=== PATIENT | male | born 1945 | race Caucasian/White ===

== ENCOUNTER 2017-09-21 16:34 | Inpatient (IN) | payer MEDICARE, OTHER ==
[2017-09-21] MEDS ORDERED: Albuterol Sulfate 2.5 mg/3 ml Neb ONE (16:44)
[2017-09-21] MEDS ORDERED: Azithromycin 500 MG VIAL ONE (16:56)
[2017-09-21 17:08] LABS: Sodium 132 mmol/L (135-148)
[2017-09-21 17:09] LABS: Modified Allen's Test NOT DONE; PIP 12 cmH2O; Vent NO
[2017-09-21 17:10] LABS: Mode MASK BIPAP
[2017-09-21 17:19] LABS: #Basophils 0.1 thou/uL (0.0-0.2); #Eosinphils 0.4 thou/uL (0.0-0.7); #Lymphocytes 1.8 thou/uL (1.20-3.40); #Monocytes 1.7 thou/uL (0.11-0.59); #Neutrophils 11.5 thou/uL (1.40-6.50); %Basophils 0.4 % (0.0-1.0); %Eosinophils 2.3 % (0.0-10.0); %Lymphocytes 11.9 % (21.0-51.0); %Monocytes 11.2 % (0.0-10.0); Hematocrit 41.9 % (42.0-52.0); Mean Platelet Volume 7.5 fL (7.4-10.4); Red Blood Cell (RBC) Count 4.56 mill/uL (4.70-6.10); White Blood Cell (WBC) Count 15.4 thou/uL (4.8-10.8)
[2017-09-21 17:27] LABS: PTT 29.8 SEC (22.9-36.1)
[2017-09-21 17:31] LABS: Lactic Acid - Sepsis 0.9 mmol/L (0.5-2.2)
[2017-09-21 17:34] LABS: ALT (SGPT) 20 U/L (8-55); AST (SGOT) 14 U/L (5-34); Alkaline Phosphatase 64 U/L (40-150); Anion Gap 16 mmol/L (10-20); BUN (Urea Nitrogen) 11 mg/dL (8.4-25.7); Bilirubin, Total 0.5 mg/dL (0.2-1.2); CK (CPK) 40 U/L (30-200); Calc. Creatinine Clearance 0 mL/min (70-130); Calcium 9.2 mg/dL (7.8-10.44); Carbon Dioxide 24 mmol/L (23-31); Chloride 95 mmol/L (98-107); Estimated GFR-MDRD Greater than 90; Globulin 2.4 g/dL (2.4-3.5); Lipase 9 U/L (8-78); Protein, Total 6.4 g/dL (5.8-8.1)
[2017-09-21 17:38] LABS: Troponin I Less than 0.010 ng/mL (< 0.028)
--- NOTE | 2017-09-21 17:38 | RAD ---
CHEST ONE VIEW 09/21/17 HISTORY: Dyspnea. COMPARISON: Chest one view 06/03/17. FINDINGS: The lungs are hyperinflated suggesting obstructive pulmonary disease. Right lower lobe granuloma is present. The cardiac silhouette and mediastinal contours are similar. IMPRESSION: COPD. No evidence of pneumonia. POS: [facility]
[2017-09-21 18:55] LABS: Bilirubin Negative (Negative); Blood, Urine Trace (Negative); Glucose, Urine (Dipstick) Negative (Negative); Ketone, Urine 15 mg/dL (Negative); Nitrite Negative (Negative); Protein, Urine (Dipstick) Trace mg/dL (Neg-Trace); Urobilinogen 0.2 mg/dL (0.2-1.0)
[2017-09-21 18:57] LABS: Bacteria/HPF None Seen HPF (None Seen); Hyaline Casts/LPF 7-10 HYALINE CAST LPF (0-3 Hyaline); Squamous Epithelial 0-3 HPF (0-3)
[2017-09-21] MEDS ORDERED: Acetaminophen 325 MG TAB PO PRN (19:31)
[2017-09-21] MEDS ORDERED: Ondansetron ODT 4 MG TAB PO PRN (19:31)
[2017-09-21] MEDS: Famotidine 20 MG TAB PO SCH (19:52)
[2017-09-21] MEDS: guaiFENesin 200 MG TAB PO SCH (19:52)
[2017-09-21] MEDS: cefTRIAXone\\ROCEPHIN 1 GM, Syringe 0.4 ML in Sterile Water 9.6 ML IVPB SCH (19:54)
[2017-09-21 20:20] VITALS: BMI 21.4
[2017-09-21] MEDS: Albuterol Sulfate 2.5 mg/3 ml Neb NEB SCH ×3 (22:09→22:14)
--- NOTE | 2017-09-21 23:56 | HP ---
DATE OF ADMISSION: 09/21/2017 PRIMARY CARE PHYSICIAN: Dr. Pulido. CHIEF COMPLAINT: Severe shortness of breath. HISTORY OF PRESENT ILLNESS: This is a 72-year-old male with past medical history of COPD, who presented to the emergency room with several days of shortness of breath, cough, and wheezing. He had been attempting to treat at home with his normal COPD medications as well as nebulized DuoNe b. However, he was worsening. In the ER, he has been placed on BiPAP, given albuterol nebulizer an d azithromycin. He does report feeling better since he got here, he still requires BiPAP. His bloo d gas reveals normal pH with elevated CO2 and elevated O2 and bicarbonate. ALLERGIES: No known drug allergies. MEDICATIONS: 1. DuoNeb p.r.n. 2. Symbicort 160/4.5 mg 2 puffs inhaled b.i.d. 3. Ventolin HFA 2 sprays q.4-6 hours p.r.n. for shortness of breath and cough. 4. Prednisone 10 mg p.o. every other day. 5. Spiriva 18 mcg 1 inhalation daily. 6. Omeprazole 40 mg p.o. q. day. 7. Guaifenesin 400 mg 1 tab b.i.d. p.r.n. for cough. 8. Home oxygen at 2 liters. PAST MEDICAL HISTORY: 1. Chronic obstructive pulmonary disease exacerbation. 2. Home oxygen use. PAST SURGICAL HISTORY: 1. Appendectomy. 2. Hernia repair. 3. Tonsils and adenoids. 4. Colon perforation repair. SOCIAL HISTORY: Admits to being a former smoker. Reports one beer a day. Denies illicit drugs. REVIEW OF SYSTEMS: General: Denies fever, chills, weight change, appetite change. HEENT: Denies headache, vision changes, sore throat, dysphagia. Skin: Denies rashes or lesions. Cardiovascular: Denies chest pain, palpitations. Respiratory: Reports shortness of breath and cough. Gastrointe stinal: Denies nausea, vomiting, abdominal pain, and diarrhea. Genitourinary: Denies dysuria, hem aturia, and discharge. Musculoskeletal: Denies joint stiffness and swelling. Neurologic: Denies numbness, dizziness, and syncope. PHYSICAL EXAMINATION: VITAL SIGNS: Blood pressure 125/91, pulse 88, respirations 16, temperature 98.3, oxygen saturation 98% on BiPAP. GENERAL: Alert and oriented x3, in no acute distress. SKIN: No rashes or lesions. HEENT: Normocephalic. Pupils are equally round and reactive to light. Extraocular muscles are int act. Moist mucous membranes with nonerythematous throat. HEART: Regular rate and rhythm, no murmurs. LUNGS: Coarse breath sounds. No rales. ABDOMEN: Nontender, nondistended. Bowel sounds heard throughout. MUSCULOSKELETAL: Normal strength and range of motion. NEUROLOGIC: Cranial nerves II-XII intact. Sensation within normal limits. LABORATORY AND X-RAY FINDINGS: White blood cell count 15.4, hemoglobin 13.9, hematocrit 41.9, MCV 9 1.8, platelets 423, neutrophils 74%. Blood gas pH 7.36, CO2 of 53.2, O2 169.6, bicarbonate 29.4, base excess 2.9. Sodium 131, potassium 4.3, chloride 95, carbon dioxide 24, BUN 11, creatinine 0.78, glucose 89, lact ic acid 0.9, calcium 9.2, total bilirubin 0.5, AST 14, ALT 20, alkaline phosphatase 64, total protei n 64, albumin 4.0, lipase 9. CK 40, CK-MB 2.6, troponin less than 0.010. Chest x-ray shows evidence of COPD. No infiltrates. EKG shows sinus rhythm with a first degree AV block, no ST or T-wave changes. ASSESSMENT AND PLAN: 1. Chronic obstructive pulmonary disease exacerbation. Admit to CU. We will give antibiotics, I V steroids and DuoNeb treatments as well as keep on BiPAP for the time being. We will consult Pulmo nology. His physical therapy asst that he sees in the outpatient setting is Dr. Posada. 2. Hyponatremia. We will give IV fluids to treat, this is mild at this time.
[2017-09-22 04:40] LABS: #Eosinphils 0.1 thou/uL (0.0-0.7); #Lymphocytes 0.6 thou/uL (1.20-3.40); #Monocytes 0.2 thou/uL (0.11-0.59); #Neutrophils 9.8 thou/uL (1.40-6.50); %Basophils 0.1 % (0.0-1.0); %Eosinophils 1.1 % (0.0-10.0); %Lymphocytes 5.2 % (21.0-51.0); %Monocytes 1.4 % (0.0-10.0); Hematocrit 40.4 % (42.0-52.0); Mean Platelet Volume 7.9 fL (7.4-10.4); Red Blood Cell (RBC) Count 4.36 mill/uL (4.70-6.10); White Blood Cell (WBC) Count 10.6 thou/uL (4.8-10.8)
[2017-09-22 04:50] LABS: Anion Gap 16 mmol/L (10-20); BUN (Urea Nitrogen) 11 mg/dL (8.4-25.7); Calc. Creatinine Clearance 84 mL/min (70-130); Calcium 8.8 mg/dL (7.8-10.44); Carbon Dioxide 24 mmol/L (23-31); Chloride 99 mmol/L (98-107); Estimated GFR-MDRD Greater than 90
--- NOTE | 2017-09-22 08:19 | CON ---
DATE OF CONSULTATION: 09/22/2017 REASON FOR CONSULTATION: Chronic obstructive pulmonary disease exacerbation. HISTORY OF PRESENT ILLNESS: This is a 72-year-old male. He is a patient of my partner, Dr. Posada. He came in yesterday with a several day history of increasing shortness of breath, cough, and wheezi ng. His breathing has gotten so bad that he has recently been put on a Trilogy ventilator at home. He is only able to tolerate that for an hour or two a day, because he says it dries his mouth out. Yesterday, he required institution of BiPAP therapy for COPD exacerbation. He feels a little better this morning and wants breakfast. PAST MEDICAL HISTORY: Severe chronic obstructive pulmonary disease. PAST SURGICAL HISTORY: 1. Appendectomy. 2. Hernia repair. 3. Tonsillectomy and adenoidectomy. 4. Colon perforation repair. ALLERGIES: None. MEDICATIONS: DuoNeb, Symbicort, Ventolin, prednisone 10 mg every other day, Spiriva, omeprazole, gu aifenesin. SOCIAL HISTORY: Former smoker, drinks 1 beer a day. Does not use any illicit drugs. REVIEW OF SYSTEMS: Denies fever, chills, nausea, vomiting, hematemesis, melena, hematochezia, hemat uria, or dysuria. PHYSICAL EXAMINATION: VITAL SIGNS: Temperature 98.4, pulse 77, blood pressure 114/70, O2 sat 97%. GENERAL: He is awake and alert. I was able take his BiPAP off this morning. HEENT: Unremarkable. NECK: No adenopathy or JVD. LUNGS: He has bilateral mild end expiratory wheezing. CARDIOVASCULAR: S1, S2 regular, without murmur. ABDOMEN: Soft, nontender, nondistended. EXTREMITIES: No clubbing, cyanosis, or edema. NEUROLOGIC: Nonfocal. SKIN: Nonfocal. LABORATORY DATA: White blood cell count 10.6, hematocrit 40.4, platelet count 404. Sodium 134, pot assium 4.6, chloride 99, CO2 24, BUN 11, creatinine 0.7, glucose 120. ASSESSMENT: Chronic obstructive pulmonary disease with exacerbation. PLAN: 1. Try off BiPAP therapy and see if he tolerates. 2. Continue steroids and nebulization therapy. 3. Continue antibiotics.
[2017-09-22] MEDS: Famotidine 20 MG TAB PO SCH ×2 (08:36→20:10)
[2017-09-22] MEDS: guaiFENesin 200 MG TAB PO SCH ×2 (08:36→20:10)
[2017-09-22] MEDS ORDERED: Spiriva 18 MCG CAP (Box of 5 Caps) INH SCH (09:00)
[2017-09-22] MEDS: Mometasone/Formoterol 120 PUFF INHALER INH SCH ×2 (11:04→18:38)
--- NOTE | 2017-09-22 16:16 | PRG ---
DATE OF SERVICE: 09/22/2017 HISTORY OF PRESENT ILLNESS: The patient remains short of breath. He attempted to remove BiPAP this a.m. for breakfast and had to be replaced back on it. Nursing staff plans to attempt to wean the p atient off later today as well. Per Dr. Byers's recommendations, he slept more comfortably last n ight while on BiPAP. Has no new complaints. Had been using Mucinex and albuterol treatments for in creased phlegm production prior to admission. The patient has had decreased appetite for approximat juan francisco last week or so. I spoke with at bedside. All questions were answered at that time. PHYSICAL EXAMINATION: VITAL SIGNS: Temperature this a.m. of 97.7, pulse of 73, respiratory rate of 17, oxygen saturation 96% on 40% FIO2 on BiPAP, and blood pressure of 110/68. GENERAL: The patient is alert and oriented, in mild respiratory distress, while speaking with BiPAP in place on face. NECK: Supple and nontender. HEENT: Normocephalic and atraumatic. Extraocular movements are intact. Sclerae are white. HEART: Regular rate and rhythm. No murmurs auscultated. CHEST: Full phase expiratory wheezes, bilateral lower bases and upper left lung haines. ABDOMEN: Soft and nontender, positive bowel sounds throughout. EXTREMITIES: Lower extremities without cyanosis or edema. NEUROLOGIC: The patient is alert and oriented x3, no focal deficits. Speech is normal. LABORATORY DATA: White blood cell count trended from 15.4 down to 10.6, hemoglobin at 12.8, and corrie telet count of 404. ABG showed CO2 at 53.2. Chemistry this morning 134 Sodium, potassium of 4.6, c hloride of 99, CO2 of 24, BUN of 11, creatinine 0.72, blood glucose of 120, calcium of 8.8, troponin of less than 0.01. Blood cultures negative at 1 day. Chest x-ray without any acute cardiopulmonar y events. No infiltrates seen on admission. ASSESSMENT AND PLAN: 1. Chronic obstructive pulmonary disease exacerbation. Continuing IV antibiotics, Rocephin and tl thromycin, IV steroids, Solu-Medrol 40 mg q.8 hours at this point, continued breathing treatments, P ulmonology increase and q.4 hours DuoNebs scheduled. The patient was transferred from home [facility] to do an inpatient at this point in time. We will continue acute on chronic respirato ry failure with hypercapnia. Continue BiPAP and wean as tolerated. Follow up per Pulmonology's rec ommendations. 2. Leukocytosis, following up blood culture at this point in time, currently negative. No signs of infection. Continuing antibiotics as above. 3. Prophylaxis, currently with SCDs secondary no intubation, no GI prophylaxis at this point in marietta e. We will treat symptomatically as needed with increase in steroids.
[2017-09-22] MEDS ORDERED: Azithromycin 500 MG in Sodium Chloride 0.9% 250 ML 250 ML IVPB SCH (17:00)
[2017-09-22] MEDS: cefTRIAXone\\ROCEPHIN 1 GM, Syringe 0.4 ML in Sterile Water 9.6 ML IVPB SCH (20:09)
[2017-09-23 04:49] LABS: Anion Gap 14 mmol/L (10-20); BUN (Urea Nitrogen) 18 mg/dL (8.4-25.7); Calc. Creatinine Clearance 89 mL/min (70-130); Calcium 9.2 mg/dL (7.8-10.44); Carbon Dioxide 27 mmol/L (23-31); Chloride 98 mmol/L (98-107); Estimated GFR-MDRD Greater than 90
[2017-09-23 05:09] LABS: Band 15 % (5-11); Hematocrit 38.4 % (42.0-52.0); Mean Platelet Volume 7.8 fL (7.4-10.4); Metamyelocyte 2 % (0-0); Neutrophil 75 % (42-75); Red Blood Cell (RBC) Count 4.12 mill/uL (4.70-6.10); White Blood Cell (WBC) Count 24.7 thou/uL (4.8-10.8)
[2017-09-23] MEDS: Mometasone/Formoterol 120 PUFF INHALER INH SCH ×2 (07:16→18:13)
--- NOTE | 2017-09-23 09:01 | PRG ---
DATE OF SERVICE: 09/23/2017 He was admitted over the weekend with difficulty breathing. He says he has got noninvasive ventilat ion nighttime to which he says he is having significant dryness issues. His humidifier is attached to it. This morning he is better. PHYSICAL EXAMINATION: VITAL SIGNS: Blood pressure 129/80, sats are 95% on 2 liters. His pulse 80, temperature 99. CHEST: Chest reveals decreased breath sounds, no wheezing. CARDIAC: Normal S1, S2. ABDOMEN: Soft, no masses. LABORATORY DATA: White count 24,000, H\T\H 12 and 38, platelet count normal. Electrolytes are norm al. X-ray shows no obvious infiltrates. IMPRESSION: 1. Chronic obstructive pulmonary disease exacerbation. 2. Bronchitis. 3. Bronchiectasis. PLAN: Continue neb treatments, supportive care. He will be transferred out of the ICU.
--- NOTE | 2017-09-23 09:04 | PRG ---
DATE OF SERVICE: 09/23/2017 SUBJECTIVE: This is a 72-year-old white male admitted 2 days prior with respiratory failure and corrie keshav on antibiotics and BiPAP. He has improved each day. This morning he is doing much better than I have seen him previously. He is talking in sentences, but still has respiratory difficulties. OBJECTIVE: VITAL SIGNS: Temperature 98.1, pulse 70, respirations 21, pulse ox 98 on 2 liters O2, blood pressur e 119/64. GENERAL: Moderate respiratory distress. HEART: Regular rate and rhythm. LUNGS: With bilateral expiratory wheezes and rhonchi, but is moving air. ABDOMEN: Soft. EXTREMITIES: With no edema. LABORATORY: White count 24.7, H\T\H 12 and 38, platelet of 417. Sodium 135, improving from 131, CO 2 is 27, creatinine 0.68, BUN 18, blood sugar 108. Blood cultures negative. Initial chest x-ray negative. ASSESSMENT: 1. Chronic obstructive pulmonary disease exacerbation, slowly improving. He is doing much better t ceballos his previous hospital admission. Presently on Zithromax and Rocephin. He is also receiving Kylie u-Medrol 40 IV q.8 h as well as Symbicort and DuoNeb treatments. 2. Hyponatremia, slowly improving. 3. Leukocytosis, probably reactive. PLAN: Move to telemetry and possibly discharge in the next 1-2 days.
[2017-09-23] MEDS: Sulfameth/Trimethoprim DS 800-160mg TAB PO SCH ×2 (09:31→20:44)
[2017-09-23] MEDS: guaiFENesin 200 MG TAB PO SCH (09:31)
[2017-09-23] MEDS: Famotidine 20 MG TAB PO SCH ×2 (09:32→20:44)
[2017-09-23] MEDS ORDERED: ALPRAZolam 0.25 MG TAB PO PRN (13:34)
[2017-09-23] MEDS: guaiFENesin ER 600 MG TAB PO SCH (20:44)
[2017-09-23] MEDS: cefTRIAXone\\ROCEPHIN 1 GM, Syringe 0.4 ML in Sterile Water 9.6 ML IVPB SCH (20:44)
[2017-09-24 04:54] LABS: #Lymphocytes 0.4 thou/uL (1.20-3.40); #Monocytes 1.1 thou/uL (0.11-0.59); #Neutrophils 20.1 thou/uL (1.40-6.50); %Basophils 0.1 % (0.0-1.0); %Eosinophils 0.2 % (0.0-10.0); %Monocytes 4.8 % (0.0-10.0); Hematocrit 37.5 % (42.0-52.0); Mean Platelet Volume 7.7 fL (7.4-10.4); Red Blood Cell (RBC) Count 4.03 mill/uL (4.70-6.10); White Blood Cell (WBC) Count 21.6 thou/uL (4.8-10.8)
[2017-09-24 05:19] LABS: Anion Gap 10 mmol/L (10-20); BUN (Urea Nitrogen) 21 mg/dL (8.4-25.7); Calc. Creatinine Clearance 89 mL/min (70-130); Calcium 9.3 mg/dL (7.8-10.44); Carbon Dioxide 31 mmol/L (23-31); Chloride 97 mmol/L (98-107); Estimated GFR-MDRD Greater than 90
[2017-09-24] MEDS: Mometasone/Formoterol 120 PUFF INHALER INH SCH (06:35)
[2017-09-24] MEDS: Famotidine 20 MG TAB PO SCH (09:50)
--- NOTE | 2017-09-24 10:31 | PRG ---
DATE OF SERVICE: 09/24/2017 This morning he is awake, alert, responsive. He said he is eager to go home. PHYSICAL EXAMINATION: VITAL SIGNS: Blood pressure 120/63, sats are 96% on 2 liters, temperature 97, pulse 73. CHEST: Chest revealed decreased breath sounds, occasional wheeze. CARDIAC: Normal S1-S2. ABDOMEN: Soft, no masses. LABORATORY: White count 21,000, H\T\H 12 and 37, platelet count 407. Electrolytes are normal. IMPRESSION: 1. Chronic obstructive pulmonary disease exacerbation. 2. Bronchitis. PLAN: He can be discharged home on oral prednisone, oral antibiotics. Follow up in the office in 2 weeks.
--- NOTE | 2017-09-24 10:55 | PRG ---
DATE OF SERVICE: 09/24/2017 at 8:00 a.m. SUBJECTIVE: The patient is doing well at the moment. He is not quite at baseline. He is breathing much easier than yesterday. OBJECTIVE: VITAL SIGNS: Temperature 97.4, pulse 85, respirations 24, pulse ox 99 on 2 liters O2. HEENT: Clear. HEART: Regular rate and rhythm. LUNGS: Still tight with expiratory wheezing, limited breath sounds. ABDOMEN: Soft. EXTREMITIES: No edema. LABORATORY AND X-RAY FINDINGS: White count down to 21.6, H\T\H 12 and 37, platelets 407, sodium 134 , potassium 4.3, creatinine 0.68, BUN 21. ASSESSMENT: 1. Chronic obstructive pulmonary disease exacerbation. 2. Bronchitis. 3. Bronchiectasis. 4. Long tobacco history. 5. Hyponatremia secondary to chronic obstructive pulmonary disease and lung disease. 6. Leukocytosis, improving. PLAN: 1. I had a long discussion about the DNR. Patient has not made up his mind. He is unsure about th e ventilator, but for right now he is requesting ventilators assistance if he goes into respiratory failure. He is aware that if he does go into respiratory failure a ventilator will be utilized. He is also aware that if he goes on the ventilator, he probably will not come off of the ventilator. He plans to make a final decision in the next 1-2 days. 2. Continue all breathing treatments and steroids. 3. Prognosis is poor.
[2017-09-24] MEDS: Sulfameth/Trimethoprim DS 800-160mg TAB PO SCH (10:57)
[2017-09-24] MEDS: guaiFENesin ER 600 MG TAB PO SCH (10:59)
[2017-09-24 13:10] VITALS: BP 140/73; TEMP 97.9
[2017-09-24] MEDS ORDERED: Cefdinir 300 MG CAP PO SCH (21:00)
[2017-09-24] MEDS ORDERED: predniSONE 20 MG TAB PO SCH (21:00)
--- NOTE | 2017-09-24 21:03 | DIS ---
DATE OF ADMISSION: 09/21/2017 DATE OF DISCHARGE: 09/24/2017 DISCHARGE DIAGNOSES: 1. Chronic obstructive pulmonary disease exacerbation. 2. Bronchitis. 3. Bronchiectasis. 4. Long tobacco history. 5. Hyponatremia secondary to chronic obstructive pulmonary disease and lung disease. 6. Leukocytosis, improving. BRIEF HISTORY: This is a 72-year-old white male with a long history of tobacco use and COPD, presen cadence to the emergency room with shortness of breath, cough and wheezing. He had been attempting to t reat himself at home without success. However, his shortness of breath became progressively worse. He then presented to the ER where he was admitted. HOSPITAL COURSE: The patient was admitted to the ICU. He was started on BiPAP for 2 days. He impr jake significantly. He was then transferred over to the floor where he continued to improve with hi s antibiotics, breathing treatments, BiPAP and steroids. He is now ready for discharge. His progno sis is very poor. DISCHARGE MEDICATIONS: Include DuoNebs p.r.n., Symbicort 160/4.5 two puffs b.i.d., Ventolin HFA 2 s prays q.4 hours p.r.n., prednisone 10 p.o. every other day, Spiriva 18 mcg 1 inhalation q. day, omep razole 40 q. day, guaifenesin 400 one p.o. b.i.d. and home oxygen at 2 liters.
== END 2017-09-24 15:59 | disposition home or self-care (01) | DRG 190 ==
LOC: ERS 16:34 → CCU 19:12 → 2NO 09-23 17:49
PROVIDERS: ADMIT Family Medicine; ATTEND Family Medicine
PROC: 5A09357 Assistance with Respiratory Ventilation, Less than 24 Consecutive Hours, Continuous Positive Airway Pressure (ICD-10-PCS; principal; 2017-09-21)
PROC: 5A09357 Assistance with Respiratory Ventilation, Less than 24 Consecutive Hours, Continuous Positive Airway Pressure (ICD-10-PCS; 2017-09-23)
PROC: 5A09357 Assistance with Respiratory Ventilation, Less than 24 Consecutive Hours, Continuous Positive Airway Pressure (ICD-10-PCS; 2017-09-24)
DX: J47.1 Bronchiectasis with (acute) exacerbation (principal); J96.22 Acute and chronic respiratory failure with hypercapnia; Z99.81 Dependence on supplemental oxygen; E87.1 Hypo-osmolality and hyponatremia; Z87.891 Personal history of nicotine dependence
CPT/HCPCS: 36415; 71010; 80048; 80053; 81003; 81015; 82550; 82553; 82805; 83605; 83690; 83880; 84484; 85025; 85610; 85730; 87040; 93005; 94644; 94660; 96365; A4216; J0456; J0696; J2920; J7050; J7611; J7620

== ENCOUNTER 2018-04-28 10:18 | Outpatient (CLI) | payer MEDICARE, OTHER ==
[2018-04-28 10:52] LABS: Estimated GFR-MDRD - POC Greater than 90
[2018-04-28] MEDS ORDERED: ISOVUE-370 76%-LOCM 1 ML ONE (10:58)
== END 2018-04-28 10:19 | disposition home or self-care (01) ==
LOC: BICCT 10:18
PROVIDERS: ATTEND Urology
DX: R31.29 Other microscopic hematuria (principal); N32.3 Diverticulum of bladder; N40.0 Benign prostatic hyperplasia without lower urinary tract symptoms; K76.9 Liver disease, unspecified; N28.9 Disorder of kidney and ureter, unspecified
CPT/HCPCS: 74178; 82565

== ENCOUNTER 2018-07-11 07:04 | Inpatient (IN) | payer MEDICARE, OTHER ==
[2018-07-11] MEDS ORDERED: Midazolam HCl 2 mg/2 ml Vial ONE ×2 (07:16→09:19)
[2018-07-11] MEDS ORDERED: Propofol 1,000 MG/100 ML VIAL IV ONE (07:16)
[2018-07-11 07:41] LABS: Hemoglobin 13.2 g/dL (14.0-18.0); Mean Corpuscular HGB CONC 31.6 g/dL (32.0-36.0); Mean Corpuscular Hemoglobin 29.7 pg (27.0-31.0); Mean Platelet Volume 8.1 fL (7.4-10.4); Platelet Count 414 thou/uL (130-400); RBC Distribution Width 13.1 % (11.5-14.5); Red Blood Cell (RBC) Count 4.46 mill/uL (4.70-6.10); White Blood Cell (WBC) Count 22.2 thou/uL (4.8-10.8)
[2018-07-11 07:49] LABS: ALT (SGPT) 16 U/L (8-55); AST (SGOT) 13 U/L (5-34); Albumin 4.2 g/dL (3.4-4.8); Alkaline Phosphatase 67 U/L (40-150); Anion Gap 13 mmol/L (10-20); BUN (Urea Nitrogen) 13 mg/dL (8.4-25.7); Bilirubin, Total 0.5 mg/dL (0.2-1.2); CK (CPK) 23 U/L (30-200); Calc. Creatinine Clearance 0 mL/min (70-130); Calcium 9.6 mg/dL (7.8-10.44); Carbon Dioxide 31 mmol/L (23-31); Chloride 97 mmol/L (98-107); Estimated GFR-MDRD Greater than 90; Globulin 2.6 g/dL (2.4-3.5); Glucose 217 mg/dL (83-110); Potassium 4.2 mmol/L (3.5-5.1); Protein, Total 6.8 g/dL (5.8-8.1); Sodium 137 mmol/L (136-145)
--- NOTE | 2018-07-11 07:50 | RAD ---
CHEST 1 VIEW: HISTORY: A 72-year-old male, history of post-intubation, respiratory distress. COMPARISON: 09/21/17. FINDINGS: There is a large left-sided pneumothorax primarily involving the lower portion of the chest with some minimal depression of the left hemidiaphragm and some very slight shift of midline to the right. Th is appearance certainly suggests some tension. There are some atelectatic changes in the left lower lobe. Heart size is within normal limits. `The right lung is stable. IMPRESSION: Large left-sided pneumothorax primarily in the lower chest with minimal flattening of the left hemidi aphragm and borderline shift of midline to the right, evidence for some tension. Endotracheal tube i n a somewhat high position with the tip at appropriately theT2-T3 level which should probably be adva nced several centimeters for more optimal positioning. Findings in regards to the endotracheal tube and pneumothorax were discussed with Dr. Das at [facility] 7:40 a.m. CODE CR POS: [facility]
[2018-07-11 07:54] LABS: CKMB 1.6 ng/mL (0-6.6); Troponin I Less than 0.010 ng/mL (< 0.028)
[2018-07-11 07:57] LABS: Band 9 % (5-11); Eosinophils 3 % (0-10); Lymphocytes 14 % (21-51); MDiff Complete? YES; Monocytes 10 % (0-10); Myelocyte 1 % (0-0); Neutrophil 61 % (42-75); RBC Morphology Normal; Reactive Lymphocytes 2 % (0-10)
[2018-07-11] MEDS ORDERED: Albuterol Sulfate 2.5 mg/0.5 ml Neb ONE (08:08)
[2018-07-11 08:31] LABS: CO2 Tension 43.3 mmHg (35.0-45.0); pH, Arterial 7.42 (7.35-7.45)
[2018-07-11 08:32] LABS: Actual Bicarbonate (HCO3a) 27.3 mEq/L (22-28); Base Excess (BEa) 2.5 mEq/L (-2.0 to +3.0); Calcium, Ionized 1.1 mmol/L (1.12-1.30); Carboxyhemoglobin (COHb) 0.4 gm% (0.0-3.0); O2 Tension (PaO2) 55.9 mmHg (> 70.0); Potassium - ABG Lab 3.1 mmol/L (3.70-5.30)
[2018-07-11 08:33] LABS: Analyzer IN Cardio ER; Puncture Site L.R.
[2018-07-11 08:34] LABS: ALV-art Gradient 175.175 (0-20)
[2018-07-11] MEDS ORDERED: Lidocaine 1% (PF) 30 ML VIAL ONE (08:34)
[2018-07-11 08:44] LABS: Bilirubin Negative (Negative); Blood, Urine Small (Negative); Glucose, Urine (Dipstick) Negative (Negative); Leukocyte Negative (Negative); Nitrite Negative (Negative); Protein, Urine (Dipstick) Negative (Neg-Trace); Specific Gravity, Urine 1.025 (1.005-1.030); Urobilinogen 0.2 mg/dL (0.2-1.0)
[2018-07-11 08:47] LABS: Clarity Clear (Clear)
--- NOTE | 2018-07-11 08:49 | RAD ---
RADIOGRAPH CHEST 1 VIEW: Date: 07/11/18. Time: 7:06 a.m. HISTORY: A 72-year-old male with respiratory distress and pneumothorax. COMPARISON: 07/11/18, 6:38 a.m. FINDINGS: This is a supine image. The large left pneumothorax has become larger, with a greater degree of atel ectasis of the left lung. No cardiomediastinal shift from midline. Endotracheal tube has been advan keshav such that its distal tip is now 6 cm superior to the radha. There is a thin, small-caliber plas tic tube overlying the left lung apex. It is uncertain whether or not this is a pleural catheter. T here is hyperlucency of the right lung consistent with COPD. No cardiomegaly. An enteric catheter i s now present in the esophagus, distal tip inferior to the diaphragm and outside of the field of view . IMPRESSION: 1. Large left pneumothorax has increased in size. 2. Advancement of endotracheal tube to midthoracic trachea. 3. Interval placement of enteric catheter through the esophagus, distal tip outside of the field of v iew. 4. Severe emphysema. JN [] POS: [facility]
[2018-07-11 08:58] LABS: Bacteria/HPF Rare-Few HPF (None Seen); RBC/HPF 0-3 HPF (0-3); Squamous Epithelial 0-3 HPF (0-3); WBC/HPF 0-3 HPF (0-3)
[2018-07-11] MEDS ORDERED: fentaNYL Citrate/PF 2,000 MCG in Sodium Chloride 0.9% 60 ML IV SCH ×2 (09:25→10:28)
--- NOTE | 2018-07-11 09:31 | RAD ---
CHEST 1 VIEW: HISTORY: Post chest tube insertion. COMPARISON: Radiograph of same day. FINDINGS: Interval placement of a thoracostomy tube with the tip near the midline. Size decreased left pneumot horax. Reexpansion of pulmonary edema left lower lobe. Subcutaneous emphysema left lung base. IMPRESSION: Mild interval improvement of the left side pneumothorax with indwelling thoracostomy tube. POS: [facility]
[2018-07-11] MEDS ORDERED: DISCONTINUE PREVIOUS NARCOTIC PAIN MEDICATIONS AND BENZODIAZEPINES FS SCH (10:28)
[2018-07-11] MEDS ORDERED: Lorazepam 2 MG/ML VIAL SLOW IVP PRN (10:28)
[2018-07-11] MEDS ORDERED: Fentanyl BOLUS 250 ML IVPB PRN (10:28)
[2018-07-11] MEDS ORDERED: Propofol BOLUS 1,000 MG/100 ML VIAL IV PRN (10:28)
[2018-07-11] MEDS ORDERED: Ventilator Sedation Protocol 1 EACH FS SCH (10:30)
--- NOTE | 2018-07-11 11:02 | CON ---
DATE OF CONSULTATION: 07/11/2018 REQUESTING PHYSICIAN: Dr. Das, [facility], Dr. Posada. CHIEF COMPLAINT: Respiratory distress. HISTORY OF PRESENT ILLNESS: History is obtained from the ER personnel caring for the patient and the patient's family that were at the bedside. Mr. Kruse is a 72-year-old man with severe COPD who is de pendent upon oxygen, steroids and bronchodilators. This morning he became more short of breath which was not relieved by using a rescue inhaler. His breathing got bad enough that he was brought to the emergency room and on presentation, he was in sufficient distress that he was immediately intubated. The patient's COPD is severe enough that breath sounds are very difficult to appreciate at all and on the post-intubation film a large left-sided pneumothorax could be appreciated. He was hemodynamic ally stable, although later on propofol, his blood pressure dropped some responding to fluids and dec reasing the propofol. A needle thoracostomy was performed, achieving an air hanson but there was not m uch additional reexpansion of the lung and I was contacted about chest tube placement. PAST MEDICAL HISTORY: Primarily significant for COPD that Dr. Posada describes as being end-stage. HOME MEDICATIONS: Based on the most recent computerized summary are prednisone, Ventolin rescue inha ler, Spiriva daily, scheduled DuoNeb nebulizers and Symbicort b.i.d. He is on b.i.d., guaifenesin and oxymetazoline and at least had been on a course of Bactrim b.i.d. ALLERGIES: He has no known allergies to food or medicine. TOBACCO: He no longer smokes. REVIEW OF SYSTEMS: As obtained from the patient's daughter is negative for any recent illnesses, judit nge in his cough or change in the quantity or character of sputum production. PHYSICAL EXAMINATION: GENERAL: The patient is sedated and intubated. VITAL SIGNS: Heart rates around 100 and systolic blood pressures in the 90s. He is afebrile. CHEST: He has a small philip in his left upper chest from where the needle catheter had been, but had come out. I am not able to appreciate breath sounds on either side, but there is no obvious asymmetr y to the chest. ABDOMEN: Soft and nontender. EXTREMITIES: He has a faintly palpable right dorsalis pedis pulse. SKIN: His face is a little jake, but his family indicates that it is minimally if any different demarco n his baseline. NECK: He has no obvious JVD or tracheal shift. His chest x-ray shows a near complete collapse of the left lung. ASSESSMENT AND RECOMMENDATIONS: By all accounts the spontaneous pneumothorax leading to respiratory distress in a patient with extremely severe chronic obstructive pulmonary disease. I will plan on pl acing a chest tube.
--- NOTE | 2018-07-11 11:05 | OP ---
DATE OF PROCEDURE: 07/11/2018 PROCEDURES PERFORMED: 36 Tristanian left tube thoracostomy. PREOPERATIVE DIAGNOSIS: Spontaneous left pneumothorax. POSTOPERATIVE DIAGNOSIS: Spontaneous left pneumothorax. SURGEON: Benny Daniels M.D. ANESTHESIA: 1% lidocaine local anesthesia with propofol sedation. INDICATIONS: The patient is a 72-year-old man with severe COPD who had sudden onset of worsening of his breathing that progressed to respiratory distress sufficient to call for immediate intubation upo n arrival at the emergency room. He was found to have a large left-sided pneumothorax on his chest x -ray and a chest tube is now being placed. FINDINGS: Air hanson heard upon entering the chest, near continuous air leak from the chest tube in th e Pleur-evac. NARRATIVE REPORT: After informed consent was obtained from the patient's family, the patient's left chest was prepped and draped in sterile fashion. 1% lidocaine was used to infiltrate the skin and garcía bcutaneous tissue at the nipple line at the level of the xiphoid. The skin was sharply incised and t he subcutaneous tract was developed superiorly and posteriorly paralleling the rib margins. Addition al lidocaine is infiltrated along the superior rib margin and then the needle was aspirated upon as i t was advanced until air bubbles were obtained. It was then slowly withdrawn until no more air was e vacuated and a bolus of lidocaine was infiltrated into the intercostal space. Blunt dissection was t hen used to enter the pleural space and when air hanson was heard a 36 Tristanian chest tube was inserted, secured to the skin with suture and dressed and connected to closed suction drainage. Post-procedure chest x-ray showed near complete reexpansion of the lung.
--- NOTE | 2018-07-11 11:10 | CON ---
DATE OF CONSULTATION: 07/11/2018 HISTORY: Meggan Kruse is a 72-year-old gentleman who is well known to me who has end-stage COPD who f or a period of time was placed home on noninvasive ventilation. He said it was not of much use. He therefore was discontinued. He presented to the hospital this morning with severe respiratory distre ss. He was on CPAP, sats 100%. DuoNeb treatments. He was having chest pain apparently. X-ray shows a large left-sided pneumothorax greater than 50%. He was intubated. He is now in the [facility]. PAST MEDICAL HISTORY: 1. Pertinent for end-stage chronic obstructive pulmonary disease. 2. Major anxiety. 3. Hypertension. MEDICATIONS: [place], Symbicort, DuoNeb, albuterol, prednisone, Spiriva. PAST SURGICAL HISTORY: Tonsils, appendix, hernia. ALLERGIES: None. SOCIAL/FAMILY HISTORY: Otherwise, unremarkable. He is retired. Disabled. TOBACCO/ALCOHOL: Tobacco; former smoker. Alcohol none. REVIEW OF SYSTEMS: Ten point negative. PHYSICAL EXAMINATION: GENERAL: He is intubated on the vent. VITAL SIGNS: Pulse 76, blood pressure 102/53, sats 100%, respiratory rate 16. GENERAL: Awake, alert, responsive. CHEST: Chest revealed decreased breath sounds, no wheezing. CARDIAC: Normal S1, S2, no gallops. ABDOMEN: Soft. No mass. LABORATORY: White count 20,000, H&H 13 and 41, platelet count of 414. His pO2 is 55, pCO2 47.42, on 40%. Her electrolytes are normal. IMPRESSION: 1. Chronic obstructive pulmonary disease exacerbation. 2. Left-sided spontaneous pneumothorax. PLAN: Initiate empiric antibiotics, neb treatments, supportive care. Incidentally, his chest x-ray post-chest tube insertion shows no acute infiltrates. Wean when stable. Steroids, neb treatments, supportive care. Discussed with the family and . 45 minutes critical care time.
[2018-07-11] MEDS: cefTRIAXone\\ROCEPHIN 1 GM in Sodium Chloride 0.9% 100 ML IVPB SCH (11:30)
[2018-07-11] MEDS: Sodium Chloride 0.9% 1,000 ML IV SCH ×2 (11:31→23:00)
[2018-07-11 12:01] LABS: Lactic Acid 1.6 mmol/L (0.5-2.2)
[2018-07-11] MEDS: Propofol 1,000 MG/100 ML VIAL IV PRN (14:03)
--- NOTE | 2018-07-11 14:17 | HP ---
HISTORY OF PRESENT ILLNESS: This is a 72-year-old white male with a history of end-stage severe COPD with a 50-year plus tobacco history, who was doing relatively well until 6:45 a.m. this morning. He went out to get the newspaper, which tends to be a struggle for the patient. He returned into the h ouse and immediately had sudden onset of shortness of breath. His then called EMS. He presente d to the emergency room where they discovered to have a 50% left-sided pneumothorax. Chest tube was placed and the patient was intubated and he is now stable in the ICU. PAST MEDICAL HISTORY: Include COPD, tobacco, and alcohol abuse. The patient is DNR. PAST SURGICAL HISTORY: Include appendectomy, tonsillectomy, right hernia repair, cardiac catheteriza tion in 1980, history of colon perforation in 09/2008, TURP in 11/[address] Reynolds, and I&D right f orearm in 02/2018. FAMILY HISTORY: Father with heart disease and emphysema. Mother . Sibling with heart disea se and lymphoma. SOCIAL HISTORY: He lives with his . She recently just had a major stroke. However, she is ana vering at this time. However, she is not back to her baseline. She has some personality changes. Marques webster do have several children. He no longer smokes, but he does have a 50-year tobacco history. He i s a retired [employer]. MEDICATIONS: Include DuoNeb neb treatments p.r.n., Spiriva daily, guaifenesin 400 b.i.d., home O2 at 2 liters nasal cannula, prednisone 10 mg every other day, and Symbicort 160/4.5 two puffs b.i.d. ALLERGIES: None. REVIEW OF SYSTEMS: As above. PHYSICAL EXAMINATION: VITAL SIGNS: Afebrile, blood pressure 99/55, heart rate 76, respirations 21, and O2 sat 96% on the v entilator. GENERAL: No acute distress at this time. HEENT: Clear. HEART: Regular rate and rhythm. LUNGS: Left-sided pleuritic rub noted. Right side with shallow breath sounds. ABDOMEN: Soft, nontender. EXTREMITIES: No edema. LABORATORY AND X-RAY FINDINGS: White count 22.2, H&H 13 and 41. Electrolytes normal. Creatinine 0. 79, BUN 13, blood sugar 217. Liver function tests normal. Last chest x-ray shows interval improveme nt of the left-sided pneumothorax with chest tube in place. ASSESSMENT: 1. Left-sided pneumothorax status post chest tube placement. 2. Acute respiratory failure on the ventilator, stable at this time. 3. Severe end-stage chronic obstructive pulmonary disease. 4. Do not resuscitate. PLAN: 1. Continue to monitor in the ICU. 2. Maintain the ventilator, most likely overnight. 3. Hopefully, can discontinue the chest tube in the a.m. 4. We will continue to follow.
[2018-07-11] MEDS: Famotidine/PF 20 mg/2ml Vial SLOW IVP SCH (21:22)
[2018-07-12] MEDS: Propofol 1,000 MG/100 ML VIAL IV PRN (03:37)
[2018-07-12 04:57] LABS: #Eosinphils 0.1 thou/uL (0.0-0.7); #Lymphocytes 0.7 thou/uL (1.20-3.40); #Monocytes 2.6 thou/uL (0.11-0.59); #Neutrophils 16.4 thou/uL (1.40-6.50); %Eosinophils 0.3 % (0.0-10.0); %Lymphocytes 3.7 % (21.0-51.0); %Neutrophils 82.9 % (42.0-75.0); Hemoglobin 11.8 g/dL (14.0-18.0); Mean Corpuscular HGB CONC 32.5 g/dL (32.0-36.0); Mean Corpuscular Hemoglobin 30.2 pg (27.0-31.0); Mean Corpuscular Volume 92.7 fL (78.0-98.0); Mean Platelet Volume 7.8 fL (7.4-10.4); Platelet Count 335 thou/uL (130-400); RBC Distribution Width 13.2 % (11.5-14.5); Red Blood Cell (RBC) Count 3.92 mill/uL (4.70-6.10); White Blood Cell (WBC) Count 19.8 thou/uL (4.8-10.8)
[2018-07-12 05:10] LABS: Anion Gap 10 mmol/L (10-20); BUN (Urea Nitrogen) 19 mg/dL (8.4-25.7); Calc. Creatinine Clearance 104 mL/min (70-130); Calcium 8.6 mg/dL (7.8-10.44); Carbon Dioxide 28 mmol/L (23-31); Chloride 103 mmol/L (98-107); Estimated GFR-MDRD Greater than 90; Glucose 90 mg/dL (83-110); Potassium 4.7 mmol/L (3.5-5.1); Sodium 136 mmol/L (136-145)
[2018-07-12] MEDS: Sodium Chloride 0.9% 1,000 ML IV SCH ×4 (06:12→20:48)
[2018-07-12 06:57] LABS: CO2 Tension 60.2 mmHg (35.0-45.0); O2 Tension (PaO2) 57.8 mmHg (> 70.0); pH, Arterial 7.31 (7.35-7.45)
[2018-07-12 06:58] LABS: Actual Bicarbonate (HCO3a) 29.7 mEq/L (22-28); Base Excess (BEa) 2.1 mEq/L (-2.0 to +3.0); Calcium, Ionized 1.2 mmol/L (1.12-1.30); Carboxyhemoglobin (COHb) 0.9 gm% (0.0-3.0); Hemoglobin (Hb) 12.7 g/dL (14.0-18.0); Potassium - ABG Lab 4.3 mmol/L (3.70-5.30); Puncture Site LRA
--- NOTE | 2018-07-12 08:10 | RAD ---
PORTABLE CHEST: HISTORY: PORTABLE CHEST: HISTORY: CCU followup on ventilator. COMPARISON: 07/11/18. FINDINGS: Left-sided chest tube unchanged. ET tube and NG tube remain in place. Mild subcutaneous emphysema o n the left. No evidence of significant pneumothorax. No evidence of focal infiltrate oar atelectasi s. IMPRESSION: No evidence of acute interval change. POS: [facility]
[2018-07-12] MEDS ORDERED: DC Sedation Protocol FS ONE (08:17)
[2018-07-12] MEDS: Famotidine/PF 20 mg/2ml Vial SLOW IVP SCH ×2 (09:17→20:46)
[2018-07-12] MEDS: Enoxaparin Sodium 40 MG/0.4 ML SYRINGE SC SCH (09:17)
[2018-07-12] MEDS: cefTRIAXone\\ROCEPHIN 1 GM in Sodium Chloride 0.9% 100 ML IVPB SCH (11:11)
--- NOTE | 2018-07-12 13:10 | RAD ---
PORTABLE CHEST: HISTORY: Chest tube. COMPARISON: Comparison is made to a film earlier this morning. FINDINGS: There is increasing subcutaneous emphysema over the left chest when compared to the earlier film. Th e left chest tube remains unchanged. There is mild atelectasis in the left lung base. No evidence o f significant pneumothorax identified. Right lung remains clear and unchanged. IMPRESSION: Increasing left chest subcutaneous emphysema and left basilar atelectasis when compared to earlier fi lm. POS: [facility]
[2018-07-12] MEDS: Mometasone/Formoterol 120 PUFF INHALER INH SCH (18:44)
--- NOTE | 2018-07-12 22:39 | PRG ---
DATE OF SERVICE: 07/12/2018 HISTORY OF PRESENT ILLNESS: The patient successfully underwent extubation this morning, still has le ft-sided chest tube in place. Per nursing staff reported upon turning the patient ICU protocol to pr event decubitus ulcers, chest tube as a tendency to keep and has small air leak which has caused some subcutaneous emphysema; however, with proper taping and repositioning the patient, I will keep this in check. The patient has been maintained on nasal cannula and has restarted his diet this evening. Daughter is at bedside and answered all of her questions regarding chest tube at the time of exam. LABORATORY WORK: White blood cell count of 19.8, hemoglobin slightly down to 11.8, platelet count of 335. Sodium of 136, potassium of 4.7, chloride 103, BUN 19, creatinine 0.6. Current microbiology o f blood and urine cultures are negative. PHYSICAL EXAMINATION: VITAL SIGNS: Temperature of 98.4, heart rate of 94, blood pressure 138/70, respiratory rate of 26. GENERAL: The patient is alert, oriented, in mild respiratory distress. HEENT: Normocephalic, atraumatic. Extraocular movements are intact. Sclerae are clear. Nasal reilly renetta in place. Oral mucosa is moist. NECK: Supple. HEART: Mildly tachycardic, but no murmurs auscultated and no irregular beats. LUNGS: With coarse breath sounds bilaterally. Left chest tube intact with subcutaneous emphysema wi th surrounding several centimeters of chest tube. ABDOMEN: Somewhat firm, but not formally distended. Positive bowel sounds. EXTREMITIES: Lower extremities without cyanosis or edema. SCDs are in place. The patient is able t o move all extremities on command. ASSESSMENT AND PLAN: Chronic obstructive pulmonary disease with ruptured lung, status post chest tub e placement for pneumothoraces. Deep venous thrombosis prophylaxis with Lovenox. Prophylaxis with i ntravenous Pepcid. DuoNebs, Solu-Medrol, Dulera for chronic obstructive pulmonary disease maintenanc e. Intravenous fluids for support until patient is tolerating adequate diet and fluid intake. Miguel ntly, he had 100 mL NS per hour. Rocephin for chronic obstructive pulmonary disease exacerbation pro tocol. No formal signs of pneumonia or sepsis on cultures at this point in time. We will continue t o follow along while patient is in ICU. We will forward approach when patient is discharged to floor . Continue to follow patient's progress with his chest tube over the next several days. We will tur n back over to Dr. Mckinney on Saturday.
[2018-07-13 05:29] LABS: Anion Gap 16 mmol/L (10-20); BUN (Urea Nitrogen) 20 mg/dL (8.4-25.7); Calc. Creatinine Clearance 101 mL/min (70-130); Calcium 8.9 mg/dL (7.8-10.44); Carbon Dioxide 22 mmol/L (23-31); Chloride 100 mmol/L (98-107); Estimated GFR-MDRD Greater than 90; Glucose 91 mg/dL (83-110); Potassium 4.4 mmol/L (3.5-5.1); Sodium 134 mmol/L (136-145)
[2018-07-13] MEDS: Sodium Chloride 0.9% 1,000 ML IV SCH (06:01)
[2018-07-13 06:14] LABS: Band 3 % (5-11); Hemoglobin 11.6 g/dL (14.0-18.0); Lymphocytes 3 % (21-51); MDiff Complete? YES; Mean Corpuscular Hemoglobin 29.4 pg (27.0-31.0); Mean Corpuscular Volume 91.8 fL (78.0-98.0); Mean Platelet Volume 7.9 fL (7.4-10.4); Monocytes 1 % (0-10); Neutrophil 93 % (42-75); PLT Morphology Comment Appears Adequate; Platelet Count 331 thou/uL (130-400); RBC Distribution Width 13.1 % (11.5-14.5); RBC Morphology Normal; Red Blood Cell (RBC) Count 3.96 mill/uL (4.70-6.10); White Blood Cell (WBC) Count 21.2 thou/uL (4.8-10.8)
[2018-07-13] MEDS: Mometasone/Formoterol 120 PUFF INHALER INH SCH ×2 (07:06→18:29)
--- NOTE | 2018-07-13 09:25 | RAD ---
PORTABLE CHEST: INDICATION: CCU patient, daily followup. COMPARISON: 07/12/18. FINDINGS: Left chest tube is unchanged in position. Extensive left subcutaneous emphysema again noted. There may be a small left apical pneumothorax which is difficult to delineate. There is mild atelectasis i n the lung bases. No evidence of acute interval change. POS: [facility]
[2018-07-13] MEDS: Enoxaparin Sodium 40 MG/0.4 ML SYRINGE SC SCH (09:30)
--- NOTE | 2018-07-13 09:47 | PRG ---
DATE OF SERVICE: 07/13/2018 SUBJECTIVE: This morning, he is awake, alert and responsive. He is doing much better. He is less s hort of breath. OBJECTIVE: VITAL SIGNS: His sats are 99% on 4 liters, respiration 24, pulse 76, blood pressure 120/59. CHEST: Reveals decreased breath sounds, no wheezing. CARDIAC: Normal S1, S2. No gallops. ABDOMEN: Soft, no masses. LABORATORY DATA: Sodium 134. Electrolytes are normal. White count 21,000. X-RAY FINDINGS: Chest x-ray is still relatively clear. IMPRESSION: 1. Acute on chronic respiratory failure. 2. Spontaneous pneumothorax. 3. End-stage chronic obstructive pulmonary disease. PLAN: Continue present treatment. He can probably be transferred out of the ICU. One-half hour critical care time.
[2018-07-13] MEDS: Doxycycline 100 MG CAP PO SCH ×2 (09:48→22:23)
[2018-07-13] MEDS ORDERED: Docusate 100 MG CAP PO SCH (10:00)
[2018-07-13] MEDS: cefTRIAXone\\ROCEPHIN 1 GM in Sodium Chloride 0.9% 100 ML IVPB SCH (10:41)
--- NOTE | 2018-07-13 10:58 | PRG ---
DATE OF SERVICE: 07/13/2018 SUBJECTIVE: The patient successfully was stabilized regarding his air leak around his left-sided huey st tube yesterday with positional changes, a proper taping and support with BiPAP for a short period of time, transition to Venturi mask and now currently this a.m. is comfortable without distress on na marion cannula. The patient states his last bowel movement was probably last . Denies any form al abdominal pain, has not passed any flatus today, but reports he has not eaten much as well. The p atient has no acute complaints. Nursing staff reports patient is stable. OBJECTIVE: VITAL SIGNS: Respiratory standpoint this morning vital signs include temperature of 98.7, oxygen sat uration 96% on Venturi mask, heart rate of 73, blood pressure 144/68, respiratory rate 22-24. LABORATORY DATA: White blood count 21.2, hemoglobin 11.6, platelet count of 331. Sodium of 134, pot assium of 4.4, chloride 100, CO2 of 22, creatinine of 0.68, glucose of 91. Microbiology remains nega tive to date blood and urine cultures. Chest x-ray this a.m. unchanged position of left chest tube s josé miguel of less subcutaneous emphysema continues to be noted. Small left apical pneumothoraces remains mild atelectasis to the bilateral lung bases. PHYSICAL EXAMINATION: GENERAL: The patient is alert and oriented x3, no focal deficits. Speech is normal. HEENT: Normocephalic, atraumatic. Nasal cannula in place. Oral mucosa is moist. NECK: Supple. HEART: Regular rate and rhythm at time of exam. LUNGS: Minimal coarse breath sounds bilateral bases. No bronchial breath sounds are clear in compar moe to yesterday. Left-sided chest tube in place and to suction waterseal. ABDOMEN: Softer than yesterday; however, remains formally not distended, no tenderness to palpation. Positive bowel sounds throughout. EXTREMITIES: Lower extremities without cyanosis or edema. ASSESSMENT AND PLAN: Chronic obstructive pulmonary disease with pneumothoraces. Continuing antibiot ics, steroids, breathing treatments for chronic obstructive pulmonary disease management. Chest tube manage per Cardiothoracic Surgery and Pulmonary Critical Care. The patient is doing much better fro m a respiratory standpoint today. We will look forward to utilizing some stool softeners to possible laxatives to ensure patient does not have further respiratory distress from distention of the abdome n or any development and a small-bowel obstruction. We will start with stool softeners as to not cau se diarrhea and patient to be mobilized too much regarding continuous placement of a chest tube was d ifficulty yesterday with position changes with extension of subcutaneous emphysema appears to have st opped. Continue to follow the patient from the ICU.
[2018-07-13] MEDS: Docusate 100 MG CAP PO SCH (22:23)
[2018-07-14 05:40] LABS: Anion Gap 13 mmol/L (10-20); BUN (Urea Nitrogen) 18 mg/dL (8.4-25.7); Calc. Creatinine Clearance 107 mL/min (70-130); Calcium 9.2 mg/dL (7.8-10.44); Carbon Dioxide 29 mmol/L (23-31); Chloride 98 mmol/L (98-107); Estimated GFR-MDRD Greater than 90; Glucose 119 mg/dL (83-110); Potassium 4.1 mmol/L (3.5-5.1); Sodium 136 mmol/L (136-145)
[2018-07-14 06:12] LABS: Band 1 % (5-11); Hypochromia SLIGHT = 6-15 cells (100X) (0-5/hpf); Lymphocytes 6 % (21-51); MDiff Complete? YES; Mean Corpuscular HGB CONC 31.8 g/dL (32.0-36.0); Mean Corpuscular Hemoglobin 28.7 pg (27.0-31.0); Mean Corpuscular Volume 90.2 fL (78.0-98.0); Mean Platelet Volume 7.8 fL (7.4-10.4); Monocytes 9 % (0-10); Neutrophil 80 % (42-75); PLT Morphology Comment Appears Adequate; Platelet Count 375 thou/uL (130-400); RBC Distribution Width 13.2 % (11.5-14.5); Reactive Lymphocytes 4 % (0-10); Red Blood Cell (RBC) Count 4.18 mill/uL (4.70-6.10); White Blood Cell (WBC) Count 21.8 thou/uL (4.8-10.8)
[2018-07-14] MEDS: Mometasone/Formoterol 120 PUFF INHALER INH SCH ×2 (07:00→18:52)
--- NOTE | 2018-07-14 07:45 | PRG ---
DATE OF SERVICE: 07/14/2018 This morning he is doing well. He is still having some difficulty breathing. PHYSICAL EXAMINATION: VITAL SIGNS: Sats are 99% on 3 liters, pulse is 100, respiration 23. He is afebrile, blood pressure 144/64. Generalized subcutaneous emphysema. CHEST: Decreased breath sounds, no wheezing. CARDIAC: Normal S1-S2. No gallops. ABDOMEN: Soft. No mass. White count 21,000, H&H 12 and 37, platelet count and electrolytes are normal. X-ray shows no pneumo thorax. IMPRESSION: End-stage chronic obstructive pulmonary disease, status post spontaneous pneumothorax. PLAN: Hopefully, subcutaneous emphysema with decreased over the next several days. Surgery to manip ulate his chest tube. It appears the leak is somewhat better. We will continue observation in the ICU. He is still a DNR. Steroids and nebulizer treatment. One-half hour critical care time.
--- NOTE | 2018-07-14 08:19 | PRG ---
DATE OF SERVICE: 07/12/2018 SUBJECTIVE: This morning, he is awake, alert, responsive on the vent. He was in CPAP, doing well. His tidal volume is spontaneous about 350. OBJECTIVE: VITAL SIGNS: Pulse was 100, blood pressure 118/53, sats are more than adequate . GENERAL: He appears to be in no distress. CHEST: Decreased breath sounds, no wheezing. CARDIAC: Normal S1, S2, no gallops. ABDOMEN: Soft. No masses. LABORATORY: White count is 19,000, H&H 9 and 36, platelet count is normal. PO2 is 57, pCO2 is 60, p H 7.31, rate of 14. Electrolytes are normal. Culture negative. Chest x-ray shows no acute infiltrates. IMPRESSION: 1. Acute on chronic respiratory failure. 2. Chronic obstructive pulmonary disease with spontaneous pneumothorax. PLAN: He will be weaned and extubated, once again he states he wants to be made a DNR. I have discu ssed with patient one more time. If condition gets worse, we may try and get him BiPAP. [id number] critical care time.
--- NOTE | 2018-07-14 08:21 | PRG ---
DATE OF SERVICE: 07/14/2018 SUBJECTIVE: The patient is feeling much better this morning. He is extubated and on nasal cannula. No complaints of chest pain. OBJECTIVE: VITAL SIGNS: Temperature 98.1, pulse 92, blood pressure 146/73, pulse ox 98 on 2 liters O2. HEART: Regular rate and rhythm. LUNGS: With mild coarse breath sounds. No wheezing or rhonchi. EXTREMITIES: Subcutaneous swelling of the extremities and chest and face. ABDOMEN: Soft, nontender. LABORATORY: White count 21.8, H&H 12 and 37, platelets 375. Sodium 136, potassium 4.1, blood sugar 91, 119. Chest x-ray continues to improve. Minimal left apical pneumothorax present. ASSESSMENT: 1. Spontaneous pneumothorax. 2. End-stage chronic obstructive pulmonary disease. 3. Subcutaneous emphysema. 4. Acute respiratory failure on the ventilator, resolved. 5. Do not resuscitate. PLAN: 1. Continue to monitor the subcutaneous emphysema. 2. Hopefully, can wean the chest tube at some point. 3. Continue to follow in the ICU.
--- NOTE | 2018-07-14 09:18 | RAD ---
FRONTAL VIEW CHEST: COMPARISON: Previous day. INDICATION: Ventilated patient, followup. FINDINGS: Diffuse soft tissue emphysema of the chest and neck noted. Minimal left apical pneumothorax is stabl e. Left thoracostomy tube remains in place. The chest otherwise is similar. IMPRESSION: 1. Stable chest. 2. Small, left apical pneumothorax is stable. This is predominantly obscured by the persistent, dif fuse soft tissue emphysema of the chest and neck. POS: [facility]
[2018-07-14] MEDS: Enoxaparin Sodium 40 MG/0.4 ML SYRINGE SC SCH (09:36)
[2018-07-14] MEDS: Doxycycline 100 MG CAP PO SCH ×2 (09:38→20:51)
[2018-07-14] MEDS: Docusate 100 MG CAP PO SCH ×2 (10:56→20:51)
[2018-07-14] MEDS: cefTRIAXone\\ROCEPHIN 1 GM in Sodium Chloride 0.9% 100 ML IVPB SCH (11:01)
[2018-07-15 05:48] LABS: Anion Gap 13 mmol/L (10-20); BUN (Urea Nitrogen) 20 mg/dL (8.4-25.7); Calc. Creatinine Clearance 113 mL/min (70-130); Calcium 9.2 mg/dL (7.8-10.44); Carbon Dioxide 30 mmol/L (23-31); Chloride 99 mmol/L (98-107); Estimated GFR-MDRD Greater than 90; Glucose 120 mg/dL (83-110); Potassium 3.9 mmol/L (3.5-5.1); Sodium 138 mmol/L (136-145)
[2018-07-15] MEDS: Mometasone/Formoterol 120 PUFF INHALER INH SCH ×2 (06:23→19:00)
[2018-07-15 06:34] LABS: Band 12 % (5-11); Hemoglobin 11.7 g/dL (14.0-18.0); Lymphocytes 5 % (21-51); MDiff Complete? YES; Mean Corpuscular HGB CONC 31.8 g/dL (32.0-36.0); Mean Corpuscular Hemoglobin 28.4 pg (27.0-31.0); Mean Corpuscular Volume 89.4 fL (78.0-98.0); Mean Platelet Volume 7.8 fL (7.4-10.4); Monocytes 7 % (0-10); Neutrophil 76 % (42-75); PLT Morphology Comment Appears Adequate; Platelet Count 383 thou/uL (130-400); RBC Distribution Width 13.3 % (11.5-14.5); Red Blood Cell (RBC) Count 4.11 mill/uL (4.70-6.10)
--- NOTE | 2018-07-15 08:33 | RAD ---
AP VIEW OF CHEST: Date: 07/15/18 INDICATION: History of pneumothorax. COMPARISON: Prior exam dated 07/14/18 at 0458 hours. FINDINGS: Small left apical pneumothorax and left-sided thoracostomy tube is unchanged. Subcutaneous emphysema involving the chest wall is similar. Right lung is clear. Cardiomediastinal silhouette is within norm al limits. No acute osseous abnormality is evident. IMPRESSION: 1. Persistent small left apical pneumothorax. 2. Stable left-sided thoracostomy tube. 3. Extensive subcutaneous emphysema, unchanged from comparison. POS: [facility]
--- NOTE | 2018-07-15 08:56 | PRG ---
DATE OF SERVICE: 07/15/2018 SUBJECTIVE: This morning, he is better, he is weak. His x-ray shows no infiltrates. OBJECTIVE: VITAL SIGNS: His pulse is 79, blood pressure 140/70, sats are 95% on 1-1/2 liters, respiration rate 18. HEENT: His throat shows extensive thrush. CHEST: Reveals decreased breath sounds, minimal wheezing. CARDIAC: Normal S1, S2, no gallops. ABDOMEN: Soft, no masses. LABORATORY DATA: White count of 21,000. IMPRESSION: 1. Chronic obstructive pulmonary disease exacerbation. 2. Bronchitis. 3. Left pneumothorax, spontaneous. 4. Thrush. PLAN: Added Diflucan to his present treatment. He can probably be [facility] Continue PT and supportive care. We will follow.
[2018-07-15] MEDS: Fluconazole 100 MG TAB PO SCH (10:40)
[2018-07-15] MEDS: Enoxaparin Sodium 40 MG/0.4 ML SYRINGE SC SCH (10:40)
[2018-07-15] MEDS: Docusate 100 MG CAP PO SCH ×2 (10:40→20:09)
[2018-07-15] MEDS: Doxycycline 100 MG CAP PO SCH ×2 (10:40→20:08)
[2018-07-16] MEDS: Mometasone/Formoterol 120 PUFF INHALER INH SCH ×2 (07:26→19:07)
--- NOTE | 2018-07-16 07:35 | PRG ---
DATE OF SERVICE: 07/16/2018. SUBJECTIVE: This morning, patient states he feels worse. However, he does look the same from yester day. OBJECTIVE: VITAL SIGNS: Temperature 98.1, pulse 69, respirations 20, pulse ox 93 on 2 liters O2, blood pressure 142/71. GENERAL: The patient's face does appear somewhat more swollen and his left upper extremity is more s wollen than yesterday, but not as bad as initially. HEART: Regular rate and rhythm. LUNGS: Decreased breath sounds bilaterally, but no wheezing. ABDOMEN: Soft, nontender. EXTREMITIES: With no edema. ASSESSMENT: 1. Spontaneous pneumothorax with chest tube in place. Chest x-ray appears to be unchanged from yest erday. 2. End-stage chronic obstructive pulmonary disease. 3. Subcutaneous emphysema, slightly worsened yesterday. 4. Acute respiratory failure, resolving. 5. Do not resuscitate. PLAN: 1. Continue to monitor chest tube and hopefully wean soon. 2. Continue to follow.
--- NOTE | 2018-07-16 08:18 | RAD ---
PORTABLE AP CHEST: Date: 07/16/18 HISTORY: Pneumothorax. COMPARISON: 07/15/18. FINDINGS: Large caliber left-sided thoracostomy tube remains in place and unchanged in position. Extensive subc utaneous emphysema is seen about the chest and in the visualized lower neck in a supraclavicular loca tion. While the subcutaneous emphysema limits evaluation for pneumothorax, there does appear to be a persistent tiny left apical pneumothorax. Cardiac silhouette and pulmonary vasculature are within nor mal limits. Chest is overall stable from the prior exam. IMPRESSION: Left-sided thoracostomy tube remains in place with persistent tiny left apical pneumothorax. Extensiv e subcutaneous emphysema remains. POS: [facility]
--- NOTE | 2018-07-16 09:01 | PRG ---
DATE OF SERVICE: 07/16/2018 This morning he has got more subcu air. Every time he gets up out of the bed his tube is being kinke d. PHYSICAL EXAMINATION: VITAL SIGNS: Sats are 96% on 2 liters, respiration 20, temperature 98, blood pressure 140/71. CHEST: Chest reveals decreased breath sounds, no wheezing. CARDIAC: Normal S1, S2. No gallops. ABDOMEN: Soft, no masses. IMPRESSION: 1. End-stage chronic obstructive pulmonary disease. 2. Spontaneous pneumothorax. 3. Thrush. PLAN: Continue antibiotics, neb treatments, supportive care. Continue CT drainage. Prognosis remains guarded.
[2018-07-16] MEDS: Doxycycline 100 MG CAP PO SCH ×2 (09:27→21:51)
[2018-07-16] MEDS: Enoxaparin Sodium 40 MG/0.4 ML SYRINGE SC SCH (09:27)
[2018-07-16] MEDS: Fluconazole 100 MG TAB PO SCH (09:27)
[2018-07-16] MEDS: Docusate 100 MG CAP PO SCH ×2 (09:27→21:51)
[2018-07-16] MEDS: ALPRAZolam 0.25 MG TAB PO PRN ×2 (11:13→21:52)
--- NOTE | 2018-07-16 15:14 | EKG ---
Test Reason : Blood Pressure : / mmHG Vent. Rate : 082 BPM Atrial Rate : 082 BPM P-R Int : 188 ms QRS Dur : 078 ms QT Int : 392 ms P-R-T Axes : 078 059 070 degrees QTc Int : 457 ms Normal sinus rhythm Low voltage QRS Borderline ECG Confirmed by PATRICIA SEGURA DO ([id number]), legal editor NERISSA MISTRY ([id number] on 07/16/2018 3:14:25 PM Referred By: Confirmed By:PATRICIA SEGURA DO
--- NOTE | 2018-07-17 08:02 | RAD ---
AP VIEW OF THE CHEST: INDICATION: History of pneumothorax. COMPARISON: Prior exam dated 07/16/18. FINDINGS: The subcutaneous emphysema overlying the chest wall has worsened. There is worsening pneumomediastin um. The left apical pneumothorax has slightly increased in size. There is a new small right pneumot horax. There are mild bibasilar airspace opacities which are new from the comparison exam. IMPRESSION: 1. Worsening small left apical pneumothorax. 2. New small right apical pneumothorax. 3. New prominent pneumomediastinum and worsening chest wall emphysema. 4. New bibasilar airspace opacities. Aspiration pneumonitis could have this appearance. 5. Findings called to Erick Cotton RN, at 7:54 a.m. on 07/17/18. CODE CR POS: [facility]
--- NOTE | 2018-07-17 08:44 | PRG ---
DATE OF SERVICE: 07/17/2018 SUBJECTIVE: The patient's breathing is stable, but his subcutaneous emphysema is significantly worse . He is unable to open his eyes. He has marked facial and upper extremity swelling. OBJECTIVE: VITAL SIGNS: Temperature 96.6, pulse 76, respiration 20, pulse oximetry 97 on 2.5 liters O2, blood p ressure 161/77. HEART: Regular rate and rhythm. LUNGS: Decreased breath sounds. ABDOMEN: Soft. EXTREMITIES: With marked subcutaneous edema of the upper extremity, face, eyelids. Eyelids are clos ed. A chest x-ray; preliminary report shows recurrent enlarging left apical and small right apical pneumo thorax. ASSESSMENT: 1. Spontaneous pneumo with chest tube in place, becoming worse today. 2. Worsening subcutaneous emphysema. 3. End-stage chronic obstructive pulmonary disease. 4. Acute respiratory failure, stable. 5. DNR. PLAN: 1. Will notify Dr. Daniels about the worsening spontaneous pneumo. 2. We will continue to follow.
[2018-07-17] MEDS: ALPRAZolam 0.25 MG TAB PO PRN ×2 (09:25→21:20)
[2018-07-17] MEDS: Docusate 100 MG CAP PO SCH ×2 (09:25→21:20)
[2018-07-17] MEDS: Fluconazole 100 MG TAB PO SCH (09:25)
[2018-07-17] MEDS: Enoxaparin Sodium 40 MG/0.4 ML SYRINGE SC SCH (09:25)
[2018-07-17] MEDS: Doxycycline 100 MG CAP PO SCH ×2 (09:25→21:20)
[2018-07-17] MEDS: Mometasone/Formoterol 120 PUFF INHALER INH SCH ×2 (09:43→19:16)
--- NOTE | 2018-07-17 09:45 | PRG ---
DATE OF SERVICE: 07/17/2018 Meggan Kruse is a 72-year-old gentleman. This morning he has got generalized subcu emphysema, head to toe. PHYSICAL EXAMINATION: VITAL SIGNS: Temperature 97, pulse 74, respirations 16, sat 100% on 2 liters, blood pressure 157/74. CHEST: Chest reveals decreased breath sounds, no wheezing. CARDIAC: Normal S1, S2, no gallops. ABDOMEN: Soft, no masses. His x-ray this morning shows his chest tube has been kinked once again. He has got a small left apic al pneumothorax. I am not so sure whether he has got any significant right apical pneumo. IMPRESSION: 1. Spontaneous left pneumothorax. 2. Chronic obstructive pulmonary disease, end-stage. 3. Thrush. PLAN: Steroids, neb treatments, supportive care. We will follow. I will discuss with Surgery once again whether we need to replace the existing chest tube because of recurrent kinking.
[2018-07-17] MEDS: Acetaminophen 325 MG TAB PO PRN ×2 (13:28→19:30)
--- NOTE | 2018-07-17 17:31 | RAD ---
CHEST ONE VIEW: 07/17/18 HISTORY: Chest tube placement. COMPARISON: Chest radiograph same day. FINDINGS: Severe bilateral subcutaneous emphysema. Pneumomediastinum is present. Bilateral pneumothoraces are improving. Left thoracostomy tube is in place, similar in position. IMPRESSION: 1. Improving pneumothoraces. 2. Similar subcutaneous emphysema and pneumomediastinum. POS: [facility]
[2018-07-18] MEDS: Acetaminophen 325 MG TAB PO PRN ×3 (03:34→20:51)
[2018-07-18] MEDS: Mometasone/Formoterol 120 PUFF INHALER INH SCH ×2 (07:12→19:12)
--- NOTE | 2018-07-18 08:12 | RAD ---
SINGLE VIEW OF THE CHEST: COMPARISON: 07/17/18 at 5:00 p.m. HISTORY: Pneumothorax. FINDINGS: A single view of the chest shows a normal-size cardiomediastinal silhouette. There is a left-sided c hest tube. There is extensive subcutaneous emphysema. No obvious pneumothorax is visualized, but ev aluation is limited given the extensive subcutaneous air. IMPRESSION: Extensive subcutaneous air without obvious pneumothorax visualized. POS: [facility]
--- NOTE | 2018-07-18 08:30 | PRG ---
DATE OF SERVICE: 07/18/2018. SUBJECTIVE: The patient is feeling somewhat better today. Yesterday the left chest tube was reposit ioned. OBJECTIVE: VITAL SIGNS: Temperature 98, pulse 70, respirations 20, pulse ox 96, O2 at 3 liters, blood pressure 160/66. GENERAL: The patient's severe subcutaneous emphysema of the face, chest and upper extremities appear s somewhat improved from yesterday, but still significant. The patient remains in good spirits. HEART: Regular rate and rhythm. LUNGS: Shallow respirations, but no wheezing or rhonchi. ABDOMEN: Soft, nontender. LABORATORY: None. ASSESSMENT: 1. Spontaneous pneumothorax appears to be improved. Difficult to visualize on the chest x-ray due t o the subcutaneous emphysema. 2. Subcutaneous emphysema somewhat improved. 3. End-stage chronic obstructive pulmonary disease. 4. Acute respiratory failure, stable. 5. DNR. PLAN: 1. Continue chest tube and hopefully wean soon. 2. Continue neb treatments and IV steroids.
[2018-07-18] MEDS: Enoxaparin Sodium 40 MG/0.4 ML SYRINGE SC SCH (08:58)
[2018-07-18] MEDS: Fluconazole 100 MG TAB PO SCH (08:59)
[2018-07-18] MEDS: Losartan 25 MG TAB PO SCH (08:59)
[2018-07-18] MEDS: Doxycycline 100 MG CAP PO SCH (08:59)
[2018-07-18] MEDS: Docusate 100 MG CAP PO SCH ×2 (09:00→20:50)
--- NOTE | 2018-07-18 09:17 | PRG ---
DATE OF SERVICE: 07/18/2018 HISTORY: This morning he is awake, alert, responsive. Generalized subcu emphysema. X-ray still lafredo ws no pneumothorax. PHYSICAL EXAMINATION: VITAL SIGNS: Sats are 94 on 3 liters, respiration 14, temperature 97, blood pressure 186/90. CHEST: Decreased revealed breath sounds. Crepitus. CARDIAC: Normal S1, S2. No gallop. IMPRESSION: 1. End-stage chronic obstructive pulmonary disease. 2. Spontaneous pneumothorax. PLAN: Continue supportive care and PT. Continue chest tube drainage. Hopefully, the subcu air will get better since the chest tube was joanna nipulated.
[2018-07-18] MEDS: Lacri-Lube Opth Oint 3.5 GM TUBE EA EYE PRN (12:42)
[2018-07-19] MEDS: Acetaminophen 325 MG TAB PO PRN ×3 (03:06→20:57)
[2018-07-19] MEDS: Mometasone/Formoterol 120 PUFF INHALER INH SCH ×2 (07:21→19:27)
--- NOTE | 2018-07-19 09:20 | PRG ---
DATE OF SERVICE: 07/19/2018 SUBJECTIVE: The patient remains stable. He is in good spirits, despite the situation. His subcutan eous emphysema did improve momentarily. He is able to open his eyes for a short period of time and t hen the swelling reaccumulated. OBJECTIVE: VITAL SIGNS: Temperature 96.1, pulse 64, respirations 18, pulse ox 100 on 3 liters, blood pressure 1 34/70. HEART: Regular rate and rhythm. LUNGS: Shallow respirations. ABDOMEN: Soft. LABORATORY DATA: None. ASSESSMENT: 1. Spontaneous pneumothorax, stable, no change. 2. Subcutaneous emphysema, stable. 3. End-stage chronic obstructive pulmonary disease. 4. Acute respiratory failure is stable. 5. DO NOT RESUSCITATE. PLAN: 1. Continue chest tube. I talked with Dr. Bennett. Just need to continue to observe. No interventio n at this time. 2. Continue steroids and neb treatments.
--- NOTE | 2018-07-19 09:26 | RAD ---
2 AP VIEWS OF CHEST: Date: 07/19/18 INDICATION: History of pneumothorax. COMPARISON: Prior exam dated 07/18/18. IMPRESSION: Small apical pneumothoraces, when compared to the prior dated 07/18/18, are unchanged. Left side thor acostomy tube is unchanged in position. Bibasilar air space opacities persist. The extent of the prom inent subcutaneous emphysema is stable. Pneumomediastinum is stable. POS: [facility]
[2018-07-19] MEDS: Lacri-Lube Opth Oint 3.5 GM TUBE EA EYE PRN (09:29)
[2018-07-19] MEDS: Enoxaparin Sodium 40 MG/0.4 ML SYRINGE SC SCH (09:30)
[2018-07-19] MEDS: Losartan 25 MG TAB PO SCH (09:30)
[2018-07-19] MEDS: Docusate 100 MG CAP PO SCH ×2 (09:30→20:49)
[2018-07-19] MEDS: Fluconazole 100 MG TAB PO SCH (09:30)
--- NOTE | 2018-07-19 19:30 | PRG ---
DATE OF SERVICE: 07/19/2018 SUBJECTIVE: Mr. Kruse is in no distress. He still has upper extremity, chest and head subcutaneous a ir. He can barely see out of his left eye. Chest tubes bubbling. He still has an air leak. OBJECTIVE: VITAL SIGNS: He is afebrile, heart rate 72, respiratory rate is 18, oximetry is 98 on 3 liters. He has equal breath sounds. He is not wheezing. HEART: Regular rhythm. ABDOMEN: Soft. IMAGING: Chest radiograph today shows a tiny apical pneumothorax. There are lot of subcutaneous air . LABORATORY DATA: White count 21, hemoglobin 11.7, platelets 383. Electrolytes are normal 3 days ago. IMPRESSION: Spontaneous pneumothorax with chest tube in place with a tremendous amount of subcu air. He is in no distress at this time. I have tried to reassure him that this will eventually resolve. I will continue chest tube suction.
[2018-07-20] MEDS: Mometasone/Formoterol 120 PUFF INHALER INH SCH ×2 (06:47→19:37)
--- NOTE | 2018-07-20 08:06 | RAD ---
AP VIEW CHEST: Date: 07/20/18 INDICATION: Pneumothoraces. COMPARISON: Prior study dated 07/19/18. IMPRESSION: Small apical pneumothoraces persist. Left-sided thoracostomy tube is unchanged. Bibasilar opacities a re similar. Subcutaneous emphysema and pneumomediastinum are stable. POS: [facility]
[2018-07-20] MEDS: Fluconazole 100 MG TAB PO SCH (08:20)
[2018-07-20] MEDS: Losartan 25 MG TAB PO SCH (08:20)
[2018-07-20] MEDS: Lacri-Lube Opth Oint 3.5 GM TUBE EA EYE PRN (08:21)
[2018-07-20] MEDS: ALPRAZolam 0.25 MG TAB PO PRN (08:21)
[2018-07-20] MEDS: Enoxaparin Sodium 40 MG/0.4 ML SYRINGE SC SCH (08:22)
[2018-07-20] MEDS: Docusate 100 MG CAP PO SCH ×2 (08:22→20:47)
--- NOTE | 2018-07-20 09:15 | PRG ---
DATE OF SERVICE: 07/20/2018 SUBJECTIVE: The patient is feeling much better this morning. He is able to open his eyes. Marked d ecrease in his subcutaneous emphysema. He is quite pleased. OBJECTIVE: VITAL SIGNS: Temperature 97.8, pulse 71, respirations 16, pulse oximetry 96 on O2 3 liters, blood pr essure 118/61. HEART: Regular rate and rhythm. LUNGS: Clear. ABDOMEN: Soft. EXTREMITIES: With no edema, marked decrease in the subcutaneous emphysema. The patient is able to a lmost fully open his eyes. Marked decreased swelling of his upper extremities. LABORATORY DATA: None. ASSESSMENT: 1. Spontaneous pneumothorax, stable. 2. Subcutaneous emphysema, marked improvement this morning. 3. End-stage chronic obstructive pulmonary disease. 4. Acute respiratory failure, stable. 5. DO NOT RESUSCITATE. PLAN: 1. Continue chest tube. 2. Hopefully, the patient will continue to improve.
--- NOTE | 2018-07-20 16:14 | PRG ---
DATE OF SERVICE: 07/20/2018 SUBJECTIVE: Mr. Kruse has no complaints. He actually can see his eyes today much better. Jenna dasilva has large air leak looking at his Pleur-Evac. PHYSICAL EXAMINATION: LUNGS: Clear. He has subcutaneous air everywhere. HEART: Regular rhythm. ABDOMEN: Soft. LABORATORY DATA: White count 21, hemoglobin 11.7, platelets 383. Electrolytes are normal 4 days ago . IMPRESSION: 1. Pneumothorax. A large chest tube in place, appears a little better today. 2. Deep venous thrombosis, prophylaxis in place. 3. Chronic obstructive pulmonary disease on nebulized treatments. He is not wheezing, so we will st op his IV steroids and just put him on 20 of prednisone a day. Continue to follow with the other marquis perales's caring for him.
[2018-07-20] MEDS: Sodium Chloride 0.65% Nasal 44 ML BOT EA NARE PRN (20:45)
[2018-07-21] MEDS: Mometasone/Formoterol 120 PUFF INHALER INH SCH ×2 (07:03→18:59)
[2018-07-21] MEDS: Acetaminophen 325 MG TAB PO PRN ×2 (08:12→21:27)
[2018-07-21] MEDS: predniSONE 20 MG TAB PO SCH (08:14)
[2018-07-21] MEDS: Enoxaparin Sodium 40 MG/0.4 ML SYRINGE SC SCH (08:14)
[2018-07-21] MEDS: Fluconazole 100 MG TAB PO SCH (08:14)
[2018-07-21] MEDS: Docusate 100 MG CAP PO SCH ×2 (08:14→20:50)
[2018-07-21] MEDS: Losartan 25 MG TAB PO SCH (08:18)
--- NOTE | 2018-07-21 12:42 | PRG ---
DATE OF SERVICE" 07/21/2018 He says that his subcutaneous air is better. PHYSICAL EXAMINATION: VITAL SIGNS: His temperature is 97.1, pulse 62, respirations 18, O2 sat 95% on 3 liters, blood press ure 100/67. HEENT: Remarkable for some periorbital edema due to subcutaneous air. NECK: No JVD. CHEST: Diminished breath sounds bilaterally. CARDIAC: S1 and S2 regular. ABDOMEN: Soft. EXTREMITIES: No edema. LABORATORY DATA: No new labs were done today. ASSESSMENT: 1. Persistent bronchopleural fistula. 2. Pneumothorax. 3. Chronic obstructive pulmonary disease. PLAN: Continuing chest tube drainage as he has a persistent air leak. His status is stable otherwis e.
--- NOTE | 2018-07-21 15:03 | RAD ---
TWO AP VIEWS OF THE CHEST: INDICATION: History of pneumothorax. COMPARISON: Prior exam dated 07/20/18. FINDINGS: The right apical pneumothorax is smaller. The left apical pneumothorax is stable. Pneumomediastinum appears slightly less pronounced. Left-sided thoracostomy tube is unchanged. Subcutaneous emphysem a appears similar. IMPRESSION: 1. Decrease in size of the small right apical pneumothorax. 2. Stable left apical pneumothorax. 3. Stable left side thoracostomy tube. 4. Persistent subcutaneous emphysema and pneumomediastinum. POS: [facility]
[2018-07-21] MEDS: Sodium Chloride 0.65% Nasal 44 ML BOT EA NARE PRN (20:46)
[2018-07-22] MEDS: Mometasone/Formoterol 120 PUFF INHALER INH SCH ×2 (07:12→21:30)
--- NOTE | 2018-07-22 08:13 | PRG ---
DATE OF SERVICE: 07/22/2018 SUBJECTIVE: The patient is feeling much better today. He looks much better today. OBJECTIVE: VITAL SIGNS: Temperature 97.5, pulse 70, respirations 12, pulse ox 98% on 3 liters, blood pressure 1 16/72. HEART: Regular rate and rhythm. LUNGS: Shallow breath sounds. ABDOMEN: Soft. EXTREMITIES: No edema. The patient is markedly improved. Markedly decreased subcutaneous emphysema. Eyes are fully open to day. Chest x-ray appears much improved, costophrenic angles are sharp. ASSESSMENT: 1. Spontaneous pneumothorax, improving. 2. Subcutaneous emphysema, improving. 3. End-stage chronic obstructive pulmonary disease. 4. Acute respiratory failure, stable. 5. Do not resuscitate. PLAN: Continue chest tube. Pacheco can be pulled soon.
[2018-07-22] MEDS: predniSONE 20 MG TAB PO SCH (08:30)
--- NOTE | 2018-07-22 08:55 | PRG ---
DATE OF SERVICE: 07/22/2018 SUBJECTIVE: This is a 72-year-old gentleman who said he is better this morning, less pain, less shor tness of breath. X-ray shows resolution of the pneumothorax. CT still draining some air. His yea st infection has resolved. OBJECTIVE: VITAL SIGNS: Temperature 97, pulse 70, respirations 12, blood pressure 116/72. CHEST: Reveals decreased breath sounds without any wheezing. CARDIAC: Normal S1, S2, no gallops. ABDOMEN: Soft, no masses. IMPRESSION: 1. Severe chronic obstructive pulmonary disease. 2. Bronchopleural fistula. 3. Persistent air leak. 4. Pneumothorax. 5. Thrush. PLAN: He looks better. Unfortunately, he still got a leak. Continue low dose prednisone, neb treat ments, supportive care. We will follow.
--- NOTE | 2018-07-22 09:09 | RAD ---
CHEST ONE VIEW: Comparison: 07-21-18 History: Pneumothorax. FINDINGS: Persistent, extensive subcutaneous emphysema. Stable left sided chest tube. Redemonstration of bilate ral pneumothoraces. No significant change. Visualized cardiac silhouette is unremarkable. There is ev idence of pneumomediastinum. IMPRESSION: 1. Stable bilateral pneumothoraces. Stable left sided chest tube. 2. Stable extensive subcutaneous emphysema. POS: [facility]
[2018-07-22] MEDS: Docusate 100 MG CAP PO SCH ×2 (10:40→21:17)
[2018-07-22] MEDS: Enoxaparin Sodium 40 MG/0.4 ML SYRINGE SC SCH (10:40)
[2018-07-22] MEDS: Losartan 25 MG TAB PO SCH (10:41)
[2018-07-22] MEDS: Fluconazole 100 MG TAB PO SCH (10:41)
[2018-07-22] MEDS: Sodium Chloride 0.65% Nasal 44 ML BOT EA NARE PRN (21:13)
[2018-07-22] MEDS: Acetaminophen 325 MG TAB PO PRN (23:51)
[2018-07-23] MEDS: Mometasone/Formoterol 120 PUFF INHALER INH SCH ×2 (07:32→19:15)
--- NOTE | 2018-07-23 08:29 | PRG ---
DATE OF SERVICE: 07/23/2018 SUBJECTIVE: The patient is feeling much better. He looks much better. OBJECTIVE: VITAL SIGNS: Temperature 97.7, pulse 77, respirations 18, pulse ox 97 on 3 liters O2, blood pressure 121/58. HEART: Regular rate and rhythm. LUNGS: With left-sided pleural rub present. Otherwise, clear. ABDOMEN: Soft. EXTREMITIES: No edema. LABORATORY: None. ASSESSMENT: 1. Spontaneous pneumothorax, apical pneumo still present bilaterally. 2. Subcutaneous emphysema, significantly improved. 3. End-stage chronic obstructive pulmonary disease. 4. Acute respiratory failure, stable. 5. Do not resuscitate. PLAN: 1. Continue chest tube. 2. Regular diet. 3. Routine CBC and comprehensive.
[2018-07-23] MEDS: Sodium Chloride 0.65% Nasal 44 ML BOT EA NARE PRN ×3 (08:38→20:20)
[2018-07-23] MEDS: Enoxaparin Sodium 40 MG/0.4 ML SYRINGE SC SCH (08:38)
[2018-07-23] MEDS: Losartan 25 MG TAB PO SCH (08:38)
[2018-07-23] MEDS: predniSONE 20 MG TAB PO SCH (08:38)
[2018-07-23] MEDS: Docusate 100 MG CAP PO SCH ×2 (08:39→20:20)
[2018-07-23 09:27] LABS: ALT (SGPT) 50 U/L (8-55); AST (SGOT) 20 U/L (5-34); Albumin 3.3 g/dL (3.4-4.8); Alkaline Phosphatase 50 U/L (40-150); Anion Gap 11 mmol/L (10-20); BUN (Urea Nitrogen) 20 mg/dL (8.4-25.7); Bilirubin, Total 0.5 mg/dL (0.2-1.2); Calc. Creatinine Clearance 95 mL/min (70-130); Carbon Dioxide 34 mmol/L (23-31); Chloride 92 mmol/L (98-107); Estimated GFR-MDRD Greater than 90; Globulin 2.1 g/dL (2.4-3.5); Glucose 112 mg/dL (83-110); Potassium 3.9 mmol/L (3.5-5.1); Protein, Total 5.4 g/dL (5.8-8.1); Sodium 133 mmol/L (136-145)
[2018-07-23 09:40] LABS: Band 8 % (5-11); Bite Cells SLIGHT = 2-5 cells (100X) (0-1/hpf); Eosinophils 2 % (0-10); Hemoglobin 13.6 g/dL (14.0-18.0); Lymphocytes 18 % (21-51); MDiff Complete? YES; Mean Corpuscular HGB CONC 32.4 g/dL (32.0-36.0); Mean Corpuscular Hemoglobin 29.9 pg (27.0-31.0); Mean Corpuscular Volume 92.4 fL (78.0-98.0); Mean Platelet Volume 7.5 fL (7.4-10.4); Metamyelocyte 5 % (0-0); Monocytes 4 % (0-10); Myelocyte 8 % (0-0); Neutrophil 55 % (42-75); PLT Morphology Comment Appears Decreased; Platelet Count 578 thou/uL (130-400); RBC Distribution Width 13.4 % (11.5-14.5); Red Blood Cell (RBC) Count 4.57 mill/uL (4.70-6.10); Toxic Granulation SLIGHT; Vacuoles SLIGHT; White Blood Cell (WBC) Count 24.8 thou/uL (4.8-10.8)
--- NOTE | 2018-07-23 09:45 | RAD ---
SINGLE VIEW OF THE CHEST: Comparison: 07-22-18 History: Pneumothorax. FINDINGS: Single view of the chest shows a normal sized cardiomediastinal silhouette. A small left apical pneum othorax is again seen. There is a left sided chest tube. No definite right pneumothorax is seen. Ther e is subcutaneous air limiting evaluation. IMPRESSION: Small left apical pneumothorax. POS: [facility]
--- NOTE | 2018-07-23 09:54 | PRG ---
DATE OF SERVICE: 07/23/2018 SUBJECTIVE: This morning, he is awake, alert, responsive, lesssc emphesema X- ray shows no acute infiltrates. Both lungs are expanded. OBJECTIVE: VITAL SIGNS: Sats are 97% on 3 liters, respiration rate 18, temperature 97, blood pressure is 120/58. CHEST: Reveals decreased breath sounds, no wheezing. CARDIAC: Normal S1, S2, no gallops. ABDOMEN: Soft. EXTREMITIES: No edema. IMPRESSION: 1. End-stage chronic obstructive pulmonary disease. 2. Left-sided spontaneous pneumothorax. 3. Anxiety. PLAN: CT drainage, supportive care. I will follow. MTDD
[2018-07-23] MEDS: Acetaminophen 325 MG TAB PO PRN (13:01)
[2018-07-24] MEDS: Mometasone/Formoterol 120 PUFF INHALER INH SCH ×2 (07:14→19:44)
--- NOTE | 2018-07-24 08:39 | PRG ---
DATE OF SERVICE: 07/24/2018 SUBJECTIVE: The patient remains stable with slightly increase in subcutaneous emphysema. OBJECTIVE: VITAL SIGNS: Temperature 98.1, pulse 80, respirations 15, pulse oximetry 96 on 3 liters, blood press ure 122/60. HEART: Regular rate and rhythm. LUNGS: Clear. ABDOMEN: Soft. LABORATORY: White count 24.8, H&H 13 and 42. Sodium 133, potassium 3.9, creatinine 0.65, BUN 20, bl ood sugar 112. ASSESSMENT: 1. Left spontaneous pneumo with apical pneumo bilaterally. 2. Subcutaneous emphysema, stable. 3. End-stage chronic obstructive pulmonary disease. 4. Acute respiratory failure, stable. 5. DNR. PLAN: 1. Continue chest tube. 2. Continue present plan.
--- NOTE | 2018-07-24 09:22 | RAD ---
CHEST 1 VIEW: HISTORY: A 72-year-old male with a history of followup pneumothorax. FINDINGS: There is a left chest tube in place Severe bilateral subcutaneous emphysema. Left chest tube in corrie ce. Small residual apical pneumothorax on the left side. Probable small pneumomediastinum. IMPRESSION: Stable-appearing chest with extensive subcutaneous emphysema and left chest tube with probable tiny l eft apical pneumothorax and questionable possible tiny right apical pneumothorax with minimal pneumom ediastinum. Continue short-term followup. No significant new process. POS: [facility]
[2018-07-24] MEDS: Losartan 25 MG TAB PO SCH (09:39)
[2018-07-24] MEDS: predniSONE 20 MG TAB PO SCH (09:42)
[2018-07-24] MEDS: Docusate 100 MG CAP PO SCH ×2 (09:42→21:07)
[2018-07-24] MEDS: Enoxaparin Sodium 40 MG/0.4 ML SYRINGE SC SCH (09:42)
[2018-07-24] MEDS: Sodium Chloride 0.65% Nasal 44 ML BOT EA NARE PRN (09:43)
--- NOTE | 2018-07-24 10:39 | PRG ---
DATE OF SERVICE: 07/24/2018 Mr. Kruse still has significant subcutaneous emphysema. He is in no distress. PHYSICAL EXAMINATION: VITAL SIGNS: Sats are 97 on 3 liters, respiration 16, temperature 98, blood pressure 120/60. Chest x-ray shows no pneumothorax. His CT chest tube did not appear to be kinked. Sodium is 133, otherwise labs unremarkable. His white count is 24,000. IMPRESSION: 1. Chronic obstructive pulmonary disease exacerbation. 2. Bronchitis. 3. Leukocytosis. 4. Chest tube in place. PLAN: Continue CT drainage. Supportive care, PT. I will follow. We will start him on empiric antibiotics because of his marked leukocytosis.
[2018-07-24] MEDS: Sulfameth/Trimethoprim DS 800-160mg TAB PO SCH (21:07)
[2018-07-25] MEDS: Mometasone/Formoterol 120 PUFF INHALER INH SCH ×2 (07:09→19:40)
--- NOTE | 2018-07-25 07:59 | PRG ---
DATE OF SERVICE: 07/25/2018 PRIMARY CARE PHYSICIAN: Dr. Hank Pulido SUBJECTIVE: The patient denies complaints. Breathing is stable. Denies chest pain. He states he h as a good appetite. No nausea and vomiting, tolerating medication, tolerating treatments. OBJECTIVE: VITAL SIGNS: Temperature 98.6, pulse of 79, respirations 16, pulse ox 99% on 3 liters. GENERAL: He is awake and alert, in no acute distress. Subcutaneous emphysema, stable. No tendernes s. EXTREMITIES: No edema. HEART: Regular rate and rhythm. LUNGS: With diminished breath sounds. Chest tube with an air leak. LABORATORY DATA: CBC is pending. Chest x-ray is pending from this morning. ASSESSMENT AND PLAN: This is a 72-year-old gentleman with: 1. End-stage chronic obstructive pulmonary disease. past medical history: 2. Left spontaneous pneumothorax bilaterally. I will continue chest tube as per Pulmonary. 3. Subcutaneous emphysema, appears stable. 4. Acute respiratory failure, stable. 5. We will continue DNR status.
[2018-07-25] MEDS: Sodium Chloride 0.65% Nasal 44 ML BOT EA NARE PRN (08:39)
[2018-07-25] MEDS: Enoxaparin Sodium 40 MG/0.4 ML SYRINGE SC SCH (08:39)
[2018-07-25] MEDS: Sulfameth/Trimethoprim DS 800-160mg TAB PO SCH ×2 (08:40→21:36)
[2018-07-25] MEDS: Docusate 100 MG CAP PO SCH ×2 (08:40→21:36)
[2018-07-25] MEDS: ALPRAZolam 0.25 MG TAB PO PRN (08:40)
[2018-07-25] MEDS: Losartan 25 MG TAB PO SCH (08:40)
[2018-07-25] MEDS: predniSONE 20 MG TAB PO SCH (08:40)
--- NOTE | 2018-07-25 09:16 | RAD ---
CHEST 1 VIEW: HISTORY: Chest pain. Chest tube. COMPARISON: Radiograph of prior day. FINDINGS: Subcutaneous emphysema is similar. Left thoracostomy tube is in similar position. No large pneumoth orax is appreciated, although limited. Cardiac silhouette is similar. Pneumomediastinum is present. IMPRESSION: Similar to slightly increasing subcutaneous emphysema. No definite pneumothorax is appreciated, alth ough limited due to the extensive subcutaneous gas. POS: [facility]
--- NOTE | 2018-07-25 09:29 | PRG ---
DATE OF SERVICE: 07/25/2018 The patient is awake, alert, responsive, extensive subcu air. PHYSICAL EXAMINATION: VITAL SIGNS: Sats are 94 on 3 liters, respirations 15, temperature 98, pulse 72, blood pressure 170/ 92. Denied any difficulty breathing, though from time to time he is having some left-sided chest katy n. His temperature is 98. CHEST: Chest reveals decreased breath sounds, no wheezing. CARDIAC: Normal S1, S2. ABDOMEN: Soft, no masses. IMPRESSION: 1. Severe end-stage chronic obstructive pulmonary disease. 2. Spontaneous pneumothorax. PLAN: Continue low dose prednisone, neb treatments, supportive care. It is unlikely his air leak is going to close in the next several days. Continue CT drainage. He is a high-risk patient for any k ind of surgical intervention.
[2018-07-25] MEDS: Acetaminophen 325 MG TAB PO PRN (11:11)
[2018-07-26 05:06] LABS: ALT (SGPT) 52 U/L (8-55); AST (SGOT) 27 U/L (5-34); Albumin 3.1 g/dL (3.4-4.8); Alkaline Phosphatase 45 U/L (40-150); Anion Gap 12 mmol/L (10-20); BUN (Urea Nitrogen) 16 mg/dL (8.4-25.7); Bilirubin, Total 0.4 mg/dL (0.2-1.2); Calc. Creatinine Clearance 94 mL/min (70-130); Calcium 8.7 mg/dL (7.8-10.44); Carbon Dioxide 25 mmol/L (23-31); Chloride 97 mmol/L (98-107); Estimated GFR-MDRD Greater than 90; Globulin 2.4 g/dL (2.4-3.5); Glucose 84 mg/dL (83-110); Potassium 4.2 mmol/L (3.5-5.1); Protein, Total 5.5 g/dL (5.8-8.1); Sodium 130 mmol/L (136-145)
[2018-07-26 05:08] LABS: Band 2 % (5-11); Eosinophils 2 % (0-10); Hemoglobin 12.5 g/dL (14.0-18.0); Lymphocytes 5 % (21-51); MDiff Complete? YES; Mean Corpuscular HGB CONC 32.5 g/dL (32.0-36.0); Mean Corpuscular Hemoglobin 29.7 pg (27.0-31.0); Mean Corpuscular Volume 91.2 fL (78.0-98.0); Mean Platelet Volume 7.4 fL (7.4-10.4); Metamyelocyte 1 % (0-0); Monocytes 3 % (0-10); Neutrophil 87 % (42-75); PLT Morphology Comment Appears Increased; Platelet Count 532 thou/uL (130-400); RBC Distribution Width 13.5 % (11.5-14.5); Red Blood Cell (RBC) Count 4.22 mill/uL (4.70-6.10); White Blood Cell (WBC) Count 24.6 thou/uL (4.8-10.8)
[2018-07-26] MEDS: Mometasone/Formoterol 120 PUFF INHALER INH SCH ×2 (06:29→19:09)
[2018-07-26] MEDS: Enoxaparin Sodium 40 MG/0.4 ML SYRINGE SC SCH (08:21)
[2018-07-26] MEDS: Losartan 25 MG TAB PO SCH (08:21)
[2018-07-26] MEDS: Docusate 100 MG CAP PO SCH ×2 (08:21→21:18)
[2018-07-26] MEDS: Sulfameth/Trimethoprim DS 800-160mg TAB PO SCH ×2 (08:21→21:18)
[2018-07-26] MEDS: predniSONE 20 MG TAB PO SCH (08:22)
[2018-07-26] MEDS ORDERED: Magnesium Citrate 300 ML BOT PO SCH (10:15)
--- NOTE | 2018-07-26 10:43 | PRG ---
DATE OF SERVICE: 07/26/2018 SUBJECTIVE: No changes in the patient's symptoms. Denies chest pain, has a good appetite. He compl ains of not having a bowel movement. No nausea and vomiting. His breathing is stable. PHYSICAL EXAMINATION: VITAL SIGNS: Temperature 97.7, pulse of 77, respirations 18, blood pressure 114/68, pulse ox is 100% on 3 liters. GENERAL: He is awake and alert, no acute distress. HEENT: Mucosa is moist. Subcutaneous emphysema is stable. HEART: Regular rate and rhythm. LUNGS: With diminished breath sounds. Chest tube with air leak. LABORATORY DATA: White blood cell count 24,600, hemoglobin and hematocrit 12.5 and 38.5, platelets o f 532. Sodium 130, potassium 4.2, chloride 97, CO2 of 25. Urine and creatinine 16 and 0.66, albumin of 3.1. Chest x-ray is pending. ASSESSMENT: This is a 72-year-old gentleman with end-stage chronic obstructive pulmonary disease as per past medical history, now with a spontaneous pneumothorax. PLAN: 1. We will continue chest tube as per pulmonary. 2. Discussed with Dr. Smith, is considering a CT of his chest to better elucidate his lung disease t o consider surgical intervention for his persistent pneumothorax. 3. Subcutaneous emphysema, appears stable. 4. Acute respiratory failure, resolved. 5. Constipation. I will start magnesium citrate and continue Colace.
[2018-07-26] MEDS: Acetaminophen 325 MG TAB PO PRN (13:07)
--- NOTE | 2018-07-26 14:03 | PRG ---
DATE OF SERVICE: 07/26/2018 SUBJECTIVE: The patient is about the same. He has persistent air leak to his chest tube. PHYSICAL EXAMINATION: VITAL SIGNS: Temperature is 98.2, pulse 85, respirations 18, O2 sat 97% on 3 liters, blood pressure 106/60. HEENT: Unremarkable. NECK: No JVD. LUNGS: Clear but diminished breath sounds. CARDIAC: S1 and S2 regular. ABDOMEN: Soft. EXTREMITIES: No edema. LABORATORY DATA: Hematocrit 24.6, hematocrit 38.5, platelet count 532. Sodium 130, potassium 4.2, c hloride 97, CO2 25, BUN 16, creatinine 0.6, glucose 84. ASSESSMENT: Persistent right pneumothorax with bronchopleural fistula - continued air leak. RECOMMENDATIONS: Continuing Pleur-Evac drainage. I would assume this is going to take some time to heal.
[2018-07-27] MEDS: Acetaminophen 325 MG TAB PO PRN (02:35)
[2018-07-27] MEDS: Mometasone/Formoterol 120 PUFF INHALER INH SCH ×2 (06:59→19:44)
[2018-07-27] MEDS: Losartan 25 MG TAB PO SCH (09:11)
[2018-07-27] MEDS: Sulfameth/Trimethoprim DS 800-160mg TAB PO SCH ×2 (09:13→21:19)
[2018-07-27] MEDS: predniSONE 20 MG TAB PO SCH (09:14)
[2018-07-27] MEDS: Enoxaparin Sodium 40 MG/0.4 ML SYRINGE SC SCH (09:15)
--- NOTE | 2018-07-27 09:19 | RAD ---
CHEST 1 IEW: HISTORY: A 72-year-old male with a history of followup pneumothorax, left chest tube. COMPARISON: 07/25/18. FINDINGS: There is improving extensive bilateral subcutaneous emphysema. No evidence for significant residual pneumothorax. IMPRESSION: Slightly improving extensive bilateral subcutaneous emphysema with left chest tube in place without e vidence for significant pneumothorax. POS: [facility]
[2018-07-27] MEDS: Docusate 100 MG CAP PO SCH ×2 (09:20→21:19)
--- NOTE | 2018-07-27 11:15 | PRG ---
DATE OF SERVICE: 07/27/2018 SUBJECTIVE: Mr. Kruse continues to be disappointed that his bronchopleural fistula has not closed. OBJECTIVE: VITAL SIGNS: Temperature 98.1, pulse 69, respiration 16, and O2 sat 100% on 3 liters. HEENT: Unremarkable. NECK: No JVD. He has some subcutaneous crepitus. LUNGS: Clear. CHEST: Chest tube with a raging air leak. CARDIAC: S1 and S2 regular. ABDOMEN: Soft. EXTREMITIES: No edema. LABORATORY DATA: No labs were obtained today. ASSESSMENT: 1. Persistent air leak after pneumothorax 2. Chronic obstructive pulmonary disease. PLAN: Continue chest tube drainage. His current x-ray shows that left lung is up, but there is subs tantial subcutaneous air present.
--- NOTE | 2018-07-27 11:18 | PRG ---
DATE OF SERVICE: 07/27/2018 SUBJECTIVE: The patient denies chest pain. He still has not had a bowel movement, has been passing gas. He states that his appetite is not as good. Denies nausea and vomiting. Breathing, he states is stable. He is tolerating being out of bed. OBJECTIVE: VITAL SIGNS: Temperature 96.7, pulse of 76, respirations 16, blood pressure 111/55, pulse ox is 98% on 3 liters. GENERAL: He is awake and alert, in no acute distress. Subcutaneous emphysema stable on his face, ne ck and chest wall. HEART: Regular rate and rhythm. LUNGS: With decreased breath sounds throughout. Chest tube with persistent air leak. EXTREMITIES: No clubbing, cyanosis or edema. LABORATORY DATA: Pending. X-RAY FINDINGS: Chest x-ray from this morning revealed slight improvement of the subcutaneous emphys ernesto. Chest tube in place. ASSESSMENT AND PLAN: This is a 72-year-old gentleman with severe chronic obstructive pulmonary disea se, admitted for a spontaneous pneumothorax. We will continue chest tube as per Pulmonary. Await fu rther workup with Dr. Smith for possible CT of his chest. 1. Subcutaneous emphysema, stable. 2. Acute respiratory arrest, resolved. 3. Constipation. We will start MiraLax and continue Colace. 4. Reactive depression. We will continue to monitor closely. Consider antidepressants.
[2018-07-27] MEDS ORDERED: Mag-Al 1200 mg/1200 mg/30 ML UDCUP PO PRN (23:33)
[2018-07-27] MEDS ORDERED: ALPRAZolam 1 MG TAB PO SCH (23:45)
[2018-07-28 05:17] LABS: #Eosinphils 0.9 thou/uL (0.0-0.7); #Lymphocytes 1.4 thou/uL (1.20-3.40); #Monocytes 2.3 thou/uL (0.11-0.59); #Neutrophils 17.9 thou/uL (1.40-6.50); %Basophils 0.1 % (0.0-1.0); %Lymphocytes 6.2 % (21.0-51.0); %Monocytes 10.4 % (0.0-10.0); %Neutrophils 79.4 % (42.0-75.0); Hemoglobin 12.5 g/dL (14.0-18.0); Mean Corpuscular HGB CONC 32.6 g/dL (32.0-36.0); Mean Corpuscular Hemoglobin 29.7 pg (27.0-31.0); Mean Corpuscular Volume 90.9 fL (78.0-98.0); Mean Platelet Volume 7.2 fL (7.4-10.4); Platelet Count 432 thou/uL (130-400); RBC Distribution Width 13.3 % (11.5-14.5); Red Blood Cell (RBC) Count 4.23 mill/uL (4.70-6.10); White Blood Cell (WBC) Count 22.5 thou/uL (4.8-10.8)
[2018-07-28 05:26] LABS: ALT (SGPT) 43 U/L (8-55); AST (SGOT) 15 U/L (5-34); Albumin 3.4 g/dL (3.4-4.8); Alkaline Phosphatase 46 U/L (40-150); Anion Gap 12 mmol/L (10-20); BUN (Urea Nitrogen) 16 mg/dL (8.4-25.7); Bilirubin, Total 0.4 mg/dL (0.2-1.2); Calc. Creatinine Clearance 87 mL/min (70-130); Calcium 8.8 mg/dL (7.8-10.44); Carbon Dioxide 26 mmol/L (23-31); Chloride 95 mmol/L (98-107); Estimated GFR-MDRD Greater than 90; Globulin 2.1 g/dL (2.4-3.5); Glucose 78 mg/dL (83-110); Protein, Total 5.5 g/dL (5.8-8.1); Sodium 129 mmol/L (136-145)
[2018-07-28] MEDS: Mometasone/Formoterol 120 PUFF INHALER INH SCH ×2 (07:50→18:39)
--- NOTE | 2018-07-28 08:20 | PRG ---
DATE OF SERVICE: 07/28/2018 SUBJECTIVE: The patient is doing well this morning. His subcutaneous and his tissues appear to be i n much improved since I last saw him on . OBJECTIVE: VITAL SIGNS: Temperature 98.1, pulse 80, respirations 14, pulse ox 96 on 3 liters O2, blood pressure 124/58. HEART: Regular rate and rhythm. LUNGS: Relatively clear. ABDOMEN: Soft. Chest tube is still in place. LABORATORY DATA: White count 22.5, H&H 12 and 38, platelet 432. Sodium 129, potassium 4.0, creatini ne 0.7, BUN 16. Liver functions normal. Chest x-ray appears to be stable, small apical pneumo is still present bilaterally. ASSESSMENT: 1. Spontaneous pneumo. 2. Subcutaneous emphysema, improving. 3. Hyponatremia. 4. Acute respiratory arrest, resolved. PLAN: 1. Discuss the physiology and anatomy of the spontaneous pneumo to the patient. The plan presently is just to continue to observe. 2. We will fluid restrict somewhat to see if we can correct the hyponatremia. 3. Continue to follow.
--- NOTE | 2018-07-28 08:46 | RAD ---
UPRIGHT PORTABLE CHEST 1 VIEW: HISTORY: A 72-year-old male with a history of followup pneumothorax. FINDINGS: Extensive bilateral subcutaneous emphysema with left chest tube in lace. Probable tiny residual apic al pneumothorax. No significant new process. IMPRESSION: Stable-appearing chest with probable tiny residual left apical pneumothorax. POS: [facility]
[2018-07-28] MEDS: Docusate 100 MG CAP PO SCH ×2 (09:15→20:05)
[2018-07-28] MEDS: Losartan 25 MG TAB PO SCH (09:15)
[2018-07-28] MEDS: Sulfameth/Trimethoprim DS 800-160mg TAB PO SCH ×2 (09:15→20:05)
[2018-07-28] MEDS: predniSONE 20 MG TAB PO SCH (09:15)
[2018-07-28] MEDS: Enoxaparin Sodium 40 MG/0.4 ML SYRINGE SC SCH (09:16)
[2018-07-28] MEDS: Acetaminophen 325 MG TAB PO PRN (12:16)
--- NOTE | 2018-07-28 12:27 | PRG ---
DATE OF SERVICE: 07/28/2018 SUBJECTIVE: The patient is about the same. PHYSICAL EXAMINATION: VITAL SIGNS: Temperature 98.1, pulse 80, respirations 14, and O2 sat 96% on 3 liters. HEENT: Unremarkable. NECK: No JVD. LUNGS: Clear but has a raging air leak. CARDIAC: S1 and S2, regular. ABDOMEN: Soft. EXTREMITIES: No edema. LABORATORY DATA: White blood cell count 22.5, hematocrit 38.4, platelet count 432. Sodium 129, pota ssium 4.0, chloride 95, CO2 of 26, BUN 16, creatinine 0.7, glucose 78. ASSESSMENT: 1. Bronchopleural fistula 2. Left pneumothorax. 3. Chronic obstructive pulmonary disease. PLAN: Continuing chest tube drainage and waiting for the air leak to seal.
[2018-07-28] MEDS ORDERED: ALPRAZolam 1 MG TAB PO SCH (19:45)
[2018-07-29 05:33] LABS: #Eosinphils 0.8 thou/uL (0.0-0.7); #Lymphocytes 1.3 thou/uL (1.20-3.40); #Monocytes 2.1 thou/uL (0.11-0.59); #Neutrophils 14.8 thou/uL (1.40-6.50); %Basophils 0.2 % (0.0-1.0); %Eosinophils 4.3 % (0.0-10.0); %Lymphocytes 6.8 % (21.0-51.0); %Monocytes 10.9 % (0.0-10.0); %Neutrophils 77.8 % (42.0-75.0); Hemoglobin 12.3 g/dL (14.0-18.0); Mean Corpuscular HGB CONC 33.2 g/dL (32.0-36.0); Mean Corpuscular Hemoglobin 30.1 pg (27.0-31.0); Mean Corpuscular Volume 90.7 fL (78.0-98.0); Mean Platelet Volume 7.3 fL (7.4-10.4); Platelet Count 452 thou/uL (130-400); RBC Distribution Width 13.5 % (11.5-14.5); Red Blood Cell (RBC) Count 4.08 mill/uL (4.70-6.10)
[2018-07-29 05:35] LABS: Anion Gap 11 mmol/L (10-20); BUN (Urea Nitrogen) 14 mg/dL (8.4-25.7); Calc. Creatinine Clearance 102 mL/min (70-130); Calcium 8.6 mg/dL (7.8-10.44); Carbon Dioxide 25 mmol/L (23-31); Chloride 98 mmol/L (98-107); Estimated GFR-MDRD Greater than 90; Glucose 71 mg/dL (83-110); Sodium 130 mmol/L (136-145)
[2018-07-29] MEDS: Mometasone/Formoterol 120 PUFF INHALER INH SCH ×2 (07:02→18:04)
--- NOTE | 2018-07-29 11:23 | PRG ---
DATE OF SERVICE: 07/29/2018 SUBJECTIVE: Mr. Kruse has a persistent air leak. He is asleep this morning. PHYSICAL EXAMINATION: VITAL SIGNS: On exam, his vital signs are stable. LUNGS: Clear. CARDIAC: S1 and S2, regular. ABDOMEN: Soft. EXTREMITIES: No edema. ASSESSMENT: 1. Persistent pneumothorax 2. Chronic obstructive pulmonary disease. PLAN: Continuing chest tube drainage.
[2018-07-29] MEDS: Enoxaparin Sodium 40 MG/0.4 ML SYRINGE SC SCH (11:24)
[2018-07-29] MEDS: Docusate 100 MG CAP PO SCH ×2 (11:24→20:11)
[2018-07-29] MEDS: predniSONE 20 MG TAB PO SCH (11:24)
--- NOTE | 2018-07-29 11:24 | RAD ---
TOR ONE VIEW: History: 72-year-old male with history of follow up pneumothorax. FINDINGS: Left chest tube remains in place with stable subcutaneous emphysema. No significant pneumothorax. Sta ble from prior study. IMPRESSION: Stable chest. No new process. POS: [facility]
[2018-07-29] MEDS: Losartan 25 MG TAB PO SCH (11:25)
[2018-07-29] MEDS: Sulfameth/Trimethoprim DS 800-160mg TAB PO SCH ×2 (11:25→20:11)
--- NOTE | 2018-07-29 12:58 | PRG ---
DATE OF SERVICE: 07/29/2018 SUBJECTIVE: The patient remains stable. Appetite is somewhat decreased. He is sitting in a chair a pproximately 3 hours per day. OBJECTIVE: VITAL SIGNS: Stable, afebrile. HEART: Regular rate and rhythm. LUNGS: Remained stable and clear. ABDOMEN: Soft. EXTREMITIES: No edema. LABORATORY: CBC, BMP pending. ASSESSMENT: 1. Hyponatremia. 2. Spontaneous pneumothorax, stable. 3. Subcutaneous emphysema, stable. 4. DNR. PLAN: 1. Check CBC, BMP. 2. Continue 1200 mL fluid restriction. 3. Continue to monitor chest tube. 4. Enlive b.i.d.
[2018-07-30] MEDS: Mometasone/Formoterol 120 PUFF INHALER INH SCH ×2 (07:36→18:45)
--- NOTE | 2018-07-30 07:52 | RAD ---
CHEST 1 VIEW: HISTORY: A 72-year-old male with a history of pneumothorax. FINDINGS: Stable extensive subcutaneous emphysema with left chest tube. Possible tiny residual left apical pne umothorax. IMPRESSION: Stable chest. No new process. POS: [facility]
[2018-07-30] MEDS: Docusate 100 MG CAP PO SCH ×2 (07:58→21:42)
[2018-07-30] MEDS: predniSONE 20 MG TAB PO SCH (07:58)
[2018-07-30] MEDS: Enoxaparin Sodium 40 MG/0.4 ML SYRINGE SC SCH (07:58)
[2018-07-30] MEDS: Losartan 25 MG TAB PO SCH (07:59)
[2018-07-30] MEDS: Sulfameth/Trimethoprim DS 800-160mg TAB PO SCH ×2 (07:59→21:42)
--- NOTE | 2018-07-30 12:34 | PRG ---
DATE OF SERVICE: 07/30/2018 SUBJECTIVE: The patient remains stable. Chest tube drainage, decreasing. PHYSICAL EXAMINATION: VITAL SIGNS: Temperature 97.7, pulse 84, respirations 16, pulse ox 98 on 3 liters, blood pressure 11 7/58. HEART: Regular rate and rhythm. LUNGS: Clear. ABDOMEN: Soft. EXTREMITIES: No edema. ASSESSMENT: 1. Spontaneous pneumo stable. However, chest x-ray looks somewhat improved. The drop in white coun t is also a positive movement back towards normal. 2. Hyponatremia, stable. 3. Subcutaneous emphysema, stable. 4. DNR. PLAN: 1. Continue present plan. Patient improving slowly, but surely. 2. Talk with the patient today. He is somewhat becoming restless after his long hospital stay. He reiterated that he did not want any further intervention or lifesaving measures. We will continue to follow.
--- NOTE | 2018-07-30 15:38 | PRG ---
DATE OF SERVICE: 07/30/2018 SUBJECTIVE: The patient is continuing to have problems with a raging air leak from his pneumothorax. PHYSICAL EXAMINATION: VITAL SIGNS: Temperature 97.7, pulse 72, respiration 16, O2 sat 98% on 3L, blood pressure 117/58. HEENT: Unremarkable. NECK: Subcu air present. LUNGS: Clear. CARDIAC: S1 and S2, regular. ABDOMEN: Soft. EXTREMITIES: Subcu air in his arms. IMAGING DATA: His chest x-ray shows chest tube in place on the left. ASSESSMENT: Bronchopleural fistula without evidence of improvement. PLAN: Continue Pleur-Evac drainage in hopes that this will seal. He may end up needing operative th erapy for treatment.
[2018-07-31] MEDS: Mometasone/Formoterol 120 PUFF INHALER INH SCH ×2 (07:13→18:38)
--- NOTE | 2018-07-31 08:44 | RAD ---
CHEST 1 VIEW PORTABLE: Stable bilateral subcutaneous emphysema and a left chest tube and hyperinflation. No new significant pneumothorax. IMPRESSION: Stable-appearing chest. Continue short-term followup. POS: OFF
[2018-07-31] MEDS: Sulfameth/Trimethoprim DS 800-160mg TAB PO SCH ×2 (08:47→20:45)
[2018-07-31] MEDS: predniSONE 20 MG TAB PO SCH (08:47)
[2018-07-31] MEDS: Docusate 100 MG CAP PO SCH ×2 (08:47→20:45)
[2018-07-31] MEDS: Losartan 25 MG TAB PO SCH (08:47)
--- NOTE | 2018-07-31 10:16 | PRG ---
DATE OF SERVICE: 07/31/2018 SUBJECTIVE: The patient continues to improve slowly. Yesterday, he tolerated 3 hours with the chest tube sealed. This morning, he remained stable. His subcu emphysema continue to improve. OBJECTIVE: VITAL SIGNS: Temperature 98.0, pulse 84, respirations 16, pulse ox 98, blood pressure 115/57. GENERAL: No acute distress. HEART: Regular rate and rhythm. LUNGS: Clear. ABDOMEN: Soft. EXTREMITIES: No edema. LABORATORY DATA: None. IMAGING: Chest x-ray, it appears that the completely resolved at this time. Final report pend ing. ASSESSMENT: 1. Spontaneous , appears resolved. 2. Hyponatremia. 3. Subcutaneous emphysema, continues to improve. 4. DNR. PLAN: 1. Possibly seal the chest again today and see if the patient tolerates. 2. However, the patient continues to improve.
[2018-07-31] MEDS: Enoxaparin Sodium 40 MG/0.4 ML SYRINGE SC SCH (10:37)
--- NOTE | 2018-07-31 12:08 | PRG ---
DATE OF SERVICE: 07/31/2018 Mr. Kruse is in fairly good spirits. His chest tube has been placed on waterseal. He is not short of breath. PHYSICAL EXAMINATION: VITAL SIGNS: Temperature is 98, pulse 78, respiration 16, O2 sat 98% on 3 liters, blood pressure 101 /66. HEENT: Remarkable for some subcutaneous air around his upper neck. LUNGS: He has an air leak through the chest tube on the left. He has some subcu air present on his chest wall bilaterally. HEART: Heart sounds are regular. ABDOMEN: Soft, nontender. EXTREMITIES: No edema. ASSESSMENT: Left pneumothorax with persistent bronchopleural fistula. PLAN: Continuing tube drainage.
--- NOTE | 2018-07-31 13:02 | RAD ---
CHEST ONE VIEW: HISTORY: Chest tube placement. COMPARISON: Radiograph from the prior day. FINDINGS: The left thoracostomy tube is similar. Extensive subcutaneous emphysema is slightly increased. The cardiac silhouette and mediastinal contours are similar. IMPRESSION: Mildly increased subcutaneous emphysema. POS: [facility]
[2018-08-01] MEDS: Mometasone/Formoterol 120 PUFF INHALER INH SCH ×2 (07:55→19:01)
--- NOTE | 2018-08-01 08:03 | PRG ---
DATE OF SERVICE: 08/01/2018 SUBJECTIVE: The patient remains in good spirits despite the situation. The patient has now been in the hospital for 3 weeks. He did tolerate clamping the chest tube yesterday for approximately 7 hour s. OBJECTIVE: VITAL SIGNS: Temperature 97.9, pulse 76, respirations 20, pulse ox 97, blood pressure 125/62. HEART: Regular rate and rhythm. LUNGS: Remains clear stable. ABDOMEN: Soft. EXTREMITIES: No edema. LABORATORY: None. ASSESSMENT: 1. Spontaneous pneumo appears stable and improved. 2. Hypernatremia. 3. Subcutaneous emphysema, stable. 4. DNR. PLAN: 1. I had a discussion with Dr. Daniels and the patient. Considering doing a pleurodesis possibl y next week. We will discuss it over with Pulmonary. 2. Recheck CBC and BMP in the a.m. 3. Continue to follow.
--- NOTE | 2018-08-01 08:14 | RAD ---
PORTABLE AP CHEST XRAY: DATE: 08/01/18. HISTORY: Pneumothorax. Followup evaluation. COMPARISON: 07/31/18. FINDINGS: Left-side thoracostomy tube remains in place and unchanged in position. Extensive subcutaneous emphy sema is seen about the chest bilaterally and extending into the visualized lower neck bilaterally. T his limits evaluation for pneumothorax, but no obvious pneumothorax is visualized on this exam. Calc ified granuloma is seen at the right lung base. Cardiac silhouette and pulmonary vasculature are wit hin normal limits. No other interval change. IMPRESSION: Left-sided thoracostomy tube stable in position with stable persistent extensive subcutaneous emphyse ma bilaterally. No obvious pneumothorax is appreciated. POS: [facility]
[2018-08-01] MEDS: predniSONE 20 MG TAB PO SCH (08:55)
[2018-08-01] MEDS: Losartan 25 MG TAB PO SCH (08:55)
[2018-08-01] MEDS: Docusate 100 MG CAP PO SCH ×2 (08:55→20:19)
[2018-08-01] MEDS: Enoxaparin Sodium 40 MG/0.4 ML SYRINGE SC SCH (08:55)
--- NOTE | 2018-08-01 09:47 | PRG ---
DATE OF SERVICE: 08/01/2018 SUBJECTIVE: The patient is doing reasonably well, except for the air leak. He is frustrated with betancourt tracyg to stay in the hospital. PHYSICAL EXAMINATION: VITAL SIGNS: Temperature is 97.9, pulse 76, respirations 20, O2 saturation 97%. HEENT: Unremarkable except for subcu air. NECK: No JVD. LUNGS: Clear. He has a raging air leak in his Pleur-Evac. CARDIAC: S1 and S2 regular. ABDOMEN: Soft. EXTREMITIES: No edema. ASSESSMENT: Persistent bronchopleural fistula. PLAN: Continue drainage. I will have Dr. Posada see the patient again on Saturday.
[2018-08-02 05:40] LABS: #Basophils 0.1 thou/uL (0.0-0.2); #Eosinphils 0.8 thou/uL (0.0-0.7); #Lymphocytes 1.7 thou/uL (1.20-3.40); #Monocytes 1.4 thou/uL (0.11-0.59); #Neutrophils 11.9 thou/uL (1.40-6.50); %Basophils 0.5 % (0.0-1.0); %Eosinophils 4.9 % (0.0-10.0); %Lymphocytes 10.5 % (21.0-51.0); %Monocytes 8.7 % (0.0-10.0); %Neutrophils 75.4 % (42.0-75.0); Hemoglobin 11.6 g/dL (14.0-18.0); Mean Corpuscular HGB CONC 31.3 g/dL (32.0-36.0); Mean Corpuscular Hemoglobin 28.5 pg (27.0-31.0); Mean Platelet Volume 7.2 fL (7.4-10.4); Platelet Count 400 thou/uL (130-400); RBC Distribution Width 13.6 % (11.5-14.5); Red Blood Cell (RBC) Count 4.07 mill/uL (4.70-6.10); White Blood Cell (WBC) Count 15.8 thou/uL (4.8-10.8)
[2018-08-02 06:14] LABS: Anion Gap 8 mmol/L (10-20); BUN (Urea Nitrogen) 21 mg/dL (8.4-25.7); Calc. Creatinine Clearance 96 mL/min (70-130); Calcium 8.8 mg/dL (7.8-10.44); Carbon Dioxide 30 mmol/L (23-31); Chloride 99 mmol/L (98-107); Estimated GFR-MDRD Greater than 90; Glucose 95 mg/dL (83-110); Potassium 3.6 mmol/L (3.5-5.1); Sodium 133 mmol/L (136-145)
[2018-08-02] MEDS: Mometasone/Formoterol 120 PUFF INHALER INH SCH ×2 (06:19→18:32)
--- NOTE | 2018-08-02 07:54 | RAD ---
PORTABLE CHEST: Date: 08/02/18 PROVIDED CLINICAL HISTORY: Pneumothorax. FINDINGS: Comparison with 08/01/18. Significant interval change with respect to the prior examination is not apparent. IMPRESSION: As above. POS: [facility]
[2018-08-02] MEDS: predniSONE 20 MG TAB PO SCH (08:50)
[2018-08-02] MEDS: Losartan 25 MG TAB PO SCH (08:51)
[2018-08-02] MEDS: Acetaminophen 325 MG TAB PO PRN ×2 (08:51→21:17)
[2018-08-02] MEDS: Docusate 100 MG CAP PO SCH ×2 (08:51→21:17)
[2018-08-02] MEDS: Enoxaparin Sodium 40 MG/0.4 ML SYRINGE SC SCH (08:51)
--- NOTE | 2018-08-02 13:33 | PRG ---
DATE OF SERVICE: 08/02/2018 HISTORY OF PRESENT ILLNESS: The patient continues to refuse physical therapy following attempts to m aintain chest tube off suction. He has had inability to have energy to ambulate with chest tube in p lace at that point in time. The patient has been unable to lay flat for the last 5 years given his p ulmonary function. He is maintained on 2-3 liters nasal cannula permanently on outpatient basis rega rding his COPD. He has been stable on 2 liters in the last 48 hours here; however, gets very easily winded. He is unable to participate in a decubitus ulcer prevention program secondary to chest tube being very painful for him when he either participates in left or right side lying given the fact the patient is not ambulating, not rotating and not lying flat at times. Nursing staff has some concern about possible skin breakdown on his buttocks. He is taking appropriate precautions given patient's situation, however. The patient is frustrated with his current progress. Verbalizes understanding about possible pleurodesis next week with Cardiothoracic Surgery and pulmonary consultations. Has no acute complaints. LABORATORY DATA: White blood cell count of 15.8, hemoglobin of 11.6, platelet count of 400. Sodium of 133, potassium of 3.9, creatinine of 0.63. OBJECTIVE: VITAL SIGNS: Temperature 98.4, pulse is 77, oxygen saturation 100% on 3 liters nasal cannula, blood pressure 109/57. GENERAL: The patient is alert and oriented, no acute distress. HEENT: Normocephalic, atraumatic. Extraocular movements are intact. Sclerae are white. NECK: Supple. CARDIOVASCULAR: Regular rate and rhythm. No murmurs auscultated. Some coarse bronchial breath soun ds bilaterally. Slightly diminished breath sounds, no wheezes, no rhonchi. ABDOMEN: Soft, nontender, positive bowel sounds throughout. EXTREMITIES: Lower extremities without cyanosis or edema. NEUROLOGIC: The patient is alert and oriented x3. No focal deficits. ASSESSMENT AND PLAN: Chronic obstructive pulmonary disease following rupture of a spontaneous pneumo thorax currently controlled with chest tube. Since the patient's pneumothorax, he has developed bron chopulmonary fistula, maintained by continuation of a chest tube placement. Subcutaneous emphysema i s slowly resolving following acute placement of chest tube on admission. Initial physical therapy go al is to walk greater than 100 feet, get the patient up to chair as much as possible with him tolerat ing chest tube to suction. Current gait distance today was 135. The patient unable to participate i n physical therapy twice daily or once daily secondary to the current condition as stated per HPI. W e will continue to follow along with Cardiothoracic Surgery and pulmonary services. The patient was maintained on Lovenox 40 mg for prophylaxis, 20 mg of prednisone, DuoNebs regarding his chronic obstr uctive pulmonary disease status. The patient was maintained on his losartan with good blood pressure s.
[2018-08-03] MEDS: Mometasone/Formoterol 120 PUFF INHALER INH SCH ×2 (06:45→18:54)
[2018-08-03] MEDS: Acetaminophen 325 MG TAB PO PRN ×3 (09:24→20:17)
[2018-08-03] MEDS: Docusate 100 MG CAP PO SCH ×2 (09:26→20:17)
[2018-08-03] MEDS: predniSONE 20 MG TAB PO SCH (09:28)
[2018-08-03] MEDS: Losartan 25 MG TAB PO SCH (09:28)
[2018-08-03] MEDS: Enoxaparin Sodium 40 MG/0.4 ML SYRINGE SC SCH (09:32)
--- NOTE | 2018-08-03 16:41 | PRG ---
DATE OF SERVICE: 08/03/2018 SUBJECTIVE: The patient has no acute complaints. States that he is maintaining himself underneath t he fluid restriction count of approximately 1500 mL per day. Has no symptoms regarding his hyponatre david that has been stable over the last week. He verbalized understanding regarding this and has been able to stay in the chair for the last several hours with nursing staff helping him move his chest t ube. No acute changes per nursing staff for the patient pending evaluation of back tomorrow with Dr. Posada, Cardiovascular surgery. OBJECTIVE: VITAL SIGNS: Temperature of 98.9, pulse 65, respiratory rate of 16, oxygen saturation 100% on 3 lite rs nasal cannula, and blood pressure 114/60. GENERAL: The patient is alert and oriented, in no acute distress. HEENT: Normocephalic, atraumatic. Extraocular movements are intact. Nasal cannula in place. Oral mucosa is moist. NECK: Supple, nontender. HEART: Regular rate and rhythm. No murmurs auscultated. LUNGS: Clear to auscultation bilaterally and upper bronchial region lower left side with coarse claudia th sounds. Chest tube in place to waterseal. ABDOMEN: Soft, nontender, positive bowel sounds throughout. EXTREMITIES: Lower extremities without cyanosis or edema. NEUROLOGIC: The patient is alert and oriented x3, no focal deficits. Speech is normal. LABORATORY DATA: No labs this a.m. ASSESSMENT AND PLAN: Bronchopulmonary fistula following along with Pulmonology and Cardiovascular Nuñez rgery, possible plans for pleurodesis next week. No acute changes. Continuing current therapy. The patient's hypertension and hyponatremia remained stable. Continue losartan, fluid restriction, claudia thing treatments, steroids 20 mg. Chest x-ray pending in a.m. We will continue to follow periodic c hecks of the patient's electrolytes.
[2018-08-04] MEDS ORDERED: Aspirin 325 MG TAB PO SCH (04:30)
[2018-08-04 06:14] LABS: Anion Gap 13 mmol/L (10-20); BUN (Urea Nitrogen) 21 mg/dL (8.4-25.7); Calc. Creatinine Clearance 113 mL/min (70-130); Calcium 8.8 mg/dL (7.8-10.44); Carbon Dioxide 27 mmol/L (23-31); Chloride 100 mmol/L (98-107); Estimated GFR-MDRD Greater than 90; Glucose 75 mg/dL (83-110); Potassium 3.5 mmol/L (3.5-5.1); Sodium 136 mmol/L (136-145)
[2018-08-04 06:19] LABS: CKMB 1.7 ng/mL (0-6.6); Troponin I Less than 0.010 ng/mL (< 0.028)
[2018-08-04] MEDS: Mometasone/Formoterol 120 PUFF INHALER INH SCH ×2 (07:40→19:46)
[2018-08-04] MEDS: Losartan 25 MG TAB PO SCH (07:47)
[2018-08-04] MEDS: Enoxaparin Sodium 40 MG/0.4 ML SYRINGE SC SCH (07:47)
[2018-08-04] MEDS: Docusate 100 MG CAP PO SCH ×2 (07:48→21:28)
[2018-08-04] MEDS: predniSONE 20 MG TAB PO SCH (07:48)
--- NOTE | 2018-08-04 07:49 | PRG ---
DATE OF SERVICE: 08/04/2018 SUBJECTIVE: No complaints this morning by patient. Last night, he had a short run of V-tach, which resolved spontaneously. The patient did not have any associated chest pain, nausea, vomiting, or alfredo rtness of breath. Metoprolol 25 p.o. b.i.d. was initiated. OBJECTIVE: VITAL SIGNS: Temperature 97.7, pulse 73, respirations 16, pulse ox 99, blood pressure 108/59. GENERAL: In no acute distress this morning, the patient looks good. HEART: Regular rate and rhythm. LUNGS: Clear. ABDOMEN: Soft. EXTREMITIES: No edema. LABORATORY: Sodium 136, potassium 3.5, creatinine 0.51, BUN 21. White count 15.8, H and H 11 and 37 . Chest x-ray: Preliminary review of the chest x-ray shows left apical pneumothorax. However, radi ology reading is pending. ASSESSMENT: 1. Spontaneous pneumothorax. Awaiting radiology reading this morning. It appears that a pneumothor ax has reappeared. 2. Bronchopulmonary fistula. 3. Hyponatremia, improved. 4. Subcutaneous emphysema, improving. 5. DO NOT RESUSCITATE. Patient wants no further intervention as far as cardiac workup. He is consi dering a pleurodesis by Dr. Daniels. PLAN: 1. Consider pleurodesis this week. 2. Dr. Osborne reconsulted. However, I doubt patient will want any further intervention. 3. Continue to follow electrolytes.
[2018-08-04] MEDS: Acetaminophen 325 MG TAB PO PRN ×3 (08:53→21:35)
[2018-08-04] MEDS ORDERED: Metoprolol Tartrate 25 MG TAB PO SCH (09:00)
--- NOTE | 2018-08-04 09:46 | PRG ---
DATE OF SERVICE: 08/04/2018 SUBJECTIVE: This morning, he is awake, alert and responsive. PHYSICAL EXAMINATION: VITAL SIGNS: Sats are 99-100 on 3 liters, respiration rate 18, pulse 66, temperature 97, blood pressure 122/65. CHEST: Reveals decreased breath sounds without any wheezing. CARDIAC: Normal S1, S2, no gallops. ABDOMEN: Soft. No masses. Severe chronic obstructive pulmonary disease, spontaneous pneumothorax. Apparently,5_ minute beats of supraventricular tachycardia was noticed, unclear why the patient was symptomatic, but he was started on metoprolol 25 b.i.d., which was discontinued. IMPRESSION: End-stage chronic obstructive pulmonary disease.Continue ct suction PLAN: Avoid beta blockers if possible. _IF recurrent SVT, consult Cardiology. We will follow. CHANCE
--- NOTE | 2018-08-04 10:06 | RAD ---
CHEST 1 IEW: DATE: 08/02/18. HISTORY: Pneumothorax. FINDINGS: Stable left-sided chest tube. No obvious pneumothorax. Stable extensive subcutaneous emphysema. IMPRESSION: No significant interval change. POS: [facility]
--- NOTE | 2018-08-04 23:26 | CON ---
DATE OF CONSULTATION: 08/04/2018 HISTORY OF PRESENT ILLNESS: Meggan Kruse is a 72-year-old white male with end- stage chronic obstructive pulmonary disease. He presented on 07/11/2018 with respiratory distress. He was intubated and found to have a left-sided pneumothorax. Chest tube ultimately was placed. He continues to have a bronchopleural fistula. He eventually was extubated and transferred to telemetry. He is a DNR. Early this morning at 2:30 a.m., he had a 15-beat run of supraventricular tachycardia with a rate approximately 150 per minute. The patient states that he was asleep during that time. He denies any previous history of palpitations or tachycardias. He has been seen and evaluated by Dr. Osborne in the past and in 04/2014 underwent cardiac catheterization, which revealed ejection fraction of 60%-65% with 20% mid RCA lesion. PAST MEDICAL HISTORY: End-stage chronic obstructive pulmonary disease, history of alcohol abuse. OPERATIONS: Appendectomy, tonsillectomy, left chest tube placement, hernia repair, history of colonic perforation in 09/2008, TURP in 2009, I&D of right forearm 02/2018. MEDICATIONS: At home include Symbicort, DuoNebs, this will be congested. Prednisone 10 mg, Bactrim 1 tablet b.i.d., Spiriva 18 mcg daily, Ventolin inhaler p.r.n. ALLERGIES: None. SOCIAL HISTORY: He is a former smoker, is greater than [id number] smoking history. He apparently was a drinker in the past. FAMILY HISTORY: Father had heart disease and COPD. REVIEW OF SYSTEMS: Twelve-point review of systems other than the shortness of breath is unremarkable. PHYSICAL EXAMINATION: VITAL SIGNS: Blood pressure 99/58, pulse 74. HEENT: PERRL. NECK: Supple. CHEST: Reveals distant breath sounds bilaterally. CARDIAC: S1 and S2 are normal. They are difficult to hear with the left chest crepitus. ABDOMEN: Normal bowel sounds without tenderness, organomegaly. EXTREMITIES: Revealed no clubbing, cyanosis, or edema. NEUROLOGIC: Grossly intact. SKIN: Warm and dry. LABORATORY DATA: EKG revealed normal sinus rhythm with low voltage. Hemoglobin 11.6, hematocrit 37.0, white count 15,800, platelets 400,000. Sodium 136, potassium 3.5, chloride 100, carbon dioxide 27, BUN 21, creatinine 0.55, troponin I is normal. IMPRESSION: 1. Severe end-stage chronic obstructive pulmonary disease. 2. Left-sided pneumothorax with persistent bronchopleural fistula. 3. Former smoker. 4. Patient denies any history of hypertension in the past. 5. 15-beat run of supraventricular tachycardia, asymptomatic. PLAN: Currently, Mr. Kruse is on losartan 50 mg daily and I assume that was started for elevated blood pressure. This started on 07/19 and he states that he did not take that at home. I will discontinue Losartan and instead we will start him on Cardizem 180 CD q.a.m. Echocardiogram will be performed to reassess his left ventricular function. CHANCE
[2018-08-05] MEDS: Mometasone/Formoterol 120 PUFF INHALER INH SCH ×2 (07:14→18:23)
--- NOTE | 2018-08-05 08:45 | PRG ---
DATE OF SERVICE: 08/05/2018 SUBJECTIVE: The patient remains stable. No complaints of shortness of breath or chest pain. OBJECTIVE: VITAL SIGNS: Pulse 60, respirations 16, pulse ox 98 on 2 liters O2. HEART: Regular rate and rhythm. LUNGS: Clear, stable. ABDOMEN: Soft. EXTREMITIES: With no edema. LABORATORY DATA: None. ASSESSMENT: 1. Spontaneous pneumothorax, stable. 2. Bronchopulmonary fistula. 3. Hyponatremia, stable. 4. Subcutaneous emphysema, improving. 5. DO NOT RESUSCITATE. 6. Run of ventricular tachycardia, no reoccurrence. PLAN: 1. Consider pleurodesis this week. 2. Appreciate Dr. Wilkins. 3. Cardizem started in place of losartan. 4. May increase the fluids at this time.
--- NOTE | 2018-08-05 08:59 | RAD ---
PORTABLE CHEST: HISTORY: Pneumothorax. COMPARISON: Prior day's exam. FINDINGS: Extensive subcutaneous emphysema again noted. Left-sided chest tube remains in place. Lungs appear somewhat hyperexpanded. I do not appreciate any definite pneumothorax. IMPRESSION: Stable examination. POS: [facility]
[2018-08-05] MEDS: Docusate 100 MG CAP PO SCH ×2 (09:09→20:31)
[2018-08-05] MEDS: predniSONE 20 MG TAB PO SCH (09:11)
[2018-08-05] MEDS: Enoxaparin Sodium 40 MG/0.4 ML SYRINGE SC SCH (09:11)
--- NOTE | 2018-08-05 09:26 | PRG ---
DATE OF SERVICE: 08/05/2018 This morning he is awake, alert, responsive, in no distress. Still has subcutaneous emphysema. He i s back on his CT suction. X-ray shows no pneumothorax. PHYSICAL EXAMINATION: VITAL SIGNS: Sats are 99 on 2 liters, respirations 18, pulse 68, temperature 97, blood pressure 120/ 53. He was started on low dose Cardizem for his SVT. CHEST: Chest reveals decreased breath sounds, no wheezing. CARDIAC: Normal S1, S2. ABDOMEN: Soft, no masses. IMPRESSION: 1. End-stage chronic obstructive pulmonary disease. 2. Spontaneous pneumothorax. 3. Supraventricular tachycardia. PLAN: Continue supportive care. Continue CT drainage. I will follow.
[2018-08-05 14:09] VITALS: BMI 21.4
[2018-08-06] MEDS: Acetaminophen 325 MG TAB PO PRN ×2 (01:58→15:37)
[2018-08-06] MEDS: Mometasone/Formoterol 120 PUFF INHALER INH SCH ×2 (07:19→19:18)
--- NOTE | 2018-08-06 08:22 | PRG ---
DATE OF SERVICE: 08/06/2018 SUBJECTIVE: The patient remains stable. He appears to be less swollen every day. OBJECTIVE: VITAL SIGNS: Temperature 97.5, pulse 74, respirations 18, pulse ox 96 on 1 liter O2. Blood pressure 105/53. HEART: Regular rate and rhythm. LUNGS: Clear. Coarse breath sounds on the left. ABDOMEN: Soft. EXTREMITIES: No edema. A chest tube with decreasing output. ASSESSMENT: 1. Spontaneous pneumo stable with decreasing chest tube output. 2. Bronchopulmonary fistula. 3. Hyponatremia, stable. 4. Subcutaneous emphysema, stable. 5. Do not resuscitate. 6. Ventricular tachycardia. PLAN: 1. Decreasing output by the chest tube. Possibly may discontinue in the very near future. 2. Continue to follow.
--- NOTE | 2018-08-06 09:09 | PRG ---
DATE OF SERVICE: 08/06/2018 Mr. Kruse is a 72-year-old gentleman. This morning he is awake, alert, responsive. CT in place, dra sousa. There is bubbling intermittently. PHYSICAL EXAMINATION: VITAL SIGNS: Sats are 94 on 2 liters, respiration rate 18, temperature 97, blood pressure 118/58. H is subcu emphysema is much improved. CHEST: No wheezing. CARDIAC: Normal S1, S2, no gallops. . IMPRESSION: 1. End-stage chronic obstructive pulmonary disease. 2. Spontaneous pneumothorax is somewhat improved. PLAN: Try to cut back his steroids once again to 5 mg a day baseline. Hopefully, that should help h is healing process. Continue CT drainage. We will discuss with Surgery.
[2018-08-06] MEDS: predniSONE 20 MG TAB PO SCH (09:39)
[2018-08-06] MEDS: Docusate 100 MG CAP PO SCH ×2 (09:40→20:11)
[2018-08-06] MEDS: Enoxaparin Sodium 40 MG/0.4 ML SYRINGE SC SCH (09:40)
--- NOTE | 2018-08-06 14:32 | RAD ---
CHEST ONE VIEW: 08/06/18 HISTORY: Pneumothorax. COMPARISON: Radiograph prior day. FINDINGS: Similar appearance to subcutaneous emphysema both hemithoraces. Left thoracostomy tube is similar. No large pneumothorax is appreciated. IMPRESSION: Unchanged examination of the chest. POS: [facility]
[2018-08-07] MEDS: Mometasone/Formoterol 120 PUFF INHALER INH SCH ×2 (07:00→19:11)
--- NOTE | 2018-08-07 08:13 | PRG ---
DATE OF SERVICE: 08/07/2018 SUBJECTIVE: The patient remains stable. He is in no acute distress. Tolerating a regular diet. He has now been in the hospital for 28 days. OBJECTIVE: VITAL SIGNS: Temperature 97.6, pulse 67, respiration 20, pulse oximetry 97 O2 at 1 liter, blood pres sure 119/57. HEART: Regular rate and rhythm. LUNGS: Clear. ABDOMEN: Soft. EXTREMITIES: No edema. LABORATORY: None. ASSESSMENT: 1. Spontaneous pneumo, stable. 2. Bronchopulmonary fistula. 3. Hyponatremia, stable. 4. Subcutaneous emphysema continues to improve slowly. 5. Do not resuscitate. 6. History ventricular tachycardia. PLAN: 1. Continue to monitor chest tube output. Hopefully, can wean soon. 2. Continue to follow.
--- NOTE | 2018-08-07 09:07 | RAD ---
FRONTAL RADIOGRAPH CHEST: DATE: 08/07/18. COMPARISON: 08/06/18. HISTORY: Pneumothorax, subcutaneous emphysema. FINDINGS: No large-volume pneumothorax seen on either side. There is subcutaneous emphysema noted within the c hest wall bilaterally, not significantly changed. Subcutaneous emphysema extends into the supraclavi cular regions. There is a stable left-sided chest tube. There is increased linear interstitial dens ity and pulmonary hyperinflation suggesting underlying COPD in the proper clinical setting. IMPRESSION: No significant interval change. POS: [facility]
--- NOTE | 2018-08-07 09:12 | PRG ---
DATE OF SERVICE: 08/07/2018 This morning he is less short of breath. Yesterday when we cut back his breathing treatments to ever y 6 hours he said he felt dyspneic, back on every 4 hours of DuoNeb. PHYSICAL EXAMINATION: VITAL SIGNS: Sats 95 on 2 liters, respiration 22, temperature is 97, blood pressure 108/57. CHEST: Chest reveals decreased breath sounds, no wheezing. CARDIAC: Normal S1-S2. No gallops. ABDOMEN: Soft. No masses. IMPRESSION: 1. Pneumothorax spontaneous. 2. Chronic obstructive pulmonary disease. PLAN: Continue low dose prednisone, neb treatments. I will follow.
[2018-08-07] MEDS: predniSONE 5 MG TAB PO SCH (09:24)
[2018-08-07] MEDS: Docusate 100 MG CAP PO SCH ×2 (09:25→19:50)
[2018-08-07] MEDS: Enoxaparin Sodium 40 MG/0.4 ML SYRINGE SC SCH (09:26)
[2018-08-07] MEDS: Acetaminophen 325 MG TAB PO PRN ×2 (09:26→13:41)
[2018-08-08 06:11] LABS: Anion Gap 12 mmol/L (10-20); BUN (Urea Nitrogen) 12 mg/dL (8.4-25.7); Calc. Creatinine Clearance 109 mL/min (70-130); Carbon Dioxide 31 mmol/L (23-31); Chloride 99 mmol/L (98-107); Estimated GFR-MDRD Greater than 90; Glucose 80 mg/dL (83-110); Potassium 3.5 mmol/L (3.5-5.1); Sodium 138 mmol/L (136-145)
[2018-08-08 06:30] LABS: Band 17 % (5-11); Eosinophils 1 % (0-10); Hemoglobin 11.1 g/dL (14.0-18.0); Lymphocytes 3 % (21-51); MDiff Complete? YES; Mean Corpuscular HGB CONC 30.8 g/dL (32.0-36.0); Mean Corpuscular Hemoglobin 28.5 pg (27.0-31.0); Mean Corpuscular Volume 92.5 fL (78.0-98.0); Mean Platelet Volume 7.5 fL (7.4-10.4); Metamyelocyte 1 % (0-0); Monocytes 10 % (0-10); Neutrophil 68 % (42-75); PLT Morphology Comment Appears Increased; Platelet Count 458 thou/uL (130-400); RBC Distribution Width 13.4 % (11.5-14.5); Red Blood Cell (RBC) Count 3.88 mill/uL (4.70-6.10); White Blood Cell (WBC) Count 14.6 thou/uL (4.8-10.8)
[2018-08-08] MEDS: Mometasone/Formoterol 120 PUFF INHALER INH SCH ×2 (06:40→18:30)
[2018-08-08] MEDS ORDERED: Magnesium 2 GM/NS 0.9% 100 ML 2 GM in Premix Bag 1 BAG IVPB SCH (08:30)
[2018-08-08] MEDS: Docusate 100 MG CAP PO SCH ×2 (08:37→20:06)
[2018-08-08] MEDS: predniSONE 5 MG TAB PO SCH ×2 (08:38→08:45)
[2018-08-08] MEDS: Enoxaparin Sodium 40 MG/0.4 ML SYRINGE SC SCH (08:39)
--- NOTE | 2018-08-08 08:53 | RAD ---
CHEST 1 VIEW: COMPARISON: 08/07/18. HISTORY: Pneumothorax. Subcutaneous emphysema. FINDINGS: Stable left-sided chest tube. Stable configuration of the cardiac silhouette. Stable hyperinflation of the lung parenchyma. There is a left-sided pneumothorax projecting between the posterior left 3r d and 4th rib. Pneumothorax appears to have increased when compared to the previous examination. Ex tensive subcutaneous emphysema is noted. Unremarkable osseous structures. IMPRESSION: There is a left-sided pneumothorax. POS: [facility]
[2018-08-08] MEDS: ALPRAZolam 0.25 MG TAB PO PRN ×2 (10:30→20:06)
--- NOTE | 2018-08-08 11:59 | PRG ---
DATE OF SERVICE: 08/08/2018 SUBJECTIVE: This morning, developed acute shortness of breath while he is eating breakfast. His chest x-ray shows a small apical pneumothorax. OBJECTIVE: VITAL SIGNS: Pulse is 98, temperature 97, sats are 93 on 2 liters, blood pressure 130\73_. CHEST: Decreased breath sounds bilaterally, prolonged expiration. CARDIAC: Sinus tachycardia. ABDOMEN: Soft without masses. LABORATORY DATA: Labs are unremarkable. IMPRESSION: 1. Left-sided pneumothorax spontanious with ct drainage end stage chronic obstructive pulmonary disease. 2. Supraventricular tachycardia. PLAN: Continue CT section. Unfortunately, at this stage all options are limited. Go back on his prednisone to 10 a day. Continue neb treatments, supportive care. We will follow. DEVOND
[2018-08-08] MEDS: Acetaminophen 325 MG TAB PO PRN (12:37)
[2018-08-09] MEDS: Mometasone/Formoterol 120 PUFF INHALER INH SCH ×2 (06:43→19:18)
--- NOTE | 2018-08-09 09:31 | RAD ---
PORTABLE AP CHEST XRAY: DATE: 08/09/18. HISTORY: Pneumothorax. Followup. COMPARISON: 08/08/18. FINDINGS: Left-sided thoracostomy tube remains in place and unchanged in position. Previously noted left-sided pneumothorax is not definitely seen on today's examination. Extensive subcutaneous emphysema is aga in noted but has overall mildly improved. Calcified granuloma at the right lung base is again presen t. Cardiac silhouette and pulmonary vasculature are within normal limits. No other interval change. IMPRESSION: 1. Left-side thoracostomy tube stable in position. Previously noted left apical pneumothorax is not definitely visualized on today's exam. There may be a very minimal left apical pneumothorax present . 2. Improvement in subcutaneous emphysema. POS: [facility]
[2018-08-09] MEDS: Docusate 100 MG CAP PO SCH ×2 (09:55→21:40)
[2018-08-09] MEDS: Enoxaparin Sodium 40 MG/0.4 ML SYRINGE SC SCH (09:55)
[2018-08-09] MEDS: predniSONE 5 MG TAB PO SCH (09:55)
--- NOTE | 2018-08-09 13:21 | PRG ---
DATE OF SERVICE: 08/09/2018 SUBJECTIVE: Meggan Kruse this morning appears to be in no distress. She has been off suction since l ast night. PHYSICAL EXAMINATION: VITAL SIGNS: Sats are , temperature is 97, pulse 68, blood pressure . CHEST: Decreased breath sounds, no wheezing. CARDIAC: Normal S1 and S2. No gallops. ABDOMEN: Soft. No masses. IMPRESSION: Spontaneous pneumothorax, severe chronic obstructive pulmonary disease, major anxiety. Continue off suction. Supportive care and PT. We will follow.
[2018-08-09] MEDS: Polyethylene Glycol 3350 17 GM Packet PO PRN (18:01)
[2018-08-10] MEDS: Mometasone/Formoterol 120 PUFF INHALER INH SCH ×2 (07:18→19:30)
[2018-08-10] MEDS: predniSONE 5 MG TAB PO SCH (10:00)
[2018-08-10] MEDS: Enoxaparin Sodium 40 MG/0.4 ML SYRINGE SC SCH (10:00)
[2018-08-10] MEDS: Polyethylene Glycol 3350 17 GM Packet PO PRN (10:01)
[2018-08-10] MEDS: Acetaminophen 325 MG TAB PO PRN ×2 (10:20→17:04)
--- NOTE | 2018-08-10 13:03 | PRG ---
DATE OF SERVICE: 08/10/2018 SUBJECTIVE: has been off suction for 36 hours. OBJECTIVE: VITAL SIGNS: Sats are 94 on 2 liters, respiration 16, temperature 97, blood pressure 121/62. CHEST: Sounds are decreased bilaterally without any wheezing. CARDIAC: Normal S1-S2. No gallops. ABDOMEN: No masses. IMPRESSION: End end-stage chronic obstructive pulmonary disease, pneumothorax with severe air leak, appears to have been stabilized. Await results of the chest x-ray otherwise continue supportive care .
--- NOTE | 2018-08-10 13:07 | RAD ---
SINGLE VIEW OF THE CHEST: COMPARISON: 08/09/18. HISTORY: Pneumothorax. FINDINGS: A single view of the chest shows a normal-size cardiomediastinal silhouette. There is a left-sided c hest tube with a small left apical pneumothorax. Subcutaneous air is seen in both chest magallanes. IMPRESSION: Small left apical pneumothorax. POS: [facility]
[2018-08-10] MEDS: Docusate 100 MG CAP PO SCH ×2 (13:50→21:35)
--- NOTE | 2018-08-10 14:24 | EKG ---
Test Reason : STAT Blood Pressure : / mmHG Vent. Rate : 073 BPM Atrial Rate : 073 BPM P-R Int : 200 ms QRS Dur : 076 ms QT Int : 380 ms P-R-T Axes : 080 068 080 degrees QTc Int : 418 ms Normal sinus rhythm with sinus arrhythmia Low voltage QRS Septal infarct , age undetermined Abnormal ECG When compared with ECG of 11-JUL-2018 07:51, Septal infarct is now Present Nonspecific T wave abnormality now evident in Anterior leads Confirmed by RAYMOND GREEN (2) on 08/10/2018 2:24:05 PM Referred By: Cherise JANE Confirmed By:RAYMOND GREEN
[2018-08-11] MEDS: Mometasone/Formoterol 120 PUFF INHALER INH SCH ×2 (06:46→19:06)
--- NOTE | 2018-08-11 07:55 | PRG ---
DATE OF SERVICE: 08/11/2018 SUBJECTIVE: The patient is doing well this morning. He remains in good spirits, despite his prolong ed hospital stay. No complaints of chest pain or shortness of breath. The patient's wall suction to his chest has been off since Saturday night. OBJECTIVE: VITAL SIGNS: Temperature 97.9, pulse 74, respirations 16, pulse ox 100, O2 at 2 liters, blood pressu re 115/62. HEART: Regular rate and rhythm with occasional PACs. LUNGS: Clear, stable. ABDOMEN: Soft. EXTREMITIES: With no edema. LABORATORY DATA: None. ASSESSMENT: 1. Spontaneous pneumothorax, stable. 2. Bronchopulmonary fistula. 3. Hyponatremia, resolved. 4. Subcutaneous emphysema has improved significantly since I last saw him on . 5. Do not resuscitate. 6. History of ventricular tachycardia. PLAN: We will continue to discuss further with Dr. Posada and Dr. Devante Daniels.
--- NOTE | 2018-08-11 08:25 | RAD ---
AP VIEW OF THE CHEST: INDICATION: Intubation. COMPARISON: Prior exam dated 08/09/18. FINDINGS: Small left-sided apical pneumothorax persists. Left-sided thoracostomy tube is unchanged. Left ches t wall subcutaneous emphysema is similar. Right lung is clear. Osseous structures are unchanged. IMPRESSION: 1. Small left apical pneumothorax. The extent of the apical pneumothorax is likely slightly smaller than on the most recent comparison of 08/10/18. Continued followup is recommended. 2. Persistent chest wall emphysema. 3. Stable left-sided thoracostomy. POS: [facility]
[2018-08-11] MEDS: Enoxaparin Sodium 40 MG/0.4 ML SYRINGE SC SCH (09:13)
[2018-08-11] MEDS: predniSONE 5 MG TAB PO SCH (09:14)
[2018-08-11] MEDS: Docusate 100 MG CAP PO SCH ×2 (09:14→20:08)
[2018-08-11] MEDS ORDERED: Lidocaine 1% (PF) 30 ML VIAL ONE (09:22)
--- NOTE | 2018-08-11 10:02 | PRG ---
DATE OF SERVICE: 08/11/2018 This morning she is doing well. PHYSICAL EXAMINATION: VITAL SIGNS: Sats are 99 on 2 liters. Blood pressure 120/76. Respiratory rate 18. Chest x-ray shows a small residual pneumothorax, but much improved. CHEST: Chest reveals decreased breath sounds without wheezing. CARDIAC: Normal S1, S2. ABDOMEN: Soft, no masses. IMPRESSION: 1. Spontaneous pneumothorax. 2. Severe chronic obstructive pulmonary disease, off suction for 3 days. No significant lung collap se. PLAN: I discussed with Dr. Orellana. You could probably send the patient home on a Heimlich valve and se e back in a week in the office.
[2018-08-11] MEDS: Acetaminophen 325 MG TAB PO PRN ×2 (14:13→18:43)
[2018-08-12] MEDS: Acetaminophen 325 MG TAB PO PRN (03:21)
[2018-08-12] MEDS: Mometasone/Formoterol 120 PUFF INHALER INH SCH (07:23)
--- NOTE | 2018-08-12 09:05 | RAD ---
PORTABLE CHEST: Date: 08/12/18 COMPARISON: 08/11/18. HISTORY: Respiratory distress. FINDINGS: Heart size within normal limits. Left chest tube remains in place. There is question of a small apica l pneumothorax present. I think it is fairly similar to the previous exam. Subcutaneous emphysema ove r both chest magallanes are noted. COPD type changes are present. IMPRESSION: Tiny apical pneumothorax. Essentially stable chest. POS: [facility]
[2018-08-12 09:12] VITALS: BP 102/59; TEMP 98.5
[2018-08-12] MEDS: Docusate 100 MG CAP PO SCH (09:14)
[2018-08-12] MEDS: Enoxaparin Sodium 40 MG/0.4 ML SYRINGE SC SCH (09:14)
[2018-08-12] MEDS: predniSONE 5 MG TAB PO SCH (09:14)
--- NOTE | 2018-08-12 09:35 | PRG ---
DATE OF SERVICE: 08/12/2018 This morning he is awake, alert, responsive. PHYSICAL EXAMINATION: VITAL SIGNS: His sats are 98 on 2 liters, respirations 18, temperature 98, blood pressure 102/59. CHEST: Decreased breath sounds, no wheezing. CARDIAC: Normal S1, S2, no gallops. ABDOMEN: Soft, no masses. IMPRESSION: 1. End-stage chronic obstructive pulmonary disease. 2. Spontaneous pneumothorax. 3. Prolonged chest tube leak. 4. Major anxiety. PLAN: His chest x-ray looks much improved. He has a Heimlich valve in place. He is being discharg ed home to be seen in the office in a week with a chest x-ray.
--- NOTE | 2018-08-12 12:32 | DIS ---
DATE OF ADMISSION: 07/11/2018 DATE OF DISCHARGE: 08/12/2018 DISCHARGE DIAGNOSES: 1. Spontaneous pneumothorax, stable with a Heimlich valve in place. 2. Bronchopulmonary fistula. 3. Hyponatremia, resolved. 4. Subcutaneous emphysema, stable. 5. Do not resuscitate. 6. History of ventricular tachycardia. FOLLOWUP: Follow up with Dr. Lizzie Pulido in 1 week. Follow up with Dr. Posada. Follow up with Dr. Davon infante. PROCEDURES: Chest tube placement with a Heimlich valve in place to be discharged home. BRIEF HISTORY: This is a 72-year-old white male with a history of end-stage COPD with a 50-year plus tobacco history who was doing well until the morning of admission. He went out to get the newspaper which he does tend to struggle. He returned to the house and became short of breath. The family ca lled EMS. He then presented to the emergency room where he was discovered to have a 50% left-sided p neumothorax. The chest tube was placed and the patient was intubated and admitted to the ICU. HOSPITAL COURSE: Dr. Daniels did place a chest tube. The patient developed subcutaneous emphyse ma. It became so severe he was unable to open his eyes. This lasted for several weeks. His chest t ube was monitored as well as his chest x-rays. The patient had continued to have drainage from his c hest tube. The patient remained in the hospital for 33 days. Over the past week, the patient has betancourt d minimal drainage from his chest tube. His tube was clamped to suction for the past 4-5 days and th e patient has done well. A Heimlich valve was placed yesterday and the patient continues to do well. The plan is to discharge him home at this time and follow up in 1 week. It was felt at that point a chest tube would not be beneficial. The patient continues to have a very small left apical pneumo. It was felt the patient has a large bronchopulmonary fistula present. Also, the thought of pleurode sis was entertained; however, again this was felt it would be a detrimental procedure as well as it w ould cause the patient severe chest pain. The patient is very stable at this time, ready to go home after 33 days. We will follow up in the office in 1 week. He will eventually get another chest tub e. He will get another chest x-ray, hopefully in the near future we can pull the chest tube. DISCHARGE MEDICATIONS: Include Xanax 0.25 t.i.d. p.r.n., diltiazem 180 mg daily, DuoNeb p.r.n., Symb icort 2 puffs b.i.d. and prednisone 5 mg daily. Discharge labs include a white count of 14.6, H&H 11.1 and 35.9. Electrolytes normal. Creatinine 0. 51, BUN 21, blood sugar 75.
== END 2018-08-12 11:59 | disposition home or self-care (01) | DRG 208 ==
LOC: ERS 07:04 → CCU 09:19 → IMCU/EMU 07-15 18:33 → 2NO 07-16 20:39
PROVIDERS: ADMIT Family Medicine; ATTEND Family Medicine
PROC: 5A1945Z Respiratory Ventilation, 24-96 Consecutive Hours (ICD-10-PCS; principal; 2018-07-11)
PROC: 0BH17EZ Insertion of Endotracheal Airway into Trachea, Via Natural or Artificial Opening (ICD-10-PCS; 2018-07-11)
PROC: 0W9B00Z Drainage of Left Pleural Cavity with Drainage Device, Open Approach (ICD-10-PCS; 2018-07-11)
DX: J93.83 Other pneumothorax (principal); J86.0 Pyothorax with fistula; J96.20 Acute and chronic respiratory failure, unspecified whether with hypoxia or hypercapnia; E87.1 Hypo-osmolality and hyponatremia; T79.7XXA Traumatic subcutaneous emphysema, initial encounter; J44.9 Chronic obstructive pulmonary disease, unspecified; F41.9 Anxiety disorder, unspecified; X58.XXXA Exposure to other specified factors, initial encounter; Z66 Do not resuscitate; R00.0 Tachycardia, unspecified; Z87.891 Personal history of nicotine dependence; K59.00 Constipation, unspecified; F32.9 Major depressive disorder, single episode, unspecified; J40 Bronchitis, not specified as acute or chronic; B37.9 Candidiasis, unspecified; I10 Essential (primary) hypertension; J95.812 Postprocedural air leak; Y83.8 Other surgical procedures as the cause of abnormal reaction of the patient, or of later complication, without mention of misadventure at the time of the procedure; Y82.9 Unspecified medical devices associated with adverse incidents; Y92.239 Unspecified place in hospital as the place of occurrence of the external cause
CPT/HCPCS: 31500; 32554; 36415; 51702; 71045; 80048; 80053; 81003; 81015; 82553; 82805; 83605; 83880; 84484; 85025; 87040; 87086; 93005; 93010; 93306; 94002; 94003; 94640; 94644; 94660; 94760; 96365; 96366; 96375; 96376; A4216; G8978-GP-CJ; G8978-GP-CK; G8979-GP-CI; G8979-GP-CJ; J0696; J1650; J2001; J2250; J2704; J2920; J3010; J3475; J7050; J7506; J7611; J7620; S0028

== ENCOUNTER 2018-08-20 09:59 | Outpatient (CLI) | payer MEDICARE, OTHER ==
--- NOTE | 2018-08-20 11:43 | RAD ---
CHEST TWO VIEWS: History: Dyspnea. Comparison: 08-12-18 FINDINGS: Left side thoracostomy tube is place with the tip projecting over the mid left hemithorax. ====== is seen on the left side. Small apical pneumothorax is present with lung apex between the post left 3rd and 4th ribs. Calcified granuloma right hemithorax. Improving right hemithorax subcutaneous emphysema. IMPRESSION: Similar appearance to slightly increased size of the left apical pneumothorax. POS: [facility]
== END 2018-08-20 10:00 | disposition home or self-care (01) ==
LOC: RAD 09:59
PROVIDERS: ATTEND Internal Medicine Pulmonary Disease
DX: R06.00 Dyspnea, unspecified (principal)
CPT/HCPCS: 71046

== ENCOUNTER 2018-09-03 12:39 | Outpatient (CLI) | payer MEDICARE, OTHER ==
--- NOTE | 2018-09-03 13:59 | RAD ---
PA AND LATERAL CHEST: Indication: Dyspnea. Comparison: 08-20-18 FINDINGS: Small left apical pneumothorax persists. Left sided thoracostomy tube unchanged. Right lung is clear. Cardiomediastinal silhouette is within normal limits. Chronic osseous changes are similar to the com parison study. IMPRESSION: Stable left pneumothorax. POS: [facility]
== END 2018-09-03 12:40 | disposition home or self-care (01) ==
LOC: RAD 12:39
PROVIDERS: ATTEND Internal Medicine Pulmonary Disease
DX: R06.00 Dyspnea, unspecified (principal); J93.9 Pneumothorax, unspecified
CPT/HCPCS: 71046

== ENCOUNTER 2018-09-08 05:19 | Inpatient (IN) | payer MEDICARE, OTHER ==
[2018-09-08] MEDS ORDERED: Fentanyl 100 MCG/2 ML VIAL ONE (05:27)
[2018-09-08] MEDS ORDERED: Piperacillin/Tazobactam 3.375 GM VIAL ONE (05:47)
[2018-09-08] MEDS ORDERED: methylPREDNISolone Sod Succ/PF 125 MG/2 ML VIAL ONE (05:47)
[2018-09-08 06:00] LABS: PTT 30.5 SEC (22.9-36.1); Prothrombin Time 12.8 SEC (12.0-14.7)
[2018-09-08 06:02] LABS: Hemoglobin 12.8 g/dL (14.0-18.0); Mean Corpuscular HGB CONC 30.9 g/dL (32.0-36.0); Mean Corpuscular Hemoglobin 28.3 pg (27.0-31.0); Mean Corpuscular Volume 91.8 fL (78.0-98.0); Mean Platelet Volume 7.3 fL (7.4-10.4); Platelet Count 585 thou/uL (130-400); RBC Distribution Width 13.9 % (11.5-14.5); Red Blood Cell (RBC) Count 4.51 mill/uL (4.70-6.10); White Blood Cell (WBC) Count 20.4 thou/uL (4.8-10.8)
[2018-09-08 06:03] LABS: Lactic Acid 1.1 mmol/L (0.5-2.2)
[2018-09-08 06:07] LABS: ALT (SGPT) 22 U/L (8-55); AST (SGOT) 19 U/L (5-34); Albumin 3.8 g/dL (3.4-4.8); Alkaline Phosphatase 60 U/L (40-150); Anion Gap 13 mmol/L (10-20); BUN (Urea Nitrogen) 15 mg/dL (8.4-25.7); Bilirubin, Total 0.4 mg/dL (0.2-1.2); CK (CPK) 13 U/L (30-200); Calc. Creatinine Clearance 0 mL/min (70-130); Calcium 9.4 mg/dL (7.8-10.44); Carbon Dioxide 29 mmol/L (23-31); Chloride 100 mmol/L (98-107); Estimated GFR-MDRD Greater than 90; Globulin 2.8 g/dL (2.4-3.5); Glucose 110 mg/dL (83-110); Protein, Total 6.6 g/dL (5.8-8.1); Sodium 138 mmol/L (136-145)
[2018-09-08 06:12] LABS: CKMB 0.8 ng/mL (0-6.6); Troponin I Less than 0.010 ng/mL (< 0.028)
[2018-09-08 06:27] LABS: Band 2 % (5-11); Hypochromia SLIGHT = 6-15 cells (100X) (0-5/hpf); Lymphocytes 10 % (21-51); MDiff Complete? YES; Monocytes 9 % (0-10); Neutrophil 79 % (42-75); PLT Morphology Comment Appears Increased
[2018-09-08] MEDS ORDERED: ALPRAZolam 0.25 MG TAB PO PRN (08:15)
--- NOTE | 2018-09-08 08:28 | RAD ---
CHEST 1 VIEW: Date: 09/08/18 COMPARISON: 08/12/18 and 09/03/18. HISTORY: Pneumothorax. FINDINGS: Stable left-sided chest tube and left-sided pneumothorax. Chronic changes in the lung bases. Stable c ardiac silhouette. IMPRESSION: Stable left-sided pneumothorax. POS: [facility]
[2018-09-08] MEDS ORDERED: Ondansetron PF 4 MG/2 ML Vial IVP PRN (08:29)
[2018-09-08] MEDS ORDERED: HYDROcodone/Acetaminophen 7.5/325 mg Tablet PO PRN (08:29)
--- NOTE | 2018-09-08 08:31 | RAD ---
FRONTAL VIEW CHEST: Date: 09/08/18 INDICATION: Chest tube placement, pneumothorax, follow-up. FINDINGS: Left pneumothorax is grossly stable with persistent left side thoracostomy tube which terminates at t he medial left mid hemithorax. Chest is otherwise similar. IMPRESSION: Stable left pneumothorax, with indwelling left chest tube again seen. POS: [facility]
--- NOTE | 2018-09-08 08:50 | CON ---
DATE OF CONSULTATION: 09/08/2018 HISTORY: This is a 73-year-old gentleman well known to me, presented to the ER at 5 o'clock with mar ked respiratory distress. X-ray showed questionable worsening right-sided pneumothorax. His chest t ube was connected to underwater suction. He came to the IMCU in severe distress on a nonrebreather. He was placed on BiPAP. He is doing bett er. He denied any chills or sweats. History is extensively outlined in his previous medical records, pertinent for end-stage chronic obst ructive pulmonary disease. History of supraventricular tachycardia, history of pneumothorax, spontan eous. TOBACCO/ALCOHOL: Tobacco a pack a day for over 50 years, quit smoking many years ago. History of al cohol abuse, none recently. MEDICATIONS: List of medicine from home includes Cardizem-CD 180, prednisone, Spiriva, nasal spray, DuoNeb, Symbicort. ALLERGIES: None. SURGERIES: As noted, previous left-sided chest tube for spontaneous pneumothorax. Tonsils, appendix , hernia. REVIEW OF SYSTEMS: Ten point negative. PHYSICAL EXAMINATION: VITAL SIGNS: On bi-level, his sats are 99, respirations 18, pulse 80, blood pressure 130/80. CHEST: Decreased breath sounds, no wheezing. CARDIAC: Normal S1, S2, no gallops. ABDOMEN: Soft, without masses. NEUROLOGIC: Awake, alert, responsive. LABORATORY AND X-RAY FINDINGS: Chest x-ray as noted, may be slightly worse pneumothorax. White count elevated at 20,000, H&H is unremarkable. Electrolytes are normal. IMPRESSION: 1. Bronchitis. 2. Left pneumothorax, spontaneous. PLAN: Continue nebs, steroids, antibiotics, anti-anxiety medication. A CT of his chest tomorrow to make a decision about ongoing care. This is a consultation note, 70 minutes, 50% spent in direct patient care.
[2018-09-08] MEDS ORDERED: guaiFENesin 100 MG/5 ML UDCUP PO SCH (09:00)
[2018-09-08] MEDS: cefTRIAXone\\ROCEPHIN 1 GM in Sodium Chloride 0.9% 100 ML IVPB SCH (10:52)
[2018-09-08] MEDS: Famotidine/PF 20 mg/2ml Vial SLOW IVP SCH ×2 (10:55→21:13)
--- NOTE | 2018-09-08 11:29 | HP ---
HISTORY OF PRESENT ILLNESS: This is a 73-year-old white male with end-stage COPD with a chronic left pneumothorax with a Heimlich valve present. The patient was hospitalized for approximately 4-6 week s several weeks ago and discharged. He has done well since then. On Saturday, 3 days prior, he began developing left chest pain and breathing issues. This became progressively worse and he finally deci ded to come to the ER this morning. He was struggling to breathe and a BiPAP was placed. At this ti me, he is still quite agitated. PAST MEDICAL HISTORY: Includes a long history of tobacco use, end-stage COPD, alcohol abuse. CODE STATUS: DNR. PAST SURGICAL HISTORY: Include appendectomy, tonsillectomy, right hernia repair, cardiac catheteriza tion 1980, colon perforation in 09/2008, TURP 2009. FAMILY HISTORY: Multiple family members with heart disease and emphysema. Siblings with heart disea se also and lymphoma. SOCIAL HISTORY: He lives with his , Cassia Kruse. She recently had a stroke and is having her medi eric issues. She is in the process of recovering. They do have several children. He no longer smoke s, but does have 50 years plus tobacco history. 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 MEDICATIONS: DuoNeb treatments, Spiriva, prednisone 10 mg daily, Symbicort 160/4.5 two puffs b.i.d. ALLERGIES: None. REVIEW OF SYSTEMS: As above. PHYSICAL EXAMINATION: GENERAL: The patient is in slight respiratory distress at this time, settling down. HEENT: Clear. HEART: Regular rate and rhythm. LUNGS: Decreased breath sounds bilaterally with expiratory rhonchi. ABDOMEN: Soft, nontender. EXTREMITIES: With no edema. LABORATORY: White count 20.4, H&H 12 and 41. INR 1.0. Electrolytes normal. Creatinine 0.65, BUN 1 5. BNP 17. Troponin I less than 0.010. Chest x-ray shows a left pneumothorax, small. ASSESSMENT: 1. Chronic spontaneous pneumothorax with a Heimlich valve. 2. Bronchopulmonary fistula. 3. Last admit with subcutaneous emphysema, none present at this time. 4. Do not resuscitate. 5. History of ventricular tachycardia. PLAN: 1. Dr. Posada present. 2. BiPAP placed. 3. Chest tube placed to wall suction. 4. Xanax for comfort. 5. Resume DuoNeb treatments and Solu-Medrol 40 q.6 hours as well as Symbicort 2 puffs b.i.d. 6. Resume diltiazem 180 mg daily. 7. Start Rocephin antibiotic.
--- NOTE | 2018-09-08 15:23 | PQF ---
CLINICAL DOCUMENTATION IMPROVEMENT CLARIFICATION FORM: ICD-10 Updated PLEASE DO AN ADDENDUM TO THE PROGRESS NOTE WITH ANY DOCUMENTATION UPDATES OR ADDITIONS AND CARRY THROUGH TO DC SUMMARY. THANK YOU. DATE: 09/08/18 ATTN: DR. JANE Please exercise your independent, professional judgment in responding to the clarification form. Clinical indicators are provided on the bottom of this form for your review Please check appropriate box(s): [ ] Acute Respiratory Failure: [ ] with Hypoxia[ ] with Hypercapnia [ ] Acute On Chronic Respiratory Failure: [ ] with Hypoxia [ ] with Hypercapnia [ ] Acute Respiratory Failure due to: (etiology) [ ] ARDS (Acute Respiratory Distress Syndrome) [ ] Chronic Respiratory Failure only [ ] with Hypoxia [ ] with Hypercapnia [ ] Hypoxia [ ] Other diagnosis [ ] Unable to determine In addition, please specify: Present on Admission (POA): [ ] Yes [ ] No [ ] Unable to determine For continuity of documentation, please document condition throughout progress notes and discharge summary. Thank You. CLINICAL INDICATORS - SIGNS / SYMPTOMS / LABS ER NOTE: RR 29 NURSING ASSESSMENT 09/08: "BREATHING LABORED AND ACCESSORY MUSCLE USE" RISKS: CHRONIC PNEUMOTHORAX (PER H&P) H/O END STAGE COPD (PER H&P) FORMER SMOKER (PER ER NOTE) TREATMENT: HAS EXISTING CHEST TUBE (PLACED IN PER ER NOTE) PULMONARY CONSULT BIPAP METHYLPREDNISOLONE (ER-PRESENT) IV ZOSYN (ER) DUONEBS (ER=PRESENT) DULERA INHALER (STARTED 09/08) [employer] Winform Viewer(This form is maintained as a part of the permanent medical record) 2014 [employer]. All Rights Reserved ARIANNA [email or web address] Office: [phone] [facility]
[2018-09-08] MEDS: Acetaminophen 325 MG TAB PO PRN (18:36)
[2018-09-08] MEDS: Mometasone/Formoterol 120 PUFF INHALER INH SCH (20:14)
[2018-09-08] MEDS: Diabetic Tussin 200 MG/10 ML UDCUP PO SCH (21:12)
[2018-09-09 04:18] LABS: #Eosinphils 0.3 thou/uL (0.0-0.7); #Lymphocytes 0.7 thou/uL (1.20-3.40); #Monocytes 0.7 thou/uL (0.11-0.59); #Neutrophils 12.5 thou/uL (1.40-6.50); %Basophils 0.1 % (0.0-1.0); %Eosinophils 2.1 % (0.0-10.0); %Lymphocytes 4.9 % (21.0-51.0); %Monocytes 5.2 % (0.0-10.0); %Neutrophils 87.8 % (42.0-75.0); Hemoglobin 10.9 g/dL (14.0-18.0); Mean Corpuscular HGB CONC 31.2 g/dL (32.0-36.0); Mean Corpuscular Hemoglobin 28.6 pg (27.0-31.0); Mean Corpuscular Volume 91.8 fL (78.0-98.0); Mean Platelet Volume 7.2 fL (7.4-10.4); Platelet Count 500 thou/uL (130-400); RBC Distribution Width 13.7 % (11.5-14.5); Red Blood Cell (RBC) Count 3.82 mill/uL (4.70-6.10); White Blood Cell (WBC) Count 14.2 thou/uL (4.8-10.8)
[2018-09-09 04:33] LABS: Anion Gap 11 mmol/L (10-20); BUN (Urea Nitrogen) 16 mg/dL (8.4-25.7); Calc. Creatinine Clearance 101 mL/min (70-130); Calcium 9.3 mg/dL (7.8-10.44); Carbon Dioxide 31 mmol/L (23-31); Chloride 102 mmol/L (98-107); Estimated GFR-MDRD Greater than 90; Glucose 179 mg/dL (83-110); Potassium 3.9 mmol/L (3.5-5.1); Sodium 140 mmol/L (136-145)
[2018-09-09] MEDS: Mometasone/Formoterol 120 PUFF INHALER INH SCH ×2 (06:38→18:53)
--- NOTE | 2018-09-09 07:44 | PRG ---
DATE OF SERVICE: 09/09/2018 SUBJECTIVE: The patient is much more comfortable this morning. He looks well this morning. Chest t ube in place to suction. OBJECTIVE: VITAL SIGNS: Temperature 98.1, pulse 87, respirations 16 on 3 liters O2, blood pressure 121/67. HEART: Regular rate and rhythm. LUNGS: Relatively clear. ABDOMEN: Soft. EXTREMITIES: No edema. LABORATORY: White count 4.2, H&H 10 and 35. Sodium 140, potassium 3.9, creatinine 0.63, BUN 16, blo od sugar 110 and 179. ASSESSMENT: 1. Acute on chronic respiratory failure. 2. Chronic spontaneous pneumothorax with a Heimlich in place previously. 3. Bronchoscopy pulmonary fistula. 4. History of subcutaneous emphysema, severe. 5. Do not resuscitate. 6. History ventricular tachycardia. PLAN: 1. Dr. Posada to evaluate. Probably will order a CT scan to reevaluate the pneumo. 2. Chest tube placed to wall suction. 3. DuoNeb treatments. 4. Continue diltiazem and Rocephin. 5. Still entertaining the possibility of pleurodesis.
--- NOTE | 2018-09-09 09:47 | RAD ---
PORTABLE CHEST: History: Dyspnea. ICU follow up. Comparison: 09-08-18 FINDINGS/IMPRESSION: The left sided chest tube is unchanged. Lungs appear clear of infiltrate. Linear markings in the left lower lung probably represent atelectasis. No significant interval change noted. POS: [facility]
[2018-09-09] MEDS: Famotidine/PF 20 mg/2ml Vial SLOW IVP SCH ×2 (10:07→21:11)
[2018-09-09] MEDS: cefTRIAXone\\ROCEPHIN 1 GM in Sodium Chloride 0.9% 100 ML IVPB SCH (10:07)
[2018-09-09] MEDS: Diabetic Tussin 200 MG/10 ML UDCUP PO SCH ×2 (10:19→21:11)
[2018-09-09 12:56] VITALS: BMI 22.1
--- NOTE | 2018-09-09 13:12 | CT ---
CHEST CT SCAN WITHOUT IV CONTRAST: History: 73-year-old male with history of spontaneous pneumothorax, COPD. FINDINGS: There is a left chest tube in place extending posteriorly into the upper mid chest with a small persi stent left sided pneumothorax. There are very extensive bullous changes throughout both lungs, partic ularly in the upper lobes, as well as medially along the right lower lobe. Minimal posterior pleural based subsegmental atelectasis, particularly in the left lobe and lingula. There is no mediastinal ma ss or adenopathy. Minimal three vessel coronary artery calcific changes. Atherosclerosis of the aorta with some calcific changes. Visualized upper abdomen is unremarkable. IMPRESSION: Left chest tube in place with a small to moderate left sided residual pneumothorax. Very severe bilat eral hyperinflation and emphysema changes with some bilateral bullae. Minimal pleural based parenchym al changes in the left lower lobe and lingula, evidence for some subsegmental atelectasis with minima l changes in the right base, also subsegmental atelectasis. No evidence for other significant acute p rocess. POS: [facility]
[2018-09-10] MEDS: Mometasone/Formoterol 120 PUFF INHALER INH SCH ×2 (06:46→18:33)
--- NOTE | 2018-09-10 08:11 | PRG ---
DATE OF SERVICE: 09/10/2018 Meggan Kruse this morning is sleeping. No distress. Neb treatments, steroids on board. I added Zyvo x anti-staph coverage for the surgery today. PHYSICAL EXAMINATION: VITAL SIGNS: Sats are 94 on 3 liters, pulse 69, temperature is 98, blood pressure 100/70. CHEST: Chest reveals decreased breath sounds, no wheezing. CARDIAC: Normal S1, S2. ABDOMEN: Soft, no masses. IMPRESSION: 1. End-stage chronic obstructive pulmonary disease. 2. Pneumothorax. 3. Bullous disease. 4. Staph and Klebsiella at the chest tube site. PLAN: Antibiotics, neb treatments, steroids. Surgery today for closure of the leak and sclerosis.
[2018-09-10] MEDS: cefTRIAXone\\ROCEPHIN 1 GM in Sodium Chloride 0.9% 100 ML IVPB SCH (08:44)
[2018-09-10] MEDS: Famotidine/PF 20 mg/2ml Vial SLOW IVP SCH ×2 (08:45→20:29)
[2018-09-10] MEDS: Diabetic Tussin 200 MG/10 ML UDCUP PO SCH ×2 (08:45→20:37)
--- NOTE | 2018-09-10 08:47 | RAD ---
AP CHEST: History: Ventilator dependent patient. Patient with chest tube. Date: 09-10-18 Comparison: 09-09-18 FINDINGS: AP chest demonstrates a left sided chest tube in place. Mild pulmonary vascular congestion is seen. N o evidence of effusions, pneumonia, or pneumothorax is seen. IMPRESSION: Stable left sided chest tube. No acute intrathoracic abnormalities seen. POS: [facility]
--- NOTE | 2018-09-10 08:49 | PRG ---
DATE OF SERVICE: 09/10/2018 SUBJECTIVE: The patient is doing well this morning, in no acute distress. Resting comfortably. OBJECTIVE: VITAL SIGNS: Temperature 98.0, pulse 69, respiration 16, pulse oximetry 94% on 3 liters O2, blood pr essure 107/60. HEART: Regular rate and rhythm. LUNGS: Clear. ABDOMEN: Soft, nontender. EXTREMITIES: No edema. LABORATORY: None. ASSESSMENT: 1. Acute on chronic respiratory failure. 2. Chronic spontaneous pneumothorax with a Heimlich in place previously. 3. Bronchopulmonary fistula. 4. History of subacute severe subcutaneous emphysema. 5. Do not resuscitate. 6. History of ventricular tachycardia. PLAN: Dr. Daniels to perform a left thorascopic bleb stapling. The patient has no questions. Taco lujan understands the procedure as explained by Dr. Daniels. He is well aware of the risk and compli cations. He is also aware of the postop pain. However, he is ready to have this done.
[2018-09-10] MEDS: Linezolid 600 MG in Premix Bag 1 BAG IVPB SCH ×2 (10:29→20:28)
--- NOTE | 2018-09-10 11:29 | CON ---
DATE OF CONSULTATION: 09/09/2018 REQUESTING PHYSICIAN: Dr. Posada. PRIMARY CARE PHYSICIAN: Dr. Hank Pulido. CHIEF COMPLAINT: Shortness of breath. HISTORY OF PRESENT ILLNESS: The patient is a 73-year-old man with COPD that is at least approaching end stage. Two months ago, he presented to the hospital and required intubation. He was found to betanc[place] ve a large left-sided pneumothorax that was treated with a chest tube. He had a persistent large air leak and it was quite some time before it was feasible to back off on the suction, but ultimately, h e was placed to waterseal and then to a Heimlich valve without any respiratory distress and with the development of only a relatively small apical pneumothorax. At that time was that his underlying randy g disease was severe enough and diffuse enough that a very concerted effort should be made to avoid a ny intervention beyond bedside chest tube placement and that, when his air leak finally sealed, a huey mical pleurodesis through the tube could be entertained. The patient was discharged on 08/12/[address] just over a month in the hospital, and although he had some transient episodes of shortness of br eath in all, he was at his baseline for a period of a month. He had a persistent air leak, but no pa rticular change in the size of his pneumothorax, but he then presented on the with marked shortn ess of breath. The size of his pneumothorax was not particularly different, although a very thin rim of the basilar component could now be seen. A CPAP mask was used to get his initial shortness of br eath under control, and then overnight with aggressive ventilation therapy and IV steroids, his breat shahnaz got much better. He was able to be weaned to nasal cannula oxygen. It was opted to revisit the possibility of surgical intervention, and a CT scan was done, which demonstrated a relatively large isolated collection of air near the tip of the chest tube, which appears to represent a bleb or a pne umatocele rather than just simply a loculated pneumothorax. PAST MEDICAL HISTORY: Significant for his severe COPD, hypertension, and anxiety disorder. HOME MEDICATIONS: Are oxygen, [place], Symbicort, DuoNeb, albuterol, prednisone, and Spiriva. PAST SURGICAL HISTORY: He has had previous appendectomy, tonsillectomy, and herniorrhaphy. ALLERGIES: He denies any medical allergies. SOCIAL HISTORY: He is a former smoker, but quit many years ago. REVIEW OF SYSTEMS: Most notable for his shortness of breath with paroxysms of worsening and local pa in at the site of his chest tube. PHYSICAL EXAMINATION: GENERAL: He is now in no distress. Wearing nasal cannula oxygen. He has left-sided chest tube in p lace with a large air leak connected to a Pleur-Evac. VITAL SIGNS: His heart rates have been around 80, blood pressure 145/98, nasal cannula oxygen genera lacy O2 sats in the mid to high 90s, temperature is 98.0. T-max this hospitalization has been 98.6. LUNGS: Faint use of accessory muscles in breathing through pursed lips. He has distant breath sound s that are clear. CARDIOVASCULAR: Regular rate and rhythm. ABDOMEN: Soft, nontender. He has a large air leak from his left-sided chest tube. His chest x-ray shows a very small residual apical pneumothorax. His CT scan presumably was done with his chest tube back to waterseal shows mor e obvious pneumothorax, but shows the apparent pneumatocele or bleb in the area of the superior segme nt of the left lower lobe. LABORATORY EXAM: Shows a white count of 14.2, hemoglobin 10.9, platelets 500,000. Electrolytes are normal. Creatinine of 0.63 and glucose 179. IMPRESSION AND RECOMMENDATIONS: Given the apparent isolated nature of what would seem to be a pneuma tocele and the relatively good quality of the adjacent lung by CT scan compared to what I was mark bennett it, it may be reasonable to attempt bleb stapling after all we have been conservatively managing t his for about 2 months without any real progress now having been made beyond the initial progress. E tom if the bleb stapling does not appear to be feasible, because of the amount and quality of adjacen t lung that would have to be transected in order to remove his bleb, he may benefit from an attempted pleurodesis to accelerate this process. After a lengthy discussion with him and his family and pablo bennett arrangements for the acquisition of pericardial buttresses for staplers, we will plan on thoracosc opic bleb stapling and pleurodesis.
[2018-09-10] MEDS ORDERED: Fentanyl 100 MCG/2 ML VIAL ONE (14:15)
[2018-09-10] MEDS ORDERED: Talc Infusion/Pleuradesis 4 GM BOT ONE (14:25)
[2018-09-10] MEDS ORDERED: Lidocaine 1% PF 5 ML VIAL ONE (14:25)
[2018-09-10] MEDS ORDERED: Hydrocortisone Sod Succ/PF 100 mg/2 ml Vial ONE (14:25)
[2018-09-10] MEDS ORDERED: PROPOFOL 200 MG/20 ML VIAL ONE (14:25)
[2018-09-10] MEDS ORDERED: Bupivacaine HCl 0.5%/Epinephrine 1:200,000/PF 30 ml Vial ONE (14:28)
[2018-09-10 15:29] LABS: Hemoglobin 11.8 g/dL (14.0-18.0); Mean Corpuscular Hemoglobin 28.5 pg (27.0-31.0); Mean Platelet Volume 7.2 fL (7.4-10.4); Platelet Count 596 thou/uL (130-400); RBC Distribution Width 14.1 % (11.5-14.5); Red Blood Cell (RBC) Count 4.15 mill/uL (4.70-6.10); White Blood Cell (WBC) Count 26.3 thou/uL (4.8-10.8)
[2018-09-10 15:43] LABS: PTT 26.1 SEC (22.9-36.1); Prothrombin Time 13.2 SEC (12.0-14.7)
[2018-09-10 15:51] LABS: ALT (SGPT) 29 U/L (8-55); AST (SGOT) 17 U/L (5-34); Albumin 3.7 g/dL (3.4-4.8); Alkaline Phosphatase 51 U/L (40-150); Anion Gap 10 mmol/L (10-20); BUN (Urea Nitrogen) 20 mg/dL (8.4-25.7); Bilirubin, Total Less than 0.2 mg/dL (0.2-1.2); Calc. Creatinine Clearance 101 mL/min (70-130); Calcium 9.7 mg/dL (7.8-10.44); Carbon Dioxide 34 mmol/L (23-31); Chloride 100 mmol/L (98-107); Estimated GFR-MDRD Greater than 90; Globulin 2.5 g/dL (2.4-3.5); Glucose 131 mg/dL (83-110); Potassium 3.9 mmol/L (3.5-5.1); Protein, Total 6.2 g/dL (5.8-8.1); Sodium 140 mmol/L (136-145)
[2018-09-10 16:04] LABS: Band 4 % (5-11); Lymphocytes 2 % (21-51); MDiff Complete? YES; Monocytes 2 % (0-10); Neutrophil 92 % (42-75); PLT Morphology Comment Appears Increased
[2018-09-10] MEDS ORDERED: Midazolam HCl 2 mg/2 ml Vial ONE (16:50)
[2018-09-10] MEDS ORDERED: Ondansetron PF 4 MG/2 ML Vial IVP PRN (17:12)
[2018-09-10] MEDS ORDERED: PROVENTIL INHALER 6.7 G (200 INHALATIONS) INH PRN (17:12)
[2018-09-10] MEDS ORDERED: Promethazine HCl 25 MG/ML VIAL IM PRN (17:12)
[2018-09-10] MEDS ORDERED: HYDROcodone/Acetaminophen 5/325 mg Tablet PO PRN ×2 (17:12)
[2018-09-10] MEDS ORDERED: Mometasone/Formoterol 120 PUFF INHALER INH SCH (18:30)
[2018-09-10] MEDS ORDERED: Propofol BOLUS 1,000 MG/100 ML VIAL IV PRN (19:32)
[2018-09-10] MEDS ORDERED: Lorazepam 2 MG/ML VIAL SLOW IVP PRN (19:32)
[2018-09-10] MEDS ORDERED: DISCONTINUE PREVIOUS NARCOTIC PAIN MEDICATIONS AND BENZODIAZEPINES FS SCH (19:32)
[2018-09-10] MEDS ORDERED: Fentanyl BOLUS 250 ML IVPB PRN (19:32)
[2018-09-10] MEDS ORDERED: fentaNYL Citrate/PF 2,000 MCG in Sodium Chloride 0.9% 60 ML IV SCH (19:32)
[2018-09-10 19:39] LABS: Actual Bicarbonate (HCO3a) 31.6 mEq/L (22-28); Base Excess (BEa) 5.2 mEq/L (-2.0 to +3.0); CO2 Tension 55.1 mmHg (35.0-45.0); Carboxyhemoglobin (COHb) 0.8 gm% (0.0-3.0); Hemoglobin (Hb) 12.2 g/dL (14.0-18.0); O2 Tension (PaO2) 75.5 mmHg (> 70.0); pH, Arterial 7.38 (7.35-7.45)
[2018-09-10 19:40] LABS: ALV-art Gradient 119.435 (0-20); Puncture Site LINE
--- NOTE | 2018-09-10 20:07 | RAD ---
PORTABLE AP CHEST X-RAY: 09/10/18 HISTORY: Post thoracotomy. COMPARISON: 09/10/18 at 0447 hours. FINDINGS: Endotracheal tube is now noted in place with the tip overlying T4-5 level and well above the level of the radha. There are two left sided thoracostomy tubes now noted in place with the tip of each thor acostomy tube overlying the left lung apex. No pneumothorax is appreciated. Linear densities are seen in the left mid lung zone and left lung base probably related to atelectasis. There is also atelecta sis at the right lung base. Calcified granuloma at the right lung is again present. Again noted are e mphysematous changes predominantly within the upper lobes. Vascular calcifications seen in the thorac ic aorta. The cardiac silhouette and pulmonary vasculature are within normal limits. IMPRESSION: 1. Left sided thoracostomy tube is in place without pneumothorax appreciated. There is atelectas is in the left mid lung zone and left lung base. 2. Chronic lung changes and evidence of COPD. 3. Endotracheal tube in place. POS: [facility]
[2018-09-10] MEDS: Propofol 1,000 MG/100 ML VIAL IV PRN (20:15)
--- NOTE | 2018-09-10 20:18 | OP ---
DATE OF PROCEDURE: 09/10/2018 PROCEDURES PERFORMED: Left thoracoscopic resection of left lower lobe bleb and combined mechanical and talc pleurodesis. Intercostal Rib Blocks X 4 PREOPERATIVE DIAGNOSES: Chronic obstructive pulmonary disease with spontaneous left pneumothorax and persistent air leak. POSTOPERATIVE DIAGNOSES: Chronic obstructive pulmonary disease with spontaneous left pneumothorax and persistent air leak. SURGEON: Devante Daniels MD ANESTHESIA: General endotracheal. 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 Two months ago, he came in extremis with a large left-sided pneumothorax, it was feasible after a month in the hospital to wean him down first to waterseal and then a Heimlich valve for outpatient management, but there seemed to be no improvement in his air leak or resolution of the small residual pneumothorax. He is now taken to the operating room for resection of a bleb that has been identified by CT scanning and for pleurodesis. FINDINGS: Fist-size thin walled bleb in the region of the superior segment of the lower lobe. The upper lobe was diffusely emphysematous but not really any discrete blebs. NARRATIVE REPORT: After informed consent was obtained, the patient was taken to the operating room and placed in supine position on the operating table. After the induction of general endotracheal anesthesia, his left lung was isolated to exclude it and he was turned to the right lateral decubitus position. His left chest with the existing chest tube was prepped and draped in sterile fashion. An incision was made laterally on the chest with a scalpel and electrocautery. Blunt dissection was used to enter the pleural space. The existing chest tube was then cut and removed. A thoracoscope port and scope were inserted. Mechanical compression by a double-action ring clamp inserted through the old chest tube site along with insufflation on the port were used to facilitate atelectasis of the lung, even simple measures of adding PEEP to that lung resulted in prompt reinflation of the lung and air trapping. A very large bleb could be appreciated in the region of the superior segment of the lower lobe. Posteriorly, it was adherent to the chest wall by filmy adhesions which were easily taken down with blunt dissection. An additional port site was made posteriorly at about that level and using the old chest tube site and the tube port sites alternately, it was possible to free up the lung sufficiently to grasp the bleb and staple it off at reasonably normal appearing lung approaching but not in the fissure using an endoscopic NAYELY stapling device with Seamguard pericardial sleeves applied to the stapler loads. After resection of this very large bleb, a PEEP was added back to the lung to reexamine it. No other discrete blebs could be identified all the upper lobe was diffusely emphysematous. Pleura was then elevated off of the chest wall and large swath of it were stripped away from the chest wall to affect mechanical pleurodesis and then 12 grams of dry powder talc were aerosolized into the chest cavity. A 36-Gib[place] chest tube was positioned anteriorly and posteriorly at the apex under thoracoscopic guidance, introducing them into the chest through fresh incisions low on the chest anteriorly. The chest tubes were secured to the skin with suture and the lung was reinflated. A 0.5% Marcaine with epinephrine was used to perform intercostal rib blocks aspirating on the needle to avoid intravascular injection. The old chest tube site was debrided and reapproximated with deep and subcuticular layers of Vicryl, 2 port sites were closed with 2-0 Vicryl for the muscle and subcutaneous layers and Vicryl subcuticular suture for the skin. Dermabond was applied to the old port site and the old chest tube site and the 2 port sites. The patient was transferred to his ICU bed and the double lumen endotracheal tube was exchanged for a single lumen tube. He was then transported to the ICU in stable condition. [facility]ANCE
[2018-09-10] MEDS: Sodium Chloride 0.45% 1,000 ML IV SCH (20:37)
[2018-09-11] MEDS: Propofol 1,000 MG/100 ML VIAL IV PRN (02:29)
[2018-09-11 05:34] LABS: Anion Gap 9 mmol/L (10-20); BUN (Urea Nitrogen) 17 mg/dL (8.4-25.7); Calc. Creatinine Clearance 111 mL/min (70-130); Carbon Dioxide 34 mmol/L (23-31); Chloride 98 mmol/L (98-107); Estimated GFR-MDRD Greater than 90; Glucose 119 mg/dL (83-110); Potassium 3.7 mmol/L (3.5-5.1); Sodium 137 mmol/L (136-145)
[2018-09-11 06:03] LABS: Band 14 % (5-11); Hemoglobin 10.8 g/dL (14.0-18.0); Lymphocytes 2 % (21-51); MDiff Complete? YES; Mean Corpuscular HGB CONC 30.8 g/dL (32.0-36.0); Mean Corpuscular Hemoglobin 28.2 pg (27.0-31.0); Mean Corpuscular Volume 91.8 fL (78.0-98.0); Mean Platelet Volume 7.4 fL (7.4-10.4); Monocytes 11 % (0-10); Neutrophil 73 % (42-75); Platelet Count 522 thou/uL (130-400); RBC Distribution Width 13.9 % (11.5-14.5); Red Blood Cell (RBC) Count 3.81 mill/uL (4.70-6.10); White Blood Cell (WBC) Count 34.6 thou/uL (4.8-10.8)
[2018-09-11] MEDS: Mometasone/Formoterol 120 PUFF INHALER INH SCH ×2 (06:41→18:56)
[2018-09-11 06:51] LABS: Actual Bicarbonate (HCO3a) 31.2 mEq/L (22-28); Analyzer IN Cardio ER; Base Excess (BEa) 6.9 mEq/L (-2.0 to +3.0); CO2 Tension 43.6 mmHg (35.0-45.0); Calcium, Ionized 1.15 mmol/L (1.12-1.30); Carboxyhemoglobin (COHb) 0.3 gm% (0.0-3.0); O2 Tension (PaO2) 90.9 mmHg (> 70.0); Potassium - ABG Lab 3.83 mmol/L (3.70-5.30); pH, Arterial 7.47 (7.35-7.45)
[2018-09-11 06:55] LABS: Puncture Site ART LINE
--- NOTE | 2018-09-11 08:21 | PRG ---
DATE OF SERVICE: 09/11/2018 He is status post surgery. He had a had a thoracotomy with closure of the blebs, pleurodesis. He is intubated on the vent. PHYSICAL EXAMINATION: VITAL SIGNS: Pulse 66, blood pressure 110/80, respirations 18. CHEST: Chest reveals decreased breath sounds, no wheezing. CARDIAC: Normal S1, S2. No gallops. ABDOMEN: Soft, no masses. NEURO: Neurologically sedated. LABORATORY DATA: White count 34,000, H&H 10 and 35, platelet count 522, pO2 is 90, pCO2 47, rate of 15, 37 FiO2, 37 tidal volume. Electrolytes are normal. IMPRESSION: Status post thoracotomy with closure of pleural blebs. Dissection of the lower lobe bl eb and mechanical intact pleurodesis. PLAN: Try and wean. Continue Zyvox, Maxipime, neb treatments, steroids. We will follow. One-half hour critical care time.
--- NOTE | 2018-09-11 08:48 | PRG ---
DATE OF SERVICE: 09/11/2018. SUBJECTIVE: The patient is asleep, intubated and sedated. Resting comfortably. OBJECTIVE: VITAL SIGNS: Temperature 98.6, pulse 71, respirations 22, pulse ox 96, blood pressure is 120/51. HEART: Regular rate and rhythm. LUNGS: Relatively clear. Chest tube x2 to drainage with still some air leak, but it appears improve d. ABDOMEN: Soft. LABORATORY DATA: White count 34.6, H&H is 10 and 35. Sodium 137, potassium 3.7, creatinine 0.57, BU N 17, glucose 119. ASSESSMENT: 1. Postop day #1, status post left thorascopic resection of left lower lobe bleb and combined mechan ical and talc pleurodesis. 2. Acute on chronic respiratory failure. 3. Chronic spontaneous pneumothorax with a Heimlich in place previously, now with chest tubes in corrie ce to suction. 4. Bronchopulmonary fistula. 5. History of severe subcutaneous emphysema. 6. Do not resuscitate. 7. History of ventricular tachycardia. PLAN: 1. Hopefully, the patient can be extubated this morning. 2. Chest tubes to suction. Continue to monitor. Hopefully, at some point, these can be removed. 3. Elevated white count, most likely from the procedure yesterday. 4. We will continue to follow.
[2018-09-11] MEDS: Cefepime 2 GM in Sodium Chloride 0.9% 100 ML IVPB SCH ×2 (08:50→21:28)
[2018-09-11] MEDS ORDERED: Spiriva 18 MCG CAP (Box of 5 Caps) INH SCH (09:00)
[2018-09-11] MEDS: Famotidine/PF 20 mg/2ml Vial SLOW IVP SCH ×2 (09:52→21:29)
[2018-09-11] MEDS: Linezolid 600 MG in Premix Bag 1 BAG IVPB SCH ×2 (09:53→21:27)
[2018-09-11] MEDS: Diabetic Tussin 200 MG/10 ML UDCUP PO SCH ×2 (09:54→21:30)
[2018-09-11] MEDS: predniSONE 5 MG TAB PO SCH (09:55)
[2018-09-11] MEDS: Sodium Chloride 0.45% 1,000 ML IV SCH ×2 (09:57→13:14)
--- NOTE | 2018-09-11 10:04 | RAD ---
PORTABLE CHEST: HISTORY: Respiratory distress. COMPARISON: 09/10/2018 FINDINGS: Endotracheal tube and two left chest tubes all remain in satisfactory position. Emphysematous lung c hanges with hyperaeration in the right upper lobe is noted. Bibasilar parenchymal lung changes are s imilar to the previous exam. IMPRESSION: Essentially stable chest. POS: [facility]
[2018-09-11] MEDS: HYDROcodone/Acetaminophen 5/325 mg Tablet PO PRN (16:18)
[2018-09-11] MEDS: Ketorolac Tromethamine 30 MG/ML VIAL IVP SCH (17:11)
[2018-09-12] MEDS: Ketorolac Tromethamine 30 MG/ML VIAL IVP SCH ×4 (02:18→21:50)
[2018-09-12 05:05] LABS: Hemoglobin 10.6 g/dL (14.0-18.0); Mean Corpuscular Hemoglobin 28.5 pg (27.0-31.0); Mean Platelet Volume 7.1 fL (7.4-10.4); Platelet Count 466 thou/uL (130-400); RBC Distribution Width 13.7 % (11.5-14.5); Red Blood Cell (RBC) Count 3.73 mill/uL (4.70-6.10); White Blood Cell (WBC) Count 25.2 thou/uL (4.8-10.8)
[2018-09-12 05:22] LABS: Anion Gap 9 mmol/L (10-20); BUN (Urea Nitrogen) 13 mg/dL (8.4-25.7); Calc. Creatinine Clearance 115 mL/min (70-130); Carbon Dioxide 34 mmol/L (23-31); Chloride 99 mmol/L (98-107); Estimated GFR-MDRD Greater than 90; Glucose 97 mg/dL (83-110); Potassium 3.8 mmol/L (3.5-5.1); Sodium 138 mmol/L (136-145)
[2018-09-12 05:50] LABS: Band 7 % (5-11); Lymphocytes 1 % (21-51); MDiff Complete? YES; Monocytes 11 % (0-10); Myelocyte 1 % (0-0); Neutrophil 80 % (42-75); PLT Morphology Comment Appears Increased
[2018-09-12] MEDS: Fentanyl 100 MCG/2 ML VIAL SLOW IVP PRN (06:43)
[2018-09-12] MEDS: Sodium Chloride 0.45% 1,000 ML IV SCH (06:45)
[2018-09-12] MEDS: Mometasone/Formoterol 120 PUFF INHALER INH SCH ×2 (07:03→18:28)
--- NOTE | 2018-09-12 07:46 | PRG ---
DATE OF SERVICE: 09/12/2018 SUBJECTIVE: The patient is resting comfortably postop day #1, status post bleb stapling and pleurode sis. Complains of minimal chest dizziness. OBJECTIVE: VITAL SIGNS: Temperature 98.4, pulse 66, respirations 19, pulse ox 97, O2 3 liters nasal cannula. HEART: Regular rate and rhythm. LUNGS: Occasional expiratory wheeze. ABDOMEN: Soft. EXTREMITIES: No edema. LABORATORY DATA: White count decreased from 34.6 to 25.2, H&H is 10 and 34. Electrolytes are normal . Creatinine 0.55, BUN 13. X-RAY FINDINGS: Chest x-ray stable. ASSESSMENT: 1. Postop day #2 status post bleb stapling and pleurodesis. 2. Acute on chronic respiratory failure. 3. Chronic spontaneous pneumothorax. 4. Bronchopulmonary fistula. 5. Do not resuscitate. PLAN: 1. It appears that the air leakage is decreasing. It looks promising. 2. Continue to follow.
--- NOTE | 2018-09-12 08:44 | RAD ---
SINGLE VIEW CHEST: Date: 09/12/18 COMPARISON: 09/10/18. FINDINGS: Single view of the chest shows normal sized cardiomediastinal silhouette. Endotracheal tube has been removed. Left-sided chest tubes are unchanged in position. No pneumothorax is seen. IMPRESSION: Stable exam status post extubation. POS: [facility]
--- NOTE | 2018-09-12 08:59 | PRG ---
DATE OF SERVICE: 09/12/2018 This morning he is awake, alert responsive. He is eating breakfast. No pain, no shortness of breath . PHYSICAL EXAMINATION: VITAL SIGNS: Blood pressure 133/65, temperature 98, respirations 20. CHEST: Decreased breath sounds without any wheezing. CARDIAC: Normal S1-S2. No gallops. ABDOMEN: Soft. No masses. LABORATORY: White count 20,000, H&H 10 and 30, platelet count is normal. His wound source reveals m ultiple organisms which is sensitive to the present antibiotics, Maxipime and Zyvox. IMPRESSION: 1. Chronic obstructive pulmonary disease. 2. Left spontaneous pneumothorax status post surgery and pleurodesis. 3. Supraventricular tachycardia. PLAN: Can be transferred to a monitored bed. Continue CT suction. He has still got a chest tube spring razo. We will follow. One-half hour critical care time.
[2018-09-12] MEDS: HYDROcodone/Acetaminophen 5/325 mg Tablet PO PRN ×2 (09:39→17:00)
[2018-09-12] MEDS: Linezolid 600 MG in Premix Bag 1 BAG IVPB SCH ×2 (09:49→21:52)
[2018-09-12] MEDS: Enoxaparin Sodium 40 MG/0.4 ML SYRINGE SC SCH (09:51)
[2018-09-12] MEDS: Famotidine/PF 20 mg/2ml Vial SLOW IVP SCH ×2 (09:52→21:51)
[2018-09-12] MEDS: predniSONE 5 MG TAB PO SCH (09:52)
[2018-09-12] MEDS: Diabetic Tussin 200 MG/10 ML UDCUP PO SCH ×2 (09:55→21:51)
[2018-09-12] MEDS: Cefepime 2 GM in Sodium Chloride 0.9% 100 ML IVPB SCH (19:41)
[2018-09-13] MEDS: Ketorolac Tromethamine 30 MG/ML VIAL IVP SCH ×4 (00:27→18:03)
[2018-09-13] MEDS: Sodium Chloride 0.45% 1,000 ML IV SCH (02:33)
[2018-09-13] MEDS: HYDROcodone/Acetaminophen 5/325 mg Tablet PO PRN ×3 (02:57→19:42)
[2018-09-13] MEDS: Fentanyl 100 MCG/2 ML VIAL SLOW IVP PRN ×3 (05:23→21:00)
[2018-09-13] MEDS: Mometasone/Formoterol 120 PUFF INHALER INH SCH ×2 (08:10→18:29)
[2018-09-13] MEDS: Enoxaparin Sodium 40 MG/0.4 ML SYRINGE SC SCH (08:45)
[2018-09-13] MEDS: Famotidine/PF 20 mg/2ml Vial SLOW IVP SCH ×2 (08:45→20:47)
[2018-09-13] MEDS: Linezolid 600 MG in Premix Bag 1 BAG IVPB SCH ×2 (08:46→20:47)
[2018-09-13] MEDS: predniSONE 5 MG TAB PO SCH (08:47)
[2018-09-13] MEDS: Diabetic Tussin 200 MG/10 ML UDCUP PO SCH ×2 (09:04→20:47)
--- NOTE | 2018-09-13 09:23 | PRG ---
DATE OF SERVICE: 09/13/2018 SUBJECTIVE: The patient is up on the side of the bed. He has [address] in the left. H e has a small air leak coming from one of the chest tubes, the other has no air leak. OBJECTIVE: VITAL SIGNS: On exam, his temperature is 98.5, pulse 59, blood pressure 120/64, O2 sat 97%. GENERAL: He does not appear to be in any distress. HEENT: Unremarkable. NECK: No JVD. LUNGS: Fairly clear anteriorly bilaterally. CARDIAC: S1 and S2, regular. ABDOMEN: Soft. EXTREMITIES: No edema. LABORATORY DATA: No labs were done today. Chest x-ray shows complete lung expansion bilaterally. ASSESSMENT: 1. Left-sided pneumothorax, requiring surgical stapling pleurodesis. 2. Supraventricular tachycardia. 3. Chronic obstructive pulmonary disease. PLAN: From my standpoint, he can go out to the floor. He is continuing chest tube drainage, antibio tics, nebulization therapy, and low dose prednisone.
--- NOTE | 2018-09-13 09:42 | RAD ---
PORTABLE CHEST: Date: 09/13/18 HISTORY: Thoracotomy and follow-up chest tubes. COMPARISON: 09/12/18. FINDINGS: There are two left-sided chest tubes which are unchanged. No evidence of significant pneumothorax sascha ntified. Lungs appear well aerated and clear. IMPRESSION: No evidence of acute interval change. POS: [facility]
--- NOTE | 2018-09-13 11:33 | PRG ---
DATE OF SERVICE: 09/13/2018 PRIMARY CARE PHYSICIAN: Dr. Hank Pulido. Postop day #3 for a left thorascopic resection, left lower lobe bleb and combined mechanical and talc pleurodesis by Dr. Daniels. SUBJECTIVE: The patient states he continues to have pain. He tried to get out of bed and had pain, he has had some dizziness at times and feels more comfortable in bed, but still has pains that come a nd go. Denies shortness of breath. OBJECTIVE: VITAL SIGNS: Temperature 98.5, pulse is 68, respirations 15-18, blood pressure 120/64, pulse ox is 9 7% on 3 liters. GENERAL: He is awake and alert, some discomfort when moving in bed. HEART: Regular rate and rhythm. LUNGS: With decreased breath sounds. No wheezes. IMAGING: Chest x-ray showed no changes. ASSESSMENT AND PLAN: 1. Left-sided pneumothorax with persistent bleb, status post surgical stapling and talc pleurodesis. Plan for Cardiovascular Surgery and Pulmonary. 2. Chronic obstructive pulmonary disease, remained stable. We will continue nebs. DISPOSITION: Hopefully going to the floor today.
--- NOTE | 2018-09-13 13:26 | EKG ---
Test Reason : Blood Pressure : / mmHG Vent. Rate : 099 BPM Atrial Rate : 099 BPM P-R Int : 190 ms QRS Dur : 070 ms QT Int : 318 ms P-R-T Axes : 079 002 067 degrees QTc Int : 408 ms Normal sinus rhythm Low voltage QRS Borderline ECG Confirmed by CRISTELA SANCHEZ ([id number]), news video editor SAILAJA MURPHY ([id number]) on 09/13/2018 1:25:38 PM Referred By: Confirmed By:CRISTELA SANCHEZ
[2018-09-14] MEDS: HYDROcodone/Acetaminophen 5/325 mg Tablet PO PRN ×3 (00:07→21:58)
[2018-09-14] MEDS: Sodium Chloride 0.45% 1,000 ML IV SCH ×2 (04:54→19:28)
[2018-09-14] MEDS: Fentanyl 100 MCG/2 ML VIAL SLOW IVP PRN ×5 (05:53→21:59)
[2018-09-14] MEDS: Mometasone/Formoterol 120 PUFF INHALER INH SCH ×2 (06:45→19:12)
--- NOTE | 2018-09-14 08:25 | RAD ---
PORTABLE CHEST: Date: 09/14/18 HISTORY: CCU follow-up. COMPARISON: 09/13/18. FINDINGS: There are two left-sided chest tubes which are unchanged. Parenchymal density in both lung bases cons istent with atelectasis. No evidence of significant pneumothorax. IMPRESSION: No significant interval change in the chest. POS: [facility]
[2018-09-14] MEDS: Linezolid 600 MG in Premix Bag 1 BAG IVPB SCH ×2 (08:42→21:56)
[2018-09-14] MEDS: Famotidine/PF 20 mg/2ml Vial SLOW IVP SCH (08:44)
[2018-09-14] MEDS: Enoxaparin Sodium 40 MG/0.4 ML SYRINGE SC SCH (08:44)
[2018-09-14] MEDS: predniSONE 5 MG TAB PO SCH (08:44)
[2018-09-14] MEDS: Diabetic Tussin 200 MG/10 ML UDCUP PO SCH ×2 (08:45→21:56)
--- NOTE | 2018-09-14 09:59 | PRG ---
DATE OF SERVICE: 09/14/2018 SUBJECTIVE: The patient is doing reasonably well and no complaints. PHYSICAL EXAMINATION: VITAL SIGNS: Temperature is 97.8, pulse 61, blood pressure 100/58. HEENT: Unremarkable. NECK: No JVD. CHEST: Clear. Had a small air leak from the chest tube. CARDIAC: S1 and S2 regular. ABDOMEN: Soft. EXTREMITIES: No edema. LABORATORY DATA: No labs were obtained today. ASSESSMENT: Left-sided pneumothorax - now status post thoracoscopy and pleurodesis with improvement in the degree of air leak. PLAN: 1. Continue chest tube drainage. 2. Continue the IV antibiotics. 3. Patient can be transferred out to the floor.
--- NOTE | 2018-09-14 10:56 | PRG ---
DATE OF SERVICE: 09/14/2018 Postop day #4 from left thorascopic resection of left lower lobe bleb and mechanical and talc pleurod esis SUBJECTIVE: The patient continues to have pain. He has minimal relief with the fentanyl, difficulty time getting out of bed. OBJECTIVE VITAL SIGNS: Temperature 97.8, pulse of 61, respirations 19, blood pressure 111/62, pulse ox is 96% on room air. GENERAL: He is awake and alert, in moderate distress due to pain. HEART: Regular rate and rhythm. LUNGS: With decreased breath sounds. Chest tube with air leak. ABDOMEN: Soft. EXTREMITIES: With no edema. LABORATORY DATA: Pending. White blood cell count from yesterday was down to 25,000, hemoglobin and hematocrit are 10.6 and 34.4, platelets 466. X-RAY FINDINGS: Chest x-ray from this morning revealed no significant interval change. No evidence of significant pneumothorax. ASSESSMENT AND PLAN: This is a 73-year-old gentleman with chronic obstructive pulmonary disease and persistent left-sided pneumothorax, now status post pleurodesis. Continue plan per Cardiovascular [facility] rgery and Pulmonary. 1. Chronic obstructive pulmonary disease, remained stable. 2. Pain management. We will increase fentanyl to 50 mcg q.4-6 hours p.r.n. pain. DISPOSITION: The patient is transferring to the floor.
[2018-09-14] MEDS: Famotidine 20 MG TAB PO SCH (21:58)
[2018-09-15] MEDS: Fentanyl 100 MCG/2 ML VIAL SLOW IVP PRN ×6 (02:08→22:49)
[2018-09-15] MEDS: HYDROcodone/Acetaminophen 5/325 mg Tablet PO PRN ×4 (02:09→22:49)
[2018-09-15] MEDS: Sodium Chloride 0.45% 1,000 ML IV SCH (05:59)
[2018-09-15] MEDS: Mometasone/Formoterol 120 PUFF INHALER INH SCH ×2 (06:40→19:06)
[2018-09-15 07:30] LABS: Mean Corpuscular HGB CONC 31.2 g/dL (32.0-36.0); Mean Corpuscular Hemoglobin 28.6 pg (27.0-31.0); Mean Corpuscular Volume 91.6 fL (78.0-98.0); Mean Platelet Volume 6.8 fL (7.4-10.4); Platelet Count 530 thou/uL (130-400); RBC Distribution Width 13.5 % (11.5-14.5); Red Blood Cell (RBC) Count 3.83 mill/uL (4.70-6.10); White Blood Cell (WBC) Count 21.7 thou/uL (4.8-10.8)
[2018-09-15 07:49] LABS: ALT (SGPT) 17 U/L (8-55); AST (SGOT) 13 U/L (5-34); Albumin 2.8 g/dL (3.4-4.8); Alkaline Phosphatase 37 U/L (40-150); Anion Gap 8 mmol/L (10-20); BUN (Urea Nitrogen) 10 mg/dL (8.4-25.7); Bilirubin, Total 0.4 mg/dL (0.2-1.2); Calc. Creatinine Clearance 99 mL/min (70-130); Calcium 8.7 mg/dL (7.8-10.44); Carbon Dioxide 35 mmol/L (23-31); Chloride 96 mmol/L (98-107); Estimated GFR-MDRD Greater than 90; Globulin 2.1 g/dL (2.4-3.5); Glucose 92 mg/dL (83-110); Potassium 3.7 mmol/L (3.5-5.1); Protein, Total 4.9 g/dL (5.8-8.1); Sodium 135 mmol/L (136-145)
--- NOTE | 2018-09-15 08:00 | PRG ---
DATE OF SERVICE: 09/15/2018 SUBJECTIVE: The patient is doing well this morning. He has eaten breakfast and is comfortable. OBJECTIVE: VITAL SIGNS: Stable. Temperature 98.1, pulse 71, respirations 16, pulse ox 93, blood pressure 103/6 7. HEART: Regular rate and rhythm. LUNGS: Relatively clear. ABDOMEN: Soft. EXTREMITIES: With no edema. LABORATORY: White count 21.7, H&H 11 and 35. Chest tube with minimal leakage. ASSESSMENT: 1. Postop day #5, status post bleb stapling and pleurodesis. 2. Acute on chronic respiratory failure. 3. Chronic spontaneous pneumothorax. 4. Bronchopulmonary fistula. 5. Do not resuscitate. PLAN: 1. Significant improvement in the air leakage since last seen on Saturday. 2. Continue to follow. Hopefully, can remove the chest tube at some point soon.
[2018-09-15 08:07] LABS: Band 3 % (5-11); Eosinophils 4 % (0-10); Lymphocytes 13 % (21-51); MDiff Complete? YES; Metamyelocyte 2 % (0-0); Monocytes 10 % (0-10); Myelocyte 7 % (0-0); Neutrophil 59 % (42-75); PLT Morphology Comment Appears Increased; Reactive Lymphocytes 2 % (0-10); Toxic Granulation SLIGHT
[2018-09-15] MEDS: Diabetic Tussin 200 MG/10 ML UDCUP PO SCH ×2 (08:41→21:29)
[2018-09-15] MEDS: Enoxaparin Sodium 40 MG/0.4 ML SYRINGE SC SCH (08:42)
[2018-09-15] MEDS: Linezolid 600 MG in Premix Bag 1 BAG IVPB SCH (08:42)
[2018-09-15] MEDS: Famotidine 20 MG TAB PO SCH ×2 (08:43→21:29)
[2018-09-15] MEDS: predniSONE 5 MG TAB PO SCH (08:43)
--- NOTE | 2018-09-15 08:44 | RAD ---
SINGLE VIEW OF THE CHEST: Comparison: 09-14-18 History: Status post thoracotomy. FINDINGS: Single view of the chest shows a normal sized cardiomediastinal silhouette. The left sided chest tube s are unchanged in position without evidence of pneumothorax. IMPRESSION: Stable exam. POS: [facility]
[2018-09-15] MEDS: Polyethylene Glycol 3350 17 GM Packet PO SCH (08:56)
[2018-09-15] MEDS: Acetaminophen 325 MG TAB PO PRN (09:01)
[2018-09-15] MEDS ORDERED: predniSONE 5 MG TAB PO SCH ×2 (09:14→09:30)
[2018-09-15] MEDS: Docusate 100 MG CAP PO SCH ×2 (09:42→21:29)
--- NOTE | 2018-09-15 09:55 | PRG ---
DATE OF SERVICE: 09/15/2018 Mr. Kruse had severe pain in his left side. It is probably from the chest tube. PHYSICAL EXAMINATION: VITAL SIGNS: He is afebrile, pulse 71, sats 93 on 2 liters, respiration 16, blood pressure 103/67. CHEST: Chest reveals decreased breath sounds, prolonged expiration. CARDIAC: Normal S1, S2, no gallops. ABDOMEN: Soft, no masses. Lab is unremarkable. His chest x-ray shows left mid chest density which is a collapsed bullous. IMPRESSION: 1. Severe chronic obstructive pulmonary disease, status post thoracotomy for persistent air leak. 2. Multiple bacterial culture from the chest tube site, probably colonization. PLAN: Switched over to oral Levaquin. Will additionally increase the prednisone to 10 in case got a pleuritic component. Continue treatment and supportive care. I will follow.
[2018-09-15] MEDS: traMADol HCl 50 MG TAB PO SCH ×2 (14:09→21:29)
[2018-09-16] MEDS: HYDROcodone/Acetaminophen 5/325 mg Tablet PO PRN ×5 (02:30→21:40)
[2018-09-16] MEDS: Sodium Chloride 0.45% 1,000 ML IV SCH (02:31)
[2018-09-16] MEDS: Fentanyl 100 MCG/2 ML VIAL SLOW IVP PRN ×5 (02:31→21:39)
[2018-09-16] MEDS: Mometasone/Formoterol 120 PUFF INHALER INH SCH ×2 (06:19→19:22)
--- NOTE | 2018-09-16 08:59 | PRG ---
DATE OF SERVICE: 09/16/2018 SUBJECTIVE: The patient is doing well this morning. No complaints. OBJECTIVE: VITAL SIGNS: Temperature 98.5, pulse 64, respirations 18, blood pressure 104/64. HEART: Regular rate and rhythm. LUNGS: Clear. ABDOMEN: Soft. EXTREMITIES: No edema. LABORATORY: None. ASSESSMENT: 1. Postop day #6 status post bleb stapling and pleurodesis. 2. Acute on chronic respiratory failure. 3. Chronic spontaneous pneumo. 4. Bronchopulmonary fistula. 5. Do not resuscitate. PLAN: Continue chest tube. Leakage appears slightly increased from yesterday. Minimal drainage. C ontinue to follow.
--- NOTE | 2018-09-16 09:07 | RAD ---
TWO VIEWS CHEST: Comparison: 09-15-18 History: Status post thoracotomy for bleb stapling. FINDINGS: Single view of the chest shows normal sized cardiomediastinal silhouette. Two left sided chest tubes are seen without evidence of pneumothorax. There is no evidence of consolidation, mass, or pleural ef fusion. IMPRESSION: No evidence of acute cardiopulmonary disease. POS: [facility]
[2018-09-16] MEDS: Famotidine 20 MG TAB PO SCH ×2 (09:29→20:37)
[2018-09-16] MEDS: traMADol HCl 50 MG TAB PO SCH ×3 (09:30→20:42)
[2018-09-16] MEDS: Docusate 100 MG CAP PO SCH ×2 (09:30→20:38)
[2018-09-16] MEDS: predniSONE 5 MG TAB PO SCH (09:30)
[2018-09-16] MEDS: Enoxaparin Sodium 40 MG/0.4 ML SYRINGE SC SCH (09:31)
[2018-09-16] MEDS: Polyethylene Glycol 3350 17 GM Packet PO SCH (09:31)
[2018-09-16] MEDS: Diabetic Tussin 200 MG/10 ML UDCUP PO SCH ×2 (09:41→20:41)
[2018-09-17] MEDS: Sodium Chloride 0.45% 1,000 ML IV SCH ×2 (00:46→19:15)
--- NOTE | 2018-09-17 01:24 | PRG ---
DATE OF SERVICE: 09/16/2018 SUBJECTIVE: This morning, he is doing very well. His pain is slightly better, less short of breath. OBJECTIVE: VITAL SIGNS: Blood pressure is 104/64, sats are 92 on 2 liters, respiratory rate 18, temperature 98. CHEST: Reveals decreased breath sounds, no wheezing. CARDIAC: Normal S1 and S2. ABDOMEN: Soft, no masses. IMPRESSION: 1. Chronic obstructive pulmonary disease. 2. Left pneumothorax, status post pleurodesis. PLAN: His CT is draining intermittently. Hopefully, we can remove one of the chest tubes as per Surgery, pain relief.
[2018-09-17] MEDS: HYDROcodone/Acetaminophen 5/325 mg Tablet PO PRN ×5 (05:27→23:35)
[2018-09-17] MEDS: Fentanyl 100 MCG/2 ML VIAL SLOW IVP PRN ×5 (05:28→23:32)
[2018-09-17] MEDS: Mometasone/Formoterol 120 PUFF INHALER INH SCH ×2 (05:51→18:53)
--- NOTE | 2018-09-17 08:20 | PRG ---
DATE OF SERVICE: 09/17/2018 SUBJECTIVE: No complaints by patient today. He remains patient. OBJECTIVE: VITAL SIGNS: Temperature 98, pulse 63, respirations 18, pulse ox 98 on 2 liters, blood pressure 115/ 70. HEART: Regular rate and rhythm. LUNGS: Clear. ABDOMEN: Soft. EXTREMITIES: No edema. LABORATORY DATA: None. ASSESSMENT: 1. Postop day #7 status post bleb stapling and pleurodesis. 2. Acute on chronic respiratory failure. 3. Chronic spontaneous female. 4. Bronchopulmonary fistula. 5. Do not resuscitate. PLAN: 1. Chest tube with minimal leakage. The other chest tube with still mild to moderate leakage. 2. Continue to follow.
--- NOTE | 2018-09-17 08:50 | RAD ---
CHEST ONE VIEW PORTABLE: History: 73-year-old male with history of status post bleb stapling. Follow up chest tubes. FINDINGS: Two left chest tubes are noted in place. There is some emphysema changes in the upper lung zones bila terally. Minimal parenchymal density in the left midlung zone. Small stable left sided pneumothorax. IMPRESSION: Small stable left sided pneumothorax. Emphysema changes in the upper lung zones bilaterally. Stable o ld granuloma calcification. No new process. Stable parenchymal density in the left midlung zone. Cont inued short term follow up. POS: [facility]
[2018-09-17] MEDS: Diabetic Tussin 200 MG/10 ML UDCUP PO SCH ×2 (09:16→21:00)
[2018-09-17] MEDS: traMADol HCl 50 MG TAB PO SCH ×3 (09:16→20:59)
[2018-09-17] MEDS: Polyethylene Glycol 3350 17 GM Packet PO SCH (09:16)
[2018-09-17] MEDS: Enoxaparin Sodium 40 MG/0.4 ML SYRINGE SC SCH (09:17)
[2018-09-17] MEDS: predniSONE 5 MG TAB PO SCH (09:17)
[2018-09-17] MEDS: Docusate 100 MG CAP PO SCH ×2 (09:17→20:59)
[2018-09-17] MEDS: Famotidine 20 MG TAB PO SCH ×2 (09:18→20:59)
--- NOTE | 2018-09-17 09:38 | PRG ---
DATE OF SERVICE: 09/17/2018 This morning he is still having some significant chest pain, but no shortness of breath. PHYSICAL EXAMINATION: VITAL SIGNS: Sats are 96 on 2 liters, respirations 19, temperature 98, blood pressure 106/55. CHEST: Chest reveals decreased breath sounds, no wheezing. CARDIAC: Normal S1, S2, no gallops. ABDOMEN: Soft, no mass. IMPRESSION: 1. Chronic obstructive pulmonary disease, status post pleurodesis. 2. Pneumothorax. 3. Pain from chest tube. PLAN: Continue supportive care. Will discuss with Surgery ongoing plan.
[2018-09-18] MEDS: Fentanyl 100 MCG/2 ML VIAL SLOW IVP PRN ×5 (06:01→22:41)
[2018-09-18] MEDS: HYDROcodone/Acetaminophen 5/325 mg Tablet PO PRN ×5 (06:03→22:40)
[2018-09-18] MEDS: Mometasone/Formoterol 120 PUFF INHALER INH SCH ×2 (06:49→18:57)
--- NOTE | 2018-09-18 08:05 | PRG ---
DATE OF SERVICE: 09/18/2018 SUBJECTIVE: The patient remains stable. No complaints of chest pain or shortness of breath. Contin ues to use the incentive spirometry. OBJECTIVE: VITAL SIGNS: Temperature 98.1, pulse 60, respirations 18, pulse ox 95, blood pressure 110/73. HEART: Regular rate and rhythm. LUNGS: Clear. ABDOMEN: Soft. Chest tubes, one tube with no leakage. The other 2 with [id number] leakage, still present. ASSESSMENT: 1. Postoperative day #8 status post bleb stapling and pleurodesis. 2. End-stage chronic obstructive pulmonary disease. 3. Acute on chronic respiratory failure. 4. Chronic spontaneous pneumothorax. 5. Bronchopulmonary fistula. 6. DO NOT RESUSCITATE. PLAN: Continue with chest tube. We will continue to follow.
[2018-09-18] MEDS: predniSONE 5 MG TAB PO SCH (08:23)
[2018-09-18] MEDS: Enoxaparin Sodium 40 MG/0.4 ML SYRINGE SC SCH (08:23)
[2018-09-18] MEDS: Famotidine 20 MG TAB PO SCH ×2 (08:23→21:00)
[2018-09-18] MEDS: Polyethylene Glycol 3350 17 GM Packet PO SCH (08:24)
[2018-09-18] MEDS: Diabetic Tussin 200 MG/10 ML UDCUP PO SCH ×2 (08:24→20:59)
[2018-09-18] MEDS: traMADol HCl 50 MG TAB PO SCH (08:24)
[2018-09-18] MEDS: Docusate 100 MG CAP PO SCH ×2 (08:24→20:59)
--- NOTE | 2018-09-18 09:36 | RAD ---
PORTABLE CHEST 1 VIEW: Date; 09/18/18 Time: 0714 hours HISTORY: Status post thoracotomy and post bleb stapling, follow-up. FINDINGS/IMPRESSION: Comparison made with exam from previous day. Two left-sided chest tubes remain in place. Patchy opacity in the left mid lung is again seen. A tiny left apical pneumothorax is noted. There are emphysematous changes in the upper lung haines bilatera lly. Calcified granuloma is noted in the right lower lung. POS: [facility]
[2018-09-18] MEDS ORDERED: predniSONE 5 MG TAB PO SCH ×2 (09:46→10:15)
--- NOTE | 2018-09-18 09:57 | PRG ---
DATE OF SERVICE: 09/18/2018 This morning he is awake, alert, responsive, still significant pain. None of the medicine seems to b e helping him. PHYSICAL EXAMINATION: VITAL SIGNS: Sats 95 on 2 liters, temperature 98. Blood pressure 120/70. CHEST: Chest reveals decreased breath sounds, no wheezing. CARDIAC: Normal S1, S2, no gallops. ABDOMEN: Soft, no masses. IMPRESSION: 1. Chronic obstructive pulmonary disease. 2. Pneumothorax status post pleurodesis. 3. Persistent pain, probably from the chest tube. PLAN: Discussed with CV Surgery yesterday. Consideration for removal of one of the chest tubes. Otherwise, continue supportive care.
[2018-09-18] MEDS: Sodium Chloride 0.45% 1,000 ML IV SCH (14:38)
[2018-09-19] MEDS: Fentanyl 100 MCG/2 ML VIAL SLOW IVP PRN ×4 (04:25→20:47)
[2018-09-19] MEDS: HYDROcodone/Acetaminophen 5/325 mg Tablet PO PRN ×5 (04:26→20:47)
[2018-09-19] MEDS: Mometasone/Formoterol 120 PUFF INHALER INH SCH ×2 (06:45→18:20)
--- NOTE | 2018-09-19 07:41 | PRG ---
DATE OF SERVICE: 09/19/2018 SUBJECTIVE: The patient is doing well this morning, eating breakfast. No complaints of chest pain o r shortness of breath. OBJECTIVE: VITAL SIGNS: Temperature 98.6, pulse 65, respirations 16, pulse oximetry 96 on 2 liters, blood press ure 117/64. HEART: Regular rate and rhythm. LUNGS: Clear. ABDOMEN: Soft. LABORATORY: None. Chest x-ray pending this morning. ASSESSMENT: 1. Postop day #9 status post bleb stapling and pleurodesis. 2. End-stage chronic obstructive pulmonary disease. 3. Acute on chronic respiratory failure. 4. Chronic spontaneous pneumo. 5. Bronchopulmonary fistula. 6. Do not resuscitate. PLAN: Possibly pull one chest tube today. The other chest tube appears improving. Hopefully, this can be pulled in the next week or two.
--- NOTE | 2018-09-19 07:58 | RAD ---
PORTABLE UPRIGHT FRONTAL CHEST RADIOGRAPH: DATE: 09/19/2018. COMPARISON: 09/18/2018. HISTORY: Left-sided chest tube, evaluate left pneumothorax. FINDINGS: There are 2 left-sided chest tubes in stable position. A small apical pneumothorax persists on the l eft with a medial and an apical component. There is diffuse emphysematous change. Increased density in the medial left base suggests volume los s. IMPRESSION: Stable left-sided chest tubes. Tiny persistent left apical pneumothorax. POS: [facility]
[2018-09-19] MEDS: Famotidine 20 MG TAB PO SCH ×2 (08:37→20:48)
[2018-09-19] MEDS: predniSONE 5 MG TAB PO SCH (08:37)
[2018-09-19] MEDS: Enoxaparin Sodium 40 MG/0.4 ML SYRINGE SC SCH (08:37)
[2018-09-19] MEDS: Polyethylene Glycol 3350 17 GM Packet PO SCH (08:38)
[2018-09-19] MEDS: Diabetic Tussin 200 MG/10 ML UDCUP PO SCH (08:38)
[2018-09-19] MEDS: Docusate 100 MG CAP PO SCH ×2 (08:38→20:48)
--- NOTE | 2018-09-19 08:38 | RAD ---
PORTABLE CHEST 1 VIEW: DATE: 09/19/2018. TIME: 8:24 a.m. HISTORY: Chest tube removal. FINDINGS: Comparison is made with the earlier exam of 7:08 a.m. One of the 2 chest tubes has been removed in t he interim. A tiny left apical pneumothorax is noted. The remainder of the exam is otherwise stable . POS: [facility]
--- NOTE | 2018-09-19 09:08 | PRG ---
DATE OF SERVICE: 09/19/2018 This morning he is awake, alert and responsive. One of his chest tube was removed and he is doing qu ite well. PHYSICAL EXAMINATION: VITAL SIGNS: Sats are 96 on 2 liters, respiration 16, temperature 98, blood pressure 107/54. CHEST: No wheezing or crackles. CARDIAC: Normal S1, S2, no gallops. ABDOMEN: Soft, no masses. IMPRESSION: 1. Decortication status post pleurodesis. 2. End stage chronic obstructive pulmonary disease. PLAN: Discontinue antibiotics. Continue CT drainage. Home hopefully soon.
[2018-09-19] MEDS: Sodium Chloride 0.45% 1,000 ML IV SCH (09:29)
[2018-09-20] MEDS: HYDROcodone/Acetaminophen 5/325 mg Tablet PO PRN ×6 (03:07→23:32)
[2018-09-20] MEDS: Fentanyl 100 MCG/2 ML VIAL SLOW IVP PRN ×6 (03:07→23:32)
[2018-09-20] MEDS: Sodium Chloride 0.45% 1,000 ML IV SCH ×2 (05:23→23:23)
[2018-09-20] MEDS: Mometasone/Formoterol 120 PUFF INHALER INH SCH ×2 (08:09→18:49)
[2018-09-20] MEDS: Famotidine 20 MG TAB PO SCH ×2 (09:34→20:25)
[2018-09-20] MEDS: Docusate 100 MG CAP PO SCH ×2 (09:34→20:25)
[2018-09-20] MEDS: Enoxaparin Sodium 40 MG/0.4 ML SYRINGE SC SCH (09:34)
[2018-09-20] MEDS: Polyethylene Glycol 3350 17 GM Packet PO SCH (09:34)
[2018-09-20] MEDS: predniSONE 5 MG TAB PO SCH (09:34)
--- NOTE | 2018-09-20 12:11 | PRG ---
DATE OF SERVICE: 09/20/2018 SUBJECTIVE: The patient is doing well this morning. He had one chest tube pulled yesterday. Compla ins of soreness, but otherwise doing well. OBJECTIVE: VITAL SIGNS: Temperature 98.2, pulse 70, respirations 24, pulse ox 96% on 2 liters O2, blood pressur e 105/61. HEART: Regular rate and rhythm. LUNGS: Clear. ABDOMEN: Soft. EXTREMITIES: No edema. LABORATORY DATA: None. ASSESSMENT: 1. Postop day #10 status post blood and pleurodesis. Postop day #1, status post removal of on e chest tube. 2. End-stage chronic obstructive pulmonary disease. 3. Acute on chronic respiratory failure. 4. Chronic spontaneous edema. 5. Chronic pulmonary fistula. 6. DO NOT RESUSCITATE. PLAN: Continue to follow. Possible discharge home once again only with a Heimlich valve.
--- NOTE | 2018-09-20 12:31 | RAD ---
PORTABLE CHEST: HISTORY: The patient is status post bleb stapling. FINDINGS: Left chest tube remains in place. On this examination I cannot appreciate any definite pneumothorax. IMPRESSION: No definitive left-sided pneumothorax seen on this study. POS: [facility]
--- NOTE | 2018-09-20 15:50 | PRG ---
DATE OF SERVICE: 09/20/2018 SUBJECTIVE: Mr. Kruse still has a large air leak, only has one chest tube. OBJECTIVE: VITAL SIGNS: He is afebrile, heart rate 76, respiratory rate 20, oximetry is 94 on 2 liters. LUNGS: He has prolonged expiratory phase, but he is not moving around. He says he is close to his b aseline. HEART: Regular rhythm. ABDOMEN: Soft. IMAGING: Chest radiograph shows no pneumothorax. IMPRESSION: 1. Status post stapling of blebs after spontaneous pneumothorax. 2. Status post removal of one chest tube. 3. Underlying severe chronic obstructive pulmonary disease. PLAN: Continue supportive care.
[2018-09-21] MEDS: Fentanyl 100 MCG/2 ML VIAL SLOW IVP PRN ×5 (02:33→20:27)
[2018-09-21] MEDS: HYDROcodone/Acetaminophen 5/325 mg Tablet PO PRN ×4 (02:33→15:44)
[2018-09-21] MEDS: Mometasone/Formoterol 120 PUFF INHALER INH SCH ×2 (06:43→18:25)
[2018-09-21] MEDS: Docusate 100 MG CAP PO SCH ×2 (09:04→20:55)
[2018-09-21] MEDS: predniSONE 5 MG TAB PO SCH (09:04)
[2018-09-21] MEDS: Famotidine 20 MG TAB PO SCH ×2 (09:04→20:27)
[2018-09-21] MEDS: Polyethylene Glycol 3350 17 GM Packet PO SCH (09:04)
[2018-09-21] MEDS: Enoxaparin Sodium 40 MG/0.4 ML SYRINGE SC SCH (09:05)
--- NOTE | 2018-09-21 11:16 | PRG ---
DATE OF SERVICE: 09/21/2018 SUBJECTIVE: The patient remains stable. He is in remarkable spirits. Undergoing physical therapy. OBJECTIVE: VITAL SIGNS: Temperature 98.3, pulse 75, respiration 20, pulse ox 94%, blood pressure 127/70. HEART: Regular rate and rhythm. LUNGS: Clear. ABDOMEN: Soft. CHEST: Chest tube still with leakage. ASSESSMENT: 1. Postop day #11 status post bleb stapling postop day 2 status post removal of one chest tube . 2. End-stage chronic obstructive pulmonary disease. 3. Acute on chronic respiratory failure. 4. Chronic spontaneous edema. 5. Chronic pulmonary fistula. 6. DO NOT RESUSCITATE. PLAN: The patient remained stable. No change. May require an additional Heimlich valve. We will kemar saha to follow.
--- NOTE | 2018-09-21 12:07 | RAD ---
PORTABLE CHEST 1 VIEW: DATE: 09/21/2018. TIME: 10:23 a.m. HISTORY: Status post bleb stapling. COMPARISON: Comparison is made to the exam of 09/20/2018. FINDINGS/IMPRESSION: Left-sided chest tube remains in place. There may be a tiny left apical pneumothorax. The remainder of the exam is otherwise stable. POS: [facility]
--- NOTE | 2018-09-21 14:33 | PRG ---
DATE OF SERVICE: 09/21/2018 SUBJECTIVE: Meggan Kruse has no new complaints. PHYSICAL EXAMINATION: VITAL SIGNS: He is afebrile, heart rate is 84, respiratory rate 20, oximetry is 95% on 2 liters, blood pressure 135/72. He has equal breath sounds. He has slightly prolonged expiratory phase. HEART: Regular rhythm. ABDOMEN: Soft. He still has an air leak. IMPRESSION: 1. Pneumothorax with chest tube still in place with an air leak. 2. Chronic obstructive pulmonary disease, clinically stable. He is still having significant pain, so we will add Fentanyl pain patch to see if that helps. DEVOND
[2018-09-21] MEDS: fentaNYL 50 mcg/hour Patch TD SCH (14:34)
[2018-09-21] MEDS: Acetaminophen 325 MG TAB PO PRN (18:49)
[2018-09-21] MEDS: Sodium Chloride 0.45% 1,000 ML IV SCH (18:53)
[2018-09-22] MEDS: Mometasone/Formoterol 120 PUFF INHALER INH SCH ×2 (06:46→18:16)
--- NOTE | 2018-09-22 07:35 | PRG ---
DATE OF SERVICE: 09/22/2018 SUBJECTIVE: Mr. Kruse has no complaints. He says his fentanyl patch has eliminated his discomfort. OBJECTIVE: LUNGS: Clear. HEART: Regular rhythm. ABDOMEN: Soft. He still has an air leak. IMPRESSION: Pneumothorax with chest tube in place, status post stapling. PLAN: Continue supportive care. Continue with the fentanyl patch. We have asked him to spend more time out of bed, exercising his legs. He can be disconnected from suction for ambulation.
--- NOTE | 2018-09-22 08:03 | PRG ---
DATE OF SERVICE: 09/22/2018 SUBJECTIVE: The patient is doing well this morning. No complaints. OBJECTIVE: VITAL SIGNS: Temperature 97.8, pulse 84, respirations 18, pulse ox 95, blood pressure 142/72. HEART: Regular rate and rhythm. LUNGS: Clear. ABDOMEN: Soft. Chest tube, improving. ASSESSMENT: 1. Postop day #12, status post bleb stapling and pleurodesis, postop day #3 status post removal of o ne chest tube. 2. End-stage chronic obstructive pulmonary disease. 3. Acute on chronic respiratory failure. 4. Chronic spontaneous pneumothorax. 5. Chronic bronchopulmonary fistula. 6. Do not resuscitate. PLAN: Continue present plan.
[2018-09-22] MEDS: predniSONE 5 MG TAB PO SCH (08:58)
[2018-09-22] MEDS: Famotidine 20 MG TAB PO SCH ×2 (08:58→19:41)
[2018-09-22] MEDS: Enoxaparin Sodium 40 MG/0.4 ML SYRINGE SC SCH (08:58)
[2018-09-22] MEDS: Sodium Chloride 0.45% 1,000 ML IV SCH ×2 (08:59→14:59)
[2018-09-22] MEDS: Docusate 100 MG CAP PO SCH ×2 (09:02→19:44)
[2018-09-22] MEDS: Polyethylene Glycol 3350 17 GM Packet PO SCH (09:02)
--- NOTE | 2018-09-22 09:17 | RAD ---
UPRIGHT PORTABLE CHEST ONE VIEW: History: Thoracotomy Comparison: 09-21-18 FINDINGS: Very small residual left sided pneumothorax. Patchy parenchymal changes in the left midlung zone and left lower lobe. Stable appearing right chest with some hyperinflation. IMPRESSION: Stable very small residual left sided pneumothorax with left chest tube in place. POS: [facility]
[2018-09-22] MEDS: Fentanyl 100 MCG/2 ML VIAL SLOW IVP PRN ×2 (12:37→19:41)
[2018-09-23] MEDS: Fentanyl 100 MCG/2 ML VIAL SLOW IVP PRN ×5 (00:10→21:04)
[2018-09-23] MEDS: Sodium Chloride 0.45% 1,000 ML IV SCH ×2 (03:36→09:05)
[2018-09-23] MEDS: Mometasone/Formoterol 120 PUFF INHALER INH SCH ×2 (06:27→19:50)
--- NOTE | 2018-09-23 08:12 | PRG ---
DATE OF SERVICE: 09/23/2018 The patient remains stable, doing well this morning. OBJECTIVE: VITAL SIGNS: Temperature 98.4, pulse 79, respirations 16, pulse oximetry 94% on 2 liters, blood pres sure 110/73. HEART: Regular rate and rhythm. LUNGS: Clear. ABDOMEN: Soft, chest tube still with leak. LABORATORY: None. ASSESSMENT: 1. Postop day #13 status post bleb stapling and pleurodesis, postop day #4 status post removal of 1 chest tube. 2. End-stage chronic obstructive pulmonary disease. 3. Acute on chronic respiratory failure. 4. Chronic spontaneous pneumo. 5. Chronic bronchopulmonary fistula. 6. Do not resuscitate. PLAN: Tomorrow to attempt chest tube to water seal. Hopefully, the patient can tolerate the chest t ube to water seal. However, if this does not happened most likely will go home with a Heimlich valve .
[2018-09-23] MEDS: Enoxaparin Sodium 40 MG/0.4 ML SYRINGE SC SCH (08:56)
[2018-09-23] MEDS: predniSONE 5 MG TAB PO SCH (08:58)
[2018-09-23] MEDS: Famotidine 20 MG TAB PO SCH ×2 (08:58→21:04)
[2018-09-23] MEDS: Docusate 100 MG CAP PO SCH (08:59)
[2018-09-23] MEDS: Polyethylene Glycol 3350 17 GM Packet PO SCH (08:59)
--- NOTE | 2018-09-23 09:00 | RAD ---
CHEST 1 VIEW PORTABLE: Date: 09/23/18 HISTORY: 73-year-old male with history of status post thoracotomy. COMPARISON: 09/22/18. FINDINGS: Left chest tube remains in place. Very small residual left-sided pneumothorax. Minimal patchy parench ymal changes in the left mid and the left lower lung zone. Stable hyperinflated right lung. IMPRESSION: Stable chest. No new process. POS: [facility]
--- NOTE | 2018-09-23 14:16 | PRG ---
DATE OF SERVICE: 09/23/2018 SUBJECTIVE: Meggan Kruse still has a large air leak. OBJECTIVE: VITAL SIGNS: He is afebrile, heart rate is 82, respiratory rate 16, oximetry is 93 on 2 liters, bloo d pressure 136/77. LUNGS: He is not wheezing. HEART: Regular rhythm. ABDOMEN: Soft. IMAGING: Chest radiograph today shows a tiny left-sided pneumothorax. IMPRESSION: Spontaneous pneumothorax, status post resection of the left lower lobe bleb and pleurode sis. He is tentatively scheduled for a trial at [facility] tomorrow per my discussion with him. I will continue to follow. His COPD is stable at this point.
[2018-09-24] MEDS: Docusate 100 MG CAP PO SCH ×3 (01:01→21:33)
[2018-09-24] MEDS: Fentanyl 100 MCG/2 ML VIAL SLOW IVP PRN ×6 (01:02→21:33)
[2018-09-24] MEDS: Acetaminophen 325 MG TAB PO PRN ×3 (03:27→23:38)
[2018-09-24] MEDS: Sodium Chloride 0.45% 1,000 ML IV SCH ×2 (04:58→23:38)
[2018-09-24] MEDS: Mometasone/Formoterol 120 PUFF INHALER INH SCH ×2 (07:17→18:16)
--- NOTE | 2018-09-24 08:33 | PRG ---
DATE OF SERVICE: 09/24/2018 PRIMARY CARE PHYSICIAN: Dr. Hank Pulido SUBJECTIVE: The patient is doing well this morning. Cardiovascular Surgery has water sealed the huey st tube this morning and he is doing well right now. Complains of some shortness of breath while eat ing, but not any worse than yesterday. Denies fevers, chills, nausea, and vomiting. States his appe tite is well. Pain is improved with analgesia. OBJECTIVE: VITAL SIGNS: Temperature 98.2, pulse of 84, respirations 20, blood pressure 110/67, pulse oximetry i s 95% on 3 liters. GENERAL: He is awake and alert with some conversational dyspnea. NECK: Supple. HEART: Regular rate and rhythm. LUNGS: With expiratory wheezes throughout. ABDOMEN: Soft. EXTREMITIES: No clubbing, cyanosis or edema. LABORATORY DATA: None to review. Chest x-ray from yesterday revealed a stable chest. Left chest tube is in place. A very small resid ual left-sided pneumothorax, stable hyperinflated right lung. ASSESSMENT AND PLAN: 1. This is a 73-year-old gentleman admitted with severe chronic obstructive pulmonary disease and pn eumothorax, now postop day #14 status post bleb stapling and pleurodesis. Postop day #5 status post removal of posterior chest tube. 2. End-stage chronic obstructive pulmonary disease. 3. Acute on chronic respiratory failure. 4. Chronic bronchopulmonary fistula. Chest tube has been water sealed as per Dr. Daniels and marilee lujan seems to be doing well right now. I will continue to monitor closely. He is hoping to be able to go home with a Heimlich valve per Cardiovascular Surgery. 5. Chronic obstructive pulmonary disease. We will continue treatments per Pulmonary. 6. Pain management appears to be stable.
[2018-09-24] MEDS: Enoxaparin Sodium 40 MG/0.4 ML SYRINGE SC SCH (08:47)
[2018-09-24] MEDS: Famotidine 20 MG TAB PO SCH ×2 (08:47→21:33)
[2018-09-24] MEDS: predniSONE 5 MG TAB PO SCH (08:47)
[2018-09-24] MEDS: Polyethylene Glycol 3350 17 GM Packet PO SCH (08:48)
--- NOTE | 2018-09-24 09:07 | RAD ---
PORTABLE CHEST ONE VIEW: 09/24/2018 7:19 a.m. HISTORY: Status post thoracotomy. FINDINGS: No significant interval change is seen since the previous day's exam. Left-sided chest tube remains in place. A tiny left-sided pneumothorax is noted. The minimal patchy parenchymal changes in the le ft mid and lower lung are again seen. IMPRESSION: Stable examination. POS: [facility]
[2018-09-24] MEDS: fentaNYL 50 mcg/hour Patch TD SCH (14:30)
[2018-09-24] MEDS ORDERED: traMADol HCl 50 MG TAB PO PRN ×2 (14:42→14:43)
--- NOTE | 2018-09-24 16:15 | PRG ---
DATE OF SERVICE: 09/24/2018 SUBJECTIVE: Mr. Kruse has no complaints. He says he is breathing better today. His lung appears to be adherent to his pleural space by this morning's radiograph with him on waterseal, still has a large air leak with waterseal. OBJECTIVE: VITAL SIGNS: His heart rate is 73, respiratory rate 24, oximetry is 92, blood pressure 120/69. CHEST: He has no wheezing on chest exam. HEART: Regular rhythm. ABDOMEN: Soft. LABORATORY DATA: There is no recent CBC. One will be ordered for in the morning. IMPRESSION AND PLAN: Bronchopleural fistula, status post manual pleurodesis hopefully we are making some headway. Chronic obstructive pulmonary disease appears stable. MTDD
[2018-09-25] MEDS: Fentanyl 100 MCG/2 ML VIAL SLOW IVP PRN ×5 (02:28→21:58)
[2018-09-25 06:23] LABS: Band 5 % (5-11); Eosinophils 1 % (0-10); Hemoglobin 10.1 g/dL (14.0-18.0); Lymphocytes 10 % (21-51); MDiff Complete? YES; Mean Corpuscular Hemoglobin 29.4 pg (27.0-31.0); Mean Corpuscular Volume 91.8 fL (78.0-98.0); Mean Platelet Volume 7.5 fL (7.4-10.4); Metamyelocyte 1 % (0-0); Monocytes 10 % (0-10); Myelocyte 5 % (0-0); Neutrophil 68 % (42-75); Platelet Count 404 thou/uL (130-400); RBC Distribution Width 14.6 % (11.5-14.5); Red Blood Cell (RBC) Count 3.43 mill/uL (4.70-6.10); White Blood Cell (WBC) Count 17.6 thou/uL (4.8-10.8)
[2018-09-25] MEDS: Mometasone/Formoterol 120 PUFF INHALER INH SCH ×2 (07:02→19:19)
--- NOTE | 2018-09-25 07:40 | RAD ---
CHEST 1 VIEW: HISTORY: A 73-year-old male with a history of status post thoracotomy. FINDINGS: Left chest tube in place with small residual left-sided pneumothorax. There are some bullous emphyse ma changes in the right upper lobe with some hyperinflation of the right lung, somewhat crossed in th e midline in the mid chest. IMPRESSION: Left chest tube in place with small residual left-sided pneumothorax. Hyperinflation of the right santosh ng with bullous emphysema changes and the right lung is somewhat crossed in the midline at the anteri or mid chest. Stable appearance from prior study. No significant new process. POS: [facility]
--- NOTE | 2018-09-25 08:02 | PRG ---
DATE OF SERVICE: 09/25/2018 PRIMARY CARE PHYSICIAN: Hank Pulido M.D. SUBJECTIVE: The patient is doing okay. He states he does have some shortness of breath when he is s itting up to eat, but does better whenever he reclines. He seems to be tolerating the water seal at this time. He denies fevers, chills. Denies nausea and vomiting. He has a good appetite in the mor ramiro, but not as well during the day. Good pain control. He ambulated with physical therapy in the [place] yesterday, but continues to feel weak. OBJECTIVE: VITAL SIGNS: Temperature 98.7, pulse is 66, respirations 16-20, blood pressure 108/60, pulse ox 96% on 3 liters. GENERAL: He is awake and alert, has some conversational dyspnea. NECK: Supple. HEART: Regular rate and rhythm. LUNGS: With no wheezes. ABDOMEN: Positive bowel sounds, soft. EXTREMITIES: With no edema. LABORATORY DATA: White blood cell count 17,600, down from 21,000 last week, hemoglobin and hematocri t 10.1 and 31.5, platelets of 404,000. Chest x-ray from this morning revealed a left chest tube in p lace, small residual left-sided pneumothorax, hyperinflation of the right lung with bullous emphysema , stable from prior study. No significant new process. ASSESSMENT AND PLAN: This is a 73-year-old gentleman with severe chronic obstructive pulmonary disea se, admitted with spontaneous pneumothorax, now postoperative day 15 status post bleb stapling and pl eurodesis, postoperative day number 5 status post removal of posterior chest tube. 1. End-stage chronic obstructive pulmonary disease. We will continue neb treatments, steroids. 2. Acute on chronic respiratory failure, improved. 3. Chronic bronchopulmonary fistula. A chest tube suctioned has been removed and has been water sea led per Cardiovascular Surgery. It seems to be doing well. We will continue to monitor closely. 4. Pain management, controlled. 5. Hypertension. I will monitor for low readings. May need to decrease diltiazem.
[2018-09-25] MEDS: Famotidine 20 MG TAB PO SCH ×2 (08:36→21:16)
[2018-09-25] MEDS: Enoxaparin Sodium 40 MG/0.4 ML SYRINGE SC SCH (08:36)
[2018-09-25] MEDS: predniSONE 5 MG TAB PO SCH (08:36)
[2018-09-25] MEDS: Polyethylene Glycol 3350 17 GM Packet PO SCH (08:37)
[2018-09-25] MEDS: Docusate 100 MG CAP PO SCH ×2 (08:37→21:16)
[2018-09-25] MEDS: Acetaminophen 325 MG TAB PO PRN ×3 (10:50→18:45)
--- NOTE | 2018-09-25 14:58 | PRG ---
DATE OF SERVICE: 09/25/2018 SUBJECTIVE: Meggan Kruse has no complaints. He still has large air leak. His lung is still adherent to his chest wall on chest radiograph with his chest tube to water seal. OBJECTIVE: VITALS: He is afebrile, heart rate is 77, respiratory rate is 18, oximetry is 96 on 3 liters, blood pressure 143/66. LUNGS: Clear. He has no wheezes. IMPRESSION: Status post spontaneous pneumothorax requiring an operative procedure which included manual pleurodes is. Certainly, it appears that this may have been successful, although it is unclear to me how long he will have a chest tube in place. I suspect he will go home with a Heimlich valve and have this gr adually withdrawn, but this will be up to the surgeon. I will continue to follow his COPD. At this time, it is stable.
[2018-09-25] MEDS: Sodium Chloride 0.45% 1,000 ML IV SCH (21:17)
[2018-09-26] MEDS: Fentanyl 100 MCG/2 ML VIAL SLOW IVP PRN ×3 (01:00→14:02)
[2018-09-26 06:01] LABS: Band 15 % (5-11); Eosinophils 1 % (0-10); Hemoglobin 10.4 g/dL (14.0-18.0); Lymphocytes 4 % (21-51); MDiff Complete? YES; Mean Corpuscular HGB CONC 29.8 g/dL (32.0-36.0); Mean Corpuscular Hemoglobin 27.8 pg (27.0-31.0); Mean Corpuscular Volume 93.2 fL (78.0-98.0); Mean Platelet Volume 7.5 fL (7.4-10.4); Monocytes 11 % (0-10); Myelocyte 1 % (0-0); Neutrophil 68 % (42-75); PLT Morphology Comment Appears Increased; Platelet Count 429 thou/uL (130-400); RBC Distribution Width 14.5 % (11.5-14.5); RBC Morphology Normal; Red Blood Cell (RBC) Count 3.76 mill/uL (4.70-6.10); White Blood Cell (WBC) Count 17.2 thou/uL (4.8-10.8)
[2018-09-26] MEDS: Mometasone/Formoterol 120 PUFF INHALER INH SCH ×2 (06:54→19:12)
[2018-09-26] MEDS: Acetaminophen 325 MG TAB PO PRN ×2 (07:42→17:13)
--- NOTE | 2018-09-26 08:29 | PRG ---
DATE OF SERVICE: 09/26/2018 PRIMARY CARE PHYSICIAN: Dr. Hank Pulido SUBJECTIVE: The patient continues to improve. He is in good spirits today since he had a Heimlich v alve placed and is preparing for discharge in the next few days. He ambulated in the halls with ther apy. He denies nausea, vomiting good pain, good appetite. Anxious to go home. OBJECTIVE: VITAL SIGNS: Temperature 98.3, pulse is 72, respirations 16-20, blood pressure 132/77, pulse ox is 9 7% on 3 liters. GENERAL: He is awake and alert, in no acute distress. Speech is clear. NECK: Supple. HEART: Regular rate and rhythm. LUNGS: With decreased breath sounds throughout. No wheeze, rales or rhonchi. ABDOMEN: Soft. EXTREMITIES: No edema. LABORATORY DATA: White blood cell count 17.2, hemoglobin and hematocrit 10.4 and 35, platelets of 42 9. ASSESSMENT AND PLAN: This is a 73-year-old gentleman with severe COPD admitted for spontaneous pneum othorax. Now postoperative day 16 status post bleb stapling and pleurodesis postoperative day #5, st atus post removal of posterior chest tube. 1. End-stage chronic obstructive pulmonary disease. Continue neb treatments, steroids as per Dr. Anshul edgar. 2. Acute on chronic respiratory failure, has improved. 3. Chronic bronchopulmonary fistula. Chest tube suction was removed, no longer has waterseal, doing well since the Heimlich valve has been placed this morning. Further plan as per Dr. Daniels as far as when he is stable for discharge home. 4. Pain management, tolerating a fentanyl patch and p.r.n. fentanyl, and Tylenol p.r.n. We will try to wean off of the p.r.n. fentanyl, so that he can go home with a fentanyl patch and p.r.n. hydrocodo ne. 5. Hypertension, stable now. We will continue oral diltiazem. 6. Bowel regimen is stable, seems to be comfortable. DISPOSITION: Home when okay with Pulmonary and Cardiovascular Surgery with close followup.
[2018-09-26] MEDS: Enoxaparin Sodium 40 MG/0.4 ML SYRINGE SC SCH (08:30)
[2018-09-26] MEDS: HYDROcodone/Acetaminophen 10/325 mg Tablet PO PRN (08:30)
[2018-09-26] MEDS: Famotidine 20 MG TAB PO SCH ×2 (08:31→20:15)
[2018-09-26] MEDS: predniSONE 5 MG TAB PO SCH (08:31)
[2018-09-26] MEDS: Docusate 100 MG CAP PO SCH ×2 (08:33→20:15)
--- NOTE | 2018-09-26 08:33 | RAD ---
CHEST 1 VIEW: HISTORY: Thoracotomy. COMPARISON: Radiograph of prior day. FINDINGS: The left thoracostomy tube is similar. There is a small volume left pneumothorax and pneumomediastin um. The right lung is relatively clear. IMPRESSION: Small volume left pneumothorax and left pneumomediastinum. POS: [facility]
--- NOTE | 2018-09-26 09:26 | PRG ---
DATE OF SERVICE: 09/26/2018 Mr. Kruse has a Heimlich valve on ow, he is in no distress. He was seen at the bedside when I rounded . PHYSICAL EXAMINATION: VITAL SIGNS: He is afebrile, heart rate 72, respiratory rate 16, oximetry is 97 on 3 liters, blood p ressure 132/77. CHEST: He has equal breath sounds. Chest radiograph done this morning is essentially unchanged. IMPRESSION: Spontaneous pneumothorax status post thoracotomy, chemical manual pleurodesis now with a Heimlich valve in place. His chronic obstructive pulmonary disease is stable at this time.
[2018-09-26] MEDS: Polyethylene Glycol 3350 17 GM Packet PO SCH (10:33)
[2018-09-27] MEDS: Fentanyl 100 MCG/2 ML VIAL SLOW IVP PRN (00:20)
[2018-09-27] MEDS: HYDROcodone/Acetaminophen 10/325 mg Tablet PO PRN (03:42)
[2018-09-27 04:41] LABS: Band 4 % (5-11); Lymphocytes 8 % (21-51); MDiff Complete? YES; Mean Corpuscular HGB CONC 31.1 g/dL (32.0-36.0); Mean Corpuscular Hemoglobin 28.8 pg (27.0-31.0); Mean Corpuscular Volume 92.6 fL (78.0-98.0); Mean Platelet Volume 7.7 fL (7.4-10.4); Monocytes 9 % (0-10); Myelocyte 2 % (0-0); Neutrophil 74 % (42-75); Platelet Count 403 thou/uL (130-400); RBC Distribution Width 14.4 % (11.5-14.5); Reactive Lymphocytes 3 % (0-10); Red Blood Cell (RBC) Count 3.45 mill/uL (4.70-6.10); White Blood Cell (WBC) Count 14.8 thou/uL (4.8-10.8)
[2018-09-27] MEDS: Acetaminophen 325 MG TAB PO PRN ×3 (06:14→14:46)
[2018-09-27] MEDS: Mometasone/Formoterol 120 PUFF INHALER INH SCH ×2 (07:40→19:03)
[2018-09-27] MEDS: predniSONE 5 MG TAB PO SCH (08:58)
[2018-09-27] MEDS: Famotidine 20 MG TAB PO SCH (08:59)
[2018-09-27] MEDS: Docusate 100 MG CAP PO SCH ×2 (08:59→19:35)
[2018-09-27] MEDS: Enoxaparin Sodium 40 MG/0.4 ML SYRINGE SC SCH (08:59)
[2018-09-27] MEDS: Polyethylene Glycol 3350 17 GM Packet PO SCH (08:59)
--- NOTE | 2018-09-27 09:37 | RAD ---
CHEST 1 VIEW: Date: 09/27/18 HISTORY: Thoracotomy. COMPARISON: Radiograph prior day. FINDINGS: Thoracostomy tube tip at the level of the left lung apex. Trace left pneumothorax. Small left effusio n. Cardiac silhouette is similar. IMPRESSION: Similar exam of chest. Trace left pneumothorax. POS: [facility]
[2018-09-27] MEDS: fentaNYL 50 mcg/hour Patch TD SCH (14:27)
--- NOTE | 2018-09-27 15:01 | PRG ---
DATE OF SERVICE: 09/27/2018 SERVICE: Pulmonary Medicine. INTERVAL HISTORY: Last night, the patient was doing okay from a breathing standpoint until he did wake up in the middle of the night to use the bathroom. The process of getting to bedside commode and back to bed was horrendous. He had difficulty with breathing and it took him 15-20 minutes in order to recover. He has also noticed increasing lower extremity swelling, and scrotal edema. Outside of this, there has been no interval change to his condition. PHYSICAL EXAMINATION: VITAL SIGNS: Afebrile, pulse 74, blood pressure 115/69, respirations 20, saturation 96% on room air. GENERAL: The patient is awake, alert, no apparent distress. LUNGS: Excellent air entry with dependent crackles and wheezing present. There is no prolonged expiratory phase. HEART: Normal rate, regular. ABDOMEN: Soft, nontender, nondistended. Bowel sounds are positive. MUSCULOSKELETAL: No cyanosis or clubbing. There is 2+ edema in the bilateral lower extremities. NEUROLOGIC: Grossly nonfocal. GENITOURINARY: No Pacheco catheter. Scrotal edema is present. LABORATORY DATA: WBC 14.8, hemoglobin 10.0, platelets 403,000. Sodium 135, bicarbonate 35 and creatinine 0.64. Liver function studies are essentially unremarkable. Influenza A and B and blood cultures x2 are negative. IMAGING DATA: Chest x-ray demonstrates left-sided thoracostomy tube which is in good position. ASSESSMENT: 1. Spontaneous secondary pneumothorax, status post thoracotomy, and pleurodesis with Heimlich valve in place. 2. Acute hypoxic respiratory failure. 3. Chronic obstructive pulmonary disease with acute exacerbation. DISCUSSION AND PLAN: The patient is doing fairly well from a respiratory standpoint, but because of his episode last night, he is interested in staying in the hospital for another day or two. We will diurese him through time in an effort to get him closer to euvolemia. I will give him a dose of acetazolamide and a couple of doses of Lasix this evening and tomorrow morning. Once he has less dyspnea with exertion, we can consider transitioning out of the hospital. I will continue his work with physical therapy. Pulmonary Critical Care will continue to follow while he remains inhouse. CHANCE
[2018-09-27] MEDS ORDERED: Furosemide 20 MG/2 ML VIAL SLOW IVP SCH (15:15)
[2018-09-27] MEDS ORDERED: acetaZOLAMIDE Sodium 500 MG in Sodium Chloride 0.9% 50 ML IVPB SCH (15:15)
[2018-09-28 05:13] LABS: #Basophils 0.1 thou/uL (0.0-0.2); #Eosinphils 0.7 thou/uL (0.0-0.7); #Lymphocytes 1.3 thou/uL (1.20-3.40); #Monocytes 1.7 thou/uL (0.11-0.59); %Basophils 0.4 % (0.0-1.0); %Eosinophils 4.7 % (0.0-10.0); %Lymphocytes 8.3 % (21.0-51.0); %Neutrophils 75.6 % (42.0-75.0); Hemoglobin 10.7 g/dL (14.0-18.0); Mean Corpuscular Hemoglobin 28.8 pg (27.0-31.0); Mean Corpuscular Volume 92.9 fL (78.0-98.0); Mean Platelet Volume 7.6 fL (7.4-10.4); Platelet Count 446 thou/uL (130-400); RBC Distribution Width 14.5 % (11.5-14.5); Red Blood Cell (RBC) Count 3.73 mill/uL (4.70-6.10); White Blood Cell (WBC) Count 15.9 thou/uL (4.8-10.8)
[2018-09-28 05:25] LABS: Anion Gap 10 mmol/L (10-20); BUN (Urea Nitrogen) 20 mg/dL (8.4-25.7); Calc. Creatinine Clearance 107 mL/min (70-130); Calcium 9.4 mg/dL (7.8-10.44); Carbon Dioxide 30 mmol/L (23-31); Chloride 102 mmol/L (98-107); Estimated GFR-MDRD Greater than 90; Glucose 99 mg/dL (83-110); Magnesium 2.1 mg/dL (1.6-2.6); Potassium 3.9 mmol/L (3.5-5.1); Sodium 138 mmol/L (136-145)
[2018-09-28] MEDS ORDERED: Furosemide 20 MG/2 ML VIAL SLOW IVP SCH (06:00)
[2018-09-28] MEDS: Acetaminophen 325 MG TAB PO PRN (06:08)
[2018-09-28] MEDS: Mometasone/Formoterol 120 PUFF INHALER INH SCH (06:42)
[2018-09-28] MEDS: Docusate 100 MG CAP PO SCH (08:57)
[2018-09-28] MEDS: Polyethylene Glycol 3350 17 GM Packet PO SCH (08:57)
[2018-09-28] MEDS: predniSONE 5 MG TAB PO SCH (08:58)
[2018-09-28] MEDS: Enoxaparin Sodium 40 MG/0.4 ML SYRINGE SC SCH (08:58)
--- NOTE | 2018-09-28 09:42 | RAD ---
CHEST 1 VIEW: Date: 09/28/18 HISTORY: Thoracotomy. COMPARISON: Radiograph prior day. FINDINGS: Trace left basilar pneumothorax. There is a pleural line along the left mediastinum. Right lung is cl ear. Thoracostomy tube is similar. IMPRESSION: Similar exam. POS: SHARAN
[2018-09-28 12:04] VITALS: BP 106/59; TEMP 98.3
--- NOTE | 2018-09-28 12:22 | DIS ---
DATE OF ADMISSION: 09/08/2018 DATE OF DISCHARGE: 09/28/2018 PRIMARY CARE PHYSICIAN: Dr. Hank Pulido. ADMIT DIAGNOSES: Spontaneous pneumothorax with severe chronic obstructive pulmonary disease. CONSULTATIONS: Dr. Rivas from Pulmonology and Dr. Daniels from CV Surgery. PROCEDURE: Pleurodesis followed by Heimlich valve insertion. HOSPITAL COURSE: Patient is a 73-year-old male patient of Dr. Pulido's who is a well known patient to Dr. Rivas and the pulmonology service due to his severity of his COPD. He has had a spon taneous pneumothoraces in the past. He came in with severe dyspnea, found to have a worsening anothe r spontaneous pneumothorax on the left side. He was taken to the operating room and a pleurode sis performed and a regular chest tube inserted and had a protracted hospital stay due to respiratory difficulties, also concern for possible aspiration. He went back to the operating room to change ou t to a Heimlich valve. Since that point in time, the patient has been taking p.o. 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 His pain had been a combination of hydrocodone with fentanyl and on a couple days prior t o discharge been able to do just a fentanyl, no more hydrocodone, so the plan is for him to be discha rged with a fentanyl patch. He was also started on some Lasix with Diamox prior to this week and has done well with that, so plan is to continue on some p.o. Lasix with some supplemental potassium. Ot herwise, he will continue on his home medications of the diltiazem 180 daily, prednisone 5 mg daily, Spiriva 1 inhalation daily, Symbicort 1 puff twice a day, and DuoNeb nebulizer treatments every 6 irena rs. Continue on his nasal cannula oxygen and he will start home health or resume home health with [facility] that he had seen in the past for home physical therapy as well as any care neede d for the Heimlich valve. He will follow up with Dr. Pulido this week and follow up with Dr. Chapin juares in 2 weeks. The prescriptions were sent to his .
--- NOTE | 2018-10-01 09:21 | PQF ---
GABRIELA SAENZKASSI DO [id number] [facility]- B02 [id number] CLINICAL DOCUMENTATION CLARIFICATION FORM: POST DISCHARGE Addendum to original discharge summary date: ____ Late entry note date: __ DATE: 10/01/2018 ATTN: DR. PRINCE Please exercise your independent, professional judgment in responding to the clarification form. Clinical indicators are provided on the bottom of this form for your review Please check appropriate box(es): [ ] Sepsis Due to: [ ] Device (please specify) [ ] Chest Tube [ ] Localized infection without sepsis [ ] Other diagnosis [ ] Unable to determine In addition, please specify: Present on Admission (POA): [ ] Yes [ ] No [ ] Unable to determine For continuity of documentation, please document condition throughout progress notes and discharge summary. Thank You. CLINICAL INDICATORS - SIGNS / SYMPTOMS / LABS: Temp: 99.8 Respiratory rate : 23 WBC count (>12,000/mm^4 or <4000/mm^3 or 10% neuts, 10% bands) - 20.4 ER report - Chest tube placed in July for COPD. Fluid from site in Heimlich valve has foul odor. Redness, pain odor at insertion site. Patient has one way valve for lung collapsed, pain at chest tube site. H&P report - End stage COPD with a chronic pneumothorax with hemimlich valve present. Chest tube placed in July. Pain at tube site. RISK FACTORS: Surgery / surgical instrumentation Advancing Age Chronic spontaneous pneumothorax Pain at chest tube site End stage COPD Bronchopulmonary fistula Persistent air leak TREATMENTS: Initiation Sepsis Protocol Daily CBC Blood/sputum/wound cultures - Klebsiella pneumoniae, Staphylococcus aureus, Gram Negative Harjinder IV antibiotics - Vancomycin (This form is maintained as a part of the permanent medical record) 2014 [employer], [employer], [employer]. All Rights Reserved Ashley Aleman, HO, EXECUTIVE DIRECTOR OF NURSING-H [email or web address] [phone] MTDD
--- NOTE | 2018-10-01 09:50 | PQF ---
GABRIELA SAENZKASSI DO [id number] [facility]- B02 [id number] CLINICAL DOCUMENTATION CLARIFICATION FORM: POST DISCHARGE Addendum to original discharge summary date: ____ Late entry note date: __ DATE: 10/01/2018 ATTN: DR. PRINCE Please exercise your independent, professional judgment in responding to the clarification form. Clinical indicators are provided on the bottom of this form for your review Please check appropriate box(s): [ ] CHRONIC SPONTANEOUS PNEUMOTHORAX - (Condition) is a complication of current/recent surgery [ ] CHRONIC SPONTANEOUS PNEUMMOTHORAX - (Condition) is not a complication of current/recent surgery [ ] Other diagnosis [ ] Unable to determine In addition, please specify: Present on Admission (POA): [ ] Yes [ ] No [ ] Unable to determine CLINICAL INDICATORS - SIGNS / SYMPTOMS / LABS: CT / x-ray results - 09/09 - small to moderate left sided residual pneumothorax Altered vitals Pain/ drainage from site - ER report - chest tube placed in July. Pain, redness at site. Supporting labs Blood cultures - 09/08 lab - Klebsiella pneumoniae, Staphylococcus aureus Infection - ER report - Sepsis protocol H&P - Chronic spontanoeus pneumothorax Chest tube placed in July, placed for end stage COPD. ER report - Fluid from site in heimlich valve, has foul odor. Redness, pain at insertion site. RISK FACTORS: Recent surgery - ER report & H&P - Chest tube placed in July Poor healing factors (advanced age / chronic conditions) Persistent air leak TREATMENT: Antibiotic - Rocephin IV Fluids Surgical procedure/ Evaluation - 09/10 - Pleurodesis, resection of left lower lobe bleb, removal of chest tube (This form is maintained as a part of the permanent medical record) 2014 [employer]. All Rights Reserved Ashley Aleman, CCS, [employer]INE-H [email or web address] (acquired by [employer] in 2014) [phone] CHANCE
--- NOTE | 2018-10-01 10:04 | PQF ---
GABRIELA SAENZKASSI DO [id number] [facility]- B02 [id number] CLINICAL DOCUMENTATION CLARIFICATION FORM: POST DISCHARGE Addendum to original discharge summary date: ____ Late entry note date: __ DATE: 10/01/2018 ATTN: DR. PRINCE Please exercise your independent, professional judgment in responding to the clarification form. Clinical indicators are provided on the bottom of this form for your review Please check appropriate box(s): [ ] PERSISTENT AIR LEAK - (Condition) is a complication of current/recent surgery [ ] PERSISTENT AIR LEAK - (Condition) is not a complication of current/recent surgery [ ] Other diagnosis [ ] Unable to determine In addition, please specify: Present on Admission (POA): [ ] Yes [ ] No [ ] Unable to determine CLINICAL INDICATORS - SIGNS / SYMPTOMS / LABS: CT / x-ray results - 09/25 - Left chest tube in place with small residual left- sided pneumothorax Altered vitals Pain/ drainage from site - H&P, ER report- redness, pain at insertion site Supporting labs Blood cultures - Klebsiella pneumoniae, Staphylococcus aureus Infection 09/10 - OP report - Persistent air leak RISK FACTORS: Recent surgery - H&P, ER report - chest tube placed in July Poor healing factors (advanced age / chronic conditions) Chronic spontaneous pneumothorax TREATMENT: Antibiotic - Rocephin IV Fluids Surgical procedure/ Evaluation - 09/10 -Op report - removal chest tube, Left thoracoscopic resection of left lower lobe bleb and combined mechanical and talc pleurodesis (This form is maintained as a part of the permanent medical record) 2014 [employer]. All Rights Reserved Ashley Aleman, HO, [facility]-H [email or web address] [phone] CHANCE
== END 2018-09-28 15:00 | disposition home health service (06) | DRG 163 ==
LOC: ERS 05:19 → IMCU/EMU 06:58 → CCU 09-10 16:52 → SURG A 09-14 11:28
PROVIDERS: ADMIT Family Medicine; ATTEND Family Medicine
PROC: 5A09457 Assistance with Respiratory Ventilation, 24-96 Consecutive Hours, Continuous Positive Airway Pressure (ICD-10-PCS; 2018-09-08)
PROC: 0BQ Respiratory System, Repair (ICD-10-PCS; principal; 2018-09-10)
PROC: 0BP Respiratory System, Removal (ICD-10-PCS; 2018-09-10)
PROC: 0W9B40Z Drainage of Left Pleural Cavity with Drainage Device, Percutaneous Endoscopic Approach (ICD-10-PCS; 2018-09-10)
PROC: 0B5P4ZZ Destruction of Left Pleura, Percutaneous Endoscopic Approach (ICD-10-PCS; 2018-09-10)
PROC: 3E0L4GC Introduction of Other Therapeutic Substance into Pleural Cavity, Percutaneous Endoscopic Approach (ICD-10-PCS; 2018-09-10)
PROC: 5A1945Z Respiratory Ventilation, 24-96 Consecutive Hours (ICD-10-PCS; 2018-09-10)
DX: J44.1 Chronic obstructive pulmonary disease with (acute) exacerbation (principal); J86.0 Pyothorax with fistula; J96.21 Acute and chronic respiratory failure with hypoxia; I47.1 Supraventricular tachycardia; J93.12 Secondary spontaneous pneumothorax; Z66 Do not resuscitate; Z87.891 Personal history of nicotine dependence; I10 Essential (primary) hypertension; F41.9 Anxiety disorder, unspecified
CPT/HCPCS: 36415; 36416; 71045; 71250; 80048; 80053; 82550; 82553; 82805; 83605; 83735; 83880; 84484; 85007; 85025; 85027; 85610; 85730; 86850; 86900; 86901; 87040; 87070; 87077; 87186; 87205; 87804; 88305; 88307; 88325; 88341; 88342; 88360; 93005; 94002; 94003; 94640; 94660; 96365; 96367; 96375; G8978-GP-CK; G8978-GP-CM; G8979-GP-CI; G8979-GP-CK; J0670; J0692; J0696; J1120; J1650; J1720; J1885; J1940; J1956; J2001; J2020; J2060; J2250; J2270; J2543; J2704; J2920; J2930; J3010; J3370; J7050; J7620; S0028

== ENCOUNTER 2018-09-29 08:45 | Inpatient (IN) | payer MEDICARE, OTHER ==
[2018-09-29 09:42] LABS: #Basophils 0.1 thou/uL (0.0-0.2); #Eosinphils 0.6 thou/uL (0.0-0.7); #Lymphocytes 1.5 thou/uL (1.20-3.40); #Monocytes 1.4 thou/uL (0.11-0.59); #Neutrophils 9.7 thou/uL (1.40-6.50); %Basophils 0.5 % (0.0-1.0); %Eosinophils 4.4 % (0.0-10.0); %Lymphocytes 11.3 % (21.0-51.0); %Monocytes 10.6 % (0.0-10.0); %Neutrophils 73.2 % (42.0-75.0); Mean Corpuscular HGB CONC 31.3 g/dL (32.0-36.0); Mean Corpuscular Hemoglobin 28.8 pg (27.0-31.0); Mean Corpuscular Volume 91.8 fL (78.0-98.0); Mean Platelet Volume 7.8 fL (7.4-10.4); Platelet Count 439 thou/uL (130-400); RBC Distribution Width 14.4 % (11.5-14.5); Red Blood Cell (RBC) Count 3.83 mill/uL (4.70-6.10); White Blood Cell (WBC) Count 13.3 thou/uL (4.8-10.8)
[2018-09-29] MEDS ORDERED: methylPREDNISolone Sod Succ/PF 125 MG/2 ML VIAL ONE (09:42)
--- NOTE | 2018-09-29 09:45 | RAD ---
PORTABLE CHEST 1 VIEW: DATE: 09/29/2018. TIME: 9:18 a.m. HISTORY: Cough. FINDINGS/IMPRESSION: Comparison is made with the exam of the previous day. The heart size is normal. The aorta is tortuous. Left-sided chest tube is in place. A tiny left ap ical pneumothorax may be present. Calcified granuloma in the right lower lung is again seen. POS: C
[2018-09-29 09:48] LABS: PTT 29.5 SEC (22.9-36.1)
[2018-09-29 09:49] LABS: D-Dimer Test 1.1 *mcg/mL (0.27-0.43)
[2018-09-29 10:03] LABS: ALT (SGPT) 30 U/L (8-55); AST (SGOT) 22 U/L (5-34); Albumin 3.5 g/dL (3.4-4.8); Alkaline Phosphatase 55 U/L (40-150); Anion Gap 11 mmol/L (10-20); BUN (Urea Nitrogen) 18 mg/dL (8.4-25.7); Bilirubin, Total 0.3 mg/dL (0.2-1.2); CK (CPK) 18 U/L (30-200); Calc. Creatinine Clearance 0 mL/min (70-130); Calcium 9.3 mg/dL (7.8-10.44); Carbon Dioxide 28 mmol/L (23-31); Chloride 103 mmol/L (98-107); Estimated GFR-MDRD Greater than 90; Globulin 2.4 g/dL (2.4-3.5); Glucose 93 mg/dL (83-110); Potassium 3.8 mmol/L (3.5-5.1); Protein, Total 5.9 g/dL (5.8-8.1); Sodium 138 mmol/L (136-145)
[2018-09-29 10:05] LABS: CKMB 1.6 ng/mL (0-6.6); Troponin I Less than 0.010 ng/mL (< 0.028)
--- NOTE | 2018-09-29 10:06 | ULT ---
ULTRASOUND WITH DOPPLER DUPLEX VENOUS LOWER EXTREMITY LEFT: HISTORY: 73-year-old male with left lower extremity edema. TECHNIQUE: Color flow Doppler, spectral waveform analysis of pulsed Doppler, and treviño-scale imaging with marcos feliciano and augmentation, were used to evaluate the left common femoral, femoral, popliteal, posterior t ibial, and superficial femoral, veins; and the proximal portions of the profunda femoral and greater saphenous, veins. FINDINGS: There is normal compressibility, demonstration of blood flow by color Doppler and pulsed Doppler, and response to augmentation, in all interrogated veins. IMPRESSION: Negative. No deep vein thrombosis in the left lower extremity. letha POS: JANIE
[2018-09-29] MEDS ORDERED: ISOVUE-370 76%-LOCM 1 ML ONE (10:42)
--- NOTE | 2018-09-29 10:42 | CT ---
CT ANGIOGRAM CHEST WITH CONTRAST: Date: 09/29/18 HISTORY: Dyspnea. COMPARISON: CT chest dated 09/09/18 without contrast. FINDINGS: CT angiogram chest performed after the intravenous administration of contrast. 3D rendering is provid ed. No proximal segmental pulmonary arterial filling defect. No pericardial effusion. There is a layering left pleural effusion with some loculations. Small left anterior pneumothorax wit h lung trapping, due to extensive thickening of the visceral pleura. Extensive emphysema. Calcified granuloma right lower lobe. There are air fluid levels in the left lung base and main pleur al space. No aneurysmal dilatation of the aorta. No displaced rib fracture. IMPRESSION: 1. There is a chronic left-sided pneumothorax which is similar to the comparison examination but sli ghtly improved. This is likely a portion of trapped lung with abnormal thickening of the visceral ple ura. 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 2. No proximal segmental pulmonary arterial filling defect. POS: CCH
[2018-09-29] MEDS ORDERED: Magnesium 2 GM/50 ML BAG (IN WATER) ONE (11:21)
[2018-09-29] MEDS ORDERED: ALPRAZolam 0.25 MG TAB PO PRN (11:26)
[2018-09-29] MEDS ORDERED: Albuterol Sulfate 2.5 mg/0.5 ml Neb ONE ×3 (11:43)
[2018-09-29] MEDS ORDERED: Albuterol Sulfate 2.5 mg/3 ml Neb ONE (11:43)
[2018-09-29] MEDS ORDERED: Albuterol Sulfate 2.5 mg/3 ml Neb NEB PRN (12:55)
[2018-09-29] MEDS ORDERED: fentaNYL 50 mcg/hour Patch TD SCH (14:00)
--- NOTE | 2018-09-29 15:08 | HP ---
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 He was in the hospital for a 6-week period, discharged and returned shortly. He was again in the hospital for approximately a week and a half and was discharged yesterday, but has returned today. H e states that since he was discharged, he has become increasingly short of breath. The weather is qu ite chaotic at this time. It is presently it has been raining all week and it is now 40 degree s outside, which may be a trigger for his COPD. This issue was different from his prior issues. He was given multiple breathing treatments this morning and he is feeling much better, but his chest is still feeling tight. No complaints of chest pain. He has been hospitalized for his chronic pneumoth orax, which has been quite stable. He has a Heimlich valve in place. In his last hospital stay, he underwent decortication and pleurodesis by Dr. Daniels. No reported fever. PAST MEDICAL HISTORY: End-stage COPD, history of alcohol abuse and long history of tobacco use. PAST SURGICAL HISTORY: Include appendectomy, hernia repair, T and A, colon perforation repair, cardi ac catheterization 1980, TURP 2009. FAMILY HISTORY: Multiple family members with heart disease and emphysema. Siblings with heart disea se and lymphoma. SOCIAL HISTORY: Lives with his , Cassia Kruse. She recently had a stroke and is having her own med ical issues. She is in the process of recovering. They do have several children. He no longer smok es. He does have a 50-year tobacco history. 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 MEDICATIONS: Include DuoNeb, Spiriva, prednisone 10 daily, Symbicort 2 puffs b.i.d. ALLERGIES: None. REVIEW OF SYSTEMS: As above. PHYSICAL EXAMINATION: VITAL SIGNS: Stable at this time. Afebrile. GENERAL: He is in mild respiratory distress, but comfortable. HEENT: Clear. NECK: Supple. HEART: Regular rate and rhythm. LUNGS: Breath sounds appear to be tight. Minimal wheezing present. Poor air exchange. ABDOMEN: Soft, nontender. EXTREMITIES: With 1+ edema in the left lower extremity. LABORATORY DATA: White count is down from 15-13.3, H and H 11 and 35, platelets 439,000. Electrolyt es normal. Creatinine 0.52, BUN 18. Troponin less than 0.010. BNP 34. D-dimer 1.1. CTA of the ch est was negative. Chest x-ray shows a minimal pneumothorax. Otherwise, no other pathology noted. ASSESSMENT: 1. Chronic obstructive pulmonary disease exacerbation. 2. Acute on chronic respiratory failure. 3. Chronic spontaneous pneumothorax. 4. Status post decortication and pleurodesis by Dr. Daniels. 5. Do not resuscitate. 6. History of ventricular tachycardia. PLAN: 1. DuoNeb treatments q.6, albuterol treatments q.2 p.r.n., Levaquin 750 daily, prednisone 40, Solu-M edrol [address] q[address] 2[address] Posada. 3. Do not resuscitate. 4. Fentanyl patch for chronic pain.
[2018-09-29] MEDS: Acetaminophen 325 MG TAB PO PRN ×2 (16:58→22:43)
[2018-09-29] MEDS: Mometasone/Formoterol 120 PUFF INHALER INH SCH (19:27)
--- NOTE | 2018-09-29 23:36 | CON ---
DATE OF CONSULTATION: 09/29/2018 HISTORY OF PRESENT ILLNESS: This is a 73-year-old gentleman who was recently discharged from the [facility] after a prolonged hospitalization. He underwent a pleurodesis chemical and mechanical for a sp ontaneous pneumothorax. Discharged home yesterday evening at about 3:00 p.m. difficulty breath ing which did not respond to his usual DuoNeb treatment. He came to the ER with marked respiratory distress. He denies any fever, chills, sweats, or hemoptysis. Apparently, he is having significant pain for which he was discharged home on a fentanyl patch 50 mcg every [address] chest angio shows a left-sided small pneumothorax, no acute infiltrates, no PE. Ultrasound both l egs were negative. He has been essentially bedridden now for a period of time because of his surgery for pneumothorax. EXTENSIVE PAST MEDICAL HISTORY: Well outlined for; 1. End-stage COPD, former smoker. 2. Spontaneous pneumothorax, requiring prolonged chest tube and eventually pleurodesis. 3. SVT. 4. Anxiety. MEDICATIONS: As outlined, Cardizem CD 180, prednisone 5, Spiriva once a day, DuoNeb, Symbicort 160. Low flow O2, 2 liters. PAST SURGICAL HISTORY: Pleurodesis, appendix, hernia, tonsils. ALLERGIES: No known medicine allergies. REVIEW OF SYSTEMS: Ten point negative. PHYSICAL EXAMINATION: GENERAL: He is still having difficulty breathing. VITAL SIGNS: His sats are 92% on 3 liters, pulse 80, blood pressure , respiratory rate 18. EXTREMITIES: Trace edema on his left leg. CHEST: Decreased breath sounds, prolonged expiration, minimal wheezing. CARDIAC: Normal S1, S2. No gallops. ABDOMEN: Soft. No masses. LABORATORY AND X-RAY FINDINGS: White count 13,000, H&H 11 and 35, platelet count 439. Electrolytes are normal. Initial chest x-ray was unremarkable. IMPRESSION: 1. Status post pleurodesis, spontaneous pneumothorax. 2. End-stage chronic obstructive pulmonary disease with SVT. 3. Supraventricular tachycardia. PLAN: Restart home medication. Continue his Cardizem, neb treatments, supportive care. We will follow. Consultation note, 70 minutes, 50% spent in direct patient care.
[2018-09-30] MEDS: Acetaminophen 325 MG TAB PO PRN ×2 (04:32→22:44)
[2018-09-30 05:51] LABS: #Eosinphils 0.2 thou/uL (0.0-0.7); #Lymphocytes 0.3 thou/uL (1.20-3.40); #Neutrophils 7.7 thou/uL (1.40-6.50); %Basophils 0.5 % (0.0-1.0); %Eosinophils 2.3 % (0.0-10.0); %Lymphocytes 3.7 % (21.0-51.0); %Monocytes 0.5 % (0.0-10.0); Hemoglobin 11.1 g/dL (14.0-18.0); Mean Corpuscular HGB CONC 31.5 g/dL (32.0-36.0); Mean Corpuscular Volume 91.9 fL (78.0-98.0); Mean Platelet Volume 7.8 fL (7.4-10.4); Platelet Count 464 thou/uL (130-400); RBC Distribution Width 14.3 % (11.5-14.5); Red Blood Cell (RBC) Count 3.83 mill/uL (4.70-6.10); White Blood Cell (WBC) Count 8.3 thou/uL (4.8-10.8)
[2018-09-30 06:12] LABS: Anion Gap 10 mmol/L (10-20); BUN (Urea Nitrogen) 16 mg/dL (8.4-25.7); Calc. Creatinine Clearance 118 mL/min (70-130); Calcium 9.3 mg/dL (7.8-10.44); Carbon Dioxide 30 mmol/L (23-31); Chloride 101 mmol/L (98-107); Estimated GFR-MDRD Greater than 90; Glucose 126 mg/dL (83-110); Potassium 3.9 mmol/L (3.5-5.1); Sodium 137 mmol/L (136-145)
[2018-09-30] MEDS: Mometasone/Formoterol 120 PUFF INHALER INH SCH ×2 (07:11→18:28)
--- NOTE | 2018-09-30 08:03 | PRG ---
DATE OF SERVICE: 09/30/2018 SUBJECTIVE: The patient appears to be back at baseline this morning. He is in mild respiratory dist ress, but markedly improved from yesterday. OBJECTIVE: VITAL SIGNS: Temperature 98.0, pulse 81, respirations 20, pulse ox 98 on the 3 liters nasal cannula, blood pressure 118/58. GENERAL: Mild respiratory distress. HEART: Regular rate and rhythm. LUNGS: Clear. No wheezing present. ABDOMEN: Soft. EXTREMITIES: No edema. LABORATORY DATA: White count 8.3, H&H 11 and 35. Sodium 137, potassium 3.9, creatinine 0.55, glucos e 126. ASSESSMENT: 1. Chronic obstructive pulmonary disease exacerbation, much improved. 2. Acute on chronic respiratory failure. 3. Chronic spontaneous pneumo. 4. Status post decortication and pleurodesis. 5. Do not resuscitate. 6. History of ventricular tachycardia. PLAN: 1. Continue DuoNeb treatments, Levaquin and prednisone. 2. Do not resuscitate. 3. Fentanyl patch for chronic pain. 4. Consult case management for evaluation for intermediate placement.
[2018-09-30] MEDS ORDERED: Sodium Chloride 0.9% 10 ML ONE (08:25)
--- NOTE | 2018-09-30 09:09 | PRG ---
DATE OF SERVICE: 09/30/2018 This morning he is awake, alert, responsive, denies any pain or discomfort. PHYSICAL EXAMINATION: VITAL SIGNS: Sats are 98 on 3 liters, respirations 20, temperature 98, pulse 84, blood pressure is 1 30/63. CHEST: Chest reveals decreased breath sounds, no wheezing. CARDIAC: Normal S1, S2. ABDOMEN: Soft, no masses. LABORATORY DATA: White count 8000, H&H 11 and 35, platelet count is normal. IMPRESSION: 1. Chronic obstructive pulmonary disease exacerbation. 2. Respiratory failure. 3. Status post pleurodesis. 4. Pneumothorax. PLAN: P.o. medication. PT and supportive care. Hopefully he can discharged home in the next 24-48 hours.
[2018-09-30] MEDS ORDERED: fentaNYL 50 mcg/hour Patch TD SCH (14:00)
--- NOTE | 2018-09-30 14:15 | PQF ---
CLINICAL DOCUMENTATION IMPROVEMENT CLARIFICATION FORM: ICD-10 Updated PLEASE DO AN ADDENDUM TO THE PROGRESS NOTE WITH ANY DOCUMENTATION UPDATES OR ADDITIONS AND CARRY THROUGH TO DC SUMMARY. THANK YOU. DATE: 09/28 ATTN: DR. ANGEL JANE Please exercise your independent, professional judgment in responding to the clarification form. Clinical indicators are provided on the bottom of this form for your review. Please check appropriate box(s): I (concur) with the Nursing Admission Skin Assessment findings as stated below. [ ] Pressure Ulcer: (Stage I: Erythema; Stage II: Partial thickness; Stage III : Full thickness; Stage IV: Necrosis to muscle/bone) [ ] Location: POA: [ ] Yes [ ] No[ ] Unable to determine Stage (I to IV): (Left Right Bilateral N/A ) [ ] Location: POA: [ ] Yes [ ] No[ ] Unable to determine [ ] No pressure ulcer diagnosis [ ] Other diagnosis [ ] Unable to determine In addition, please specify: Present on Admission (POA): [ ] Yes [ ] No [ ] Unable to determine For continuity of documentation, please document condition throughout progress notes and discharge summary. Thank You. CLINICAL INDICATORS - SIGNS / SYMPTOMS / LABS NURSING ADMISSION SKIN ASSESSMENT 09/29: PRESSURE ULCER STAGE II TO SACRUM/ COCCYX RISK FACTORS: RECENT PROLONGED HOSPITALIZATION, DISCHARGED 09/28 END-STAGE COPD TREATMENTS: TURN Q2 HR PHILIPP BAPTISTE THANK YOU! Ladan (This form is maintained as a part of the permanent medical record) 2014 [employer]. All Rights Reserved Ladan Irby RN, BSN [email or web address] Office: [phone] [facility]
[2018-10-01] MEDS: Mometasone/Formoterol 120 PUFF INHALER INH SCH ×2 (06:54→18:22)
--- NOTE | 2018-10-01 08:27 | PRG ---
DATE OF SERVICE: 10/01/2018 SUBJECTIVE: The patient is stable today. Easily short of breath with minimal exertion. Even turnin g over in bed causes him to develop respiratory distress. OBJECTIVE: VITAL SIGNS: Temperature 97.9, pulse 72, respirations 16, pulse oximetry 96 on 2 liters, blood press ure 106/56. HEART: Regular rate and rhythm. LUNGS: Relatively clear. ABDOMEN: Soft. EXTREMITIES: With trace edema decreased from the admission and the patient does have a pressure ulce r on the sacrococcygeal area stage 2. ASSESSMENT: 1. Chronic obstructive pulmonary disease exacerbation, improved. 2. Acute on chronic respiratory failure, the patient has no stamina whatsoever. Turning him over in bed this morning caused him extreme shortness of breath. 3. Chronic spontaneously pneumo. 4. Status post decortication and pleurodesis. 5. Do not resuscitate. 6. Stage 2 pressure ulcer sacrococcygeal area. 7. History of ventricular tachycardia. PLAN: 1. Continue DuoNeb treatments, Levaquin and prednisone. 2. Do not resuscitate. 3. Fentanyl patch for chronic pain. 4. Case management should talk with the patient today. I have discussed with the patient possibilit y of half-way placement. He is concerned about the finances. His is unable to take care of him and he definitely cannot take care of himself. That could be his only option; however, he is so mewhat resistant to that choice. 5. Rotated in bed q.2h. and wound care to the pressure ulcer.
[2018-10-01] MEDS ORDERED: Laxative Of Choice PO PRN (08:33)
--- NOTE | 2018-10-01 08:46 | PRG ---
DATE OF SERVICE: 10/01/2018 This is a 73-year-old gentleman who is better. He is worried about constipation. Has not had a BM f or several days. He said he is weak, but he is better. PHYSICAL EXAMINATION: VITAL SIGNS: Sats are 96 on 2 liters, respiration 16, temperature 97, blood pressure 106/56. CHEST: Chest reveals decreased breath sounds, no wheezing. CARDIAC: Normal S1, S2. No gallop. ABDOMEN: Soft, no masses. IMPRESSION: 1. Chronic obstructive pulmonary disease. 2. Pneumothorax. 3. Status post pleurodesis. PLAN: Pulmonary [place], he is ready to go home anytime.
[2018-10-01] MEDS: predniSONE 20 MG TAB PO SCH (09:11)
[2018-10-01] MEDS: Polyethylene Glycol 3350 17 GM Packet PO SCH (09:11)
[2018-10-01] MEDS: Acetaminophen 325 MG TAB PO PRN ×2 (09:11→18:12)
--- NOTE | 2018-10-01 10:30 | RAD ---
FRONTAL RADIOGRPAH CHEST: DATE: 10/01/2018. COMPARISON: 09/29/2018. HISTORY: Reevaluate left-sided chest tube. FINDINGS: There is a tiny pneumothorax in the left lung apex, stable when compared to the 09/29/2018 exam. Sta ble lateral left-sided chest tube present. Prominent emphysematous changes are noted bilaterally. T here is hazy increased linear density in the left perihilar region and medial left lug base, evidence of nonspecific pulmonary parenchymal opacity. There is a probable component of small volume pneumot horax noted in the left perihilar region medially. IMPRESSION: Stable appearance of the chest demonstrating nonspecific parenchymal opacity in the left base and lef t perihilar region as well as a stable pneumothorax in the left lung apex and left perihilar region. POS: [facility]
[2018-10-01 11:44] VITALS: BMI 23.1
[2018-10-02] MEDS: Mometasone/Formoterol 120 PUFF INHALER INH SCH (06:53)
--- NOTE | 2018-10-02 07:21 | DIS ---
DATE OF ADMISSION: 09/29/2018 DATE OF DISCHARGE: 10/02/2018 DISCHARGE DIAGNOSES: 1. Acute and chronic respiratory distress. 2. Chronic obstructive pulmonary disease exacerbation, resolved. 3. Chronic spontaneous pneumo with a Heimlich valve. 4. Status post decortication and pleurodesis. 5. Do not resuscitate. 6. Stage II pressure ulcer sacrococcygeal area. 7. History of ventricular tachycardia. DISCHARGE MEDICATIONS: Diltiazem 180 p.o. daily, fentanyl patch 50 mcg q. 3 days transdermal, Symbic ort 1 puff b.i.d., Lasix 40 daily, guaifenesin 400 b.i.d., DuoNeb q.4 hours p.r.n., potassium 20 cherie y, prednisone at 5 mg daily, Spiriva 18 mcg daily, Ventolin inhaler 2 puffs q.6 p.r.n. FOLLOWUP: Follow up in [address] Lizzie Pulido. Follow up with Dr. Posada. BRIEF HISTORY: This is a 73-year-old white male with a chronic spontaneous pneumo with a Heimlich va lve in place and with end-stage COPD who has been in and out of the hospital for the past several mon ths. He presented again with shortness of breath. Weather has been quite chaotic lately with rain a nd cold. This may have triggered his COPD and he presented to the ER with respiratory distress and w as admitted. HOSPITAL COURSE: The patient was started on his usual breathing treatments. He was started on Solu- Medrol. Within 24 hours he was back to his baseline. He has been doing well for the past several da ys. No major interventions other than his routine breathing treatments and medications. He is ready for discharge. His prognosis is very poor. He does not tolerate any movements. Just turning over in bed causes him to be short of breath. He had a Social Service consult. The patient declines any placement. He is well aware of his prognosis. Unfortunately, I expect him to return to the hospital at some point. His best option is placement in a fci; however, he is not interested.
[2018-10-02] MEDS: Polyethylene Glycol 3350 17 GM Packet PO SCH (08:01)
[2018-10-02] MEDS: predniSONE 20 MG TAB PO SCH (08:01)
--- NOTE | 2018-10-02 08:19 | PRG ---
DATE OF SERVICE: 10/02/2018 This morning he is weak, did not do much walking yesterday. PHYSICAL EXAMINATION: VITAL SIGNS: Sats are 96 on 2 liters, respiration 18, temperature 97, pulse 77, blood pressure 136/6 3. CHEST: Decreased breath sounds, minimal wheezing. CARDIAC: Normal S1-S2. No gallops. ABDOMEN: Soft, no masses. IMPRESSION: 1. Chronic obstructive pulmonary disease exacerbation. 2. Bronchitis. 3. Constipation. 4. Pain. PLAN: He can be discharged home on present medication. He is to see me in the office in several wee ks.
[2018-10-02] MEDS: Acetaminophen 325 MG TAB PO PRN (09:44)
[2018-10-02 12:09] VITALS: BP 137/70; TEMP 98.6
== END 2018-10-02 14:28 | disposition home or self-care (01) | DRG 189 ==
LOC: ERS 08:45 → ERHOLD 11:19 → 2NO 13:21
PROVIDERS: ADMIT Family Medicine; ATTEND Family Medicine
DX: J96.20 Acute and chronic respiratory failure, unspecified whether with hypoxia or hypercapnia (principal); J44.1 Chronic obstructive pulmonary disease with (acute) exacerbation; I47.1 Supraventricular tachycardia; J93.81 Chronic pneumothorax; Z66 Do not resuscitate; L89.152 Pressure ulcer of sacral region, stage 2; Z87.891 Personal history of nicotine dependence; F41.9 Anxiety disorder, unspecified; K59.00 Constipation, unspecified
CPT/HCPCS: 36415; 71045; 71275; 80048; 80053; 82553; 83880; 84484; 85025; 85379; 85610; 85730; 87040; 93005; 94640; 94644; 94664; 94760; 96361; 96365; 96375; G8978-GP-CJ; G8978-GP-CM; G8979-GP-CI; G8979-GP-CL; J1956; J2920; J2930; J7506; J7611; J7620

== ENCOUNTER 2018-10-04 18:13 | Observation (INO) | payer MEDICARE, OTHER ==
[~2018-10-04 18:13] MED LIST: ISOVUE-370 76%-LOCM 1 ML ONE
[2018-10-04 19:14] LABS: #Eosinphils 0.1 thou/uL (0.0-0.7); #Lymphocytes 0.9 thou/uL (1.20-3.40); #Monocytes 1.3 thou/uL (0.11-0.59); #Neutrophils 13.3 thou/uL (1.40-6.50); %Basophils 0.2 % (0.0-1.0); %Eosinophils 0.8 % (0.0-10.0); %Monocytes 8.2 % (0.0-10.0); %Neutrophils 84.8 % (42.0-75.0); Hemoglobin 11.7 g/dL (14.0-18.0); Mean Corpuscular HGB CONC 31.4 g/dL (32.0-36.0); Mean Corpuscular Hemoglobin 28.7 pg (27.0-31.0); Mean Corpuscular Volume 91.4 fL (78.0-98.0); Mean Platelet Volume 7.4 fL (7.4-10.4); Platelet Count 549 thou/uL (130-400); RBC Distribution Width 14.4 % (11.5-14.5); Red Blood Cell (RBC) Count 4.06 mill/uL (4.70-6.10); White Blood Cell (WBC) Count 15.7 thou/uL (4.8-10.8)
[2018-10-04 19:36] LABS: ALT (SGPT) 24 U/L (8-55); AST (SGOT) 15 U/L (5-34); Albumin 3.7 g/dL (3.4-4.8); Alkaline Phosphatase 52 U/L (40-150); Anion Gap 14 mmol/L (10-20); BUN (Urea Nitrogen) 18 mg/dL (8.4-25.7); Bilirubin, Total 0.5 mg/dL (0.2-1.2); Calc. Creatinine Clearance 0 mL/min (70-130); Calcium 9.1 mg/dL (7.8-10.44); Carbon Dioxide 28 mmol/L (23-31); Chloride 94 mmol/L (98-107); Estimated GFR-MDRD Greater than 90; Globulin 2.2 g/dL (2.4-3.5); Glucose 78 mg/dL (83-110); Potassium 4.2 mmol/L (3.5-5.1); Protein, Total 5.9 g/dL (5.8-8.1); Sodium 132 mmol/L (136-145)
[2018-10-04] MEDS ORDERED: Fleet Enema 133 ML BOT PR SCH (20:15)
--- NOTE | 2018-10-04 20:16 | RAD ---
FRONTAL RADIOGRAPH CHEST TWO VIEWS OF ABDOMEN 10/04/18 COMPARISON: 09/30/18. HISTORY: Pain, constipation. FINDINGS: Frontal radiograph chest demonstrates a left lateral chest tube. A probable tiny medial residual left sided pneumothorax is noted. There may be a very tiny apical pneumothorax on the left as well. Increased linear interstitial density and pulmonary hyperinflation noted suggesting underlying emphys ematous change. Upright imaging demonstrates no free intraperitoneal air. There is evidence of numerous air fluid lev els within both, which may primarily be within colon. A few small bowel air fluid levels cannot be ex cluded. Of note, there is prominent stool overlying a distended rectum. Findings suggest fecal impact ion. IMPRESSION: 1. Air fluid levels seen within the abdomen and pelvis, likely primarily colonic in nature. The degree of small bowel air fluid levels on the basis of ileus or developing obstruction cannot be excl uded. The rectum is expanded and filled with stool suggesting fecal impaction. 2. Chronic changes within the lung parenchyma. The lateral left sided chest tube with probable t iny left pneumothorax as before. POS: [facility]
--- NOTE | 2018-10-04 23:23 | CT ---
CT ABDOMEN AND PELVIS 10/04/18 COMPARISON: None. HISTORY: Constipation. TECHNIQUE: Serial axial CT imaging at 5 mm intervals from the lung bases through the pubic symphysis with IV con trast. Coronal reformatted imaging obtained. FINDINGS: Partially visualized left sided chest tube noted. Small volume left pleural effusion. Small volume le ft sided pneumothorax noted within the left lung base anteriorly and posteriorly. There is a small nodule noted within the right lower lobe on axial image 3 measuring approximately 5 mm similar when compared to the 04/29/14 CT examination of the abdomen. No free intraperitoneal air is seen. The liver, gallbladder, and spleen demonstrate no acute findings . The pancreas, adrenal glands and kidneys appear grossly unremarkable. There is prominent stool seen throughout the colon. There is dense stool filling an expanded rectum. There is wall thickening of the rectum and there is fat stranding in the presacral space. Findings garcía ggest stercoral colitis on the basis of fecal impaction. There is scattered atherosclerotic calcification of the abdominal aorta and its branches. No lymphade nopathy is apparent within the abdomen or pelvis. Osseous structures demonstrate degenerative change within bilateral hips. There is multilevel lower l umbar spine degenerative change as well. Stable small sclerotic focus noted within the femoral head anteriorly on the right. IMPRESSION: 1. Stool filled and expanded rectum consistent with fecal impaction. There is wall thickening of the rectum and small volume stranding/fluid in the presacral space consistent with stercoral colitis . 2. Small volume pneumothorax and pleural fluid in the left. POS: [facility]
[2018-10-04] MEDS ORDERED: Magnesium Citrate 300 ML BOT ONE (23:44)
[2018-10-04] MEDS ORDERED: MEROPENEM 1 GM/50 ML 1 GM in Premix Bag 1 BAG IVPB SCH (23:45)
[2018-10-04] MEDS ORDERED: Ondansetron PF 4 MG/2 ML Vial ONE (23:48)
[2018-10-04] MEDS ORDERED: Morphine 4 MG/ML VIAL ONE (23:48)
[2018-10-05] MEDS ORDERED: Sodium Chloride 0.9% 1,000 ML IV SCH (02:09)
[2018-10-05] MEDS ORDERED: Ondansetron ODT 4 MG TAB SL PRN (02:09)
[2018-10-05] MEDS ORDERED: Ondansetron PF 4 MG/2 ML Vial IVP PRN (02:09)
[2018-10-05] MEDS ORDERED: GoLYTELY 4,000 ml Bottle PO SCH (02:15)
[2018-10-05 03:03] VITALS: BMI 22.7
[2018-10-05] MEDS: Mometasone/Formoterol 120 PUFF INHALER INH SCH ×2 (07:20→19:42)
--- NOTE | 2018-10-05 07:56 | HP ---
DATE OF ADMISSION: 10/05/2018 HISTORY OF PRESENT ILLNESS: This is a 73-year-old white male with end-stage COPD with a chronic spon taneous pneumothorax with a Heimlich valve in place, who presents with abdominal pain and constipatio n. The patient has had multiple admissions over the past several months with prolonged stays due to a chronic spontaneous pneumothorax. He underwent decortication and pleurodesis; however, he still re quires a chest tube. He is also on a fentanyl transdermal patch due to pain. Prior to his last disc harge, he was becoming slightly constipated and was given MiraLax and told to take this daily. Howev er, he has continued to be constipated and he presented with a large fecal impaction with suggestions of stercoral colitis. Dr. Hunt was consulted and GoLYTELY was started. PAST MEDICAL HISTORY: 1. Acute on chronic respiratory distress. 2. Chronic COPD, end stage. 3. Chronic spontaneous pneumothorax with Heimlich valve. 4. DO NOT RESUSCITATE. 5. Stage 2 pressure ulcer. 6. History of ventricular tachycardia. MEDICATIONS: Diltiazem 180 mg daily, fentanyl patch 50 every 3 days, Symbicort 1 puff b.i.d., Lasix 40 daily, guaifenesin 400 b.i.d., DuoNeb q.4 hours p.r.n., potassium 20 daily, prednisone 5 mg daily, Spiriva 18 mcg daily, Ventolin inhaler 2 puffs q.6 hours. PAST SURGICAL HISTORY: Appendectomy; hernia repair; T and A, colon perforation repair; cardiac harrison terization, 1980; TURP, 2009. FAMILY HISTORY: Multiple family members with heart disease and emphysema, siblings with heart diseas e and lymphoma. SOCIAL HISTORY: Lives with his , Cassia Kruse, who she has had a recent stroke and has her own medi eric issues. She is in the process of recovering. They do have several children. He no longer smoke s. He has a 50-year tobacco history. 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 ALLERGIES: None. REVIEW OF SYSTEMS: As above. PHYSICAL EXAMINATION: VITAL SIGNS: Temperature 98.1, pulse 91, respirations 16, pulse ox 91 on 2 liters, 125/65 blood pres sure. GENERAL: Patient uncomfortable from the distended abdomen. HEENT: Clear. HEART: Regular rate. LUNGS: Clear. ABDOMEN: Distended, mild diffuse tenderness. EXTREMITIES: With trace edema. LABORATORY AND X-RAY FINDINGS: White count 15.7, H and H 11 and 37. Sodium 132, potassium 4.2, chlo ride 94, glucose 78. ASSESSMENT: 1. Large fecal impaction. 2. Stercoral colitis. 3. Chronic obstructive pulmonary disease, end-stage. 4. Chronic spontaneous pneumothorax with Heimlich valve. 5. Status post decortication and pleurodesis. 6. DO NOT RESUSCITATE. 7. Stage 2 pressure ulcer. 8. History of ventricular tachycardia. PLAN: 1. Dr. Hunt consulted, GoLYTELY has been initiated. 2. Callie seo okay with Dr. Hunt. The patient does have a large fecal impaction. Most likely exacerbated by the fentanyl patch. 3. DO NOT RESUSCITATE. 4. Hydrate. 5. Wound Care. 6. Resume home medications.
[2018-10-05] MEDS: Potassium Chloride 20 MEQ TAB PO SCH (08:31)
[2018-10-05] MEDS: Furosemide 40 MG TAB PO SCH (08:31)
[2018-10-05] MEDS: guaiFENesin 200 MG TAB PO SCH ×2 (08:32→21:11)
[2018-10-05] MEDS: predniSONE 5 MG TAB PO SCH (08:32)
[2018-10-05] MEDS ORDERED: Spiriva 18 MCG CAP (Box of 5 Caps) INH SCH (09:00)
[2018-10-05] MEDS: Acetaminophen 325 MG TAB PO PRN (21:11)
[2018-10-06] MEDS: Mometasone/Formoterol 120 PUFF INHALER INH SCH ×2 (06:56→18:56)
--- NOTE | 2018-10-06 07:28 | PRG ---
DATE OF SERVICE: 10/06/2018 SUBJECTIVE: The patient still complains of being constipated. He did receive 1-gallon of GoLYTELY y esterday and soapsuds enema. OBJECTIVE: VITAL SIGNS: Temperature 98, pulse 69, respirations 16, pulse ox 90, blood pressure 104/57. HEART: Regular rate and rhythm. LUNGS: Clear. ABDOMEN: Soft and distended. ASSESSMENT: 1. Large fecal impaction. 2. Stercoral colitis. 3. Chronic kidney disease, end stage. 4. Chronic spontaneous pneumothorax with Heimlich valve. 5. Status post decortication and pleurodesis. 6. DO NOT RESUSCITATE. 7. Stage 2 pressure ulcer. 8. History of ventricular tachycardia. PLAN: Repeat soapsuds enema. Hopefully, we can disimpact and discharge patient.
[2018-10-06] MEDS: Furosemide 40 MG TAB PO SCH (09:19)
[2018-10-06] MEDS: Potassium Chloride 20 MEQ TAB PO SCH (09:20)
[2018-10-06] MEDS: guaiFENesin 200 MG TAB PO SCH ×2 (09:20→20:07)
[2018-10-06] MEDS: predniSONE 5 MG TAB PO SCH (09:20)
[2018-10-06] MEDS: Acetaminophen 325 MG TAB PO PRN (11:01)
[2018-10-06] MEDS ORDERED: fentaNYL 50 mcg/hour Patch TD SCH (14:00)
--- NOTE | 2018-10-06 20:13 | RAD ---
ABDOMEN TWO VIEWS UPRIGHT CHEST: History: Stool impaction. Stercoral colitis. Left chest tube. Comparison: 10-04-18 FINDINGS: The left chest tube is unchanged. Tiny left apical pneumothorax remains. Stranding in the left midlun g again noted. Probable tiny left pneumomediastinum again noted. No significant interval change in th e appearance of the chest. Supine and upright views of the abdomen shows gaseous dilatation of the colon. There is a small amoun t of stool apparent in the rectum. The fecal impaction of the rectum noted on the CT of 10-04-18 is n ot apparent on this plain film evaluation although very little gas is seen at the rectum or sigmoid. Gas filled colon is seen under both hemidiaphragms. There are several gas pockets seen under the left hemidiaphragm which is probably within the gastric lumen. The configuration on upright films does no t appear to represent free intraperitoneal air. IMPRESSION: Gaseous distention of the colon with very little gas seen in the rectosigmoid region. The chest is un changed in appearance as described. POS: [facility]
[2018-10-07] MEDS: Acetaminophen 325 MG TAB PO PRN ×2 (03:09→08:50)
[2018-10-07] MEDS: Mometasone/Formoterol 120 PUFF INHALER INH SCH (06:39)
--- NOTE | 2018-10-07 08:27 | PRG ---
DATE OF SERVICE: 10/07/2018. SUBJECTIVE: The patient is stable this morning. No complaints. Does complain of rectal fullness. Attempting to have a bowel movement at this time. OBJECTIVE: VITAL SIGNS: Temperature 97.3, pulse 76, respirations 12, pulse ox 95, blood pressure 115/58. HEART: Regular rate and rhythm. LUNGS: Clear. ABDOMEN: Soft, slightly distended still, abdominal series of large amount of stool in the rectum has resolved. Small amount is still present. ASSESSMENT: 1. Large fecal impaction, improved. 2. Stercoral colitis. 3. Chronic obstructive pulmonary disease, end-stage. 4. Chronic spontaneous pneumothorax with Heimlich valve. 5. Status post decortication and pleurodesis. 6. Do not resuscitate. 7. Stage II pressure ulcer. 8. History of ventricular tachycardia. PLAN: 1. Increase activity today. 2. If the patient passes gas and feels better, we will discharge home. Otherwise, we may have to at tempt another disimpaction or soap suds enema. 3. Continue wound care to sacral area.
--- NOTE | 2018-10-07 08:42 | ADD-PRG ---
DATE OF SERVICE: 10/06/2018 TIME: 1300 PROCEDURE: Stool disimpaction. The patient was prepped. A manual stool disimpaction was performed. The patient had a large rectal impaction. Removed large amounts of stools. The patient also evacu ated a large stool. We will perform one more soapsuds enema. Then, we will re-x-ray to confirm comp lete resolution. We will also consult Wound Care to treat the patient's pressure ulcer, which has be come worse since last admission. We will also rotate the patient every 2 hours: This is a difficult situation since the patient is bedridden and having to sit upright because of his end-stage COPD.
[2018-10-07] MEDS: Furosemide 40 MG TAB PO SCH (08:50)
[2018-10-07] MEDS: guaiFENesin 200 MG TAB PO SCH (08:50)
[2018-10-07] MEDS: Potassium Chloride 20 MEQ TAB PO SCH (08:50)
[2018-10-07] MEDS: predniSONE 5 MG TAB PO SCH (08:50)
[2018-10-07 11:50] VITALS: BP 114/61; TEMP 98.6
--- NOTE | 2018-10-08 08:34 | DIS ---
DATE OF ADMISSION: 10/05/2018 DATE OF DISCHARGE: 10/07/2018 DISCHARGE DIAGNOSES: 1. Severe impaction. 2. Stercoral colitis. 3. End-stage chronic obstructive pulmonary disease. 4. Chronic spontaneously pneumo with Heimlich valve. 5. Status post decortication and pleurodesis. 6. Do not resuscitate. 7. Stage 2 pressure ulcer. 8. History of ventricular tachycardia. BRIEF HISTORY: A 73-year-old white male who presented with respiratory distress. He was complaining of abdominal pain and constipation. He has had multiple admissions recently. He has had prolonged hospital stays. He also uses a fentanyl patch for chronic pain. He was complaining of slight consti pation and was started on MiraLax on his last hospitalization. However, he complains of persistent c onstipation and started to have abdominal distention impacting his breathing. HOSPITAL COURSE: The patient was given a gallon of GoLYTELY. He also received 2 soapsuds enemas and a manual rectal disimpaction. He improved markedly. He is feeling much better. His respiratory di stress has improved markedly. He is now ready for discharge. He will follow up in the office.
== END 2018-10-07 15:53 | disposition home or self-care (01) ==
LOC: ERS 18:13 → 2SW 10-05 00:59
PROVIDERS: ADMIT Family Medicine; ATTEND Family Medicine
DX: K59.00 Constipation, unspecified (principal); K52.89 Other specified noninfective gastroenteritis and colitis; J44.9 Chronic obstructive pulmonary disease, unspecified; J93.81 Chronic pneumothorax; R06.03 Acute respiratory distress; N18.6 End stage renal disease; L89.92 Pressure ulcer of unspecified site, stage 2; Z79.51 Long term (current) use of inhaled steroids; Z79.52 Long term (current) use of systemic steroids; Z79.899 Other long term (current) drug therapy; Z66 Do not resuscitate
CPT/HCPCS: 74022 ×2; 74177; 80053; 85025; 94640 ×8; 94664; 96365; 96375; 96376; 97139 ×2; 99285; G0378 ×3; 36415; J2185; J2270; J2405; J7620

== ENCOUNTER 2018-10-13 15:05 | Emergency (ER) | payer MEDICARE, OTHER ==
--- NOTE | 2018-10-13 15:52 | RAD ---
FRONTAL VIEW CHEST: 10/13/18 COMPARISON: Radiograph 10/06/18. INDICATION: Chest pain. FINDINGS: There is a stable laterally located left sided thoracostomy tube. Lungs are hyperinflated with inters titial prominence. Granulomatous calcification again seen at the right lower lung zone. The cardiac s ilhouette is stable. There is mild pleural irregularity again seen on the left which again may reflec t a tiny residua of left apical pneumothorax. IMPRESSION: Stable chest, comparing to 10/06/18. POS: [facility]
[2018-10-13 16:02] LABS: #Eosinphils 0.4 thou/uL (0.0-0.7); #Lymphocytes 1.1 thou/uL (1.20-3.40); #Monocytes 1.4 thou/uL (0.11-0.59); #Neutrophils 14.8 thou/uL (1.40-6.50); %Basophils 0.3 % (0.0-1.0); %Eosinophils 2.2 % (0.0-10.0); %Monocytes 8.1 % (0.0-10.0); %Neutrophils 83.5 % (42.0-75.0); Hemoglobin 12.2 g/dL (14.0-18.0); Mean Corpuscular HGB CONC 32.1 g/dL (32.0-36.0); Mean Corpuscular Hemoglobin 29.1 pg (27.0-31.0); Mean Corpuscular Volume 90.6 fL (78.0-98.0); Mean Platelet Volume 7.7 fL (7.4-10.4); Platelet Count 553 thou/uL (130-400); RBC Distribution Width 14.2 % (11.5-14.5); White Blood Cell (WBC) Count 17.8 thou/uL (4.8-10.8)
[2018-10-13] MEDS ORDERED: Morphine 4 MG/ML VIAL ONE (16:09)
[2018-10-13] MEDS ORDERED: Water For Inject, Bacteriostat 30 ML ONE (16:10)
[2018-10-13] MEDS ORDERED: methylPREDNISolone Sod Succ/PF 125 MG/2 ML VIAL ONE (16:10)
[2018-10-13] MEDS ORDERED: Ketorolac Tromethamine 30 MG/ML VIAL ONE (16:10)
[2018-10-13 16:22] LABS: ALT (SGPT) 21 U/L (8-55); AST (SGOT) 15 U/L (5-34); Albumin 3.6 g/dL (3.4-4.8); Alkaline Phosphatase 60 U/L (40-150); Anion Gap 7 mmol/L (10-20); BUN (Urea Nitrogen) 16 mg/dL (8.4-25.7); Bilirubin, Total 0.4 mg/dL (0.2-1.2); Calc. Creatinine Clearance 0 mL/min (70-130); Calcium 9.1 mg/dL (7.8-10.44); Carbon Dioxide 33 mmol/L (23-31); Chloride 97 mmol/L (98-107); Estimated GFR-MDRD Greater than 90; Globulin 2.3 g/dL (2.4-3.5); Glucose 96 mg/dL (83-110); Lipase 71 U/L (8-78); Magnesium 1.8 mg/dL (1.6-2.6); Potassium 3.9 mmol/L (3.5-5.1); Protein, Total 5.9 g/dL (5.8-8.1); Sodium 133 mmol/L (136-145)
[2018-10-13 16:29] LABS: CKMB 1.1 ng/mL (0-6.6); Troponin I Less than 0.010 ng/mL (< 0.028)
== END 2018-10-13 16:05 | disposition home or self-care (01) ==
LOC: ERS 15:05
DX: T85.848A Pain due to other internal prosthetic devices, implants and grafts, initial encounter (principal); R07.89 Other chest pain; J44.9 Chronic obstructive pulmonary disease, unspecified; Z87.891 Personal history of nicotine dependence; Z79.899 Other long term (current) drug therapy
CPT/HCPCS: 36415; 71045; 80053; 82553; 83690; 83735; 84484; 85025; 93005; 94640; 96374; 96375; J1885; J2270; J2930

== ENCOUNTER 2018-10-16 14:55 | Outpatient (CLI) | payer MEDICARE, OTHER ==
--- NOTE | 2018-10-16 16:17 | RAD ---
CHEST PA AND LATERAL: Date: 10/16/18 HISTORY: 73-year-old male with history of dyspnea. COMPARISON: 10/13/18. FINDINGS: Left chest tube remains in place. Probable very small residual left-sided pneumothorax. Heart size is normal. Old granulomatous disease. Stable chronic changes in the left base. IMPRESSION: Stable left chest tube and very small left pneumothorax. Stable chronic lung changes. Stable bilatera l hyperinflation. Atherosclerosis of aorta with ectasia. Continue short-term follow-up. POS: [facility]
== END 2018-10-16 14:56 | disposition home or self-care (01) ==
LOC: RAD 14:55
PROVIDERS: ATTEND Internal Medicine Pulmonary Disease
DX: R06.00 Dyspnea, unspecified (principal); I70.0 Atherosclerosis of aorta; I77.819 Aortic ectasia, unspecified site; J93.9 Pneumothorax, unspecified; R91.8 Other nonspecific abnormal finding of lung field
CPT/HCPCS: 71046

== ENCOUNTER 2018-10-30 12:46 | Outpatient (CLI) | payer MEDICARE, OTHER ==
--- NOTE | 2018-10-30 13:35 | RAD ---
FRONTAL AND LATERAL IMAGING OF THE CHEST: 10/30/18 COMPARISON: 10/10/18 HISTORY: Dyspnea. FINDINGS: There is a stable left sided chest tube in place. There is a probable small pneumothorax in the left lung base with a medial inferior and lateral compo nent. There may be a tiny apical pneumothorax on the left as well. Stable left hilar fullness. The lungs are hyperinflated with increased Linear interstitial density suggesting underlying COPD. On the lateral examination of the posterior costophrenic angle, there is an air fluid level which may signify a loculated localized left basilar hydropneumothorax. IMPRESSION: Left sided chest tube in place. Persistent small left pneumothorax suspected with air fluid level not ed in posterior costophrenic angle on lateral exam as detailed above. Followup to resolution advised. POS: [facility]
== END 2018-10-30 12:47 | disposition home or self-care (01) ==
LOC: RAD 12:46
PROVIDERS: ATTEND Thoracic Surgery (Cardiothoracic Vascular Surgery)
DX: J93.11 Primary spontaneous pneumothorax (principal); Z97.8 Presence of other specified devices
CPT/HCPCS: 71046

== ENCOUNTER 2018-11-04 17:45 | Emergency (ER) | payer MEDICARE, OTHER ==
--- NOTE | 2018-11-04 18:24 | RAD ---
PORTABLE CHEST: 11/04/18 PROVIDED CLINICAL HISTORY: Dyspnea. FINDINGS: Comparison 10/30/18. The cardiac and mediastinal silhouette is unchanged in appearance. Left sided chest tube is redemonst rated. The chest tube has been retracted somewhat, though the proximal side hole lucency does project within the left chest. There is circumscribed radiolucency at the left lung base that may reflect lo culated pleural gas. Conspicuous emphysematous changes are again seen. No significant pleural fluid i s evident. IMPRESSION: Left sided chest tube as above. Prominent emphysematous change. POS: [facility]
== END 2018-11-04 19:38 | disposition home or self-care (01) ==
LOC: ERS 17:45
DX: T85.618A Breakdown (mechanical) of other specified internal prosthetic devices, implants and grafts, initial encounter (principal); J93.81 Chronic pneumothorax; Z87.891 Personal history of nicotine dependence
CPT/HCPCS: 36415; 71045; 80053; 83605; 85025; 94644; J2930; J7620

== ENCOUNTER 2018-11-05 19:02 | Inpatient (IN) | payer MEDICARE, OTHER ==
[2018-11-05] MEDS ORDERED: methylPREDNISolone Sod Succ/PF 125 MG/2 ML VIAL ONE (19:15)
[2018-11-05 19:34] LABS: #Basophils 0.1 thou/uL (0.0-0.2); #Eosinphils 0.2 thou/uL (0.0-0.7); #Monocytes 0.7 thou/uL (0.11-0.59); #Neutrophils 12.6 thou/uL (1.40-6.50); %Basophils 0.4 % (0.0-1.0); %Eosinophils 1.4 % (0.0-10.0); %Lymphocytes 6.6 % (21.0-51.0); %Monocytes 4.7 % (0.0-10.0); %Neutrophils 86.9 % (42.0-75.0); Hemoglobin 13.6 g/dL (14.0-18.0); Mean Corpuscular HGB CONC 31.1 g/dL (32.0-36.0); Mean Corpuscular Hemoglobin 28.7 pg (27.0-31.0); Mean Corpuscular Volume 92.2 fL (78.0-98.0); Mean Platelet Volume 7.7 fL (7.4-10.4); Platelet Count 465 thou/uL (130-400); RBC Distribution Width 14.2 % (11.5-14.5); Red Blood Cell (RBC) Count 4.74 mill/uL (4.70-6.10); White Blood Cell (WBC) Count 14.5 thou/uL (4.8-10.8)
[2018-11-05 19:55] LABS: ALT (SGPT) 17 U/L (8-55); AST (SGOT) 13 U/L (5-34); Alkaline Phosphatase 68 U/L (40-150); Anion Gap 13 mmol/L (10-20); BUN (Urea Nitrogen) 17 mg/dL (8.4-25.7); Bilirubin, Total 0.3 mg/dL (0.2-1.2); Calc. Creatinine Clearance 0 mL/min (70-130); Carbon Dioxide 32 mmol/L (23-31); Chloride 99 mmol/L (98-107); Estimated GFR-MDRD Greater than 90; Globulin 2.3 g/dL (2.4-3.5); Glucose 161 mg/dL (83-110); Potassium 4.4 mmol/L (3.5-5.1); Protein, Total 6.3 g/dL (5.8-8.1); Sodium 140 mmol/L (136-145)
--- NOTE | 2018-11-05 20:29 | RAD ---
CHEST ONE VIEW 8 HISTORY: Chest pain, dyspnea. COMPARISON: Radiograph prior day. FINDINGS: Lungs are hyperinflated. The left thoracostomy tube is similar. Small left basilar pneumothorax. Scar ring in the left lung apex. Calcified granuloma right lung base. IMPRESSION: Similar examination of the chest. Likely a small residual left basilar pneumothorax. POS: [facility]
[2018-11-05 23:41] LABS: Lactic Acid 2.1 mmol/L (0.5-2.2)
[2018-11-05] MEDS ORDERED: Acetaminophen 500 MG TAB ONE (23:41)
[2018-11-06] MEDS ORDERED: methylPREDNISolone Sod Succ/PF 125 MG/2 ML VIAL ONE (01:25)
[2018-11-06 04:12] VITALS: BMI 21.4
[2018-11-06] MEDS ORDERED: Ondansetron ODT 4 MG TAB PO PRN (07:26)
[2018-11-06] MEDS ORDERED: ALPRAZolam 0.25 MG TAB PO PRN (08:40)
[2018-11-06] MEDS ORDERED: Non-Formulary Item 1 EACH (Budesonide-Formoterol [Symbicort 160-4.5] 2 PUFF) INH SCH (09:00)
[2018-11-06] MEDS ORDERED: methylPREDNISolone Sod Succ/PF 125 MG/2 ML VIAL IVP SCH (09:00)
[2018-11-06] MEDS ORDERED: Spiriva 18 MCG CAP (Box of 5 Caps) INH SCH (09:00)
[2018-11-06] MEDS: Polyethylene Glycol 3350 17 GM Packet PO SCH (09:10)
[2018-11-06] MEDS: guaiFENesin 200 MG TAB PO SCH ×2 (09:11→20:43)
[2018-11-06] MEDS: methylPREDNISolone Sod Succ/PF 125 MG/2 ML VIAL IVP SCH ×2 (09:12→20:44)
--- NOTE | 2018-11-06 11:04 | CT ---
CHEST CT WITHOUT CONTRAST: Date: 11/06/18 COMPARISON: 09/29/18. HISTORY: Status post left-sided chest tube. Shortness of breath. Loculated pneumothorax. TECHNIQUE: Chest CT is performed without contrast. Coronal reformatted images are submitted for interpretation. FINDINGS: Limited evaluation of the mediastinal structures due to lack of IV contrast. No mass, lymphadenopathy , or hematoma. There is atherosclerosis of a nonaneurysmal aorta. No pericardial effusion. Visualized upper solid organs are unremarkable. No lytic or blastic lesions in the osseous structures. Stable emphysematous changes involving the right lung. No masses or consolidation. Stable left-sided chest tube. There is worsening and loculated air in the pleural space. The overall degree of air in the left pleural space has increased. The previously noted left-sided pleural effusi on has significantly decreased. Stable emphysematous changes in the left lung. IMPRESSION: Loculated left-sided pneumothorax. POS: [facility]
--- NOTE | 2018-11-06 12:40 | HP ---
COVERING PHYSICIAN: Darrick Bennett MD HISTORY OF PRESENT ILLNESS: The patient is a 73-year-old male with a known history of end-stage COPD with a history of recurrent pneumothorax. He has an indwelling chest tube, that he has had for several months, now he presented to the emergency room with difficulty breathing. He did not note any fever, nausea, vomiting, or diarrhea. No chest pain. He states he just could not get enough air. He has a long history of COPD. He wears oxygen constantly. He was seen and evaluated in the emergency room. It was felt like he was simply having a COPD exacerbation as his chest x-ray remained clear. He had no productive sputum. Otherwise, there appeared to be no evidence of recurrence of pneumothorax at this time. He is resting, he is fairly comfortably in bed, although he is doing substernal retracting for his breathing. He is able to maintain his O2 sats with oxygen. He does note over the last several days his O2 sats have been desaturating quite significantly just with minimal exertion. Once again, he does not note any chest pain, fever, nausea, vomiting, productive cough otherwise. ALLERGIES: HE HAS NO KNOWN ALLERGIES. CURRENT MEDICATIONS: 1. Prednisone 10 mg daily. 2. Diltiazem 180 mg daily. 3. Lasix 40 mg daily. 4. Potassium chloride 10 mEq daily. 5. Fentanyl transdermal patch. 6. Spiriva. 7. Guaifenesin. 8. DuoNeb 6 times a day. 9. Ventolin 2 puffs four times a day. 10. Symbicort 160/4.5 one puff twice a day. PAST MEDICAL HISTORY: Significant for end-stage COPD with recurrent pneumothorax, has an indwelling chest tube at this time with a Heimlich valve. PAST SURGICAL HISTORY: Positive for colon, appendectomy, hernia, and tonsillectomy. SOCIAL HISTORY: Lives with his . He has a long history of smoking. 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 He does not drink. FAMILY HISTORY: Positive for emphysema as well as lymphoma. PHYSICAL EXAMINATION: VITAL SIGNS: Temperature 98.4, O2 saturation 94% on 3 L, respirations 20, BP 126/73, and pulse 80. GENERAL: He is alert, active. He is not in any significant distress. There is substernal retracted breathing. Using accessory muscles. Otherwise, he is calm without any focalized problems. HEENT: Normocephalic, atraumatic. NECK: Supple. Full range of motion. No masses. LUNGS: There is minimal breath sounds with air movement, but there are no rales, rhonchi, or wheezes appreciated. HEART: Reveals no murmur. Regular rate and rhythm. ABDOMEN: Soft, nontender. Bowel sounds are active. There is no hepatosplenomegaly noted. There is no evidence of rebound or guarding. EXTREMITIES: No clubbing, edema, or cyanosis noted. NEUROLOGIC: He is alert and oriented x3. LABORATORY DATA: His hemoglobin is 13.6, hematocrit 43.7, and white blood count 14.5. Chemistry; sodium 140, potassium 4.4, chloride 99, CO2 of 32, BUN 17, and creatinine 0.69. IMPRESSION: A 73-year-old male with known history of end-stage chronic obstructive pulmonary disease, recurrent pneumothorax, who now presents with dyspnea. This could represent a pure chronic obstructive pulmonary disease exacerbation. There does not appear to be evidence of recurrent pneumothoraces at this time. PLAN: The patient has been admitted, begun on Solu-Medrol and DuoNeb. We will go ahead and place on prophylactic IV antibiotics at this time due to the indwelling chest tube as a route of infection. We will consult Dr. Posada as well as for further treatment recommendations. At the patient's request and as noted in previous notes, the patient is a DNR. He does not wish to have any type for resuscitation nor does not wish any type of intubation should that become a process. Job ID: [id number]
--- NOTE | 2018-11-06 14:59 | CON ---
DATE OF CONSULTATION: HISTORY OF PRESENT ILLNESS: Meggan Kruse is a 73-year-old gentleman, who was readmitted to the hospital with shortness of breath. I had a long discussion yesterday with the patient. He has had a pleurodesis for spontaneous pneumothorax, which had not resolved with simple chest tube insertion. After several weeks, his chest tube was slowly withdrawn with a Heimlich valve in place. Unfortunately, there has been an area of loculated pneumothorax where the chest tube was withdrawn. He has had more difficulty breathing, more coughing, more anxiety, but no fever or chills. His extensive history is well outlined. PAST MEDICAL HISTORY: 1. End-stage COPD, former smoker. 2. SVT. PAST SURGICAL HISTORY: Left chest tube, spontaneous pneumothorax, followed by pleurodesis; history of appendix; hernia repair; tonsillectomy; colon surgery. SOCIAL HISTORY: Tobacco is noted, former smoker. Alcohol, none. MEDICATIONS: Medications from home includes, 1. Prednisone 10. 2. Guaifenesin. 3. Spiriva inhaler. 4. DuoNeb several times a day. 5. Cardizem CD 180. 6. Symbicort 160 twice a day. 7. Xanax p.r.n. ALLERGIES: NONE. FAMILY HISTORY: Unremarkable. REVIEW OF SYSTEMS: Ten-point negative. PHYSICAL EXAMINATION: VITAL SIGNS: His saturations are 94% on 3 liters, temperature 98, pulse 81, respiratory rate 18, and blood pressure 126/73. CHEST: Reveals no wheezing. CARDIAC: Normal S1 and S2. ABDOMEN: Soft, no masses. LABORATORY DATA: Unremarkable. Glucose 161. White count 14,000. IMPRESSION: 1. End-stage chronic obstructive pulmonary disease. 2. Status post pleurodesis for pneumothorax, unresolved simple chest tube. 3. Loculated pneumothorax, which is not surgically treatable at this stage. 4. Major anxiety. 5. Supraventricular tachycardia. PLAN: CAT scan has been ordered. Suggest to remove his chest tube. Otherwise, steroids, neb treatments, supportive care. TIME SPENT: This is a consultation note, 70 minutes, 50% direct patient care. Job ID: [id number]
[2018-11-06] MEDS: Mometasone/Formoterol 120 PUFF INHALER INH SCH (18:36)
[2018-11-07] MEDS: Mometasone/Formoterol 120 PUFF INHALER INH SCH (07:13)
[2018-11-07] MEDS: guaiFENesin 200 MG TAB PO SCH (09:03)
[2018-11-07] MEDS: Polyethylene Glycol 3350 17 GM Packet PO SCH (09:03)
[2018-11-07] MEDS ORDERED: predniSONE 20 MG TAB PO SCH (09:15)
[2018-11-07 10:01] VITALS: TEMP 97
--- NOTE | 2018-11-07 10:11 | PRG ---
DATE OF SERVICE: 11/07/2018 OBJECTIVE: GENERAL: This morning, he is awake, alert, responsive, in no distress. VITAL SIGNS: He is on 97% oxygen saturation on 3 L. Pulse 74, respiratory rate 20, blood pressure 130/80. CHEST: Decreased breath sounds. No wheezing. CARDIAC: Normal S1, S2. No gallops. ABDOMEN: Soft without masses. IMAGING STUDIES: CT chest yesterday showed areas of loculated left-sided pneumothorax. IMPRESSION: 1. End-stage chronic obstructive pulmonary disease. 2. Status post pleurodesis. 3. Loculated pneumothorax. PLAN: Switch him over to oral medication, may be discharged home. Repeat a CAT scan in several weeks if there is still persistent or worsening pneumothorax. Ask the [facility] Surgery whether it is worth putting another small-bore chest tube in the loculated pneumothorax. Overall prognosis is poor. Job ID: [id number]
--- NOTE | 2018-11-07 10:26 | PRG ---
DATE OF SERVICE: 11/07/2018 SUBJECTIVE: The patient is feeling some better than yesterday. He feels more short of breath when he was sitting up than when lying back that definitely improved from yesterday. He is happy that he had the chest tube removed. He continues to have conversational dyspnea. OBJECTIVE: VITAL SIGNS: Temperature 98.4, pulse of 74, respirations 20 to 24, pulse ox is 97% on 3 L. GENERAL: He is awake and alert, in moderate distress with conversation with shortness of breath, taking deep breaths, using accessory muscles. HEART: Regular rate and rhythm. LUNGS: Decreased throughout. No lung sounds on the left side. ABDOMEN: Soft. EXTREMITIES: No edema. LABORATORY DATA: Labs reviewed. A chest CT from yesterday. ASSESSMENT AND PLAN: This is a 73-year-old gentleman with history of a long episode of spontaneous pneumothorax, which resulted in thoracotomy and pleurodesis, now with loculated pneumothorax, which is nonsurgical and not resolving with chest tube placement. Continue care as per Dr. Posada with steroids, neb treatments, supportive care, for chronic obstructive pulmonary disease end-stage as well as loculated pneumothorax. Disposition: Possible discharge home with comfort measures when OK with Dr Posada. It appears that there may be no further treatment options for his current condition. Job ID: [id number] MTDD
--- NOTE | 2018-11-07 10:29 | RAD ---
RADIOGRAPH CHEST 1 VIEW: Date: 11/07/2018 Time: 7:39 a.m. HISTORY: A 73-year-old male for followup of left-sided pneumothorax. COMPARISON: 11/04/2018 FINDINGS: The left-sided chest tube has been removed. No pneumothorax is identified. Again noted is the sever e hyperlucency of the left upper lung field and the upper three-fourths of the right lung. Narrowing of the cardiomediastinal silhouette due to the hyperinflation. The subsegmental atelectasis at the left lower lung zone has improved. Prominent interstitial markings at the lung bases. IMPRESSION: 1. Severe emphysema. 2. Interval removal of the left-sided thoracostomy tube. 3. No pneumothorax identified. OPAL [] POS: [facility]
[2018-11-07 13:07] VITALS: BP 140/89
[2018-11-08] MEDS ORDERED: predniSONE 20 MG TAB PO SCH (08:00)
== END 2018-11-07 14:09 | disposition home or self-care (01) | DRG 191 ==
LOC: ERS 19:02 → ERHOLD 19:55 → IMCU/EMU 11-06 03:41
PROVIDERS: ADMIT Family Medicine; ATTEND Family Medicine
PROC: 2W54XYZ Removal of Other Device on Chest Wall (ICD-10-PCS; principal; 2018-11-06)
DX: J44.9 Chronic obstructive pulmonary disease, unspecified (principal); J93.83 Other pneumothorax; I47.1 Supraventricular tachycardia; Z99.81 Dependence on supplemental oxygen; F41.8 Other specified anxiety disorders; Z97.8 Presence of other specified devices; Z66 Do not resuscitate; Z79.01 Long term (current) use of anticoagulants; Z79.51 Long term (current) use of inhaled steroids; Z79.52 Long term (current) use of systemic steroids
CPT/HCPCS: 36415; 71045; 71250; 80053; 83605; 85025; 94640; 94644; 96361; 96374; 96376; J1956; J2930; J7506; J7620

== ENCOUNTER 2018-11-28 12:13 | Outpatient (CLI) | payer MEDICARE, OTHER ==
--- NOTE | 2018-11-28 13:16 | RAD ---
TWO VIEWS CHEST: Date: 11-28-18 Provided Clinical History: Dyspnea. FINDINGS: Comparison 11-07-18. Cardiac and mediastinal silhouette is unchanged in appearance. Emphysematous changes are again noted. Scarring involving the left hemithorax appears stable. No pleural fluid or pneumothorax apparent. IMPRESSION: Stable radiographic appearance of the chest. POS: [facility]
== END 2018-11-28 12:14 | disposition home or self-care (01) ==
LOC: RAD 12:13
PROVIDERS: ATTEND Internal Medicine Pulmonary Disease
DX: R06.00 Dyspnea, unspecified (principal)
CPT/HCPCS: 71046

== ENCOUNTER 2019-07-07 12:17 | Outpatient (CLI) | payer MEDICARE, OTHER ==
--- NOTE | 2019-07-07 12:32 | RAD ---
EXAM: Chest Two Views 07/07/2019 12:28 PM HISTORY: Dyspnea COMPARISON: November 28, 2018 FINDINGS: Heart: Normal in size and contour. Pulmonary vessels: Normal. Costophrenic angles: No definite pleural effusion is evident. There is mild pleural thickening involv ing the left costophrenic angle which is stable. Lungs: Severe COPD changes stable. Calcified granuloma in the right lower lobe is stable. Pneumothorax: None. Osseous structures:Intact. Additional findings: None. IMPRESSION: Stable severe COPD change
== END 2019-07-07 12:18 | disposition home or self-care (01) ==
LOC: RAD 12:17
PROVIDERS: ATTEND Internal Medicine Pulmonary Disease
DX: R06.00 Dyspnea, unspecified (principal)
CPT/HCPCS: 71046

== ENCOUNTER 2020-04-26 12:24 | Outpatient (CLI) | payer MEDICARE, OTHER ==
--- NOTE | 2020-04-26 14:32 | RAD ---
TWO VIEWS OF THE CHEST: COMPARISON: 09/27/2009. HISTORY: Dyspnea. FINDINGS: Two views of the chest show a normal-size cardiomediastinal silhouette. There is a calcified granulo ma in the right lung base. There is no evidence of consolidation or pleural effusion. The bones are unremarkable. IMPRESSION: No evidence of acute cardiopulmonary disease. POS: [facility]
== END 2020-04-26 12:25 | disposition home or self-care (01) ==
LOC: BICRAD 12:24
PROVIDERS: ATTEND Internal Medicine Pulmonary Disease
DX: R06.00 Dyspnea, unspecified (principal)
CPT/HCPCS: 71046

== ENCOUNTER 2020-12-14 08:48 | Outpatient (CLI) | payer MEDICARE, OTHER ==
--- NOTE | 2020-12-14 09:13 | RAD ---
EXAM: Chest PA and lateral: HISTORY: Dyspnea COMPARISON: 04/26/2020 FINDINGS: Heart: Normal cardiac silhouette Aorta: Unremarkable Pulmonary vessels: Normal Costophrenic angles: Costophrenic angles are clear. Lungs: Hyperinflated. Chronic changes. Stable emphysema predominantly in the right upper lobe. Pneumothorax: No pneumothorax Osseous structures: No osseous abnormalities IMPRESSION: Stable emphysema and COPD.
== END 2020-12-14 08:49 | disposition home or self-care (01) ==
LOC: BICRAD 08:48
PROVIDERS: ATTEND Internal Medicine Pulmonary Disease
DX: R06.00 Dyspnea, unspecified (principal); J43.9 Emphysema, unspecified
CPT/HCPCS: 71046

== ENCOUNTER 2021-03-22 10:24 | Inpatient (IN) | payer MEDICARE, OTHER ==
[2021-03-22 11:49] LABS: Hemoglobin 12.8 g/dL (14.0-18.0); Mean Corpuscular HGB CONC 30.3 g/dL (32.0-36.0); Mean Corpuscular Hemoglobin 27.4 pg (27.0-31.0); Mean Corpuscular Volume 90.2 fL (78.0-98.0); Mean Platelet Volume 8.5 fL (7.4-10.4); Platelet Count 410 thou/uL (130-400); RBC Distribution Width 14.5 % (11.5-14.5); Red Blood Cell (RBC) Count 4.68 mill/uL (4.70-6.10); White Blood Cell (WBC) Count 21.1 thou/uL (4.8-10.8)
[2021-03-22 12:02] LABS: ALT (SGPT) 12 U/L (8-55); AST (SGOT) 15 U/L (5-34); Albumin 4.2 g/dL (3.4-4.8); Alkaline Phosphatase 77 U/L (40-110); Anion Gap 17 mmol/L (10-20); BUN (Urea Nitrogen) 13 mg/dL (8.4-25.7); Bilirubin, Total 0.5 mg/dL (0.2-1.2); Calc. Creatinine Clearance 0 mL/min (70-130); Calcium 9.5 mg/dL (7.8-10.44); Carbon Dioxide 27 mmol/L (23-31); Chloride 97 mmol/L (98-107); Globulin 2.3 g/dL (2.4-3.5); Glucose 97 mg/dL (83-110); Potassium 4.4 mmol/L (3.5-5.1); Protein, Total 6.5 g/dL (5.8-8.1); Sodium 137 mmol/L (136-145)
[2021-03-22 12:04] LABS: Band 11 % (5-11); Lymphocytes 4 % (21-51); MDiff Complete? YES; Monocytes 2 % (0-10); Neutrophil 82 % (42-75); Platelet Morphology Comment Appears Increased; Polychromasia SLIGHT = 2-3 cells (100X) (0-2/hpf); Vacuoles SLIGHT
[2021-03-22 12:35] LABS: Actual Bicarbonate (HCO3a) 29.3 mEq/L (22-28); Analyzer IN Cardio ER; Base Excess (BEa) 3.4 mEq/L (-2.0 to +3.0); CO2 Tension 49.6 mmHg (35.0-45.0); Calcium, Ionized (arterial) 1.15 mmol/L (1.12-1.30); Carboxyhemoglobin (COHb) 0.2 gm% (0.0-3.0); Hemoglobin (Hb) 13.7 g/dL (14.0-18.0); O2 Tension (PaO2), arterial 75.3 mmHg (> 70.0); Potassium - ABG Lab 4.07 mmol/L (3.70-5.30); pH, Arterial 7.39 (7.35-7.45)
[2021-03-22 12:41] LABS: Puncture Site LRA
[2021-03-22] MEDS ORDERED: Ondansetron PF 4 MG/2 ML Vial IVP PRN (13:30)
[2021-03-22] MEDS ORDERED: Acetaminophen 325 MG TAB PO PRN (13:30)
[2021-03-22] MEDS ORDERED: methylPREDNISolone Sod Succ/PF 125 MG/2 ML VIAL ONE (13:32)
[2021-03-22] MEDS ORDERED: Albuterol Sulfate 2.5 mg/3 ml Neb NEB PRN (13:32)
[2021-03-22] MEDS ORDERED: Bacteriostatic Water 30 ML VIAL FS PRN (14:00)
[2021-03-22] MEDS ORDERED: Cefepime 1 GM in Sodium Chloride 0.9% 100 ML IVPB SCH (14:00)
[2021-03-22 14:52] LABS: SARS-CoV-2 NAA Rapid Test Not Detected (NotDetected)
[2021-03-22 16:49] VITALS: BMI 22.7
[2021-03-22] MEDS: methylPREDNISolone Sod Succ 40 MG VIAL IVP SCH (18:23)
[2021-03-22] MEDS: Cefepime 1 GM in Sodium Chloride 0.9% 100 ML IVPB SCH (19:16)
[2021-03-22] MEDS: guaiFENesin ER 600 MG TAB PO SCH (20:12)
[2021-03-22] MEDS: Famotidine 20 MG TAB PO SCH (20:12)
[2021-03-22] MEDS ORDERED: methylPREDNISolone Sod Succ/PF 125 MG/2 ML VIAL IVP SCH (21:00)
[2021-03-23] MEDS ORDERED: Sodium Chloride 0.65% Nasal 44 ML BOT EA NARE PRN (00:34)
[2021-03-23] MEDS: methylPREDNISolone Sod Succ 40 MG VIAL IVP SCH ×2 (00:54→13:57)
[2021-03-23] MEDS ORDERED: Sodium Chloride 0.65% Nasal 44 ML BOT EA NARE SCH (01:00)
[2021-03-23] MEDS: Cefepime 1 GM in Sodium Chloride 0.9% 100 ML IVPB SCH ×2 (05:18→17:35)
[2021-03-23 06:00] LABS: #Eosinphils 0.2 thou/uL (0.0-0.7); #Lymphocytes 1.1 thou/uL (1.20-3.40); #Monocytes 0.4 thou/uL (0.11-0.59); #Neutrophils 10.8 thou/uL (1.40-6.50); %Basophils 0.1 % (0.0-1.0); %Eosinophils 1.8 % (0.0-10.0); %Neutrophils 86.1 % (42.0-75.0); Hemoglobin 12.4 g/dL (14.0-18.0); Mean Corpuscular HGB CONC 31.4 g/dL (32.0-36.0); Mean Corpuscular Hemoglobin 28.2 pg (27.0-31.0); Mean Corpuscular Volume 89.5 fL (78.0-98.0); Mean Platelet Volume 8.2 fL (7.4-10.4); Platelet Count 371 thou/uL (130-400); RBC Distribution Width 14.1 % (11.5-14.5); Red Blood Cell (RBC) Count 4.42 mill/uL (4.70-6.10); White Blood Cell (WBC) Count 12.5 thou/uL (4.8-10.8)
[2021-03-23 06:24] LABS: Anion Gap 11 mmol/L (10-20); BUN (Urea Nitrogen) 12 mg/dL (8.4-25.7); Calc. Creatinine Clearance 94 mL/min (70-130); Calcium 9.4 mg/dL (7.8-10.44); Carbon Dioxide 29 mmol/L (23-31); Chloride 99 mmol/L (98-107); Glucose 130 mg/dL (83-110); Potassium 3.9 mmol/L (3.5-5.1); Sodium 135 mmol/L (136-145)
[2021-03-23] MEDS: guaiFENesin ER 600 MG TAB PO SCH ×2 (07:57→21:17)
[2021-03-23] MEDS: Famotidine 20 MG TAB PO SCH ×2 (07:57→21:13)
[2021-03-23] MEDS ORDERED: Non-Formulary Item 1 EACH (Tiotropium [Spiriva Handihaler] 18 MCG Box) INH SCH (09:00)
[2021-03-23] MEDS ORDERED: Phenylephrine 10 MG/ML VIAL ONE (09:10)
[2021-03-23] MEDS ORDERED: Fentanyl 100 MCG/2 ML VIAL ONE (09:11)
[2021-03-23] MEDS ORDERED: Norepinephrine 4 MG/4 ML VIAL ONE (09:22)
[2021-03-23] MEDS: Mometasone 200 MCG/Formoterol 5 MCG 120 PUFF INHALER INH SCH (18:26)
[2021-03-24] MEDS: methylPREDNISolone Sod Succ 40 MG VIAL IVP SCH ×2 (02:07→14:14)
[2021-03-24] MEDS: Cefepime 1 GM in Sodium Chloride 0.9% 100 ML IVPB SCH ×2 (05:15→18:00)
[2021-03-24 07:15] LABS: Anion Gap 8 mmol/L (10-20); BUN (Urea Nitrogen) 20 mg/dL (8.4-25.7); Calc. Creatinine Clearance 94 mL/min (70-130); Calcium 9.2 mg/dL (7.8-10.44); Carbon Dioxide 33 mmol/L (23-31); Chloride 101 mmol/L (98-107); Glucose 115 mg/dL (83-110); Sodium 138 mmol/L (136-145)
[2021-03-24] MEDS: Mometasone 200 MCG/Formoterol 5 MCG 120 PUFF INHALER INH SCH ×2 (07:20→18:49)
[2021-03-24] MEDS: Famotidine 20 MG TAB PO SCH ×2 (07:38→22:58)
[2021-03-24] MEDS: guaiFENesin ER 600 MG TAB PO SCH ×2 (07:38→22:58)
[2021-03-24] MEDS: Enoxaparin Sodium 40 MG/0.4 ML SYRINGE SC SCH (07:38)
[2021-03-24 07:41] LABS: Band 19 % (5-11); Hemoglobin 11.5 g/dL (14.0-18.0); Lymphocytes 1 % (21-51); MDiff Complete? YES; Mean Corpuscular Hemoglobin 27.8 pg (27.0-31.0); Mean Corpuscular Volume 89.8 fL (78.0-98.0); Mean Platelet Volume 8.1 fL (7.4-10.4); Monocytes 2 % (0-10); Neutrophil 78 % (42-75); Platelet Count 374 thou/uL (130-400); RBC Distribution Width 14.2 % (11.5-14.5); Red Blood Cell (RBC) Count 4.15 mill/uL (4.70-6.10); White Blood Cell (WBC) Count 26.3 thou/uL (4.8-10.8)
[2021-03-24] MEDS: Doxycycline 100 MG CAP PO SCH ×2 (09:21→22:58)
[2021-03-25] MEDS: methylPREDNISolone Sod Succ 40 MG VIAL IVP SCH ×2 (02:58→14:03)
[2021-03-25] MEDS: Cefepime 1 GM in Sodium Chloride 0.9% 100 ML IVPB SCH ×2 (05:37→17:39)
[2021-03-25 05:52] LABS: Anion Gap 9 mmol/L (10-20); BUN (Urea Nitrogen) 28 mg/dL (8.4-25.7); Calc. Creatinine Clearance 108 mL/min (70-130); Calcium 9.5 mg/dL (7.8-10.44); Carbon Dioxide 33 mmol/L (23-31); Chloride 101 mmol/L (98-107); Glucose 107 mg/dL (83-110); Magnesium 2.3 mg/dL (1.6-2.6); Sodium 139 mmol/L (136-145)
[2021-03-25 06:09] LABS: Hemoglobin 11.7 g/dL (14.0-18.0); Mean Corpuscular HGB CONC 30.3 g/dL (32.0-36.0); Mean Corpuscular Hemoglobin 27.3 pg (27.0-31.0); Mean Corpuscular Volume 89.9 fL (78.0-98.0); Mean Platelet Volume 8.5 fL (7.4-10.4); Platelet Count 361 thou/uL (130-400); RBC Distribution Width 14.2 % (11.5-14.5); Red Blood Cell (RBC) Count 4.28 mill/uL (4.70-6.10); White Blood Cell (WBC) Count 30.3 thou/uL (4.8-10.8)
[2021-03-25] MEDS: Mometasone 200 MCG/Formoterol 5 MCG 120 PUFF INHALER INH SCH ×2 (06:49→20:00)
[2021-03-25 06:59] LABS: Band 5 % (5-11); Lymphocytes 2 % (21-51); MDiff Complete? YES; Monocytes 10 % (0-10); Neutrophil 83 % (42-75)
[2021-03-25] MEDS: Enoxaparin Sodium 40 MG/0.4 ML SYRINGE SC SCH (08:58)
[2021-03-25] MEDS: guaiFENesin ER 600 MG TAB PO SCH ×2 (08:58→20:35)
[2021-03-25] MEDS: Doxycycline 100 MG CAP PO SCH ×2 (08:58→20:36)
[2021-03-25] MEDS: Famotidine 20 MG TAB PO SCH ×2 (08:58→20:36)
[2021-03-25] MEDS ORDERED: Polyethylene Glycol 3350 17 GM Packet PO PRN (10:27)
[2021-03-25] MEDS ORDERED: Senokot 8.6 MG TAB PO PRN (10:28)
[2021-03-25] MEDS ORDERED: Docusate 100 MG CAP PO SCH (10:30)
[2021-03-25] MEDS: Budesonide 0.5 MG/2 ML NEB NEB SCH (19:52)
[2021-03-25] MEDS: Docusate 100 MG CAP PO SCH (20:36)
[2021-03-25] MEDS ORDERED: guaiFENesin ER 600 MG TAB PO SCH (21:00)
[2021-03-26] MEDS: methylPREDNISolone Sod Succ 40 MG VIAL IVP SCH ×2 (01:18→14:32)
[2021-03-26] MEDS: Cefepime 1 GM in Sodium Chloride 0.9% 100 ML IVPB SCH ×2 (05:14→17:49)
[2021-03-26] MEDS: Budesonide 0.5 MG/2 ML NEB NEB SCH ×2 (06:29→18:31)
[2021-03-26] MEDS: Mometasone 200 MCG/Formoterol 5 MCG 120 PUFF INHALER INH SCH ×2 (06:30→18:35)
[2021-03-26 06:50] LABS: Anion Gap 10 mmol/L (10-20); BUN (Urea Nitrogen) 21 mg/dL (8.4-25.7); Calc. Creatinine Clearance 101 mL/min (70-130); Calcium 9.6 mg/dL (7.8-10.44); Carbon Dioxide 32 mmol/L (23-31); Chloride 100 mmol/L (98-107); Glucose 131 mg/dL (83-110); Potassium 4.1 mmol/L (3.5-5.1); Sodium 138 mmol/L (136-145)
[2021-03-26 08:25] LABS: Band 2 % (5-11); Lymphocytes 11 % (21-51); MDiff Complete? YES; Mean Corpuscular HGB CONC 30.6 g/dL (32.0-36.0); Mean Corpuscular Hemoglobin 27.7 pg (27.0-31.0); Mean Corpuscular Volume 90.5 fL (78.0-98.0); Mean Platelet Volume 8.4 fL (7.4-10.4); Monocytes 6 % (0-10); Neutrophil 81 % (42-75); Platelet Count 396 thou/uL (130-400); RBC Distribution Width 14.1 % (11.5-14.5); Red Blood Cell (RBC) Count 4.32 mill/uL (4.70-6.10); White Blood Cell (WBC) Count 28.2 thou/uL (4.8-10.8)
[2021-03-26] MEDS: guaiFENesin ER 600 MG TAB PO SCH ×2 (08:49→20:00)
[2021-03-26] MEDS: Enoxaparin Sodium 40 MG/0.4 ML SYRINGE SC SCH (08:49)
[2021-03-26] MEDS: Famotidine 20 MG TAB PO SCH ×2 (08:49→20:00)
[2021-03-26] MEDS: Docusate 100 MG CAP PO SCH ×2 (08:49→20:00)
[2021-03-26] MEDS: Doxycycline 100 MG CAP PO SCH ×2 (08:49→20:00)
[2021-03-26] MEDS ORDERED: Polyethylene Glycol 3350 17 GM Packet PO SCH (09:00)
[2021-03-27] MEDS: methylPREDNISolone Sod Succ 40 MG VIAL IVP SCH (01:44)
[2021-03-27] MEDS: Cefepime 1 GM in Sodium Chloride 0.9% 100 ML IVPB SCH (05:06)
[2021-03-27 06:50] LABS: Hemoglobin 12.2 g/dL (14.0-18.0); Mean Corpuscular HGB CONC 31.1 g/dL (32.0-36.0); Mean Corpuscular Hemoglobin 28.2 pg (27.0-31.0); Mean Corpuscular Volume 90.7 fL (78.0-98.0); Mean Platelet Volume 8.3 fL (7.4-10.4); Platelet Count 391 thou/uL (130-400); RBC Distribution Width 14.1 % (11.5-14.5); Red Blood Cell (RBC) Count 4.33 mill/uL (4.70-6.10); White Blood Cell (WBC) Count 27.2 thou/uL (4.8-10.8)
[2021-03-27] MEDS: Mometasone 200 MCG/Formoterol 5 MCG 120 PUFF INHALER INH SCH (07:01)
[2021-03-27] MEDS: Budesonide 0.5 MG/2 ML NEB NEB SCH (07:01)
[2021-03-27 07:04] LABS: Anion Gap 9 mmol/L (10-20); BUN (Urea Nitrogen) 17 mg/dL (8.4-25.7); Calc. Creatinine Clearance 101 mL/min (70-130); Calcium 9.4 mg/dL (7.8-10.44); Carbon Dioxide 35 mmol/L (23-31); Chloride 98 mmol/L (98-107); Glucose 116 mg/dL (83-110); Potassium 4.5 mmol/L (3.5-5.1); Sodium 137 mmol/L (136-145)
[2021-03-27 08:52] LABS: Band 3 % (5-11); Lymphocytes 6 % (21-51); MDiff Complete? YES; Metamyelocyte 1 % (0-0); Monocytes 6 % (0-10); Myelocyte 2 % (0-0); Neutrophil 77 % (42-75); Platelet Morphology Comment Appears Adequate; RBC Morphology Normal; Reactive Lymphocytes 5 % (0-10)
[2021-03-27] MEDS: Famotidine 20 MG TAB PO SCH (09:08)
[2021-03-27] MEDS: guaiFENesin ER 600 MG TAB PO SCH (09:09)
[2021-03-27] MEDS: Enoxaparin Sodium 40 MG/0.4 ML SYRINGE SC SCH (09:09)
[2021-03-27] MEDS: Doxycycline 100 MG CAP PO SCH (09:09)
[2021-03-27] MEDS: Docusate 100 MG CAP PO SCH (09:09)
[2021-03-27 12:23] VITALS: BP 132/78; TEMP 97.6
[2021-03-28] MEDS ORDERED: predniSONE 20 MG TAB PO SCH (08:00)
== END 2021-03-27 13:33 | disposition home health service (06) | DRG 189 ==
LOC: ERS 10:24 → T4-B 13:16 → OBSVTOIN 03-23 12:14
PROVIDERS: ADMIT Internal Medicine; ATTEND Internal Medicine
DX: J96.21 Acute and chronic respiratory failure with hypoxia (principal); J44.1 Chronic obstructive pulmonary disease with (acute) exacerbation; E87.1 Hypo-osmolality and hyponatremia; Z66 Do not resuscitate; Z20.822 Contact with and (suspected) exposure to COVID-19; M19.90 Unspecified osteoarthritis, unspecified site; J44.9 Chronic obstructive pulmonary disease, unspecified; D72.829 Elevated white blood cell count, unspecified; T38.0X5A Adverse effect of glucocorticoids and synthetic analogues, initial encounter; D53.9 Nutritional anemia, unspecified; F41.9 Anxiety disorder, unspecified; J96.22 Acute and chronic respiratory failure with hypercapnia; Z99.81 Dependence on supplemental oxygen; Z79.51 Long term (current) use of inhaled steroids; Z79.899 Other long term (current) drug therapy; Z79.52 Long term (current) use of systemic steroids; Z87.891 Personal history of nicotine dependence; Z90.49 Acquired absence of other specified parts of digestive tract; Z82.49 Family history of ischemic heart disease and other diseases of the circulatory system
CPT/HCPCS: 0240U; 36415; 36416; 36600; 71045; 80048; 80053; 82805; 83735; 84484; 85025; 87040; 93005; 94640; 94760; 96365; 96367; 96375; 96376; G0378; J0692; J1650; J1956; J2370; J2920; J2930; J3010; J3490; J7620; J7626

== ENCOUNTER 2022-03-24 20:21 | Inpatient (IN) | payer MEDICARE, OTHER ==
[2022-03-24] MEDS ORDERED: Fentanyl 100 MCG/2 ML VIAL ONE (20:48)
[2022-03-24 20:49] LABS: #Eosinphils 0.4 thou/uL (0.0-0.7); #Lymphocytes 1.2 thou/uL (1.20-3.40); #Monocytes 0.9 thou/uL (0.11-0.59); #Neutrophils 14.9 thou/uL (1.40-6.50); %Basophils 0.1 % (0.0-1.0); %Eosinophils 2.4 % (0.0-10.0); %Lymphocytes 6.6 % (21.0-51.0); %Neutrophils 85.9 % (42.0-75.0); Hemoglobin 12.5 g/dL (14.0-18.0); Mean Corpuscular HGB CONC 31.3 g/dL (32.0-36.0); Mean Corpuscular Hemoglobin 29.4 pg (27.0-31.0); Mean Corpuscular Volume 93.9 fL (78.0-98.0); Mean Platelet Volume 7.6 fL (7.4-10.4); Platelet Count 429 thou/uL (130-400); RBC Distribution Width 14.9 % (11.5-14.5); Red Blood Cell (RBC) Count 4.25 mill/uL (4.70-6.10); White Blood Cell (WBC) Count 17.4 thou/uL (4.8-10.8)
[2022-03-24 21:09] LABS: ALT (SGPT) 11 U/L (8-55); AST (SGOT) 22 U/L (5-34); Albumin 3.9 g/dL (3.4-4.8); Alkaline Phosphatase 62 U/L (40-110); Anion Gap 14 mmol/L (10-20); BUN (Urea Nitrogen) 15 mg/dL (8.4-25.7); Bilirubin, Total 0.4 mg/dL (0.2-1.2); Calc. Creatinine Clearance 0 mL/min (70-130); Calcium 9.1 mg/dL (7.8-10.44); Carbon Dioxide 31 mmol/L (23-31); Chloride 99 mmol/L (98-107); Globulin 1.7 g/dL (2.4-3.5); Glucose 136 mg/dL (83-110); Lipase 18 U/L (8-78); Potassium 4.5 mmol/L (3.5-5.1); Protein, Total 5.6 g/dL (5.8-8.1); Sodium 139 mmol/L (136-145)
[2022-03-24] MEDS ORDERED: Piperacillin/Tazobactam 4.5 GM VIAL ONE (23:54)
[2022-03-25] MEDS ORDERED: Acetaminophen 650 MG Suppository PR PRN (00:09)
[2022-03-25] MEDS ORDERED: Ondansetron PF 4 MG/2 ML Vial IVP PRN (00:09)
[2022-03-25] MEDS ORDERED: Ondansetron ODT 4 MG TAB PO PRN (00:09)
[2022-03-25] MEDS ORDERED: Acetaminophen 325 MG TAB PO PRN (00:09)
[2022-03-25] MEDS ORDERED: Sodium Chloride 0.9% 1,000 ML IV SCH (00:15)
[2022-03-25 00:40] VITALS: BMI 21.7
[2022-03-25] MEDS ORDERED: Morphine 4 MG/ML VIAL SLOW IVP PRN (01:42)
[2022-03-25 02:13] LABS: SARS-CoV-2 NAA Rapid Test Not Detected (NotDetected)
[2022-03-25] MEDS: Piperacillin/Tazobactam 3.375 GM in Sodium Chloride 0.9% 100 ML IVPB SCH ×3 (04:11→20:31)
[2022-03-25 06:16] LABS: #Basophils 0.1 thou/uL (0.0-0.2); #Eosinphils 0.6 thou/uL (0.0-0.7); #Lymphocytes 2.1 thou/uL (1.20-3.40); #Monocytes 1.5 thou/uL (0.11-0.59); #Neutrophils 12.8 thou/uL (1.40-6.50); %Basophils 0.4 % (0.0-1.0); %Eosinophils 3.2 % (0.0-10.0); %Lymphocytes 12.4 % (21.0-51.0); %Monocytes 8.9 % (0.0-10.0); %Neutrophils 75.2 % (42.0-75.0); Hemoglobin 11.6 g/dL (14.0-18.0); Mean Corpuscular HGB CONC 31.9 g/dL (32.0-36.0); Mean Corpuscular Volume 94.1 fL (78.0-98.0); Mean Platelet Volume 8.4 fL (7.4-10.4); Platelet Count 368 thou/uL (130-400); RBC Distribution Width 14.9 % (11.5-14.5); Red Blood Cell (RBC) Count 3.87 mill/uL (4.70-6.10); White Blood Cell (WBC) Count 17.1 thou/uL (4.8-10.8)
[2022-03-25 06:36] LABS: Anion Gap 11 mmol/L (10-20); BUN (Urea Nitrogen) 11 mg/dL (8.4-25.7); Calc. Creatinine Clearance 102 mL/min (70-130); Calcium 8.7 mg/dL (7.8-10.44); Carbon Dioxide 32 mmol/L (23-31); Chloride 101 mmol/L (98-107); Glucose 77 mg/dL (83-110); Potassium 3.9 mmol/L (3.5-5.1); Sodium 140 mmol/L (136-145)
[2022-03-25] MEDS ORDERED: Albuterol 200 PUFF (6.7GM INHALER) INH PRN (08:58)
[2022-03-25] MEDS ORDERED: Non-Formulary Item 1 EACH (Tiotropium Bromide 4 GM Inhaler) IH SCH (09:00)
[2022-03-25] MEDS: Enoxaparin Sodium 40 MG/0.4 ML SYRINGE SC SCH (13:04)
[2022-03-25] MEDS: Saccharomyces boulardii 250 MG CAP PO SCH (13:05)
[2022-03-25] MEDS: guaiFENesin 200 MG TAB PO SCH ×2 (13:05→20:33)
[2022-03-25] MEDS: Sodium Chloride 0.9% 1,000 ML IV SCH ×2 (18:32→20:37)
[2022-03-25] MEDS: Mometasone Furoate 120 PUFF 220 MCG INH SCH (19:12)
[2022-03-26] MEDS: Piperacillin/Tazobactam 3.375 GM in Sodium Chloride 0.9% 100 ML IVPB SCH ×3 (03:33→21:36)
[2022-03-26] MEDS: Mometasone Furoate 120 PUFF 220 MCG INH SCH ×2 (07:11→18:27)
[2022-03-26] MEDS ORDERED: predniSONE 5 MG TAB PO SCH (09:00)
[2022-03-26] MEDS: Saccharomyces boulardii 250 MG CAP PO SCH (09:03)
[2022-03-26] MEDS: guaiFENesin 200 MG TAB PO SCH ×2 (09:04→21:36)
[2022-03-26] MEDS: Hydrocortisone Sod Succ/PF 100 mg/2 ml Vial IVP SCH ×3 (09:05→21:35)
[2022-03-26] MEDS: Enoxaparin Sodium 40 MG/0.4 ML SYRINGE SC SCH (09:08)
[2022-03-26 10:35] LABS: Troponin I Less than 0.010 ng/mL (< 0.028)
[2022-03-26 13:37] LABS: Troponin I Less than 0.010 ng/mL (< 0.028)
[2022-03-26] MEDS ORDERED: EPINEPHrine 1 MG/ML AMP ONE (13:50)
[2022-03-26] MEDS ORDERED: Iopamidol 0 ML ONE (13:50)
[2022-03-26] MEDS ORDERED: Bupivacaine PF 0.5% 30 ML VIAL ONE (13:50)
[2022-03-26] MEDS ORDERED: fentaNYL Citrate/PF 100 MCG/2 ML SYRINGE ONE (13:54)
[2022-03-26] MEDS ORDERED: PROPOFOL 200 MG/20 ML VIAL ONE (14:04)
[2022-03-26] MEDS ORDERED: Ondansetron PF 4 MG/2 ML Vial ONE (14:04)
[2022-03-26] MEDS ORDERED: Dexamethasone 20 MG/5 ML VIAL ONE (14:04)
[2022-03-26] MEDS ORDERED: Lidocaine 1% PF 5 ML VIAL ONE (14:04)
[2022-03-26] MEDS ORDERED: Rocuronium Bromide 10 MG/ML (10ML VIAL) ONE (14:04)
[2022-03-26] MEDS ORDERED: ePHEDrine 50 MG/ML VIAL ONE (14:04)
[2022-03-26] MEDS ORDERED: traMADol HCl 50 MG TAB PO PRN (15:06)
[2022-03-26] MEDS ORDERED: Midazolam HCl 2 mg/2 ml Vial ONE (15:08)
[2022-03-26] MEDS ORDERED: Ketorolac Tromethamine 30 MG/ML VIAL ONE (15:27)
[2022-03-26] MEDS ORDERED: Fentanyl 100 MCG/2 ML VIAL ONE (15:37)
[2022-03-26] MEDS: Sodium Chloride 0.9% 1,000 ML IV SCH (16:50)
[2022-03-26 18:37] LABS: Troponin I Less than 0.010 ng/mL (< 0.028)
[2022-03-27] MEDS: Piperacillin/Tazobactam 3.375 GM in Sodium Chloride 0.9% 100 ML IVPB SCH (04:08)
[2022-03-27 04:10] LABS: ALT (SGPT) 29 U/L (8-55); AST (SGOT) 41 U/L (5-34); Albumin 3.5 g/dL (3.4-4.8); Alkaline Phosphatase 50 U/L (40-110); Anion Gap 13 mmol/L (10-20); BUN (Urea Nitrogen) 15 mg/dL (8.4-25.7); Bilirubin, Total 0.5 mg/dL (0.2-1.2); Calc. Creatinine Clearance 86 mL/min (70-130); Carbon Dioxide 29 mmol/L (23-31); Chloride 100 mmol/L (98-107); Globulin 2.1 g/dL (2.4-3.5); Glucose 168 mg/dL (83-110); Potassium 4.1 mmol/L (3.5-5.1); Protein, Total 5.6 g/dL (5.8-8.1); Sodium 138 mmol/L (136-145)
[2022-03-27 04:38] LABS: Band 6 % (5-11); Hemoglobin 11.5 g/dL (14.0-18.0); Lymphocytes 5 % (21-51); MDiff Complete? YES; Mean Corpuscular HGB CONC 32.2 g/dL (32.0-36.0); Mean Corpuscular Hemoglobin 30.1 pg (27.0-31.0); Mean Corpuscular Volume 93.5 fL (78.0-98.0); Mean Platelet Volume 7.9 fL (7.4-10.4); Monocytes 4 % (0-10); Neutrophil 85 % (42-75); Platelet Count 359 thou/uL (130-400); RBC Distribution Width 14.6 % (11.5-14.5); Red Blood Cell (RBC) Count 3.82 mill/uL (4.70-6.10); White Blood Cell (WBC) Count 16.5 thou/uL (4.8-10.8)
[2022-03-27] MEDS: Sodium Chloride 0.9% 1,000 ML IV SCH (06:04)
[2022-03-27] MEDS: Mometasone Furoate 120 PUFF 220 MCG INH SCH ×2 (07:32→18:47)
[2022-03-27 08:42] LABS: ALT (SGPT) 33 U/L (8-55); AST (SGOT) 41 U/L (5-34); Albumin 3.8 g/dL (3.4-4.8); Alkaline Phosphatase 55 U/L (40-110); Bilirubin, Direct 0.3 mg/dL (0.1-0.3); Bilirubin, Total 0.6 mg/dL (0.2-1.2)
[2022-03-27] MEDS: guaiFENesin 200 MG TAB PO SCH ×2 (09:11→21:20)
[2022-03-27] MEDS: Enoxaparin Sodium 40 MG/0.4 ML SYRINGE SC SCH (09:12)
[2022-03-27] MEDS: Hydrocortisone Sod Succ/PF 100 mg/2 ml Vial IVP SCH ×3 (09:12→21:20)
[2022-03-27] MEDS: Saccharomyces boulardii 250 MG CAP PO SCH (09:12)
[2022-03-27] MEDS ORDERED: predniSONE 20 MG TAB PO SCH (11:45)
[2022-03-28] MEDS: Mometasone Furoate 120 PUFF 220 MCG INH SCH (06:36)
[2022-03-28] MEDS: Enoxaparin Sodium 40 MG/0.4 ML SYRINGE SC SCH (08:50)
[2022-03-28] MEDS: guaiFENesin 200 MG TAB PO SCH (08:50)
[2022-03-28] MEDS: Hydrocortisone Sod Succ/PF 100 mg/2 ml Vial IVP SCH ×2 (08:51→14:41)
[2022-03-28] MEDS: Saccharomyces boulardii 250 MG CAP PO SCH (08:51)
[2022-03-28 12:15] VITALS: BP 125/71; TEMP 98.1
== END 2022-03-28 15:31 | disposition home health service (06) | DRG 417 ==
LOC: ERS 20:21 → SJJU 23:14 → OBSVTOIN 03-25 14:22 → CCU 03-26 16:37 → T4-A 03-27 10:25
PROVIDERS: ADMIT Student in an Organized Health Care Education/Training Program; ATTEND Internal Medicine
PROC: 0FT44ZZ Resection of Gallbladder, Percutaneous Endoscopic Approach (ICD-10-PCS; principal; 2022-03-26)
PROC: 8E0W4CZ Robotic Assisted Procedure of Trunk Region, Percutaneous Endoscopic Approach (ICD-10-PCS; 2022-03-26)
DX: K80.12 Calculus of gallbladder with acute and chronic cholecystitis without obstruction (principal); J96.21 Acute and chronic respiratory failure with hypoxia; Z20.822 Contact with and (suspected) exposure to COVID-19; J44.9 Chronic obstructive pulmonary disease, unspecified; K21.9 Gastro-esophageal reflux disease without esophagitis; Z99.81 Dependence on supplemental oxygen; Z79.51 Long term (current) use of inhaled steroids; Z79.52 Long term (current) use of systemic steroids; Z79.899 Other long term (current) drug therapy; Z90.09 Acquired absence of other part of head and neck; Z87.891 Personal history of nicotine dependence
CPT/HCPCS: 36415; 71046; 76705; 80048; 80053; 83690; 84484; 85025; 88304; 93005; 93010; 94640; 96372; 96374; 96375; 96376; C1713; G0378; J0171; J1100; J1610; J1650; J1720; J1885; J2250; J2270; J2405; J2543; J2704; J3010; J3490; J7050; J7512; J7620; Q9967; S0020; U0002

== ENCOUNTER 2022-05-31 15:04 | Observation (INO) | payer MEDICARE, OTHER ==
[~2022-05-31 15:04] MED LIST changes: -ISOVUE-370 76%-LOCM 1 ML ONE; +Iopamidol-370 76% 500 ML 1 ML ONE
[2022-05-31 15:54] LABS: #Eosinphils 0.5 thou/uL (0.0-0.7); #Lymphocytes 0.6 thou/uL (1.20-3.40); #Monocytes 0.4 thou/uL (0.11-0.59); #Neutrophils 17.7 thou/uL (1.40-6.50); %Basophils 0.1 % (0.0-1.0); %Eosinophils 2.7 % (0.0-10.0); %Monocytes 1.9 % (0.0-10.0); %Neutrophils 92.4 % (42.0-75.0); Hemoglobin 13.7 g/dL (14.0-18.0); Mean Corpuscular Hemoglobin 29.4 pg (27.0-31.0); Mean Corpuscular Volume 94.8 fL (78.0-98.0); Mean Platelet Volume 7.9 fL (7.4-10.4); Platelet Count 423 thou/uL (130-400); RBC Distribution Width 14.7 % (11.5-14.5); Red Blood Cell (RBC) Count 4.66 mill/uL (4.70-6.10); White Blood Cell (WBC) Count 19.1 thou/uL (4.8-10.8)
[2022-05-31 16:18] LABS: ALT (SGPT) 16 U/L (8-55); AST (SGOT) 11 U/L (5-34); Albumin 4.1 g/dL (3.4-4.8); Alkaline Phosphatase 63 U/L (40-110); Anion Gap 14 mmol/L (10-20); BUN (Urea Nitrogen) 13 mg/dL (8.4-25.7); Bilirubin, Total 0.5 mg/dL (0.2-1.2); Calc. Creatinine Clearance 0 mL/min (70-130); Calcium 9.4 mg/dL (7.8-10.44); Carbon Dioxide 31 mmol/L (23-31); Chloride 98 mmol/L (98-107); Estimated GFR 97; Globulin 2.3 g/dL (2.4-3.5); Glucose 131 mg/dL (83-110); Lipase 12 U/L (8-78); Potassium 4.2 mmol/L (3.5-5.1); Protein, Total 6.4 g/dL (5.8-8.1); Sodium 139 mmol/L (136-145)
[2022-05-31] MEDS ORDERED: Aspirin 325 MG TAB ONE (17:13)
[2022-05-31] MEDS ORDERED: Albuterol Sulfate 1.25 MG/3 ML NEB ONE (17:13)
[2022-05-31] MEDS ORDERED: Acetaminophen 325 MG TAB PO PRN (19:15)
[2022-05-31] MEDS ORDERED: Ondansetron PF 4 MG/2 ML Vial IVP PRN (19:15)
[2022-05-31] MEDS ORDERED: Senokot S 8.6-50 MG TAB PO PRN (19:15)
[2022-05-31 19:32] LABS: Troponin I Less than 0.010 ng/mL (< 0.028)
[2022-05-31] MEDS ORDERED: Morphine 2 MG/ML VIAL SLOW IVP PRN ×2 (19:34)
[2022-05-31] MEDS ORDERED: Ipratropium Bromide 2.5 ml Neb NEB PRN (19:38)
[2022-05-31 19:40] LABS: SARS-CoV-2 NAA Rapid Test Not Detected (NotDetected)
[2022-05-31] MEDS ORDERED: Albuterol Sulfate 2.5 mg/0.5 ml Neb NEB PRN (19:40)
[2022-05-31] MEDS ORDERED: Pantoprazole 40 MG VIAL IVP SCH (21:00)
[2022-05-31] MEDS: guaiFENesin 200 MG TAB PO SCH (22:02)
[2022-05-31] MEDS: Heparin 5,000 UNITS/ML VIAL SC SCH (22:02)
[2022-05-31 22:32] LABS: Troponin I Less than 0.010 ng/mL (< 0.028)
[2022-05-31 23:27] VITALS: BMI 23.0
[2022-06-01 04:59] LABS: #Eosinphils 0.6 thou/uL (0.0-0.7); #Lymphocytes 1.7 thou/uL (1.20-3.40); #Monocytes 2.1 thou/uL (0.11-0.59); #Neutrophils 13.8 thou/uL (1.40-6.50); %Basophils 0.2 % (0.0-1.0); %Lymphocytes 9.4 % (21.0-51.0); %Monocytes 11.6 % (0.0-10.0); %Neutrophils 75.8 % (42.0-75.0); Hemoglobin 11.8 g/dL (14.0-18.0); Mean Corpuscular HGB CONC 31.3 g/dL (32.0-36.0); Mean Corpuscular Hemoglobin 29.5 pg (27.0-31.0); Mean Corpuscular Volume 94.5 fL (78.0-98.0); Mean Platelet Volume 7.8 fL (7.4-10.4); Platelet Count 359 thou/uL (130-400); RBC Distribution Width 14.6 % (11.5-14.5); White Blood Cell (WBC) Count 18.2 thou/uL (4.8-10.8)
[2022-06-01 05:18] LABS: ALT (SGPT) 10 U/L (8-55); AST (SGOT) 10 U/L (5-34); Albumin 3.4 g/dL (3.4-4.8); Alkaline Phosphatase 52 U/L (40-110); Anion Gap 11 mmol/L (10-20); BUN (Urea Nitrogen) 17 mg/dL (8.4-25.7); Bilirubin, Total 0.3 mg/dL (0.2-1.2); Calc. Creatinine Clearance 94 mL/min (70-130); Carbon Dioxide 35 mmol/L (23-31); Chloride 99 mmol/L (98-107); Estimated GFR 96; Globulin 1.8 g/dL (2.4-3.5); Glucose 70 mg/dL (83-110); Protein, Total 5.2 g/dL (5.8-8.1); Sodium 141 mmol/L (136-145)
[2022-06-01 08:23] LABS: Hemoglobin A1c 5.2 % (4.0-6.0)
[2022-06-01] MEDS: guaiFENesin 200 MG TAB PO SCH (08:43)
[2022-06-01] MEDS: Heparin 5,000 UNITS/ML VIAL SC SCH (08:44)
[2022-06-01] MEDS ORDERED: Aspirin 81 mg Enteric Coated Tablet PO SCH (09:00)
[2022-06-01] MEDS ORDERED: Pantoprazole 40 MG VIAL IVP SCH (09:00)
[2022-06-01] MEDS ORDERED: Diltiazem HCl SR 60 mg Capsule PO SCH (09:00)
[2022-06-01 11:37] VITALS: TEMP 97.9
[2022-06-01 16:00] VITALS: BP 118/56
[2022-06-01] MEDS ORDERED: Atorvastatin Calcium 20 MG TAB PO SCH (21:00)
== END 2022-06-01 18:37 | disposition home or self-care (01) ==
LOC: ERS 15:04 → 2NO 18:00
PROVIDERS: ADMIT Family Medicine; ATTEND Family Medicine
DX: R91.8 Other nonspecific abnormal finding of lung field (principal); J43.2 Centrilobular emphysema; R07.9 Chest pain, unspecified; I10 Essential (primary) hypertension; J96.11 Chronic respiratory failure with hypoxia; D72.829 Elevated white blood cell count, unspecified; I07.1 Rheumatic tricuspid insufficiency; Z87.891 Personal history of nicotine dependence; Z79.82 Long term (current) use of aspirin; Z79.899 Other long term (current) drug therapy; Z88.0 Allergy status to penicillin; Z88.8 Allergy status to other drugs, medicaments and biological substances; Z91.018 Allergy to other foods; Z99.81 Dependence on supplemental oxygen; Z20.822 Contact with and (suspected) exposure to COVID-19
CPT/HCPCS: 0241U; 71045; 71275; 80053; 83036; 83690; 84145; 84484 ×2; 85025; 93005; 93306; 94640 ×2; 94760; 99285; 36415; 84443; 96372; 96374; 96376; C9113; G0378; J1644; J7620; Q9967

== ENCOUNTER 2022-07-06 11:45 | Outpatient (CLI) | payer MEDICARE, OTHER | END 2022-07-06 11:46 | disposition home or self-care (01) | LOC: PET 11:45 | PROVIDERS: ATTEND Internal Medicine Critical Care Medicine | DX: R91.8 Other nonspecific abnormal finding of lung field (principal) | CPT/HCPCS: 78815; A9552 ==

== ENCOUNTER 2022-08-09 07:39 | Emergency (ER) | payer MEDICARE, OTHER ==
[2022-08-09 08:28] LABS: #Basophils 0.1 thou/uL (0.0-0.2); #Eosinphils 0.5 thou/uL (0.0-0.7); #Monocytes 1.8 thou/uL (0.11-0.59); #Neutrophils 10.8 thou/uL (1.40-6.50); %Basophils 0.3 % (0.0-1.0); %Eosinophils 3.2 % (0.0-10.0); %Neutrophils 71.5 % (42.0-75.0); Hemoglobin 11.4 g/dL (14.0-18.0); Mean Corpuscular HGB CONC 30.2 g/dL (32.0-36.0); Mean Corpuscular Hemoglobin 28.3 pg (27.0-31.0); Mean Corpuscular Volume 93.6 fL (78.0-98.0); Mean Platelet Volume 7.9 fL (7.4-10.4); Platelet Count 343 thou/uL (130-400); RBC Distribution Width 14.8 % (11.5-14.5); Red Blood Cell (RBC) Count 4.02 mill/uL (4.70-6.10); White Blood Cell (WBC) Count 15.2 thou/uL (4.8-10.8)
[2022-08-09 08:38] LABS: ALT (SGPT) 12 U/L (8-55); AST (SGOT) 13 U/L (5-34); Albumin 3.6 g/dL (3.4-4.8); Alkaline Phosphatase 74 U/L (40-110); Anion Gap 13 mmol/L (10-20); BUN (Urea Nitrogen) 9 mg/dL (8.4-25.7); Bilirubin, Total 0.6 mg/dL (0.2-1.2); Calc. Creatinine Clearance 0 mL/min (70-130); Calcium 9.2 mg/dL (7.8-10.44); Carbon Dioxide 32 mmol/L (23-31); Chloride 98 mmol/L (98-107); Estimated GFR 97; Glucose 82 mg/dL (83-110); Potassium 3.8 mmol/L (3.5-5.1); Protein, Total 5.6 g/dL (5.8-8.1); Sodium 139 mmol/L (136-145)
[2022-08-09 10:43] LABS: Troponin I Less than 0.010 ng/mL (< 0.028)
== END 2022-08-09 11:53 | disposition home or self-care (01) ==
LOC: ERS 07:39
DX: R07.9 Chest pain, unspecified (principal); J44.9 Chronic obstructive pulmonary disease, unspecified; Z87.891 Personal history of nicotine dependence; Z79.899 Other long term (current) drug therapy
CPT/HCPCS: 36415; 71045; 80053; 84484; 85025; 93005; 94640; J7620

== ENCOUNTER 2022-12-15 16:09 | Emergency (ER) | payer MEDICARE, OTHER ==
[2022-12-15] MEDS ORDERED: Ipratropium/Albuterol 3 ML NEB ONE (16:36)
[2022-12-15 16:52] LABS: Actual Bicarbonate (HCO3v) 36 mEq/L (22-28); Analyzer IN Cardio ER; Base Excess 9.1 mEq/L (-2.0 to +3.0); Calcium, Ionized (venous) 1.12 mmol/L (1.16-1.32); Chloride (VBG) 95 mmol/L (98-106); Hemoglobin (Hb) 12.1 g/dL (12.6-17.4); Sodium 135.5 mmol/L (133-146)
[2022-12-15 17:03] LABS: #Eosinphils 0.4 thou/uL (0.0-0.7); #Lymphocytes 1.3 thou/uL (1.20-3.40); #Monocytes 0.6 thou/uL (0.11-0.59); #Neutrophils 14.3 thou/uL (1.40-6.50); %Basophils 0.1 % (0.0-1.0); %Eosinophils 2.2 % (0.0-10.0); %Lymphocytes 8.1 % (21.0-51.0); %Monocytes 3.7 % (0.0-10.0); Hemoglobin 11.1 g/dL (14.0-18.0); Mean Corpuscular HGB CONC 30.9 g/dL (32.0-36.0); Mean Corpuscular Hemoglobin 29.3 pg (27.0-31.0); Mean Corpuscular Volume 94.9 fl (78.0-98.0); Mean Platelet Volume 8.7 fL (7.4-10.4); Platelet Count 341 10x3/uL (130-400); RBC Distribution Width 15.3 % (11.5-14.5); Red Blood Cell (RBC) Count 3.78 mill/uL (4.70-6.10); White Blood Cell (WBC) Count 16.7 10x3/uL (4.8-10.8)
[2022-12-15] MEDS ORDERED: Aspirin Chewable 81 MG TAB ONE (17:05)
[2022-12-15 17:24] LABS: ALT (SGPT) 18 U/L (8-55); AST (SGOT) 18 U/L (5-34); Albumin 3.7 g/dL (3.4-4.8); Alkaline Phosphatase 72 U/L (40-110); Anion Gap 13 mmol/L (10-20); BUN (Urea Nitrogen) 11 mg/dL (8.4-25.7); Bilirubin, Total 0.5 mg/dL (0.2-1.2); Calc. Creatinine Clearance 0 mL/min (70-130); Calcium 9.4 mg/dL (7.8-10.44); Carbon Dioxide 35 mmol/L (23-31); Chloride 96 mmol/L (98-107); Estimated GFR 92; Globulin 1.8 g/dL (2.4-3.5); Glucose 122 mg/dL (83-110); Potassium 4.6 mmol/L (3.5-5.1); Protein, Total 5.5 g/dL (5.8-8.1); Sodium 139 mmol/L (136-145)
[2022-12-15 17:41] LABS: SARS-CoV-2 NAA Rapid Test Not Detected (NotDetected)
== END 2022-12-15 19:01 | disposition home or self-care (01) ==
LOC: ERS 16:09
DX: J44.1 Chronic obstructive pulmonary disease with (acute) exacerbation (principal); D72.829 Elevated white blood cell count, unspecified; Z20.822 Contact with and (suspected) exposure to COVID-19; Z87.891 Personal history of nicotine dependence
CPT/HCPCS: 0240U; 71045; 80053; 82805; 84484; 85025; 93005; 94640; 36415; J7620

== ENCOUNTER 2023-03-21 20:47 | Inpatient (IN) | payer MEDICARE, OTHER ==
[2023-03-21] MEDS ORDERED: methylPREDNISolone Sod Succ/PF 125 MG/2 ML VIAL ONE (21:02)
[2023-03-21] MEDS ORDERED: cefTRIAXone (ROCEPHIN) 2 GM VIAL ONE (21:02)
[2023-03-21] MEDS ORDERED: Ipratropium/Albuterol 3 ML NEB ONE ×2 (21:17)
[2023-03-21] MEDS ORDERED: Albuterol 2.5 MG/0.5 ML NEB ONE (21:18)
[2023-03-21] MEDS ORDERED: Magnesium 2 GM/50 ML BAG (IN WATER) ONE (21:20)
[2023-03-21 21:30] LABS: Hemoglobin 12.8 g/dL (14.0-18.0); Mean Corpuscular HGB CONC 33.4 g/dL (32.0-36.0); Mean Corpuscular Hemoglobin 32.1 pg (27.0-31.0); Platelet Count 336 10x3/uL (130-400); RBC Distribution Width 15.5 % (11.5-14.5); Red Blood Cell (RBC) Count 3.98 mill/uL (4.70-6.10)
[2023-03-21] MEDS ORDERED: Azithromycin 500 MG VIAL ONE (21:41)
[2023-03-21] MEDS ORDERED: LORazepam 2 MG/ML SYR.(CARPUJECT) ONE (21:41)
[2023-03-21 21:49] LABS: Actual Bicarbonate (HCO3a) 36.1 mEq/L (22-28); Analyzer IN Cardio ER; Base Excess (BEa) 8.2 mEq/L (-2.0 to +3.0); Calcium, Ionized (arterial) 1.24 mmol/L (1.12-1.30); Carboxyhemoglobin (COHb) 0.3 gm% (0.0-3.0); Hematocrit-ABG 35 % (42.0-52.0); O2 Tension (PaO2), arterial 206.9 mmHg (> 70.0); Potassium - ABG Lab 4.01 mmol/L (3.70-5.30); pH, Arterial 7.343 (7.35-7.45)
[2023-03-21 21:51] LABS: ALT (SGPT) 20 U/L (8-55); AST (SGOT) 17 U/L (5-34); Albumin 4.1 g/dL (3.4-4.8); Alkaline Phosphatase 73 U/L (40-110); Anion Gap 10 mmol/L (10-20); BUN (Urea Nitrogen) 9 mg/dL (8.4-25.7); Bilirubin, Total 0.5 mg/dL (0.2-1.2); Calc. Creatinine Clearance 0 mL/min (70-130); Calcium 9.9 mg/dL (7.8-10.44); Carbon Dioxide 37 mmol/L (23-31); Chloride 99 mmol/L (98-107); Estimated GFR 95; Globulin 2.3 g/dL (2.4-3.5); Glucose 97 mg/dL (83-110); Potassium 4.3 mmol/L (3.5-5.1); Protein, Total 6.4 g/dL (5.8-8.1); Sodium 142 mmol/L (136-145)
[2023-03-21 21:52] LABS: Anisocytosis SLIGHT = 6-15 cells (100X) (0-5/hpf); Crenated RBC SLIGHT = 1-5 cells (100X) (None Seen); Large Platelets SLIGHT = 1-5 cells (None Seen); Lymphocytes 5 % (21-51); MDiff Complete? YES; Monocytes 8 % (0-10); Neutrophil 87 % (42-75); Platelet Morphology Comment Appears Adequate; Polychromasia SLIGHT = 2-3 cells (100X) (0-2/hpf); Stomatocytes SLIGHT = 2-5 cells (100X) (0-1/hpf)
[2023-03-21 21:55] LABS: ALV-art Gradient 29.075 mmHg (0-20); Puncture Site LRA
[2023-03-22] MEDS ORDERED: Ondansetron ODT 4 MG TAB PO PRN (00:44)
[2023-03-22] MEDS ORDERED: Acetaminophen 325 MG TAB PO PRN (00:44)
[2023-03-22] MEDS ORDERED: Ondansetron PF 4 MG/2 ML Vial IVP PRN (00:44)
[2023-03-22] MEDS ORDERED: Ipratropium/Albuterol 3 ML NEB NEB PRN (00:44)
[2023-03-22] MEDS ORDERED: Acetaminophen 650 MG Suppository PR PRN (00:44)
[2023-03-22 01:29] LABS: Lactic Acid 1.2 mmol/L (0.5-2.2)
[2023-03-22 01:32] LABS: Troponin I 0.019 ng/mL (< 0.028)
[2023-03-22] MEDS: Ipratropium/Albuterol 3 ML NEB NEB SCH ×6 (02:04→21:47)
[2023-03-22 03:57] LABS: Hemoglobin 10.8 g/dL (14.0-18.0); Mean Corpuscular Volume 96.9 fl (78.0-98.0); Platelet Count 314 10x3/uL (130-400); RBC Distribution Width 15.2 % (11.5-14.5); Red Blood Cell (RBC) Count 3.71 mill/uL (4.70-6.10); White Blood Cell (WBC) Count 17.6 10x3/uL (4.8-10.8)
[2023-03-22 04:21] LABS: Troponin I Less than 0.010 ng/mL (< 0.028)
[2023-03-22 04:22] LABS: Anion Gap 14 mmol/L (10-20); Carbon Dioxide 30 mmol/L (23-31); Chloride 99 mmol/L (98-107); Potassium 4.2 mmol/L (3.5-5.1); Sodium 139 mmol/L (136-145)
[2023-03-22 04:28] LABS: Anisocytosis SLIGHT = 6-15 cells (100X) (0-5/hpf); Crenated RBC SLIGHT = 1-5 cells (100X) (None Seen); Hypochromia SLIGHT = 6-15 cells (100X) (0-5/hpf); Lymphocytes 1 % (21-51); MDiff Complete? YES; Metamyelocyte 2 % (0-0); Neutrophil 97 % (42-75); Platelet Morphology Comment Appears Adequate; Polychromasia SLIGHT = 2-3 cells (100X) (0-2/hpf); Schistocytes SLIGHT = 2-5 cells (100X) (0-1/hpf)
[2023-03-22 04:48] LABS: Glucose 123 mg/dL (83-110)
[2023-03-22 04:52] LABS: BUN (Urea Nitrogen) 8 mg/dL (8.4-25.7); Calc. Creatinine Clearance 101 mL/min (70-130); Estimated GFR 98
[2023-03-22 06:34] LABS: SARS-CoV-2 NAA Rapid Test Not Detected (NotDetected)
[2023-03-22] MEDS ORDERED: Lactated Ringer's 1,000 ML IV SCH (09:15)
[2023-03-22] MEDS: Famotidine/PF 20 mg/2ml Vial SLOW IVP SCH ×2 (10:24→20:53)
[2023-03-22] MEDS: methylPREDNISolone Sod Succ 40 MG VIAL IVP SCH (10:25)
[2023-03-22] MEDS: Sodium Chloride 0.45% 1,000 ML IV SCH ×2 (10:38→23:07)
[2023-03-22 12:54] LABS: Bacteria/HPF None Seen HPF (None Seen); Bilirubin Negative (Negative); Blood, Urine Negative (Negative); Clarity Clear (Clear); Glucose, Urine (Dipstick) Normal (Negative); Ketone, Urine 10 mg/dL (Negative); Leukocyte Negative Leu/uL (Negative); Nitrite Negative (Negative); Protein, Urine (Dipstick) Negative (Neg-Trace); RBC/HPF 0-3 HPF (0-3); Specific Gravity, Urine 1.013 (1.002-1.036); Squamous Epithelial None Seen HPF (0-3); Urobilinogen Normal mg/dL (Less than 2); WBC/HPF 0-3 HPF (0-3)
[2023-03-22] MEDS: Mometasone 200 MCG/Formoterol 5 MCG 120 PUFF INHALER INH SCH (18:28)
[2023-03-22] MEDS ORDERED: Ipratropium Bromide 2.5 ml Neb NEB SCH (19:00)
[2023-03-22] MEDS: Atorvastatin Calcium 20 MG TAB PO SCH (20:52)
[2023-03-22] MEDS: Cefdinir 300 MG CAP PO SCH (20:53)
[2023-03-22] MEDS: Azithromycin 250 MG TAB PO SCH (20:53)
[2023-03-23] MEDS: Ipratropium/Albuterol 3 ML NEB NEB SCH ×6 (02:28→22:14)
[2023-03-23] MEDS: Mometasone 200 MCG/Formoterol 5 MCG 120 PUFF INHALER INH SCH ×2 (07:13→18:38)
[2023-03-23] MEDS ORDERED: Azithromycin 250 MG TAB PO SCH (09:00)
[2023-03-23] MEDS: Aspirin 81 mg Enteric Coated Tablet PO SCH (09:03)
[2023-03-23] MEDS: Famotidine/PF 20 mg/2ml Vial SLOW IVP SCH ×2 (09:03→21:21)
[2023-03-23] MEDS: methylPREDNISolone Sod Succ 40 MG VIAL IVP SCH (09:04)
[2023-03-23] MEDS ORDERED: Polyethylene Glycol 3350 17 GM Packet PER TUBE SCH (11:42)
[2023-03-23] MEDS: Atorvastatin Calcium 20 MG TAB PO SCH (21:20)
[2023-03-23] MEDS: Cefdinir 300 MG CAP PO SCH (21:20)
[2023-03-23] MEDS: Azithromycin 250 MG TAB PO SCH (21:20)
[2023-03-23] MEDS: Calcium Carbonate 500 MG ChewTAB PO PRN (21:21)
[2023-03-24] MEDS: Ipratropium/Albuterol 3 ML NEB NEB SCH ×6 (02:21→22:22)
[2023-03-24 03:53] LABS: Hemoglobin 10.4 g/dL (14.0-18.0); Mean Corpuscular HGB CONC 32.3 g/dL (32.0-36.0); Mean Corpuscular Hemoglobin 30.7 pg (27.0-31.0); Mean Platelet Volume 9.2 fL (7.4-10.4); Platelet Count 297 10x3/uL (130-400); RBC Distribution Width 15.1 % (11.5-14.5); Red Blood Cell (RBC) Count 3.37 mill/uL (4.70-6.10)
[2023-03-24 04:11] LABS: Anion Gap 11 mmol/L (10-20); BUN (Urea Nitrogen) 17 mg/dL (8.4-25.7); Calc. Creatinine Clearance 105 mL/min (70-130); Calcium 9.5 mg/dL (7.8-10.44); Carbon Dioxide 33 mmol/L (23-31); Chloride 98 mmol/L (98-107); Estimated GFR 97; Glucose 94 mg/dL (83-110); Potassium 4.1 mmol/L (3.5-5.1); Sodium 138 mmol/L (136-145)
[2023-03-24 04:33] LABS: Anisocytosis SLIGHT = 6-15 cells (100X) (0-5/hpf); Large Platelets SLIGHT (None Seen); Lymphocytes 5 % (21-51); MDiff Complete? YES; Monocytes 4 % (0-10); Myelocyte 1 % (0-0); Neutrophil 90 % (42-75); Platelet Morphology Comment Appears Adequate; Poikilocytosis SLIGHT = 6-15 cells (100X) (0-5/hpf); Polychromasia SLIGHT = 2-3 cells (100X) (0-2/hpf); Schistocytes SLIGHT = 2-5 cells (100X) (0-1/hpf)
[2023-03-24] MEDS: Mometasone 200 MCG/Formoterol 5 MCG 120 PUFF INHALER INH SCH ×2 (06:55→18:30)
[2023-03-24] MEDS: methylPREDNISolone Sod Succ 40 MG VIAL IVP SCH (10:03)
[2023-03-24] MEDS: Famotidine/PF 20 mg/2ml Vial SLOW IVP SCH ×2 (10:03→20:35)
[2023-03-24] MEDS: Aspirin 81 mg Enteric Coated Tablet PO SCH (10:03)
[2023-03-24] MEDS: Calcium Carbonate 500 MG ChewTAB PO PRN (10:04)
[2023-03-24] MEDS: Polyethylene Glycol 3350 17 GM Packet PER TUBE SCH (10:04)
[2023-03-24] MEDS: Cefdinir 300 MG CAP PO SCH (20:36)
[2023-03-24] MEDS: Atorvastatin Calcium 20 MG TAB PO SCH (20:36)
[2023-03-24] MEDS: Azithromycin 250 MG TAB PO SCH (20:36)
[2023-03-25] MEDS: Ipratropium/Albuterol 3 ML NEB NEB SCH ×6 (02:37→21:53)
[2023-03-25] MEDS: Bisacodyl 10 MG SUPP PR PRN ×2 (05:49→20:02)
[2023-03-25] MEDS: Mometasone 200 MCG/Formoterol 5 MCG 120 PUFF INHALER INH SCH ×2 (07:23→18:50)
[2023-03-25] MEDS: Polyethylene Glycol 3350 17 GM Packet PER TUBE SCH (08:06)
[2023-03-25] MEDS: Famotidine/PF 20 mg/2ml Vial SLOW IVP SCH ×2 (08:06→20:03)
[2023-03-25] MEDS: Aspirin 81 mg Enteric Coated Tablet PO SCH (08:07)
[2023-03-25] MEDS: predniSONE 20 MG TAB PO SCH (08:07)
[2023-03-25] MEDS: Cefdinir 300 MG CAP PO SCH (20:01)
[2023-03-25] MEDS: Atorvastatin Calcium 20 MG TAB PO SCH (20:02)
[2023-03-25] MEDS: Azithromycin 250 MG TAB PO SCH (20:02)
[2023-03-26] MEDS: Ipratropium/Albuterol 3 ML NEB NEB SCH ×6 (01:57→21:57)
[2023-03-26] MEDS: Mometasone 200 MCG/Formoterol 5 MCG 120 PUFF INHALER INH SCH ×2 (06:32→19:50)
[2023-03-26] MEDS: Famotidine/PF 20 mg/2ml Vial SLOW IVP SCH ×2 (08:18→20:39)
[2023-03-26] MEDS: predniSONE 20 MG TAB PO SCH (08:19)
[2023-03-26] MEDS: Polyethylene Glycol 3350 17 GM Packet PER TUBE SCH (08:19)
[2023-03-26] MEDS: Aspirin 81 mg Enteric Coated Tablet PO SCH (08:19)
[2023-03-26] MEDS ORDERED: Magnesium Citrate 300 ML BOT PO SCH (10:30)
[2023-03-26] MEDS: Atorvastatin Calcium 20 MG TAB PO SCH (20:38)
[2023-03-26] MEDS: Cefdinir 300 MG CAP PO SCH (20:38)
[2023-03-27] MEDS: Ipratropium/Albuterol 3 ML NEB NEB SCH ×3 (01:30→10:19)
[2023-03-27 06:55] LABS: Anion Gap 11 mmol/L (10-20); BUN (Urea Nitrogen) 15 mg/dL (8.4-25.7); Calc. Creatinine Clearance 102 mL/min (70-130); Calcium 8.8 mg/dL (7.8-10.44); Carbon Dioxide 33 mmol/L (23-31); Chloride 96 mmol/L (98-107); Estimated GFR 97; Glucose 76 mg/dL (83-110); Potassium 4.2 mmol/L (3.5-5.1); Sodium 136 mmol/L (136-145)
[2023-03-27] MEDS: Mometasone 200 MCG/Formoterol 5 MCG 120 PUFF INHALER INH SCH (07:19)
[2023-03-27] MEDS: Famotidine/PF 20 mg/2ml Vial SLOW IVP SCH (09:31)
[2023-03-27] MEDS: Aspirin 81 mg Enteric Coated Tablet PO SCH (09:32)
[2023-03-27] MEDS: predniSONE 20 MG TAB PO SCH (09:32)
[2023-03-27] MEDS: Polyethylene Glycol 3350 17 GM Packet PER TUBE SCH (10:34)
[2023-03-27 12:34] VITALS: BP 112/61; TEMP 98.4
[2023-03-27 12:48] VITALS: BMI 24.5
[2023-03-28 14:31] LABS: CO2 Tension 67.9 mmHg (35.0-45.0)
== END 2023-03-27 13:23 | disposition home or self-care (01) | DRG 191 ==
LOC: ERS 20:47 → CCU 23:35 → IMCU/EMU 03-22 12:11 → T4-B 03-24 13:27
PROVIDERS: ADMIT Student in an Organized Health Care Education/Training Program; ATTEND Hospitalist
PROC: 4A033R1 Measurement of Arterial Saturation, Peripheral, Percutaneous Approach (ICD-10-PCS; principal; 2023-03-21)
PROC: 5A09557 Assistance with Respiratory Ventilation, Greater than 96 Consecutive Hours, Continuous Positive Airway Pressure (ICD-10-PCS; 2023-03-21)
DX: J44.1 Chronic obstructive pulmonary disease with (acute) exacerbation (principal); J96.12 Chronic respiratory failure with hypercapnia; I48.91 Unspecified atrial fibrillation; Z66 Do not resuscitate; M19.90 Unspecified osteoarthritis, unspecified site; I10 Essential (primary) hypertension; F17.210 Nicotine dependence, cigarettes, uncomplicated; Z99.81 Dependence on supplemental oxygen; Z79.52 Long term (current) use of systemic steroids; Z79.51 Long term (current) use of inhaled steroids; Z79.82 Long term (current) use of aspirin; Z79.899 Other long term (current) drug therapy; Z90.49 Acquired absence of other specified parts of digestive tract; K59.00 Constipation, unspecified
CPT/HCPCS: 36415; 36600; 71045; 80048; 80053; 81001; 82805; 83605; 83880; 84145; 84484; 85025; 87040; 87077; 87149; 87186; 93005; 93010; 94640; 94644; 94660; 94664; 96365; 96367; 96374; 96375; J0456; J0696; J1650; J2060; J2920; J2930; J3475; J7512; J7611; J7620; S0028; U0002

== ENCOUNTER 2023-04-23 15:30 | Inpatient (IN) | payer MEDICARE, OTHER ==
[2023-04-23 16:39] LABS: Hemoglobin 10.4 g/dL (14.0-18.0); Mean Corpuscular HGB CONC 32.1 g/dL (32.0-36.0); Mean Corpuscular Volume 93.4 fl (78.0-98.0); Mean Platelet Volume 11.3 fL (7.4-10.4); Platelet Count 169 10x3/uL (130-400); RBC Distribution Width 16.9 % (11.5-14.5); Red Blood Cell (RBC) Count 3.47 mill/uL (4.70-6.10)
[2023-04-23 16:43] LABS: Delete Auto Diff?? YES; Manual Diff?? YES; White Blood Cell (WBC) Count 50.7 10x3/uL (4.8-10.8)
[2023-04-23 16:54] LABS: ALT (SGPT) 50 U/L (8-55); AST (SGOT) 13 U/L (5-34); Albumin 3.5 g/dL (3.4-4.8); Alkaline Phosphatase 73 U/L (40-110); BUN (Urea Nitrogen) 25 mg/dL (8.4-25.7); Bilirubin, Total 0.5 mg/dL (0.2-1.2); Calc. Creatinine Clearance 0 mL/min (70-130); Estimated GFR 96; Globulin 1.8 g/dL (2.4-3.5); Glucose 129 mg/dL (83-110); Protein, Total 5.3 g/dL (5.8-8.1)
[2023-04-23 16:59] LABS: Chloride 96 mmol/L (98-107); Potassium 4.9 mmol/L (3.5-5.1); Sodium 140 mmol/L (136-145)
[2023-04-23 17:03] LABS: Carbon Dioxide 36 mmol/L (23-31)
[2023-04-23 17:05] LABS: Anisocytosis SLIGHT = 6-15 cells HPF (0-5); Burr Cells MODERATE= 6-15 cells HPF (0-1); CellaVision Operator ID LAB.KB; Lymphocytes 1 % (21-51); Monocytes 6 % (0-10); Neutrophil 93 % (42-75); Nucleated RBC (Manual Ct) 1 % (0); Ovalocytes SLIGHT = 2-5 cells HPF (0-1); Platelet Adequacy Comment Platelets Normal; Polychromasia SLIGHT = 2-3 cells HPF (0-2); Reflex for Review?? YES; Total Cell Count 101
[2023-04-23 17:21] LABS: Bacteria/HPF None Seen HPF (None Seen); Bilirubin Negative (Negative); Blood, Urine Trace (Negative); CAUTI Indications for Culture Pelvic or flank pain; Clarity Clear (Clear); Glucose, Urine (Dipstick) Normal (Negative); Ketone, Urine Negative (Negative); Leukocyte 25 Leu/uL (Negative); Nitrite Negative (Negative); Protein, Urine (Dipstick) 20 mg/dL (Neg-Trace); RBC/HPF 0-3 HPF (0-3); Specific Gravity, Urine 1.028 (1.002-1.036); Squamous Epithelial 0-3 HPF (0-3); Urine Culture Reflex No No; Urobilinogen Normal mg/dL (Less than 2); WBC/HPF 0-3 HPF (0-3); pH, Urine 5.5 (5.0-9.0)
[2023-04-23] MEDS ORDERED: Ipratropium/Albuterol 3 ML NEB ONE (17:26)
[2023-04-23] MEDS ORDERED: Morphine 2 MG/ML VIAL ONE (17:26)
[2023-04-23] MEDS ORDERED: Cefepime 2 GM VIAL ONE (17:26)
[2023-04-23] MEDS ORDERED: Vancomycin 1 GM/200 ML (FROZEN) BAG ONE (18:33)
[2023-04-23 19:09] LABS: CKMB 1.6 ng/mL (0-6.6)
[2023-04-23 19:18] LABS: Lactic Acid 2.1 mmol/L (0.5-2.2)
[2023-04-23 22:38] VITALS: BMI 22.8
[2023-04-23] MEDS ORDERED: Ondansetron PF 4 MG/2 ML Vial IVP PRN (23:37)
[2023-04-23] MEDS ORDERED: Ondansetron ODT 4 MG TAB PO PRN (23:37)
[2023-04-23] MEDS ORDERED: Acetaminophen 650 MG Suppository PR PRN (23:37)
[2023-04-23] MEDS: Ipratropium/Albuterol 3 ML NEB NEB SCH (23:56)
[2023-04-24] MEDS: Morphine 4 MG/ML VIAL SLOW IVP PRN ×3 (00:17→19:07)
[2023-04-24] MEDS: Ipratropium/Albuterol 3 ML NEB NEB PRN (05:06)
[2023-04-24 06:31] LABS: Hemoglobin 9.2 g/dL (14.0-18.0); Mean Corpuscular HGB CONC 32.3 g/dL (32.0-36.0); Mean Corpuscular Hemoglobin 30.4 pg (27.0-31.0); Mean Corpuscular Volume 94.1 fl (78.0-98.0); Mean Platelet Volume 11.2 fL (7.4-10.4); Platelet Count 130 10x3/uL (130-400); RBC Distribution Width 16.8 % (11.5-14.5); Red Blood Cell (RBC) Count 3.03 mill/uL (4.70-6.10); White Blood Cell (WBC) Count 47.7 10x3/uL (4.8-10.8)
[2023-04-24 06:40] LABS: Anion Gap 9 mmol/L (10-20); BUN (Urea Nitrogen) 22 mg/dL (8.4-25.7); Calc. Creatinine Clearance 112 mL/min (70-130); Calcium 9.3 mg/dL (7.8-10.44); Carbon Dioxide 36 mmol/L (23-31); Chloride 98 mmol/L (98-107); Estimated GFR 102; Glucose 85 mg/dL (83-110); Potassium 4.5 mmol/L (3.5-5.1); Sodium 138 mmol/L (136-145)
[2023-04-24 06:41] LABS: Delete Auto Diff?? YES; Manual Diff?? YES
[2023-04-24] MEDS: Ipratropium/Albuterol 3 ML NEB NEB SCH ×5 (07:53→21:50)
[2023-04-24 12:30] LABS: Band 3 % (5-11); Burr Cells SLIGHT = 2-5 cells HPF (0-1); CellaVision Operator ID LAB.GE; Lymphocytes 1 % (21-51); Monocytes 10 % (0-10); Myelocyte 3 % (0-0); Neutrophil 83 % (42-75); Platelet Adequacy Comment Platelets Normal; Total Cell Count 100
[2023-04-24] MEDS: predniSONE 20 MG TAB PO SCH (12:52)
[2023-04-24] MEDS ORDERED: Ampicillin/Sulbactam 3 GM in Sodium Chloride 0.9% 100 ML IVPB SCH (14:00)
[2023-04-24] MEDS: Ampicillin/Sulbactam 3 GM in Sodium Chloride 0.9% 100 ML IVPB SCH (19:36)
[2023-04-24] MEDS ORDERED: hydrOXYzine 25 MG TAB PO SCH (19:45)
[2023-04-25] MEDS: Ampicillin/Sulbactam 3 GM in Sodium Chloride 0.9% 100 ML IVPB SCH ×4 (01:06→19:37)
[2023-04-25] MEDS: Ipratropium/Albuterol 3 ML NEB NEB SCH ×6 (01:52→23:13)
[2023-04-25 07:52] LABS: Hemoglobin 8.8 g/dL (14.0-18.0); Mean Corpuscular HGB CONC 31.5 g/dL (32.0-36.0); Mean Corpuscular Hemoglobin 30.1 pg (27.0-31.0); Mean Corpuscular Volume 95.5 fl (78.0-98.0); Mean Platelet Volume 10.9 fL (7.4-10.4); Platelet Count 103 10x3/uL (130-400); RBC Distribution Width 16.9 % (11.5-14.5); Red Blood Cell (RBC) Count 2.92 mill/uL (4.70-6.10); White Blood Cell (WBC) Count 27.6 10x3/uL (4.8-10.8)
[2023-04-25 08:09] LABS: Anion Gap 11 mmol/L (10-20); BUN (Urea Nitrogen) 18 mg/dL (8.4-25.7); Calc. Creatinine Clearance 119 mL/min (70-130); Calcium 8.9 mg/dL (7.8-10.44); Carbon Dioxide 34 mmol/L (23-31); Chloride 96 mmol/L (98-107); Estimated GFR 104; Glucose 83 mg/dL (83-110); Potassium 4.1 mmol/L (3.5-5.1); Sodium 137 mmol/L (136-145)
[2023-04-25 09:05] LABS: Delete Auto Diff?? YES; Manual Diff?? YES
[2023-04-25] MEDS: Aspirin 81 mg Enteric Coated Tablet PO SCH (09:57)
[2023-04-25] MEDS: Acetaminophen 325 MG TAB PO PRN ×2 (10:02→19:42)
[2023-04-25 11:04] LABS: Band 2 % (5-11); Lymphocytes 2 % (21-51); Monocytes 6 % (0-10); Neutrophil 90 % (42-75)
[2023-04-25 11:05] LABS: Target Cells SLIGHT = 2-5 cells (100X) (0-1/hpf)
[2023-04-25 11:06] LABS: Burr Cells SLIGHT = 2-5 cells (100X) (0-1/hpf); Platelet Adequacy Comment Significant decrease
[2023-04-25] MEDS: predniSONE 20 MG TAB PO SCH (13:11)
[2023-04-25] MEDS: Lorazepam 0.5 MG TAB PO PRN (16:40)
[2023-04-25] MEDS ORDERED: Ipratropium/Albuterol 3 ML NEB ONE (23:03)
[2023-04-26] MEDS: Ampicillin/Sulbactam 3 GM in Sodium Chloride 0.9% 100 ML IVPB SCH ×4 (01:02→20:47)
[2023-04-26] MEDS: Ipratropium/Albuterol 3 ML NEB NEB SCH ×6 (03:27→21:57)
[2023-04-26 06:11] LABS: #Monocytes 1.9 thou/uL (0.11-0.59); #Neutrophils 16.1 thou/uL (1.40-6.50); %Basophils 0.2 % (0.0-1.0); %Eosinophils 0.2 % (0.0-10.0); %Lymphocytes 3.9 % (21.0-51.0); %Monocytes 9.7 % (0.0-10.0); %Neutrophils 82.7 % (42.0-75.0); Hemoglobin 8.7 g/dL (14.0-18.0); Mean Corpuscular HGB CONC 31.6 g/dL (32.0-36.0); Mean Corpuscular Hemoglobin 29.9 pg (27.0-31.0); Mean Corpuscular Volume 94.5 fl (78.0-98.0); Mean Platelet Volume 10.6 fL (7.4-10.4); RBC Distribution Width 16.5 % (11.5-14.5); Red Blood Cell (RBC) Count 2.91 mill/uL (4.70-6.10); White Blood Cell (WBC) Count 19.4 10x3/uL (4.8-10.8)
[2023-04-26 06:17] LABS: Platelet Count 90 10x3/uL (130-400)
[2023-04-26 06:31] LABS: BUN (Urea Nitrogen) 14 mg/dL (8.4-25.7); Calc. Creatinine Clearance 132 mL/min (70-130); Calcium 8.9 mg/dL (7.8-10.44); Estimated GFR 107; Glucose 76 mg/dL (83-110)
[2023-04-26 06:45] LABS: Chloride 96 mmol/L (98-107); Potassium 4.1 mmol/L (3.5-5.1); Sodium 139 mmol/L (136-145)
[2023-04-26 07:57] LABS: Carbon Dioxide 37 mmol/L (23-31)
[2023-04-26 08:04] LABS: Anion Gap 10 mmol/L (10-20)
[2023-04-26] MEDS: Aspirin 81 mg Enteric Coated Tablet PO SCH (08:59)
[2023-04-26] MEDS: Acetaminophen 325 MG TAB PO PRN ×3 (09:02→20:46)
[2023-04-26] MEDS ORDERED: predniSONE 20 MG TAB PO SCH (12:00)
[2023-04-26 12:50] LABS: Free T4 (Free Thyroxine) 1.04 ng/dL (0.70-1.48); Thyroid Stimulating Hormone 0.5973 uIU/mL (0.35-4.94)
[2023-04-26] MEDS: predniSONE 20 MG TAB PO SCH (14:08)
[2023-04-26] MEDS: Aluminum & Magnesium Hydroxide 60 ML, diphenhydrAMINE 150 MG, Lidocaine 2% Viscous Solu... SSW SCH ×3 (14:15→20:45)
[2023-04-26] MEDS: Nystatin 500,000 UNITS/5 ML UDCUP SSP SCH (20:43)
[2023-04-26] MEDS: Lorazepam 0.5 MG TAB PO PRN (20:46)
[2023-04-26] MEDS ORDERED: Senokot S 8.6-50 MG TAB PO PRN (21:09)
[2023-04-26] MEDS ORDERED: Bisacodyl 5 MG TAB PO PRN (21:09)
[2023-04-27] MEDS: Ampicillin/Sulbactam 3 GM in Sodium Chloride 0.9% 100 ML IVPB SCH ×4 (02:37→20:45)
[2023-04-27] MEDS: Morphine 4 MG/ML VIAL SLOW IVP PRN (02:38)
[2023-04-27] MEDS: Ipratropium/Albuterol 3 ML NEB NEB SCH ×6 (03:59→22:11)
[2023-04-27] MEDS: Ipratropium/Albuterol 3 ML NEB NEB PRN (05:13)
[2023-04-27 06:57] LABS: #Basophils 0.1 thou/uL (0.0-0.2); #Monocytes 1.2 thou/uL (0.11-0.59); #Neutrophils 15.5 thou/uL (1.40-6.50); %Basophils 0.3 % (0.0-1.0); %Eosinophils 0.1 % (0.0-10.0); %Lymphocytes 4.1 % (21.0-51.0); %Monocytes 6.6 % (0.0-10.0); %Neutrophils 86.2 % (42.0-75.0); Mean Corpuscular HGB CONC 31.7 g/dL (32.0-36.0); Mean Corpuscular Hemoglobin 29.8 pg (27.0-31.0); Mean Platelet Volume 10.9 fL (7.4-10.4); RBC Distribution Width 16.4 % (11.5-14.5); Red Blood Cell (RBC) Count 3.02 mill/uL (4.70-6.10)
[2023-04-27 07:01] LABS: Platelet Count 95 10x3/uL (130-400)
[2023-04-27 07:19] LABS: BUN (Urea Nitrogen) 11 mg/dL (8.4-25.7); Calc. Creatinine Clearance 117 mL/min (70-130); Calcium 8.8 mg/dL (7.8-10.44); Estimated GFR 103; Glucose 96 mg/dL (83-110)
[2023-04-27 07:28] LABS: Anion Gap 10 mmol/L (10-20); Carbon Dioxide 38 mmol/L (23-31); Chloride 94 mmol/L (98-107); Potassium 3.8 mmol/L (3.5-5.1); Sodium 138 mmol/L (136-145)
[2023-04-27] MEDS: Aluminum & Magnesium Hydroxide 60 ML, diphenhydrAMINE 150 MG, Lidocaine 2% Viscous Solu... SSW SCH ×5 (08:27→20:45)
[2023-04-27] MEDS: Nystatin 500,000 UNITS/5 ML UDCUP SSP SCH ×2 (08:27→20:53)
[2023-04-27] MEDS: Aspirin 81 mg Enteric Coated Tablet PO SCH (08:28)
[2023-04-27] MEDS: predniSONE 20 MG TAB PO SCH (11:59)
[2023-04-27] MEDS: Fluconazole 100 MG TAB PO SCH (11:59)
[2023-04-27] MEDS: Lorazepam 0.5 MG TAB PO PRN (20:46)
[2023-04-27] MEDS: Acetaminophen 325 MG TAB PO PRN (20:46)
[2023-04-28] MEDS: Ipratropium/Albuterol 3 ML NEB NEB SCH ×6 (02:06→22:09)
[2023-04-28] MEDS: Ampicillin/Sulbactam 3 GM in Sodium Chloride 0.9% 100 ML IVPB SCH ×4 (02:10→20:52)
[2023-04-28] MEDS: Aspirin 81 mg Enteric Coated Tablet PO SCH (08:29)
[2023-04-28] MEDS: Nystatin 500,000 UNITS/5 ML UDCUP SSP SCH ×2 (08:30→20:53)
[2023-04-28] MEDS: Aluminum & Magnesium Hydroxide 60 ML, diphenhydrAMINE 150 MG, Lidocaine 2% Viscous Solu... SSW SCH ×4 (08:30→20:53)
[2023-04-28] MEDS ORDERED: Non-Formulary Item 1 EACH (Tiotropium [Spiriva Handihaler] 18 MCG Box) INH SCH (09:00)
[2023-04-28] MEDS: Fluconazole 100 MG TAB PO SCH (13:07)
[2023-04-28] MEDS: predniSONE 20 MG TAB PO SCH (13:07)
[2023-04-28] MEDS: Acetaminophen 325 MG TAB PO PRN (21:03)
[2023-04-28] MEDS: Lorazepam 0.5 MG TAB PO PRN (21:04)
[2023-04-29] MEDS: Ipratropium/Albuterol 3 ML NEB NEB SCH ×6 (02:07→22:06)
[2023-04-29] MEDS: Ampicillin/Sulbactam 3 GM in Sodium Chloride 0.9% 100 ML IVPB SCH ×4 (02:28→20:23)
[2023-04-29 07:10] LABS: #Basophils 0.1 thou/uL (0.0-0.2); #Monocytes 1.7 thou/uL (0.11-0.59); #Neutrophils 10.8 thou/uL (1.40-6.50); %Basophils 0.4 % (0.0-1.0); %Eosinophils 0.1 % (0.0-10.0); %Lymphocytes 6.9 % (21.0-51.0); %Monocytes 12.1 % (0.0-10.0); %Neutrophils 77.3 % (42.0-75.0); Hemoglobin 9.1 g/dL (14.0-18.0); Mean Corpuscular HGB CONC 31.6 g/dL (32.0-36.0); Mean Corpuscular Hemoglobin 30.3 pg (27.0-31.0); Mean Platelet Volume 10.5 fL (7.4-10.4); Platelet Count 149 10x3/uL (130-400); RBC Distribution Width 16.1 % (11.5-14.5)
[2023-04-29] MEDS: Aspirin 81 mg Enteric Coated Tablet PO SCH (08:14)
[2023-04-29] MEDS: Nystatin 500,000 UNITS/5 ML UDCUP SSP SCH ×2 (08:16→20:22)
[2023-04-29] MEDS: Aluminum & Magnesium Hydroxide 60 ML, diphenhydrAMINE 150 MG, Lidocaine 2% Viscous Solu... SSW SCH ×4 (08:19→21:15)
[2023-04-29] MEDS: Fluconazole 100 MG TAB PO SCH (12:09)
[2023-04-29] MEDS: predniSONE 20 MG TAB PO SCH (12:11)
[2023-04-29] MEDS: Acetaminophen 325 MG TAB PO PRN (12:11)
[2023-04-30] MEDS: Ampicillin/Sulbactam 3 GM in Sodium Chloride 0.9% 100 ML IVPB SCH ×4 (02:01→19:52)
[2023-04-30] MEDS: Ipratropium/Albuterol 3 ML NEB NEB SCH ×6 (02:04→23:19)
[2023-04-30] MEDS: Aspirin 81 mg Enteric Coated Tablet PO SCH (08:21)
[2023-04-30] MEDS: Aluminum & Magnesium Hydroxide 60 ML, diphenhydrAMINE 150 MG, Lidocaine 2% Viscous Solu... SSW SCH ×4 (08:22→19:54)
[2023-04-30] MEDS: Nystatin 500,000 UNITS/5 ML UDCUP SSP SCH ×2 (08:22→19:53)
[2023-04-30 09:42] LABS: #Basophils 0.1 thou/uL (0.0-0.2); #Monocytes 1.8 thou/uL (0.11-0.59); #Neutrophils 8.6 thou/uL (1.40-6.50); %Basophils 0.4 % (0.0-1.0); %Eosinophils 0.3 % (0.0-10.0); %Lymphocytes 9.3 % (21.0-51.0); %Monocytes 14.6 % (0.0-10.0); %Neutrophils 70.5 % (42.0-75.0); Hemoglobin 8.8 g/dL (14.0-18.0); Mean Corpuscular HGB CONC 31.9 g/dL (32.0-36.0); Mean Corpuscular Volume 94.2 fl (78.0-98.0); Mean Platelet Volume 10.1 fL (7.4-10.4); Platelet Count 187 10x3/uL (130-400); RBC Distribution Width 16.5 % (11.5-14.5); Red Blood Cell (RBC) Count 2.93 mill/uL (4.70-6.10); White Blood Cell (WBC) Count 12.2 10x3/uL (4.8-10.8)
[2023-04-30] MEDS: Fluconazole 100 MG TAB PO SCH (12:35)
[2023-04-30] MEDS: Aluminum & Magnesium Hydroxide 60 ML, diphenhydrAMINE 150 MG, Lidocaine 2% Viscous Solu... SSW PRN ×3 (12:37→23:38)
[2023-04-30] MEDS: predniSONE 20 MG TAB PO SCH (12:43)
[2023-04-30 14:23] LABS: ANA Symphony (Qualitative) Negative (Negative); ANA Symphony (Quantitative) 0.2 Ratio (< 0.7 Negative); dsDNA IgG Antibody 0.6 IU/mL (<10 Negative)
[2023-05-01] MEDS: Ampicillin/Sulbactam 3 GM in Sodium Chloride 0.9% 100 ML IVPB SCH ×4 (01:55→20:55)
[2023-05-01] MEDS: Ipratropium/Albuterol 3 ML NEB NEB SCH ×6 (02:05→23:56)
[2023-05-01] MEDS: Aluminum & Magnesium Hydroxide 60 ML, diphenhydrAMINE 150 MG, Lidocaine 2% Viscous Solu... SSW PRN ×2 (05:40→14:22)
[2023-05-01] MEDS: Nystatin 500,000 UNITS/5 ML UDCUP SSP SCH ×2 (09:06→20:55)
[2023-05-01] MEDS: Aluminum & Magnesium Hydroxide 60 ML, diphenhydrAMINE 150 MG, Lidocaine 2% Viscous Solu... SSW SCH ×4 (09:09→20:55)
[2023-05-01] MEDS: Aspirin 81 mg Enteric Coated Tablet PO SCH (09:09)
[2023-05-01] MEDS: Fluconazole 100 MG TAB PO SCH (12:22)
[2023-05-01] MEDS: predniSONE 20 MG TAB PO SCH (14:21)
[2023-05-02] MEDS: Aluminum & Magnesium Hydroxide 60 ML, diphenhydrAMINE 150 MG, Lidocaine 2% Viscous Solu... SSW PRN ×3 (00:39→11:21)
[2023-05-02] MEDS: Ipratropium/Albuterol 3 ML NEB NEB SCH ×4 (03:56→14:22)
[2023-05-02] MEDS: Aspirin 81 mg Enteric Coated Tablet PO SCH (08:52)
[2023-05-02] MEDS: Aluminum & Magnesium Hydroxide 60 ML, diphenhydrAMINE 150 MG, Lidocaine 2% Viscous Solu... SSW SCH ×2 (08:52→14:03)
[2023-05-02] MEDS: Nystatin 500,000 UNITS/5 ML UDCUP SSP SCH (08:54)
[2023-05-02] MEDS: Fluconazole 100 MG TAB PO SCH (11:51)
[2023-05-02] MEDS: predniSONE 20 MG TAB PO SCH (14:03)
[2023-05-02 15:02] VITALS: BP 124/71; TEMP 97.8
== END 2023-05-02 16:36 | DRG 189 ==
LOC: ERS 15:30 → T4-B 18:21
PROVIDERS: ADMIT Student in an Organized Health Care Education/Training Program; ATTEND Family Medicine
DX: J96.21 Acute and chronic respiratory failure with hypoxia (principal); J44.1 Chronic obstructive pulmonary disease with (acute) exacerbation; B37.0 Candidal stomatitis; L03.114 Cellulitis of left upper limb; E87.3 Alkalosis; Z66 Do not resuscitate; Z51.5 Encounter for palliative care; D72.823 Leukemoid reaction; Z20.822 Contact with and (suspected) exposure to COVID-19; J96.22 Acute and chronic respiratory failure with hypercapnia; D72.828 Other elevated white blood cell count; I10 Essential (primary) hypertension; F32.A Depression, unspecified; D64.9 Anemia, unspecified; R53.81 Other malaise; T38.0X5A Adverse effect of glucocorticoids and synthetic analogues, initial encounter; I48.91 Unspecified atrial fibrillation; R91.8 Other nonspecific abnormal finding of lung field; F41.9 Anxiety disorder, unspecified; Z79.899 Other long term (current) drug therapy; Z79.51 Long term (current) use of inhaled steroids; Z99.81 Dependence on supplemental oxygen; Z98.890 Other specified postprocedural states; Z87.891 Personal history of nicotine dependence; Z90.49 Acquired absence of other specified parts of digestive tract; Z90.89 Acquired absence of other organs; Z79.82 Long term (current) use of aspirin
CPT/HCPCS: 36415; 71045; 80048; 80053; 81001; 82553; 83605; 83690; 84439; 84443; 84481; 84484; 85025; 85027; 85060; 85652; 86038; 86225; 87040; 87635; 88184; 88185; 88189; 94640; 96365; 96367; 96375; J0295; J0692; J1650; J2270; J2272; J3370-JW; J3490; J7512; J7620; Q0163